=== PATIENT | female | born 1950 | race Caucasian/White ===

== ENCOUNTER 2017-05-26 08:13 | Day surgery (SDC) | payer OTHER ==
[~2017-05-26] VITALS: Ht 152.4 cm; Wt 72.2 kg
[2017-05-26] VITALS (15 sets, daily range): BP systolic 103–156; BP diastolic 50–84; PULSE 64–77; TEMP 36.3–36.8; O2SAT 91–100; Ht 152.4 cm; Wt 72.2 kg
[2017-05-26] MEDS ORDERED: LIDOCAINE HCL 2% LOCAL 50ML VIAL INFIL ONE (08:14)
[2017-05-26] MEDS ORDERED: FENTANYL CITRATE 100 MCG 2 ML CARP IV ONE (08:14)
[2017-05-26] MEDS ORDERED: LEVALBUTEROL 1.25MG/3ML NEB INH ONE (08:14)
[2017-05-26] MEDS ORDERED: MIDAZOLAM HCL 5 MG/ML 1 ML VIAL IV ONE (08:14)
[2017-05-26] MEDS ORDERED: LATA0.009 OP (08:36)
[2017-05-26] MEDS ORDERED: LISI-729 PO (08:36)
[2017-05-26] MEDS ORDERED: HMLI7525 SC (08:36)
[2017-05-26] MEDS ORDERED: LEVO150T9 PO (08:36)
[2017-05-26] MEDS ORDERED: MIRT15TA2 PO (08:36)
[2017-05-26] MEDS ORDERED: CARV12.5 PO (08:36)
[2017-05-26] MEDS ORDERED: INSDGI SC (08:36)
[2017-05-26] MEDS ORDERED: TOPI25TA99 PO (08:36)
[2017-05-26] MEDS ORDERED: ATOR10TA82 PO (08:36)
[2017-05-26] MEDS ORDERED: CLOP1TAB15 PO (08:36)
[2017-05-26] MEDS ORDERED: ASPI81TA28 PO (08:36)
--- NOTE | 2017-05-26 09:36 | Procedure Note ---
Pre-Mod Sedation Assessment General Date of Moderate Sedation: May 26, 2017. Vital Signs: Vital Signs Past 12 Hours Date Time Temp Pulse Resp B/P (MAP) Pulse Ox O2 Delivery O2 Flow Rate FiO2 05/26/17 08:38 36.5 68 18 136/63 (87) 93 Room Air Pre-Sedation Airway Assessment Oral Cavity: WNL Hx of Sleep Apnea: Yes Smoking Status: Former Smoker Mallampati Classification: Class II ASA Classification: Class II Procedure Planning Contraindications-for Mod Sed: None Yes Notes The planned sedation has been discussed with the patient and consent obtained. I have identified the patient, determined the appropriateness of sedation and have assessed the patient immediately prior to the procedure. All medicine(s) and interventions are by my order.
--- NOTE | 2017-05-26 09:36 | History & Physical Bridge Note ---
H&P Re-Evaluation Bridge Note: I have examined the patient, reviewed the History & Physical and in the interval since the performance of the History & Physical I have noted the following changes of clinical significance: No changes noted
[2017-05-26] MEDS ORDERED: NURSING VERBAL MED ORDER ONE (10:30)
[2017-05-26] MEDS ORDERED: MIDAZOLAM HCL 5 MG/ML 1 ML VIAL IV SCH (10:45)
[2017-05-26] MEDS ORDERED: LEVALBUTEROL 1.25MG/3ML NEB INH SCH (10:45)
[2017-05-26] MEDS ORDERED: FENTANYL CITRATE INJ 50 MCG/1 ML 2 ML VIAL IV SCH (10:45)
[2017-05-26] MEDS ORDERED: SODIUM CHLORIDE 0.9% 1000ML 1,000 ML IV SCH (10:45)
--- NOTE | 2017-05-26 11:23 | Discharge Instructions ---
Discharge Instructions Date of Service May 26, 2017. Admission Reason for Admission: Hemoptisis Discharge Discharge Diagnosis / Problem: Chronic Bronchitis Discharge Goals Goal(s): Diagnostic testing, Therapeutic intervention Activity Recommendations Activity Limitations: resume your previous activity Lifting Limitations: none Exercise/Sports Limitations: none May Resume Sexual Activity: when tolerated Shower/Bathe: no limitations Driving or Machine Use: no limitations None . Current Hospital Diet Patient's current hospital diet: Discharge Diet Recommended Diet: Regular Diet Fluid Restriction: None Pending Studies Studies pending at discharge: no Medical Emergencies . Who to Call and When: Medical Emergencies: If at any time you feel your situation is an emergency, please call 911 immediately. . Non-Emergent Contact Non-Emergency issues call your: Interface Engineer Call Non-Emergent contact if: temperature is above 101 ACTIVITY RECOMMENDATIONS: * Rest today, resume normal activity tomorrow. * Do not drive today. SPECIAL CARE INSTRUCTIONS: * Call your physician if you experience any chest or shoulder pain, fever, coughing, spitting up blood (more than 2 teaspoons) or excessive shortness of breath. * Remove dressing from IV site (where needle was placed into the vein) after 2 hours. Apply a warm, moist compress to site if irritation occurs. Call physician if site becomes red or painful to touch. FOLLOW UP VISIT: * Keep any scheduled doctor appointments. . . "Provider Documentation" section prepared by Rasheed Garvey. . VTE Core Measure Inpt VTE Proph given/why not?: Treatment not indicated
[2017-05-26 13:27] LABS: BASO % 0.2 %; BASO ABS # 0.02 K/uL (0-0.2); EOS % 3.3 %; HEMATOCRIT 41.9 % (37-47); IG% 0.1 %; LYMPH % 38.1 %; LYMPH ABS # 3.12 K/uL (1.2-3.4); MEAN CELL VOLUME 97.2 fL (80-100); MEAN CORPUSCULAR HEMOGLOBIN 33.2 pg (25-34); MEAN PLATELET VOLUME 10.8 fL (7.4-10.4); MONO % 7.1 %; NEUT % 51.2 %; PLATELET COUNT 138 K/uL (130-400); RED BLOOD COUNT 4.31 M/uL (4.2-5.4); WHITE BLOOD COUNT 8.19 K/uL (4.8-10.8)
[2017-05-26 13:36] LABS: PROTHROMBIN TIME (PATIENT) 10.4 SECONDS (9.0-12.0)
[2017-05-26 13:38] LABS: COMPLETE YES; MEAN CORPUSCULAR HGB CONC 34.1 g/dl (32-36)
[2017-05-26 13:56] LABS: ALB/GLOB RATIO 0.8 (0.9-2); BUN/CREATININE RATIO 20.9 (10-20); CALCIUM 8.8 mg/dl (8.5-10.1); CREATININE 1.18 mg/dl (0.60-1.20); POTASSIUM 3.9 mmol/L (3.5-5.1)
--- NOTE | 2017-05-26 16:30 | OPERATIVE REPORT ---
DATE OF OPERATION: 05/26/2017 PROCEDURE: Fiberoptic bronchoscopy with bronchoalveolar lavage. INDICATIONS: Hemoptysis. ANESTHESIA PREOPERATIVELY: None. ANESTHESIA DURING PROCEDURE: 15 mcg IV fentanyl, 4 mg IV Versed, 20 mL 2% Xylocaine spray above and below the cords, 4% viscous Xylocaine intranasally. DESCRIPTION OF PROCEDURE: The fiberoptic bronchoscope was inserted into the right naris with minimal difficulty and passed to the level of the true vocal cords. The cords appeared to approximate normally with phonation without evidence of lesions or paralysis. The area was anesthetized with 2% Xylocaine spray and the scope was then introduced in the trachea and right and left tracheobronchial tree. Immediately apparent were petechiae seen involving the mucosa of the trachea and right and left tracheobronchial tree. There was no evidence for active bleeding encountered. The serena was sharp. The right main stem bronchus was free of endobronchial lesions. A small amount of mucopurulent secretion was lavaged from all lobar segments until clear. Mucus pitting with bronchial crypts and clefts were seen throughout the right tracheobronchial tree. Right upper lobe, the apical posterior, anterior segments, bronchus intermedius, right middle lobe, medial lateral segments and all basilar segments right lower lobe were found to be free of endobronchial lesions. Once again no active bleeding was encountered. A moderate degree of global inflammatory mucosal change was seen with sporadic petechiae involving the mucosa left tracheobronchial tree was then explored and no endobronchial lesions seen. Left upper lobe, lingular subdivision and left lower lobe were free of endobronchial lesions down to subsegmental bronchi. Each lobar segment was copiously lavaged with normosol and the aspirate sent for appropriate studies. The procedure was terminated. The patient was given a nebulizer treatment with Xopenex 1.25 mg and transferred to the medical treatment unit hemodynamically stable with no signs of respiratory compromise. While being recovery, the patient demonstrated some mild petechiae involving the right forearm and wrist area. Routine labs including platelet count and coagulation profile were once again found to be within normal limits. The patient was hemodynamically stable with no signs of cardiopulmonary compromise and was just discharged to be followed up in the clinic within 1 week's time. We will await microbiological and cytologic examination of the bronchial washings. I attest to the content of the Intraoperative Record and any orders documented therein. Any exception s are noted below.
== END 2017-05-26 14:21 | disposition home or self-care (01) ==
LOC: C.ACU 08:13
PROVIDERS: ATTEND Internal Medicine Pulmonary Disease
DX: R04.2 Hemoptysis (principal); J44.9 Chronic obstructive pulmonary disease, unspecified; Z87.891 Personal history of nicotine dependence; Z79.82 Long term (current) use of aspirin; Z79.899 Other long term (current) drug therapy

== ENCOUNTER 2017-07-26 08:36 | Emergency (ER) | payer OTHER ==
[~2017-07-26] VITALS: Ht 152.4 cm; Wt 71.5 kg
[~2017-07-26 08:36] MED LIST: ASPI81TA28 PO; ATOR10TA82 PO; CARV12.5 PO; CLOP1TAB15 PO; HMLI7525 SC; INSDGI SC; LATA0.009 OPB; LEVO150T9 PO; LISI-729 PO; MIRT15TA2 PO; TOPI25TA99 PO
[2017-07-26 08:39] VITALS: TEMP 36.4; Ht 152.4 cm; Wt 71.5 kg
[2017-07-26] MEDS ORDERED: KETOROLAC TROMETHAMINE 60 MG/2 ML VIAL IM STA (08:57)
--- NOTE | 2017-07-26 09:08 | EMERGENCY ROOM VISIT NOTE ---
History First contact with patient: 08:44 Chief Complaint: COUGH Stated Complaint: COUGHING UP BLOOD BACK PAIN Nursing Triage Summary: pt reports coughing up blood for approx 1 month. more often now has pain in right side when coughs or sneezes. also reports having difficulty with blood sugar levels History of Present Illness The patient is a 66 year old female who presents to the Emergency Room with complaints of right-sided chest wall pain. The patient states she has a chronic cough, and for the past month has been coughing up blood. She does have a history of a pulmonary nodule, and is seeing Dr. Hidalgo for the hemoptysis. She did have a bronchoscopy performed and continues to follow up with him. The patient is here today for right-sided chest wall and back pain associated with her cough and sneezing. The patient states she has a constant, achy pain in the right side of her chest wall, which becomes sharp when she coughs or sneezes. The patient has taken no medication for the discomfort. She states the pain has been ongoing for the past 1 month. It was initially more intermittent, however now seems to be more constant. She does have pain with palpation. Her cough and breathing are baseline for her. The patient states she was recently ill with some nausea and vomiting. She denies any recent respiratory or upper respiratory infection symptoms. Has been no bruising or injury to the right chest wall. The patient denies any chest pressure or squeezing. She denies any paresthesias. There has been no weakness. The patient rates the pain 8/10. Review of Systems A complete 10 point review of systems was reviewed with the patient with pertinent positives and negatives as per history of present illness. All else were negative. Past Medical/Surgical History Medical Problems: (1) Chronic bronchitis (2) Diabetes (3) Heart disease (4) Hemoptysis (5) Hypothyroidism (6) Pulmonary nodule Chronic bronchitis, pulmonary nodule, diabetes mellitus, heart disease, hypothyroidism Social History Smoking Status: Never Smoker Smokeless Tobacco Use: No Alcohol Use: none Drug Use: none Housing Status: lives with family Current/Historical Medications Scheduled Atorvastatin (Lipitor), 10 MG PO DAILY Carvedilol (Coreg), 25 MG PO BID Ferrous Sulfate (Kp Ferrous Sulfate), 1 TAB PO BID Insulin Glargine (Lantus), 50 UNITS SC DAILY Insulin Lispro 75/25 (Humalog Mix 75/25), 15 UNITS SC WM Latanoprost (Xalatan 0.005% Oph Kenia), 1 DROPS OP HS Levothyroxine Sodium (Levothyroxine Sodium), 1 TAB PO DAILY Naproxen (Naprosyn), 500 MG PO BID Timolol Maleate (Timolol 0.5% Oph Soln 15 Ml), 1 DROP OPB QAM Topiramate (Topamax ), 50 MG PO HS Trazodone Hcl (Trazodone), 50 MG PO HS Allergies None Physical Exam Vital Signs Date Time Temp Pulse Resp B/P (MAP) Pulse Ox O2 Delivery O2 Flow Rate FiO2 07/26/17 09:58 67 16 144/82 98 07/26/17 08:39 36.4 73 18 152/86 96 Room Air Physical Exam VITALS: Vitals are noted on the nurse's note and reviewed by myself. Vital signs stable. GENERAL: This is a 66-year-old white female, in no acute distress, nondiaphoretic, well-developed well-nourished. SKIN: The skin was without rashes, erythema, edema, or bruising. There is no tenting of the skin. Capillary reflex less than 2 seconds. HEAD: Normocephalic atraumatic. EARS: External auditory canals clear, tympanic membranes pearly vincent without erythema or effusion bilaterally. EYES: Pupils equal round and reactive to light and accommodation. Conjunctivae without injection, sclerae without icterus. Extraocular movements intact. NOSE: Patent, turbinates without inflammation or discharge. No sinus tenderness. MOUTH: Mucous membranes moist. Tonsils are not enlarged. Pharynx without erythema or exudate. Uvula midline. Airway patent. Tongue does not deviate. NECK: Supple without nuchal rigidity. No lymphadenopathy. No thyromegaly. Cervical spine is nontender. No JVD. HEART: Regular rate and rhythm without murmurs gallops or rubs. LUNGS: Clear to auscultation bilaterally without wheezes, rales or rhonchi. No dullness to percussion. No retractions or accessory muscle use. ABDOMEN: Positive bowel sounds x 4. Normal tympanic percussion. Soft, nontender, without masses or organomegaly. Hernandez sign negative. No guarding or rebound tenderness. MUSCULOSKELETAL: There is severe tenderness on palpation of the right chest wall and back. The patient states this is where she is experiencing the discomfort when she coughs. No muscle atrophy, erythema, or edema noted. Full range of motion without joint tenderness in all extremities. No other tenderness to palpation. Normal gait. Strength 5/5 throughout. NEURO: Patient was alert and oriented to person place and time. Normal sensation to light and sharp touch. Deep tendon reflexes 2+ throughout. No focal neurological deficits. Medical Decision & Procedures ER Provider Diagnostic Interpretation: R RIBS UNILATERAL WITH PA CHEST CLINICAL HISTORY: 66 years-old Female presenting with right chest wall pain. TECHNIQUE: Frontal and oblique views of the right ribs as well as PA view of the chest were obtained. COMPARISON: None. FINDINGS: Cardiomediastinal silhouette normal. Mildly low lung volumes with hypoventilatory changes. Prominence of the bilateral viola. No focal infiltrate. No large effusion or pneumothorax. Cholecystectomy clips noted. Degenerative changes of the spine. No displaced right rib fracture. IMPRESSION: 1. No displaced right rib fracture. 2. Prominence of the bilateral viola. This could be vascular in etiology, secondary to mildly low lung volumes, or represent lymphadenopathy. Electronically signed by: Sarabjit Heck M.D. 07/26/2017 9:33 AM Dictated Date/Time: 07/26/2017 9:31 AM Medications Administered Medications (Trade) Dose Ordered Sig/Corie Route Start Time Stop Time Status Last Admin Dose Admin Ketorolac Tromethamine (Toradol Inj) 60 mg NOW STAT IM 07/26/17 08:57 07/26/17 09:00 DC 07/26/17 09:36 60 MG Medical Decision The patient presented today complaining of right-sided chest wall pain. She states she does have a history of coughing up blood, and this is being addressed. The patient denies any new chest pressure, difficulty breathing, or other associated symptoms. She was given Toradol in the emergency department and did note improvement in her symptoms. Chest x-ray with right rib detail was performed and did not show any acute rib fractures. I suspect the patient is suffering from costochondritis due to her recent increasing coughing. The patient was encouraged to take anti-inflammatory medications to help with the symptoms. I did offer her narcotics, and the patient declines. She was encouraged to follow up with her PCP. The patient was in agreement with the assessment and plan. Discharge instructions reviewed, and the patient was discharged home in good condition. Differential diagnosis includes chest wall pain, costochondritis, ACS, pneumonia , acute or chronic bronchitis, upper respiratory infection, contusion, rib fracture, malignancy, and others Medication Reconcilliation Current Medication List: was personally reviewed by me Blood Pressure Screening Patient's blood pressure: Normal blood pressure Impression Primary Impression: Costochondritis, acute Departure Information Dispostion Home / Self-Care Condition GOOD Prescriptions Naproxen (Naprosyn) 500 Mg Tab 500 MG PO BID, #60 TAB Prov: Jolene Parker PA-C 07/26/17 Referrals Rasheed Garvey M.D. (PCP) Patient Instructions ED Chest Pain Costochondritis, My [facility] Additional Instructions You were seen in the emergency department today for chest wall pain on the right side. I do feel that this is consistent with costochondritis, an inflammatory condition associated with coughing. As discussed, the treatment for this diagnosis is anti-inflammatory medications. You have been prescribed Naproxen 500mg twice daily. Take this medication consistently for the next 7-14 days to help with inflammation and pain. Discontinue this medication if you get placed on steroids by your PCP. Do not take any other NSAIDs including Advil, Motrin, ibuprofen, Aleve, naprosyn while taking Naproxen. You may use Tylenol for breakthrough pain while taking Naproxen. Acetaminophen( Tylenol) may be used pain. Use 1000mg every six hours as needed. Avoid using more than 3000mg in a 24 hour period. Continue to follow-up with Dr. Garvey regarding the coughing up blood. Follow-up with your PCP in 1 week regarding the chest wall pain, especially if you are not experiencing improvement in symptoms. Return to the ED for worsening chest pain or pressure, difficulty breathing, worsening cough or coughing up blood, or other concerning symptoms.
[2017-07-26] MEDS ORDERED: CARV25TA2 PO (09:14)
[2017-07-26] MEDS ORDERED: FERR1TAB13 PO (09:14)
[2017-07-26] MEDS ORDERED: TMPOPS15 OPB (09:14)
[2017-07-26] MEDS ORDERED: TRAZ50TA35 PO (09:14)
--- NOTE | 2017-07-26 09:34 | DIAGNOSTIC IMAGING REPORT ---
R RIBS UNILATERAL WITH PA CHEST CLINICAL HISTORY: 66 years-old Female presenting with right chest wall pain. TECHNIQUE: Frontal and oblique views of the right ribs as well as PA view of the chest were obtained. COMPARISON: None. FINDINGS: Cardiomediastinal silhouette normal. Mildly low lung volumes with hypoventilatory changes. Prominence of the bilateral viola. No focal infiltrate. No large effusion or pneumothorax. Cholecystectomy clips noted. Degenerative changes of the spine. No displaced right rib fracture. IMPRESSION: 1. No displaced right rib fracture. 2. Prominence of the bilateral viola. This could be vascular in etiology, secondary to mildly low lung volumes, or represent lymphadenopathy. Electronically signed by: Sarabjit Heck M.D. 07/26/2017 9:33 AM Dictated Date/Time: 07/26/2017 9:31 AM
[2017-07-26] MEDS ORDERED: NAPR-22 PO (09:52)
[2017-07-26 09:58] VITALS: BP 144/82; PULSE 67; O2SAT 98
[2018-02-22] MEDS ORDERED: LATA0.5S OPB (08:05)
[2018-02-22] MEDS ORDERED: PANT40TA PO (08:05)
[2018-02-22] MEDS ORDERED: FERR1TAB13 PO (08:05)
[2018-02-22] MEDS ORDERED: INSDGI SC (08:05)
[2018-02-22] MEDS ORDERED: POTA-639 PO (08:05)
[2018-02-22] MEDS ORDERED: INSU100I SC (08:05)
[2018-02-22] MEDS ORDERED: TIMO4SOL2 OPB (08:05)
[2018-03-19] MEDS ORDERED: CYCL0.052 OP (10:56)
[2018-03-19] MEDS ORDERED: NTRGSL/4 UT (10:56)
[2018-03-19] MEDS ORDERED: POLY335019 PO (10:56)
== END 2017-07-26 09:58 | disposition home or self-care (01) ==
LOC: C.EDB 08:39 → C.EDA 09:58
DX: M94.0 Chondrocostal junction syndrome [Tietze] (principal); R04.2 Hemoptysis; R91.8 Other nonspecific abnormal finding of lung field; J42 Unspecified chronic bronchitis; E11.9 Type 2 diabetes mellitus without complications; E03.9 Hypothyroidism, unspecified; Z79.4 Long term (current) use of insulin

== ENCOUNTER → 2017-08-16 | Outpatient (CLI) | payer OTHER ==
[~2017-08-16] MED LIST changes: -ASPI81TA28 PO; -CARV12.5 PO; +CARV25TA2 PO; -CLOP1TAB15 PO; +FERR1TAB13 PO; +LATA0.009 OP; -LATA0.009 OPB; -LISI-729 PO; -MIRT15TA2 PO; +NAPR-1169 PO; +TMPOPS15 OPB; +TRAZ50TA35 PO
--- NOTE | 2017-08-16 13:36 | DIAGNOSTIC IMAGING REPORT ---
PET/CT CLINICAL HISTORY: Pulmonary nodule. TECHNIQUE: A PET/CT was performed from the skull base through the upper thighs following intravenous injection of 11.70 mCi of F 18 FDG IV. The injection was performed at 10:34 AM on August 16, 2017 and imaging began at 11:40 AM on August 16, 2017. Unenhanced CT was performed for attenuation correction purposes and anatomic localization. COMPARISON STUDY: Chest radiograph and right rib series July 26, 2017. FINDINGS: Head and neck: A nonenlarged right level 6 lymph node shown on image 33 measures 7 mm in size. This has mild FDG uptake with an SUV max of 3.5. No pathologically enlarged cervical lymph nodes are noted. Chest: There are multiple mildly enlarged moderately FDG avid mediastinal and bilateral hilar lymph nodes. Several lymph nodes are partially calcified. Index right paratracheal lymph node shown on image 51 measures 1.8 x 1.1 cm and has an SUV max of 6.5. A subcarinal lymph node measures 1.5 cm in short axis diameter and has an SUV max of 4.4. The hilar nodes are difficult to measure on this unenhanced exam. SUV max for the right hilar nodes is 5.9. SUV max for the left hilar nodes is 5.8. The heart is mildly enlarged. There is a 7 mm partially calcified subpleural right middle lobe nodule shown image 77 and a 6 mm partially calcified subpleural right lower lobe nodule shown image 78. These nodules do not have significant FDG uptake but are likely below size threshold for evaluation by PET imaging. Abdomen and Pelvis: No suspicious FDG uptake is identified within the abdomen or the pelvis. There is fissural widening of the liver with enlargement of the caudate lobe and lateral segment indicative of cirrhosis. The gallbladder is surgically absent. There is no abdominal or pelvic lymphadenopathy. Musculoskeletal: No suspicious skeletal uptake is identified. IMPRESSION: 1. Multiple mildly enlarged moderately FDG avid mediastinal and bilateral hilar lymph nodes with several partially calcified thoracic lymph nodes. The imaging findings are nonspecific but favor a granulomatous process such as sarcoidosis or silicosis. The appearance is not typical for an neoplastic process. However, a follow-up chest CT in 6 months to ensure stability is recommended. 2. A few small partially calcified subpleural nodules within the right lung which are likely benign but can be assessed on follow-up chest CT. 3. Cirrhosis. 4. Nonenlarged, mildly FDG avid right level 6 cervical lymph node, a nonspecific finding. Electronically signed by: Guerrero Wise M.D. 08/16/2017 1:35 PM Dictated Date/Time: 08/16/2017 1:00 PM
== END | disposition home or self-care (01) ==
LOC: C.PET 09:24
PROVIDERS: ATTEND Internal Medicine Pulmonary Disease
DX: R91.1 Solitary pulmonary nodule (principal); K74.60 Unspecified cirrhosis of liver

== ENCOUNTER 2017-09-13 08:22 | Emergency (ER) | payer OTHER ==
[~2017-09-13] VITALS: Ht 152.4 cm; Wt 69.6 kg
[~2017-09-13 08:22] MED LIST changes: -LATA0.009 OP; +LATA0.009 OPB
[2017-09-13 08:24] VITALS: TEMP 36.8; Ht 152.4 cm; Wt 69.6 kg
[2017-09-13] MEDS ORDERED: POTASSIUM CHLORIDE 20 MEQ/15 ML UDC PO STA (08:54)
[2017-09-13] MEDS ORDERED: SODIUM CHLORIDE 0.9% 500ML 500 ML IV STA (08:54)
--- NOTE | 2017-09-13 08:57 | EMERGENCY ROOM VISIT NOTE ---
History Report prepared by Mirtha: Shaheen Teresa Under the Supervision of: Dr. Usman Gallagher M.D. First contact with patient: 08:34 Chief Complaint: CARDIAC ASSESSMENT Stated Complaint: PAIN RIGHT SIDE,NUMBNESS RIGHT ARM AND HAND, Nursing Triage Summary: Pt reports she has been coughing up blood for months, sees Dr Garvey. For weeks her right arm and hand are numb constantly. Patient states "I have a pain in the right chest. It feels like I'm having a heart attack but it's on the right side of my chest. Pain has been there a few months." Underarm lymph nodes are swollen per PET scan a month ago. "I just feel really crappy and I want to know what's going on" Took BP meds last night. History of Present Illness The patient is a 66 year old female who presents to the Emergency Room with complaints of intermittent right sided chest pain that she states has been present for the past several months. She notes that she has been having numbness radiating down her right arm into her right hand for the past several months as well. The patient did have a myocardial infarction in the past, but states that her pain during this episode was on the left. She has been told that she has enlarged Lymph Nodes on the right. The patient continued to add that she has been coughing up blood for the past several months. She has a significant family history of cancer, and is concerned that she has developed the same. 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 A total of 10 systems reviewed and were otherwise negative. Past Medical & Surgical Medical Problems: (1) Chronic bronchitis (2) Diabetes (3) Heart disease (4) Hemoptysis (5) Hypothyroidism (6) Pulmonary nodule Family History Cancer Social History Smoking Status: Former Smoker Alcohol Use: none Drug Use: none Housing Status: lives with family Current/Historical Medications Scheduled Atorvastatin (Lipitor), 10 MG PO DAILY Carvedilol (Coreg), 25 MG PO BID Ferrous Sulfate (Kp Ferrous Sulfate), 1 TAB PO BID Furosemide (Lasix), 40 MG PO DAILY Insulin Glargine (Lantus), 50 UNITS SC DAILY Insulin Lispro 75/25 (Humalog Mix 75/25), 15 UNITS SC WM Latanoprost (Xalatan 0.005% Oph Kenia), 1 DROPS OPB AMPM Levothyroxine Sodium (Levothyroxine Sodium), 1 TAB PO DAILY Topiramate (Topamax ), 50 MG PO HS Trazodone Hcl (Trazodone), 50 MG PO HS Allergies Coded Allergies: No Known Allergies (Unverified , 09/13/17) Physical Exam Vital Signs Date Time Temp Pulse Resp B/P (MAP) Pulse Ox O2 Delivery O2 Flow Rate FiO2 09/13/17 13:00 89 18 133/74 96 09/13/17 11:43 88 18 133/74 96 Room Air 09/13/17 09:13 76 09/13/17 09:10 85 18 128/71 98 Room Air 09/13/17 09:09 97 Room Air 09/13/17 08:29 95 Room Air 09/13/17 08:24 36.8 92 16 165/110 98 Room Air Physical Exam GENERAL: Patient is a healthy-appearing well-nourished female HEAD: Normocephalic atraumatic EYES: Ocular movements intact pupils equal and react to light OROPHARYNX mucous membranes are moist no exudates present no erythema or edema present NECK: Supple no nuchal rigidity CHEST: Good equal expansion LUNGS: Clear and equal to auscultation CARDIAC: Normal S1 and S2 ABDOMEN: Soft. With point tenderness to the 10th rib area on the right. no guarding BACK: No CVA tenderness EXTREMITIES: No pain upon palpation normal muscle strength in all groups no clubbing cyanosis or edema NEURO: Patient is following commands and answering questions appropriately. Alert and oriented x3 Cranial Nerves 2-12 grossly intact Medical Decision & Procedures ER Provider Diagnostic Interpretation: Radiology results as stated below per my review and radiologist interpretation: RIGHT UPPER EXTREMITY VENOUS DOPPLER HISTORY: Pt c/o Rt arm pain COMPARISON STUDY: None. FINDINGS: The right internal jugular vein is patent. There is normal flow within the right subclavian vein. There is normal flow and compressibility within the right axillary, basilic, brachial, radial, ulnar, and visualized cephalic veins. IMPRESSION: No DVT within the right upper extremity. Electronically signed by: Michael Jones M.D. 09/13/2017 11:17 AM Dictated Date/Time: 09/13/2017 11:17 AM CHEST ONE VIEW PORTABLE HISTORY: Atypical CHEST PAIN COMPARISON: Head CT 08/16/2017. FINDINGS: Mild interstitial thickening is likely chronic. No focal lung consolidations to suggest pneumonia. The heart is normal in size. No pleural effusions. No pneumothorax. Mild bilateral hilar prominence likely corresponds to the patient's lymphadenopathy. No evidence for pulmonary edema. IMPRESSION: No significant change compared to the prior study. No acute process. Electronically signed by: Michael Jones M.D. 09/13/2017 9:07 AM Dictated Date/Time: 09/13/2017 9:05 AM (CHEST FOR PE) ANGIO WITH CT DOSE: 416.72 mGy.cm HISTORY: 66 years-old Female presents with acute right-sided chest pain TECHNIQUE: Multiple CTA images of the chest were obtained after the intravenous administration of 75 ml Optiray 320. Coronal and sagittal MIPS were obtained from the axial data set and were submitted for review. A dose lowering technique was utilized adhering to the principles of ALARA. COMPARISON: Chest radiograph 09/13/2017, PET CT 08/16/2017, CT chest 05/24/2017. FINDINGS: CTA: Heart is normal in size without pericardial effusion. Bovine aortic arch is noted with mild mixed plaquing. The imaged great vessels are patent. No aortic dissection or aneurysm. The pulmonary arterial tree is opacified to level of the proximal subsegmental branches and demonstrates no focal filling defects to suggest pulmonary thromboembolic disease. CT CHEST: No dominant thyroid nodule. Pathologically enlarged mediastinal and bilateral hilar adenopathy redemonstrated. Conglomerate subcarinal adenopathy is again seen measuring up to 2.3 x 1.2 cm which appears unchanged. Right hilar lymph nodes are seen measuring up to 1.4 x 1.2 cm. Multiple mediastinal and subcarinal lymph nodes demonstrate areas of central calcification. Unchanged 7 x 5 mm right level 6 lymph node is seen on image 195 series 4. No axillary adenopathy. There is no pleural effusion or pneumothorax identified. Mild bilateral bronchial wall thickening suggests bronchitis. 5 mm solid nodule right lower lobe on image 60 series 4 is unchanged. Pleural-based 7 mm nodule of the right middle lobe on image 48 series 4 is also unchanged with minimal central calcification. No new or enlarging pulmonary nodules identified. Mild dependent subsegmental bibasilar atelectasis. Additional patchy ground glass opacities of the bilateral lungs are seen which also suggests atelectasis with areas of mild chronic subpleural reticulation suggesting areas of scarring. No lobar airspace consolidation. No acute abnormality of the imaged upper abdomen. Cirrhotic morphology of the liver redemonstrated. Bones appear intact. Multilevel endplate spurring of the spine. IMPRESSION: 1. No acute aortic pathology or evidence of pulmonary thromboembolic disease. 2. Mild bilateral bronchial wall thickening suggests bronchitis. 3. Unchanged enlarged mediastinal and bilateral hilar adenopathy with multiple lymph node calcifications again suggesting sequela of granulomatous disease. 4. Stable solid pulmonary nodules of the right lung base measuring up to 7 mm as above. The above report was generated using voice recognition software. It may contain grammatical, syntax or spelling errors. Electronically signed by: Kashmir Noel M.D. 09/13/2017 9:47 AM Dictated Date/Time: 09/13/2017 9:35 AM Laboratory Results 09/13/17 08:40 Red Blood Count 4.71, Mean Corpuscular Volume 97.2, Mean Corpuscular Hemoglobin 33.3, Mean Corpuscular Hemoglobin Concent 34.3, Mean Platelet Volume 10.7, Neutrophils (%) (Auto) 46.5, Lymphocytes (%) (Auto) 44.6, Monocytes (%) (Auto) 6.3, Eosinophils (%) (Auto) 2.0, Basophils (%) (Auto) 0.4, Neutrophils # (Auto) 5.84, Lymphocytes # (Auto) 5.60, Monocytes # (Auto) 0.79, Eosinophils # (Auto) 0.25, Basophils # (Auto) 0.05 09/13/17 08:40 Test 09/13/17 08:40 09/13/17 08:52 White Blood Count 12.56 K/uL (4.8-10.8) Red Blood Count 4.71 M/uL (4.2-5.4) Hemoglobin 15.7 g/dL (12.0-16.0) Hematocrit 45.8 % (37-47) Mean Corpuscular Volume 97.2 fL (80-100) Mean Corpuscular Hemoglobin 33.3 pg (25-34) Mean Corpuscular Hemoglobin Concent 34.3 g/dl (32-36) Platelet Count 164 K/uL (130-400) Mean Platelet Volume 10.7 fL (7.4-10.4) Neutrophils (%) (Auto) 46.5 % Lymphocytes (%) (Auto) 44.6 % Monocytes (%) (Auto) 6.3 % Eosinophils (%) (Auto) 2.0 % Basophils (%) (Auto) 0.4 % Neutrophils # (Auto) 5.84 K/uL (1.4-6.5) Lymphocytes # (Auto) 5.60 K/uL (1.2-3.4) Monocytes # (Auto) 0.79 K/uL (0.11-0.59) Eosinophils # (Auto) 0.25 K/uL (0-0.5) Basophils # (Auto) 0.05 K/uL (0-0.2) RDW Standard Deviation 43.9 fL (36.4-46.3) RDW Coefficient of Variation 12.4 % (11.5-14.5) Immature Granulocyte % (Auto) 0.2 % Immature Granulocyte # (Auto) 0.03 K/uL (0.00-0.02) Stomatocytes 1+ Est Creatinine Clear Calc Drug Dose 35.3 ml/min Estimated GFR () 45.9 Estimated GFR (Non- 39.6 BUN/Creatinine Ratio 16.2 (10-20) Calcium Level 9.4 mg/dl (8.5-10.1) Total Bilirubin 0.4 mg/dl (0.2-1) Direct Bilirubin mg/dl (0-0.2) Aspartate Amino Transf (AST/SGOT) U/L (15-37) Alanine Aminotransferase (ALT/SGPT) 43 U/L (12-78) Alkaline Phosphatase 100 U/L (45-117) Total Creatine Kinase U/L (26-192) Creatine Kinase MB 2.0 ng/ml (0.5-3.6) Creatine Kinase MB Ratio (0-3.0) Troponin I < 0.015 ng/ml (0-0.045) Total Protein 7.7 gm/dl (6.4-8.2) Albumin 3.4 gm/dl (3.4-5.0) Lipase 571 U/L (73-393) Bedside Hemoglobin 16.0 g/dl (12.0-16.0) Bedside Hematocrit 47 % (37-47) Bedside Sodium 141 mEq/L (135-144) Bedside Potassium 3.6 mEq/L (3.3-5.0) Bedside Chloride 98 mEq/L (101-112) Bedside Total CO2 32 mEq/l (24-31) Anion Gap 16.0 mmol/L (16-25) Bedside Blood Urea Nitrogen 27 mg/dl (7-18) Bedside Creatinine 1.2 mg/dl (0.6-1.3) Bedside Glucose (other) 244 mg/dl (70-99) Bedside Ionized Calcium (Mckinley) 1.10 mmol/l (1.12-1.32) Labs reviewed by ED physician. Medications Administered Medications (Trade) Dose Ordered Sig/Corie Route Start Time Stop Time Status Last Admin Dose Admin Sodium Chloride 500 ml @ 999 mls/hr Q31M STAT IV 09/13/17 08:54 09/13/17 09:24 DC 09/13/17 09:06 999 MLS/HR Potassium Chloride (Aleisha Ciel Elix) 40 meq NOW STAT PO 09/13/17 08:54 09/13/17 08:55 DC 09/13/17 09:06 40 MEQ Albuterol (Ventolin Hfa Inhaler) 2 puffs NOW STAT INH 09/13/17 12:26 09/13/17 12:27 DC 09/13/17 12:44 2 PUFFS ECG Indication: chest pain Rate (beats per minute): 78 Rhythm: normal sinus Findings: T-wave inversion (Lateral), other (no ST elevation or depression) Change: Patient's electrocardiogram per my interpretation. ED Course 0836: Past medical records reviewed. The patient was evaluated in room B8. A complete history and physical examination was performed. 0854: Ordered Potassium Chloride 40 meq PO, Sodium Chloride 500 mL @ 999 mL/hr IV. 0858: I discussed the case with Dr. Garvey - Pulmonology. He notes that he saw the patient in the clinic yesterday and is suffering for mediastinal lymphadenopathy 1226: Ordered Albuterol 2 puffs INH. 1236: Upon reexamination the patient is resting in bed. I discussed results and treatment plan with the patient. She verbalizes agreement and understanding. The patient is ready for discharge. 1244: Upon reexamination the patient is resting in bed. I discussed results and treatment plan with the patient. She verbalizes agreement and understanding. The patient is ready for discharge. Medical Decision Differential diagnosis: Etiologies such as cardiac ischemia, aortic dissection, pulmonary embolism, pneumonia, pneumothorax, musculoskeletal, infections, pericarditis, myocarditis , esophageal rupture, gastrointestinal, as well as others were entertained. This is a 66-year-old female who presents emergency department complaining of right-sided chest pain in addition to right arm numbness. Deep chest pain is reproducible on the patient appears to be tender around the right eighth rib area. In addition she has a normal EKG as well as cardiac fractions. She does have an elevation in her glucose. The patient was sent for CAT scan of the chest this revealed calcified nodes. The patient was given breathing treatments in the emergency department. She was sent for an ultrasound of the right upper extremity which did not show any acute process. I gave the patient the option of being admitted for chest pain rule out however she would like to go home and follow-up with her primary care physician. In the emergency department she was given a saline bolus. Her potassium was also repleted. Medication Reconcilliation Current Medication List: was personally reviewed by me Blood Pressure Screening Patient's blood pressure: Normal blood pressure Consults Time Called: 0850 Consulting Physician: Dr. Garvey - Pulmonology Returned Call: [phone] I discussed the case with Dr. Guru Jackman Pulmonology. He notes that he saw the patient in the clinic yesterday and is suffering for mediastinal lymphadenopathy Impression Primary Impression: Hemoptysis Scribe Attestation The scribe's documentation has been prepared under my direction and personally reviewed by me in its entirety. I confirm that the note above accurately reflects all work, treatment, procedures, and medical decision making performed by me. Departure Information Dispostion Home / Self-Care Referrals Stephanie Hess (PCP) Forms IMPORTANT VISIT INFORMATION Patient Instructions My [facility] Additional Instructions Use inhaler twice every 6 hours Follow up with Dr Dunn's office within one week No strenuous activity until follow up You have been examined and treated today on an emergency basis only. This is not a substitute for, or an effort to provide, complete comprehensive medical care. It is impossible to recognize and treat all injuries or illnesses in a single emergency department visit. It is therefore important that you follow up closely with Dr Hess. Call as soon as possible for an appointment. Thank you for your time and consideration. I look forward to speaking with you again soon. Please don't hesitate to call us if you have any questions.
[2017-09-13 09:03] LABS: HEMATOCRIT 45.8 % (37-47); HEMOGLOBIN 15.7 g/dL (12.0-16.0); MEAN CELL VOLUME 97.2 fL (80-100); MEAN CORPUSCULAR HEMOGLOBIN 33.3 pg (25-34); MEAN CORPUSCULAR HGB CONC 34.3 g/dl (32-36); MEAN PLATELET VOLUME 10.7 fL (7.4-10.4); PLATELET COUNT 164 K/uL (130-400); RED CELL DISTRIBUTION WIDTH CV 12.4 % (11.5-14.5); RED CELL DISTRIBUTION WIDTH SD 43.9 fL (36.4-46.3); WHITE BLOOD COUNT 12.56 K/uL (4.8-10.8)
[2017-09-13 09:05] LABS: ISTAT CREATININE 1.2 mg/dl (0.6-1.3); ISTAT IONIZED CALCIUM 1.1 mmol/l (1.12-1.32); ISTAT POTASSIUM 3.6 mEq/L (3.3-5.0)
[2017-09-13] MEDS ORDERED: FRS/40 PO (09:05)
--- NOTE | 2017-09-13 09:08 | DIAGNOSTIC IMAGING REPORT ---
CHEST ONE VIEW PORTABLE HISTORY: Atypical CHEST PAIN COMPARISON: Head CT 08/16/2017. FINDINGS: Mild interstitial thickening is likely chronic. No focal lung consolidations to suggest pneumonia. The heart is normal in size. No pleural effusions. No pneumothorax. Mild bilateral hilar prominence likely corresponds to the patient's lymphadenopathy. No evidence for pulmonary edema. IMPRESSION: No significant change compared to the prior study. No acute process. Electronically signed by: Michael Jones M.D. 09/13/2017 9:07 AM Dictated Date/Time: 09/13/2017 9:05 AM
[2017-09-13 09:09] VITALS: O2SAT 97
[2017-09-13 09:28] LABS: ALBUMIN 3.4 gm/dl (3.4-5.0); ALKALINE PHOSPHATASE 100 U/L (45-117); ALT/SGPT 43 U/L (12-78); BLOOD UREA NITROGEN 23 mg/dl (7-18); CALCIUM 9.4 mg/dl (8.5-10.1); CARBON DIOXIDE 29 mmol/L (21-32); GLUCOSE 233 mg/dl (70-99); LIPASE 571 U/L (73-393); SODIUM 138 mmol/L (136-145); TOTAL PROTEIN 7.7 gm/dl (6.4-8.2)
[2017-09-13] MEDS ORDERED: OPTIRAY 320 IV PRN (09:45)
--- NOTE | 2017-09-13 09:48 | DIAGNOSTIC IMAGING REPORT ---
(CHEST FOR PE) ANGIO WITH CT DOSE: 416.72 mGy.cm HISTORY: 66 years-old Female presents with acute right-sided chest pain TECHNIQUE: Multiple CTA images of the chest were obtained after the intravenous administration of 75 ml Optiray 320. Coronal and sagittal MIPS were obtained from the axial data set and were submitted for review. A dose lowering technique was utilized adhering to the principles of ALARA. COMPARISON: Chest radiograph 09/13/2017, PET CT 08/16/2017, CT chest 05/24/2017. FINDINGS: CTA: Heart is normal in size without pericardial effusion. Bovine aortic arch is noted with mild mixed plaquing. The imaged great vessels are patent. No aortic dissection or aneurysm. The pulmonary arterial tree is opacified to level of the proximal subsegmental branches and demonstrates no focal filling defects to suggest pulmonary thromboembolic disease. CT CHEST: No dominant thyroid nodule. Pathologically enlarged mediastinal and bilateral hilar adenopathy redemonstrated. Conglomerate subcarinal adenopathy is again seen measuring up to 2.3 x 1.2 cm which appears unchanged. Right hilar lymph nodes are seen measuring up to 1.4 x 1.2 cm. Multiple mediastinal and subcarinal lymph nodes demonstrate areas of central calcification. Unchanged 7 x 5 mm right level 6 lymph node is seen on image 195 series 4. No axillary adenopathy. There is no pleural effusion or pneumothorax identified. Mild bilateral bronchial wall thickening suggests bronchitis. 5 mm solid nodule right lower lobe on image 60 series 4 is unchanged. Pleural-based 7 mm nodule of the right middle lobe on image 48 series 4 is also unchanged with minimal central calcification. No new or enlarging pulmonary nodules identified. Mild dependent subsegmental bibasilar atelectasis. Additional patchy ground glass opacities of the bilateral lungs are seen which also suggests atelectasis with areas of mild chronic subpleural reticulation suggesting areas of scarring. No lobar airspace consolidation. No acute abnormality of the imaged upper abdomen. Cirrhotic morphology of the liver redemonstrated. Bones appear intact. Multilevel endplate spurring of the spine. IMPRESSION: 1. No acute aortic pathology or evidence of pulmonary thromboembolic disease. 2. Mild bilateral bronchial wall thickening suggests bronchitis. 3. Unchanged enlarged mediastinal and bilateral hilar adenopathy with multiple lymph node calcifications again suggesting sequela of granulomatous disease. 4. Stable solid pulmonary nodules of the right lung base measuring up to 7 mm as above. The above report was generated using voice recognition software. It may contain grammatical, syntax or spelling errors. Electronically signed by: Kashmir Noel M.D. 09/13/2017 9:47 AM Dictated Date/Time: 09/13/2017 9:35 AM
[2017-09-13 09:58] LABS: BASO % 0.4 %; BASO ABS # 0.05 K/uL (0-0.2); EOS ABS # 0.25 K/uL (0-0.5); IG# 0.03 K/uL (0.00-0.02); LYMPH % 44.6 %; MONO % 6.3 %; MONO ABS # 0.79 K/uL (0.11-0.59); NEUT % 46.5 %; NEUT ABS # 5.84 K/uL (1.4-6.5)
--- NOTE | 2017-09-13 11:19 | DIAGNOSTIC IMAGING REPORT ---
RIGHT UPPER EXTREMITY VENOUS DOPPLER HISTORY: Pt c/o Rt arm pain COMPARISON STUDY: None. FINDINGS: The right internal jugular vein is patent. There is normal flow within the right subclavian vein. There is normal flow and compressibility within the right axillary, basilic, brachial, radial, ulnar, and visualized cephalic veins. IMPRESSION: No DVT within the right upper extremity. Electronically signed by: Michael Jones M.D. 09/13/2017 11:17 AM Dictated Date/Time: 09/13/2017 11:17 AM
--- NOTE | 2017-09-13 11:26 | DIAGNOSTIC IMAGING REPORT ---
R ART DOP DUP UPPER EXT UNI HISTORY: 66 years-old Female Pt c/o Rt arm pain acute right arm pain COMPARISON: None available TECHNIQUE: Multiple real-time sonographic images of the right upper extremity arterial structures were obtained assessing grayscale appearance, color and spectral flow FINDINGS: Right arm blood pressure measured under 126/80. Left arm blood pressure was measured at 110/68. Biphasic and triphasic waveforms are noted about the right upper extremity arterial structures. No elevated peak systolic velocities identified to suggest high-grade stenosis. No arterial occlusion identified. IMPRESSION: Unremarkable exam without evidence of high-grade stenosis or arterial occlusion within the right upper extremity. The above report was generated using voice recognition software. It may contain grammatical, syntax or spelling errors. Electronically signed by: Kashmir Noel M.D. 09/13/2017 11:24 AM Dictated Date/Time: 09/13/2017 11:22 AM
[2017-09-13] MEDS ORDERED: ALBUTEROL HFA 8 GM INHALER INH STA (12:26)
[2017-09-13 13:00] VITALS: BP 133/74; PULSE 89; O2SAT 96
== END 2017-09-13 13:00 | disposition home or self-care (01) ==
LOC: C.EDB 08:23
DX: R04.2 Hemoptysis (principal); R59.1 Generalized enlarged lymph nodes; J42 Unspecified chronic bronchitis; E11.9 Type 2 diabetes mellitus without complications; E03.9 Hypothyroidism, unspecified; R91.1 Solitary pulmonary nodule; I25.2 Old myocardial infarction; Z79.4 Long term (current) use of insulin; Z87.891 Personal history of nicotine dependence

== ENCOUNTER 2018-02-06 06:20 | Observation (INO) | payer OTHER ==
[~2018-02-06] VITALS: Ht 152.4 cm; Wt 63.8 kg
[~2018-02-06 06:20] MED LIST changes: +FENTANYL CITRATE INJ 50 MCG/1 ML 2 ML VIAL ONE; +FRS/40 PO; -NAPR-1169 PO; -TMPOPS15 OPB
[2018-02-06] MEDS ORDERED: POTA-639 PO (06:42)
[2018-02-06] MEDS ORDERED: lantanoprost IO (06:48)
[2018-02-06] MEDS ORDERED: CYCL0.052 OP (06:49)
[2018-02-06 06:50] VITALS: BP 104/70; PULSE 84; TEMP 36.9; O2SAT 96; BMI 26.0
--- NOTE | 2018-02-06 07:09 | Pre Sedation Assessment ---
Pre Sedation Assessment General Date of Sedation: Feb 06, 2018. Vital Signs Past 12 Hours Date Time Temp Pulse Resp B/P (MAP) Pulse Ox O2 Delivery O2 Flow Rate FiO2 02/06/18 06:50 36.9 84 18 104/70 (81) 96 Room Air Pre-Sedation Airway Assessment Smoking Status: Former Smoker Hx of Sleep Apnea: Yes Short Thick Neck: No Oral Cavity: Chipped Teeth Mallampati Classification: Class II ASA Classification: Class II NPO Status Date of Last Intake of Fluids: Feb 05, 2018 Time of Last Intake of Fluids: 2099 Date of Last Intake of Solids: Feb 05, 2018 Time of Last Intake of Solids: 1999 Procedure Planning Contraindications for Sedation: None Current Medications Reviewed: Yes Notes The planned sedation has been discussed with the patient. Informed Consent was obtained. I have identified the patient, determined the appropriateness of sedation and have assessed the patient immediately prior to the procedure. All medicine(s) and interventions are by my order.
[2018-02-06 07:18] LABS: ALBUMIN 3.9 gm/dl (3.4-5.0); CALCIUM 9.5 mg/dl (8.5-10.1); CREATININE 1.44 mg/dl (0.60-1.20); POTASSIUM 3.4 mmol/L (3.5-5.1); TOTAL PROTEIN 8.6 gm/dl (6.4-8.2)
[2018-02-06] MEDS ORDERED: ACETAMINOPHEN 325 MG TAB PO PRN (08:30)
[2018-02-06] MEDS ORDERED: ONDANSETRON INJ 2 MG/ML 2 ML VIAL IV PRN (08:30)
[2018-02-06 09:13] VITALS: BP 112/66; PULSE 84; TEMP 36.9; O2SAT 93; Ht 152.4 cm; Wt 63.8 kg
[2018-02-06] MEDS ORDERED: IV FLUIDS COMPLETED PRN (09:15)
[2018-02-06] MEDS ORDERED: GLUCOSE 10 TABS/TUBE PO PRN (09:30)
[2018-02-06] MEDS ORDERED: GLUCAGON FOR INJ 1 MG VIAL IM PRN (09:30)
[2018-02-06] MEDS ORDERED: DEXTROSE 50% 50 ML SYR IV PRN (09:30)
[2018-02-06] MEDS ORDERED: GLUCOSE 40% GEL 15 GM TUBE PO PRN (09:30)
[2018-02-06] MEDS ORDERED: CARBOHYDRATES FOR HYPOGLYCEMIA PO PRN (09:30)
[2018-02-06] MEDS ORDERED: MAGNESIUM SULFATE 1GM / D5W 100 ML IV SCH (09:30)
[2018-02-06] MEDS: POTASSIUM CHLR 10 MEQ / WTR 100 ML IV SCH ×2 (09:56→11:00)
[2018-02-06] MEDS: ATORVASTATIN 10 MG TAB PO SCH (10:14)
[2018-02-06] MEDS: POTASSIUM CHLORIDE 20 MEQ TABCR PO SCH ×2 (10:15→20:45)
[2018-02-06] MEDS: LEVOTHYROXINE 150 MCG TAB PO SCH (10:15)
--- NOTE | 2018-02-06 11:10 | PULMONARY CONSULTATION ---
DATE OF CONSULTATION: 02/06/2018 REASON FOR ADMISSION: Hemoptysis/hypokalemia/leg cramps/hyperglycemia. HISTORY OF PRESENT ILLNESS: A 67-year-old white female was initially scheduled for bronchoscopic evaluation because of acute and chronic hemoptysis on 02/06/2018. I evaluated the patient in the same day surgery outpatient facility. She states she had exhibited some hemoptysis within the past 24 hours [id number] of bright red blood. She had been complaining for several days of intractable cramps involving her lower extremities that were almost continuous. This morning, her glucose level is over 500. She took a Humalog dosage to bring it down and was evaluated this morning and had a glucose in the 170 range. She will be shielding her eyes with her hands claiming photophobia and was feeling poorly lying on her right side. She had atypical chest pain and was poorly categorized. The patient quit smoking 3 years ago, having smoked since age 18 to age 64 of up to 2-1/2 packs of cigarettes a day. She has been treated for obstructive sleep apnea with CPAP and also takes 2 liters of oxygen during the day p.r.n. I saw her back in mid December when she complained of blood streaking hemoptysis with sputum admixture and increased dyspnea with exertion. CT scan of the abdomen and pelvis in 07/2017 showed no inflammatory process, but a suggestion of cirrhosis despite a negative alcohol history at that time. Upon further questioning, she stated that she did abuse alcohol in her youth. She has been hospitalized at [facility] a month prior to my visit with her in December for rectal bleeding and the workup was negative. She has lost 41 pounds this past year to poor appetite. PET/CT scan on 08/16/2017 in addition to showing cirrhosis showed multiple and mildly enlarged, moderate FDG avid mediastinal and bilateral hilar lymph nodes with several partially calcified thoracic lymph nodes. The findings were nonspecific and favored a granulomatous process, possibly sarcoidosis or even silicosis despite the absence of exposure for the latter. There was some mildly FDG avid right cervical lymph node as well and 6-month followup was recommended. She has been placed on Breo Ellipta 100/25 one inhalation daily and has a rescue inhaler in the form of ProAir. Because of persistent and worsening leg cramping, mild hypokalemia with a potassium 3.4, and significant hyperglycemia, a decision was made to cancel the bronchoscopy today and admit her onto the hospitalist service. I contacted Dr. Chung about the admission. I do believe she requires bronchoscopic evaluation as well, but only after the other matters have been addressed. PAST MEDICAL HISTORY: COPD, diabetes, hemoptysis, pulmonary nodule, mediastinal and hilar adenopathy, and a history of what appeared to be cirrhosis. FAMILY HISTORY: There is a family history of pancreatic cancer. SOCIAL HISTORY: She is a reformed smoker. CURRENT MEDICATIONS: Breo Ellipta 100-25 one inhalation daily, ProAir 2 puffs q. 4 hours p.r.n., aspirin 81 mg daily, carvedilol 12.5 mg b.i.d., vitamin B12 a 1000 mcg injection daily, ferrous gluconate 325 mg daily, furosemide 20 mg daily, Humalog (see schedule), Lantus Solostar 45 units b.i.d., latanoprost 0.005% ophthalmic solution as directed. REVIEW OF SYSTEMS: Twelve point review of systems is essentially noncontributory. PHYSICAL EXAMINATION: GENERAL: Well-developed, ill-appearing, white female, appearing stable at rest. VITAL SIGNS: Temperature 36.9, pulse 84 and regular, respiratory rate 18, blood pressure 104/70, O2 sat 96% on room air. SKIN: Without lesion. HEENT: Atraumatic, normocephalic. PERRLA. LUNGS: Distant P and A. CARDIAC: Regular rate and rhythm. I do not appreciate a gallop. ABDOMEN: Soft, protuberant. No evidence of hepatosplenomegaly. Liver is percussed and firm below the right costal margin. No masses palpable. RECTAL: Deferred. EXTREMITIES: No significant pedal edema, clubbing, or cyanosis. NEUROLOGIC: No lateralizing signs. LABORATORY DATA: Upper extremity ultrasound on 09/13/2017 show no evidence for high-grade stenosis or arterial occlusion involving the right upper extremity. CTA in 08/2017 as stated earlier no acute aortic pathology or evidence for pulmonary thromboembolic disease, mild bilateral bronchial wall thickening suggesting bronchitis, enlarged mediastinal and bilateral hilar adenopathy with calcification and stable solid pulmonary nodules at right lung base measuring 7 mm. This was in comparison to previous PET/CT scan of 08/16/[address] scan of 05/24/2017. Potassium 3.4, BUN 23, creatinine 1.4, glucose levels 120-178, total protein is elevated. OVERALL ASSESSMENT: A 67-year-old with COPD, mediastinal and hilar adenopathy, hemoptysis and diabetes insulin-dependent with poorly controlled hyperglycemia, hypokalemia, and significant leg cramping and mild orthostasis still with exhibiting hemoptysis. I think at this point in time cancelling the bronchoscopy is warranted and we will admit the patient onto the hospitalist service for workup and consider bronchoscopic evaluation once fully stabilized. The patient will require potassium supplementation as well.
[2018-02-06] MEDS: INSULIN ASPART 100 UNITS/ML 3 ML PEN SC SCH ×3 (12:18→20:50)
--- NOTE | 2018-02-06 13:51 | History and Physical ---
History & Physical Date & Time of Service: Feb 06, 2018 at 13:24 Chief Complaint: Copd,Pulmonary Nodule Primary Care Physician: Stephanie Hess History of Present Illness Source: patient, family, hospital records 67 yo female with history of COPD, lung nodule, ongoing hemoptysis presents for outpatient bronchoscopy today with Dr. Garvey. Upon arrival she complains of leg pain and severe cramping, this has been an ongoing issue. She is feeling very weak and some increased dyspnea. She was not feeling up to going through bronchoscopy. Dr. Garvey evaluated her and felt the bronchoscopy should be delayed a day. Reviewed her labs, potassium 3.4, she admits that low potassium leads to her cramps. Upon review of chart, the patient has been undergoing a work up for this hemoptysis. She has a 60 pack year history of smoking, quit [address] of the chest showed mediastinal and hilar adenopathy. PET scan showed increased FDG uptake in some nodules, the findings suggested possible granulomatous disease. The patient reports a significant, unintentional weight loss of 40 plus pounds in the past year. She and her now report that the patient had a CT of her abdomen/pelvis at [facility] and possibly has a lesion in her intestines. She was recently worked up for rectal bleeding at [facility], no findings on work up. Past Medical/Surgical History Medical Problems: (1) Chronic bronchitis (2) Costochondritis, acute (3) Diabetes (4) Heart disease (5) Hemoptysis (6) Hypokalemia (7) Hypothyroidism (8) Pulmonary nodule Family History Pancreatic cancer Lung cancer Social History Smoking Status: Former Smoker Drug Use: none Marital Status: Housing status: lives with family Allergies Coded Allergies: No Known Allergies (Unverified , 02/06/18) Home Medications Scheduled Atorvastatin (Lipitor), 10 MG PO DAILY Cyclosporine (Ophth) (Restasis), 1 DROPS OP BID Ferrous Sulfate (Kp Ferrous Sulfate), 1 TAB PO BID Furosemide (Lasix), 40 MG PO DAILY Insulin Glargine (Lantus), 50 UNITS SC DAILY Insulin Lispro 75/25 (Humalog Mix 75/25), 15 UNITS SC WM Latanoprost (Xalatan 0.005% Oph Kenia), 1 DROPS OPB AMPM Levothyroxine Sodium (Levothyroxine Sodium), 1 TAB PO DAILY Potassium Ext Rel (Klor-Con), 20 MEQ PO DAILY Topiramate (Topamax ), 50 MG PO HS Trazodone Hcl (Trazodone), 50 MG PO HS Scheduled PRN [lantanoprost], 0.005 ML IO HS PRN for daily Review of Systems Constitutional: + weight loss, + weakness, No fever, No chills, No sweats, No fatigue, No problem reported Eyes: No worsening of vision, No eye pain, No redness, No discharge, No diplopia, No problem reported ENT: No hearing loss, No unusual epistaxis, No nasal symptoms, No sore throat, No tinnitus, No dental problems, No trouble swallowing, No problem reported Respiratory: + cough, + sputum, + dyspnea on exertion, + hemoptysis, No wheezing, No shortness of breath, No dyspnea at rest Cardiovascular: No chest pain, No orthopnea, No PND, No edema, No claudication , No palpitations, No problem reported Abdomen: No pain, No nausea, No vomiting, No diarrhea, No constipation, No GI bleeding, No problem reported Musculoskeletal: + muscle pain (cramps), No joint pain, No swelling, No calf pain, No problem reported Genitourinary - Female: No dysuria, No urinary frequency, No urinary urgency, No urinary incontinence, No urinary retention, No hematuria Neurologic: + weakness, No memory loss, No paralysis, No numbness/tingling, No vertigo, No balance problems, No problem reported Psychiatric: No depression symptoms, No anhedonism, No anxiety, No insomnia, No substance abuse, No problem reported Endocrine: No fatigue, No excessive thirst, No excessive urination, No problem reported Hematologic / Lymphatic: No abnormal bleeding/bruising, No clotting problems, No swollen lymph nodes, No night sweats, No problem reported Integumentary: No rash, No itch, No new/changing skin lesions, No color change , No bleeding, No problem reported Allergic / Immunologic: No environmental allergies, No seasonal allergies, No pet sensitivities, No food allergies, No hives, No frequent infections, No poor healing, No prolonged convalescence, No problem reported Physical Exam Vital Signs Date Time Temp Pulse Resp B/P (MAP) Pulse Ox O2 Delivery O2 Flow Rate FiO2 02/06/18 09:13 36.9 84 18 112/66 93 Room Air 02/06/18 06:50 36.9 84 18 104/70 (81) 96 Room Air General Appearance: WD/WN, no apparent distress Head: normocephalic, atraumatic Eyes: normal inspection, EOMI, sclerae normal ENT: normal ENT inspection, hearing grossly normal, pharynx normal Neck: supple, no adenopathy, no JVD, trachea midline Respiratory/Chest: chest non-tender, lungs clear, normal breath sounds, no respiratory distress, no accessory muscle use Cardiovascular: regular rate, rhythm, no edema, no gallop, no JVD, no murmur, normal peripheral pulses Abdomen/GI: normal bowel sounds, non tender, soft, no organomegaly Back: normal inspection, no CVA tenderness, no muscle spasm, normal range of motion Extremities/Musculoskelatal: normal inspection, no calf tenderness, normal capillary refill, no pedal edema, normal range of motion, pelvis stable Neurologic/Psych: coal cutter II-XII nml as tested, no motor/sensory deficits, alert, normal mood/affect, normal reflexes, oriented x 3 Skin: normal color, warm/dry, no rash Diagnostics Laboratory Results Results Past 24 Hours Test 02/06/18 06:45 02/06/18 06:46 02/06/18 07:33 02/06/18 11:37 Range/Units Prothrombin Time 10.0 9.0-12.0 SECONDS Prothromb Time International Ratio 1.0 0.9-1.1 Activated Partial Thromboplast Time 24.0 21.0-31.0 SECONDS Partial Thromboplastin Ratio 0.9 Sodium Level 139 136-145 mmol/L Potassium Level 3.4 3.5-5.1 mmol/L Chloride Level 101 98-107 mmol/L Carbon Dioxide Level 30 21-32 mmol/L Anion Gap 8.0 3-11 mmol/L Blood Urea Nitrogen 23 7-18 mg/dl Creatinine 1.44 0.60-1.20 mg/dl Est Creatinine Clear Calc Drug Dose 32.1 ml/min Estimated GFR () 44.1 Estimated GFR (Non- 38.0 BUN/Creatinine Ratio 16.3 10-20 Random Glucose 155 70-99 mg/dl Calcium Level 9.5 8.5-10.1 mg/dl Total Bilirubin 0.6 0.2-1 mg/dl Aspartate Amino Transf (AST/SGOT) 23 15-37 U/L Alanine Aminotransferase (ALT/SGPT) 35 12-78 U/L Alkaline Phosphatase 141 45-117 U/L Total Protein 8.6 6.4-8.2 gm/dl Albumin 3.9 3.4-5.0 gm/dl Globulin 4.7 2.5-4.0 gm/dl Albumin/Globulin Ratio 0.8 0.9-2 Bedside Glucose 178 120 281 70-90 mg/dl Impression Assessment and Plan 67 yo female with hemoptysis, weight loss, COPD, muscle cramps - Hemoptysis with COPD, hilar and mediastinal adenopathy, weight loss post pone bronchoscopy until tomorrow - Muscle cramps, mild Hypokalemia aggressive replacement with 20mEq BID and give 20mEq IV now monitor to see if cramps resolve give Magnesium 1gm IV - KEE: can use CPAP tonight - DM, insulin dependent, reported hyperglycemia this morning no hyperglycemia here, sugar was 170 will continue on Lantus and Novolog coverage, diabetic diet DVT prophylaxis: SCD only due to hemoptysis observation, plan for bronchoscopy tomorrow, hopeful for discharge Advanced Directives Existing Living Will: No Existing Power of Hospitality Internship: No Resuscitation Status full code VTE Prophylaxis Will order VTE Prophylaxis: Yes Reason for no VTE drug order: Contraindicated Additional Copies To Stephanie Hess; Rasheed Garvey M.D.
[2018-02-06 14:32] VITALS: BP 132/85; PULSE 78; TEMP 36.8; O2SAT 96
[2018-02-06] MEDS: RESTASIS-ORDER AWAITING ACTION SCH (15:22)
[2018-02-06] MEDS ORDERED: INSULIN GLARGINE SOLOSTAR 100 UNITS/ML 3 ML PEN SC SCH (17:00)
[2018-02-06] MEDS: INSULIN GLARGINE SOLOSTAR 100 UNITS/ML 3 ML PEN SC SCH (17:28)
[2018-02-06] MEDS ORDERED: LATANOPROST 0.005% OP SOLN 2.5 ML BTL OPB SCH (21:00)
[2018-02-06] MEDS ORDERED: TRAZODONE HCL 50 MG TAB PO SCH (21:00)
[2018-02-06] MEDS ORDERED: TOPIRAMATE 25 MG TAB PO SCH (21:00)
[2018-02-06 23:30] VITALS: BP 108/66; PULSE 74; TEMP 36.5; O2SAT 95
[2018-02-07] MEDS: RESTASIS-ORDER AWAITING ACTION SCH ×3 (06:17→15:56)
[2018-02-07] MEDS: LEVOTHYROXINE 150 MCG TAB PO SCH (06:17)
[2018-02-07 06:22] LABS: HEMATOCRIT 41.4 % (37-47); HEMOGLOBIN 14.5 g/dL (12.0-16.0); MEAN CELL VOLUME 95.6 fL (80-100); MEAN CORPUSCULAR HEMOGLOBIN 33.5 pg (25-34); PLATELET COUNT 148 K/uL (130-400); RED CELL DISTRIBUTION WIDTH CV 12.9 % (11.5-14.5); RED CELL DISTRIBUTION WIDTH SD 44.6 fL (36.4-46.3); WHITE BLOOD COUNT 7.62 K/uL (4.8-10.8)
[2018-02-07 06:57] VITALS: BP 122/73; PULSE 78; TEMP 36.6; O2SAT 93
[2018-02-07 06:57] LABS: CALCIUM 8.5 mg/dl (8.5-10.1); CREATININE 1.28 mg/dl (0.60-1.20); POTASSIUM 4.1 mmol/L (3.5-5.1)
[2018-02-07] MEDS: ATORVASTATIN 10 MG TAB PO SCH (07:35)
[2018-02-07] MEDS: POTASSIUM CHLORIDE 20 MEQ TABCR PO SCH (07:35)
[2018-02-07] MEDS: INSULIN ASPART 100 UNITS/ML 3 ML PEN SC SCH ×3 (07:39→17:46)
[2018-02-07 07:41] LABS: BASO % 0.3 %; BASO ABS # 0.02 K/uL (0-0.2); EOS % 4.5 %; EOS ABS # 0.34 K/uL (0-0.5); LYMPH % 51.3 %; LYMPH ABS # 3.91 K/uL (1.2-3.4); MONO % 8.3 %; MONO ABS # 0.63 K/uL (0.11-0.59); NEUT % 35.6 %; NEUT ABS # 2.72 K/uL (1.4-6.5)
[2018-02-07] MEDS ORDERED: MCRK20 PO (09:56)
--- NOTE | 2018-02-07 09:56 | Progress Note ---
Subjective Date of Service: Feb 07, 2018. Subjective Pt evaluation today including: conversation w/ patient, physical exam, lab review, conversation w/ strategy planning consultant, review of inpatient medication list Pain: mild muscle cramps PO Intake: NPO for bronchoscopy Voiding: no voiding problems patient feeling a little better, less cramping in legs reviewed labs, K up to 4.1, Mg normal at 2.4 not sure of timing of bronchoscopy she says she thinks she will be up to leaving after bronchoscopy if it goes well Problem List Medical Problems: (1) Costochondritis, acute Status: Acute Review of Systems Constitutional: + weight loss, + weakness, + fatigue Respiratory: + cough, + dyspnea on exertion, + hemoptysis Musculoskeletal: + muscle pain (leg and feet cramps, better) All Other Systems: Reviewed and Negative Medications Current Inpatient Medications Medications (Trade) Dose Ordered Sig/Corie Route Start Time Stop Time Status Last Admin Dose Admin Acetaminophen (Tylenol Tab) 650 mg Q4H PRN PO 02/06/18 08:30 03/08/18 08:29 Ondansetron HCl (Zofran Inj) 4 mg Q6H PRN IV 02/06/18 08:30 03/08/18 08:29 Potassium Chloride (Klor-Con Tab) 20 meq BID PO 02/06/18 09:00 03/08/18 08:59 02/06/18 20:45 20 MEQ Atorvastatin Calcium (Lipitor Tab) 10 mg DAILY PO 02/06/18 09:00 03/08/18 08:59 02/06/18 10:14 10 MG Latanoprost (Xalatan Oph Soln) 1 drops HS OPB 02/06/18 21:00 03/08/18 20:59 02/06/18 21:14 1 DROPS Levothyroxine Sodium (Synthroid Tab) 150 mcg DAILYBB PO 02/06/18 10:00 03/08/18 09:59 02/06/18 10:15 150 MCG Topiramate (Topamax Tab) 50 mg HS PO 02/06/18 21:00 03/08/18 20:59 02/06/18 20:45 50 MG Trazodone HCl (Desyrel Tab) 50 mg HS PO 02/06/18 21:00 03/08/18 20:59 02/06/18 20:45 50 MG Miscellaneous Information (Order Awaiting Action) 1 ea QS N/A 02/06/18 16:00 03/08/18 15:59 Insulin Aspart (novoLOG ASPART) SLIDING SCALE G... ACHS AK 02/06/18 11:00 03/08/18 10:59 02/07/18 07:39 2 UNITS Miscellaneous (Iv Fluids Completed) 1 ea PRN PRN N/A 02/06/18 09:15 02/06/19 09:14 Glucose (Glucose 40% Gel) 15-30 GRAMS 15 GRAMS... UD PRN PO 02/06/18 09:30 03/08/18 09:29 Glucose (Glucose Chew Tab) 4-8 Tablets 4 Tabl... UD PRN PO 02/06/18 09:30 03/08/18 09:29 Dextrose (Dextrose 50% 50ML Syringe) 25-50ML 25ML FOR ... UD PRN IV 02/06/18 09:30 03/08/18 09:29 Glucagon (Glucagon Inj) 1 mg UD PRN IM 02/06/18 09:30 03/08/18 09:29 Carbohydrates (Carbohydrates For Hypoglycemia) 15-30 GRAMS 15 grams if BSG 54-69... UD PRN PO 02/06/18 09:30 03/08/18 09:29 Insulin Glargine (Lantus Solostar Pen) 30 units DAILY@1700 AK 02/06/18 17:00 03/08/18 16:59 02/06/18 17:28 30 UNITS Objective Vital Signs Date Time Temp Pulse Resp B/P (MAP) Pulse Ox O2 Delivery O2 Flow Rate FiO2 02/07/18 08:00 Room Air 02/07/18 06:57 36.6 78 16 122/73 (89) 93 Room Air 02/07/18 00:00 Room Air 02/06/18 23:30 36.5 74 20 108/66 (80) 95 Room Air 02/06/18 20:00 Room Air 02/06/18 16:00 Room Air 02/06/18 14:32 36.8 78 16 132/85 (101) 96 Physical Exam General Appearance: no apparent distress, + obese Eyes: normal inspection, EOMI, sclerae normal ENT: normal ENT inspection, hearing grossly normal, pharynx normal Neck: supple, no adenopathy, no JVD, trachea midline Respiratory/Chest: chest non-tender, lungs clear, normal breath sounds, no respiratory distress, no accessory muscle use Cardiovascular: regular rate, rhythm, no edema, no gallop, no JVD, no murmur Abdomen: normal bowel sounds, non tender, soft, no organomegaly Extremities: normal range of motion, non-tender, normal inspection, no pedal edema, no calf tenderness, pelvis stable Neurologic/Psychiatric: insurance job titles II-XII nml as tested, no motor/sensory deficits, alert, normal mood/affect, oriented x 3 Skin: normal color, warm/dry, no rash Laboratory Results Last 24 Hours Test 02/06/18 11:37 02/06/18 16:55 02/06/18 20:19 02/07/18 05:39 Bedside Glucose 281 mg/dl 286 mg/dl 231 mg/dl White Blood Count 7.62 K/uL Red Blood Count 4.33 M/uL Hemoglobin 14.5 g/dL Hematocrit 41.4 % Mean Corpuscular Volume 95.6 fL Mean Corpuscular Hemoglobin 33.5 pg Mean Corpuscular Hemoglobin Concent 35.0 g/dl Platelet Count 148 K/uL Mean Platelet Volume 11.0 fL Neutrophils (%) (Auto) 35.6 % Lymphocytes (%) (Auto) 51.3 % Monocytes (%) (Auto) 8.3 % Eosinophils (%) (Auto) 4.5 % Basophils (%) (Auto) 0.3 % Neutrophils # (Auto) 2.72 K/uL Lymphocytes # (Auto) 3.91 K/uL Monocytes # (Auto) 0.63 K/uL Eosinophils # (Auto) 0.34 K/uL Basophils # (Auto) 0.02 K/uL RDW Standard Deviation 44.6 fL RDW Coefficient of Variation 12.9 % Immature Granulocyte % (Auto) 0.0 % Immature Granulocyte # (Auto) 0.00 K/uL Sodium Level 139 mmol/L Potassium Level 4.1 mmol/L Chloride Level 105 mmol/L Carbon Dioxide Level 25 mmol/L Anion Gap 9.0 mmol/L Blood Urea Nitrogen 25 mg/dl Creatinine 1.28 mg/dl Est Creatinine Clear Calc Drug Dose 36.5 ml/min Estimated GFR () 50.8 Estimated GFR (Non- 43.8 BUN/Creatinine Ratio 19.4 Random Glucose 236 mg/dl Calcium Level 8.5 mg/dl Magnesium Level 2.4 mg/dl Test 02/07/18 07:31 Bedside Glucose 226 mg/dl Assessment and Plan 67 yo female with hemoptysis, weight loss, COPD, muscle cramps - Hemoptysis with COPD, hilar and mediastinal adenopathy, weight loss tentatively plan for bronchoscopy for today if okay with Dr. Garvey patient is NPO was going to be done as outpatient procedure, evaluate after bronch to see if she can go home - Muscle cramps, mild Hypokalemia aggressive replacement with 20mEq BID and give 20mEq IV x 1 on admission K up to 4.1 from 3.4 would recommend increasing supplement to BID on discharge Magnesium is 2.4 - KEE: can use CPAP tonight - DM, insulin dependent, sugars in the high 100's to 200's monitor for hypoglycemia, no episodes will continue on Lantus and Novolog coverage, diabetic diet DVT prophylaxis: SCD only due to hemoptysis observation, plan for bronchoscopy today, hopeful for discharge
--- NOTE | 2018-02-07 09:59 | Discharge Instructions ---
Discharge Instructions Date of Service Feb 07, 2018. Admission Reason for Admission: Copd,Pulmonary Nodule Discharge Discharge Diagnosis / Problem: COPD, pulmonary nodule, hypokalemia, muscle cramps Discharge Goals Goal(s): Decrease discomfort, Improve function, Specific goals (follow up on results of bronchoscopy) Activity Recommendations Activity Limitations: resume your previous activity . Instructions / Follow-Up Instructions / Follow-Up Medications: - POTASSIUM: increase to twice a day from once a day to keep potassium closer to 4.0, try to help prevent muscle cramps COPD, hemoptysis, weight loss, smoking history follow up results of bronchoscopy with Dr. Garvey in 1-2 weeks Muscle cramps, low potassium as stated above, increase to twice a day potassium recommend taking daily vitamin with magnesium as well follow up with primary care doctor to discuss further Current Hospital Diet Patient's current hospital diet: Diabetes Type 2 Diet, AHA Diet (Heart Healthy) Discharge Diet Recommended Diet: AHA Diet (Heart Healthy), Diabetes Type 2 Diet Procedures Procedures Performed: Bronchoscopy Pending Studies Studies pending at discharge: yes List of pending studies: culture from bronchoscopy, biopsy from bronchoscopy Medical Emergencies . Who to Call and When: Medical Emergencies: If at any time you feel your situation is an emergency, please call 911 immediately. . Non-Emergent Contact Non-Emergency issues call your: Primary Care Provider, Graduate Assistant Athletic Trainer (Dr. Garvey) Call Non-Emergent contact if: you have a fever, you have any medication questions . . "Provider Documentation" section prepared by Esteban Turner. . [place] Drug Monitoring Program Search Results: no issues identified
--- NOTE | 2018-02-07 14:32 | Pulmonary Consultation ---
History General Date of Service: Feb 07, 2018. Stated Complaint: Copd,Pulmonary Nodule HPI Dear Dr. Turner, dear Sue: Thank you for the kind referral of Mrs. Dodd to pulmonary service. This is 67- year-old female with a history of coronary artery disease, COPD, gold level 1, was active smoker with over than 60 pack year quit 3 years ago, presented to Dr. Garvey office with hemoptysis. The patient underwent a workup back in August with bronchoscopy which did not reveal a source of hemoptysis, however according to the patient, she did have a lung nodule and has been followed by Dr. Garvey periodically. The patient denies any increased shortness of breath, no cough or chest pain, she denies any weight loss, there is no weight gain, the patient did not have respiratory symptoms where she got admitted to the hospital in the past. The patient had right lower lobe pulmonary nodule measuring approximately 6 mm, she has been followed periodically with CAT scans. Most recent CAT scan done in December 2017 and the prior one was in August 2017 which showed similar findings including lymphadenopathy mainly in the 7R and 4R station. Patient does have COPD changes and she does have also bronchiectatic changes. The patient was referred to the hospital for admission due to hemoptysis which was leena blood according to her. It was not blood-tinged. Patient was planned to have a bronchoscopy. And in review of her CAT scan, with the presence of significant lymphadenopathy, it was felt that the patient would benefit from endobronchial ultrasound as well. Patient was in agreement with the procedure. Risk and benefit explained to help and she is in agreement with it. Historian: patient, other (Records) Review of Systems Constitutional: denies: no symptoms, as stated in HPI, chills, diaphoresis, fever, malaise, weakness, weight gain, weight loss, other Eyes: denies: no symptoms, as stated in HPI, eye pain, tearing, itching, redness, discharge, double vision, visual changes, blurred vision, photophobia, other ENT: denies: no symptoms, as stated in HPI, ear pain, ear discharge, loss of hearing, tinnitus, nasal pain, nasal congestion, rhinorrhea, epistaxis, sore throat, stridor, throat swelling, mouth pain, mouth swelling, dental pain, gum swelling, other Respiratory: reports: cough, hemoptysis Gastrointestinal: reports: no symptoms Genitourinary - Female: reports: no symptoms Integumentary: reports: no symptoms Neurologic: reports: no symptoms Psychiatric: reports: no symptoms Hematologic / Lymphatic: no symptoms Past Medical History Past Medical History: As above and also noted past medical history in the H&P. Family History Cancer Social History Hx Tobacco Use In Past Year?: No Smoking Status: Former Smoker Marital status: Housing status: lives with family Allergies Coded Allergies: No Known Allergies (Unverified , 02/06/18) Current Medications Reported Home Medications Medications Dose Route/Sig Max Daily Dose Days Date Category Klor-Con M20 (Potassium Chloride) 20 Meq Tabcr 20 Meq PO BID 02/07/18 Rx Restasis (Cyclosporine (Ophth)) 0.05 % Emu 1 Drops OP BID 30 02/06/18 Reported [lantanoprost] 0.005 Ml IO HS PRN 02/06/18 Reported Klor-Con (Potassium Chloride) 20 Meq Tabcr 20 Meq PO DAILY 02/06/18 Reported Lasix (Furosemide) 40 Mg Tab 40 Mg PO DAILY 09/13/17 Reported Trazodone (Trazodone HCl) 50 Mg Tab 50 Mg PO HS 07/26/17 Reported Kp Ferrous Sulfate (Ferrous Sulfate) 325 Mg Tab 1 Tab PO BID 07/26/17 Reported Xalatan 0.005% Oph Kenia (Latanoprost) 0.005 % Kenia 1 Drops OPB AMPM 05/26/17 Reported Humalog Mix 75/25 (Insulin Human Lispro) 100 Units/ Inj 15 Units SC WM 05/26/17 Reported Lantus (Insulin Glargine) 100 Unit/Ml Inj 50 Units SC DAILY 05/26/17 Reported Levothyroxine Sodium 150 Mcg Tab 1 Tab PO DAILY 05/26/17 Reported Lipitor (Atorvastatin Calcium) 10 Mg Tab 10 Mg PO DAILY 05/26/17 Reported Topamax (Topiramate) 25 Mg Tab 50 Mg PO HS 05/26/17 Reported Physical Physical Exam Vital Signs: Date Time Temp Pulse Resp B/P (MAP) Pulse Ox O2 Delivery O2 Flow Rate FiO2 02/07/18 08:00 Room Air 02/07/18 06:57 36.6 78 16 122/73 (89) 93 Room Air 02/07/18 00:00 Room Air 02/06/18 23:30 36.5 74 20 108/66 (80) 95 Room Air 02/06/18 20:00 Room Air 02/06/18 16:00 Room Air 02/06/18 14:32 36.8 78 16 132/85 (101) 96 General Appearance: WELL-APPEARING, WD/WN, NO APPARENT DISTRESS Eyes: EOMI ENT: NORMAL NASAL EXAM, NORMAL MOUTH EXAM, NORMAL THROAT EXAM Neck: NO TENDERNESS, TRACHEA MIDLINE, NO STRIDOR Respiratory: BREATH SOUNDS NORMAL Cardiovasular: REGULAR RATE/RHYTHM, NORMAL S1S2, NO M/G/R, NO MURMUR Abdomen: NO MASSES, NO GUARDING Upper Extremities: NO EDEMA Lower Extremities: NO EDEMA Neuro: ALERT, ORIENTED x 3, NORMAL MOTOR EXAM, NORMAL SENSATION Psychiatric: NORMAL AFFECT Diagnostics Labs Results Past 24 Hours Test 02/06/18 16:55 02/06/18 20:19 02/07/18 05:39 02/07/18 07:31 Range/Units Bedside Glucose 286 231 226 70-90 mg/dl White Blood Count 7.62 4.8-10.8 K/uL Red Blood Count 4.33 4.2-5.4 M/uL Hemoglobin 14.5 12.0-16.0 g/dL Hematocrit 41.4 37-47 % Mean Corpuscular Volume 95.6 80-100 fL Mean Corpuscular Hemoglobin 33.5 25-34 pg Mean Corpuscular Hemoglobin Concent 35.0 32-36 g/dl Platelet Count 148 130-400 K/uL Mean Platelet Volume 11.0 7.4-10.4 fL Neutrophils (%) (Auto) 35.6 % Lymphocytes (%) (Auto) 51.3 % Monocytes (%) (Auto) 8.3 % Eosinophils (%) (Auto) 4.5 % Basophils (%) (Auto) 0.3 % Neutrophils # (Auto) 2.72 1.4-6.5 K/uL Lymphocytes # (Auto) 3.91 1.2-3.4 K/uL Monocytes # (Auto) 0.63 0.11-0.59 K/uL Eosinophils # (Auto) 0.34 0-0.5 K/uL Basophils # (Auto) 0.02 0-0.2 K/uL RDW Standard Deviation 44.6 36.4-46.3 fL RDW Coefficient of Variation 12.9 11.5-14.5 % Immature Granulocyte % (Auto) 0.0 % Immature Granulocyte # (Auto) 0.00 0.00-0.02 K/uL Sodium Level 139 136-145 mmol/L Potassium Level 4.1 3.5-5.1 mmol/L Chloride Level 105 98-107 mmol/L Carbon Dioxide Level 25 21-32 mmol/L Anion Gap 9.0 3-11 mmol/L Blood Urea Nitrogen 25 7-18 mg/dl Creatinine 1.28 0.60-1.20 mg/dl Est Creatinine Clear Calc Drug Dose 36.5 ml/min Estimated GFR () 50.8 Estimated GFR (Non- 43.8 BUN/Creatinine Ratio 19.4 10-20 Random Glucose 236 70-99 mg/dl Calcium Level 8.5 8.5-10.1 mg/dl Magnesium Level 2.4 1.8-2.4 mg/dl Test 02/07/18 11:12 Range/Units Bedside Glucose 193 70-90 mg/dl Diagnostic Radiology CAT scan of the chest back in August and in December 2017 both reviewed, showed COPD changes, bronchiectatic changes, slightly dilated pulmonary artery, fibrotic changes mainly at the right base, extensive lymphadenopathy in the mediastinum. And right lower lobe nodule measuring approximately 6-8 mm. Her labs were reviewed which are compatible with performing surgical procedure. Impression Assessment and Plan 1. Hemoptysis, etiology unknown, likely related to bronchiectasis. 2. Mediastinal lymphadenopathy, could be related to ground omental disease, minimal calcification in some of the lymph nodes however cannot rule out the possibility of malignancy given the patient being at risk for lung primary malignancy. 3. Bronchiectasis, COPD, gold level likely #1 cannot determine that as I could not have an access to the pulmonary function test in the past. Plan: 1. Would proceed with endobronchial ultrasound. 2. Keep the patient n.p.o. 3. Appreciate anesthesia consult for providing sedation under general anesthesia. 4. We will plan for conventional bronchoscopy followed by endobronchial ultrasound. 5. Specimen will be sent for cytology, cell block, microbiology, and fungal as well as AFB. Thank you, will follow.
[2018-02-07] MEDS ORDERED: ONDANSETRON INJ 2 MG/ML 2 ML VIAL ONE (14:35)
[2018-02-07] MEDS ORDERED: SUCCINYLCHOLINE CHLORIDE 20 MG/ML 10 ML VIAL IV ONE (14:35)
[2018-02-07] MEDS ORDERED: DEXAMETHASONE SOD INJ 4 MG/ML VIAL ONE (14:35)
[2018-02-07] MEDS ORDERED: GLYCOPYRROLATE INJ 0.2 MG/ML VIAL ONE (14:35)
[2018-02-07] MEDS ORDERED: NEOSTIGMINE METHYLSULFATE 5 MG/5 ML SYR ONE (14:35)
[2018-02-07] MEDS ORDERED: PROPOFOL IV EMULSION 10 MG/ML 20 ML VIAL ONE (14:35)
[2018-02-07] MEDS ORDERED: EpHEDrine SULFATE INJ 50 MG/ML AMP ONE (14:35)
[2018-02-07] MEDS ORDERED: PHENYLEPHRINE HCL INJ 10 MG/ML VIAL ONE (14:35)
[2018-02-07] MEDS ORDERED: LIDOCAINE HCL 2% 2 ML VIAL (20MG/ML) ONE (14:35)
[2018-02-07] MEDS ORDERED: FENTANYL CITRATE INJ 50 MCG/1 ML 2 ML VIAL ONE (14:36)
[2018-02-07] MEDS ORDERED: MIDAZOLAM HCL 1 MG/ML 2ML VIAL ONE (14:36)
[2018-02-07] MEDS ORDERED: ONDANSETRON INJ 2 MG/ML 2 ML VIAL IV PRN (15:30)
[2018-02-07] MEDS ORDERED: EpHEDrine SULFATE INJ 50 MG/ML AMP IV PRN (15:30)
[2018-02-07] MEDS ORDERED: ATROPINE SULFATE 0.1 MG/ML 5ML SYR IV PRN (15:30)
--- NOTE | 2018-02-07 16:29 | Procedure Note ---
Procedure Note Procedure Date Feb 07, 2018. Procedure Description Procedure Name: Bronchoscopy with endobronchial ultrasound. Procedure time out: side/site verified, patient ID confirmed, correct procedure Consent obtained: written Performed by: attending Indications: diagnostic Contraindications: none Description: Bronchoscopy with endobronchial ultrasound. Risk and benefit explained to the patient, agreed to the procedure. Bronchoscopy done for hemoptysis and mediastinal lymphadenopathy. Preop diagnosis is hemoptysis and mediastinal lymphadenopathy. Postop diagnosis mediastinal lymphadenopathy, no evidence of hemoptysis. Timeout was performed by the nursing staff, appreciated. Assistance was performed by respiratory therapy, appreciate their assistance. General anesthesia provided by the anesthesia team, appreciate their input. The patient monitored in the OR with or style of monitoring. After the patient was sedated and underwent general anesthesia, she was intubated with #8-1/2 82 by anesthesia. Using a blue adapter, a surveillance bronchoscopy was done first with the bronchoscope passed through #8-1/2 ET tube. Endotracheal bronchial tree examined from RB 1 to RB 10 and LB 1 2 LB 10. Mild amount of secretions were noted at the level of RB 4 and 5. No endobronchial lesion, no evidence of hemoptysis. Olympus endobronchial ultrasound was used, and it was passed through the blue adapter through #8 and have 82. After passing the tip of the ET tube, the balloon was inflated until visible at the screen. A surveillance was done from station 11 R, 10 R, 4R, 7R, 10 mL, 4L. And the findings were as follows: 1. Large cluster of lymphadenopathy at the station 7R, 5 passes using Olympus 21-gauge needle was used, ALYSA was done on site and 3 of the specimens showed lymphoid tissue. The other 2 showed bloody material. 2. At station 4R, 4 passes were obtained, 3 of them showed lymphoid tissue. 3. At station 4L, 1 pass was obtained from small lymph node measuring 8 mm, lymphoid tissue was identified. 4. Each breast was performed using the Olympus endobronchial ultrasound matter where the catheter passed through the working channel of the bronchoscope, the balloon was inflated until visible, the catheter was advanced towards the bronchial surface, identification of the lymph node was noted. And using 20 mm to 25 mm distance, after removal of the stylet, the needle was checked into the lymph node, applied to suction, and then using 15 passes for each needle specimen, afterward, the needle was retracted and the distance cavanaugh was retracted, the catheter was retracted and released from the working channel and removed entirely. 5. Old specimen done in the same manner. 6. Minimal amount of bleeding was noted. Did not require any intervention. 7. The endobronchial ultrasound was removed afterward after obtaining old 10 specimens. 8. Another surveillance bronchoscopy was done and minimal amount of bleeding was noted at the 7R station. Insignificant. Approximately 2 mL of blood loss. BAL was obtained with 180 mL injected into the lateral segment of the right lower lobe and aspirated 120 mL. Was split and sent for cytology and microbiology. 9. All the specimen was sent in the proper preservatives. 10. Appreciate the assistance of the histology team. 11. The bronchoscope was retrieved, evaluation of the upper airway noted via the oral cavity that there is minimal amount of blood coming out from the left nostril posteriorly. No passage through the nostrils on either side due to congested turbinates. The source of the bleeding in this patient not related to the lung, no evidence of hemoptysis, the source is likely from upper airway. GI source also cannot be ruled out. 12. Patient was extubated, transferred to recovery, will review the chest x- ray after the procedure personally. Thank you Complications: none Patient tolerated procedure: well
[2018-02-07 16:32] VITALS: BP 120/83; PULSE 95; TEMP 36.2; O2SAT 97
[2018-02-07] MEDS: FENTANYL CITRATE INJ 50 MCG/1 ML 2 ML VIAL IV PRN ×2 (16:34→16:46)
--- NOTE | 2018-02-07 16:51 | DIAGNOSTIC IMAGING REPORT ---
CHEST ONE VIEW PORTABLE CLINICAL HISTORY: 67 years-old Female presenting with post bronch biopsy. TECHNIQUE: Portable upright AP view of the chest was obtained. COMPARISON: None. FINDINGS: Cardiomediastinal silhouette normal. Mildly prominent perihilar lung markings with possible bronchial wall thickening. No focal opacity. No large effusion or pneumothorax. Degenerative changes of the thoracic spine. Cholecystectomy clips noted. IMPRESSION: 1. Mild congestive change/volume overload may be present. 2. No pneumothorax. Electronically signed by: Sarabjit Heck M.D. 02/07/2018 4:49 PM Dictated Date/Time: 02/07/2018 4:48 PM
--- NOTE | 2018-02-07 17:12 | Anesthesiology Progress Note ---
Anesthesia Post Op Note Date & Time Feb 07, 2018 at 17:11 Vital Signs Pain Intensity: 0 Vital Signs Past 12 Hours Date Time Temp Pulse Resp B/P (MAP) Pulse Ox O2 Delivery O2 Flow Rate FiO2 02/07/18 17:00 83 16 136/81 97 Nasal Cannula 2 02/07/18 16:50 83 16 127/83 97 Nasal Cannula 2 02/07/18 16:40 83 16 142/77 97 Nasal Cannula 2 02/07/18 16:32 36.2 95 16 97 Room Air 02/07/18 16:30 87 16 137/92 95 Nasal Cannula 2 02/07/18 16:24 36.2 95 16 120/83 97 Oxymask 10 02/07/18 08:00 Room Air 02/07/18 06:57 36.6 78 16 122/73 (89) 93 Room Air Notes Mental Status: alert / awake / arousable, participated in evaluation Pt Amnestic to Procedure: Yes Nausea / Vomiting: adequately controlled Pain: adequately controlled Airway Patency, RR, SpO2: stable & adequate BP & HR: stable & adequate Hydration State: stable & adequate Anesthetic Complications: no major complications apparent
--- NOTE | 2018-02-07 17:23 | Progress Note ---
Progress Note Date of Service Feb 07, 2018. Progress Note The patient was seen after bronchoscopy and endobronchial ultrasound, she appears to be comfortable, minimal change in her voice likely due to intubation , the patient is speaking in full sentences, no shortness of breath, fully awake and answering questions, ready to go home. Tolerating oral intake. I have reviewed with her all the findings, and I have notified her that there was no evidence of hemoptysis. Showing her the picture in regard of bloody drainage was noted from the left nostril. Further evaluation with ENT and GI is recommended. Results of the transbronchial needle biopsy would be released within a week. The patient can be discharged home. Thank you for letting me participate in the care of Mrs. Dodd.
[2018-02-07 17:41] VITALS: BP 118/72; PULSE 80; TEMP 37.1; O2SAT 94
[2018-02-07] MEDS: INSULIN GLARGINE SOLOSTAR 100 UNITS/ML 3 ML PEN SC SCH (17:46)
--- NOTE | 2018-02-14 21:36 | Discharge Summary ---
Discharge Summary Date of Service Feb 14, 2018. Discharge Summary Admission Date: Feb 06, 2018 at 09:14 Discharge Date: Feb 07, 2018 Discharge Disposition: Home Principal Diagnosis: COPD, hemoptysis Problems/Secondary Diagnoses: Hypokalemia Muscle cramps DM, insulin dependent, with hyperglycemia KEE Procedures: Bronchoscopy 02/[address] Gonzales Consultations: Pulmonology Medication Reconciliation New Medications: Potassium Chloride (Klor-Con M20) 20 Meq Tabcr 20 MEQ PO BID, #60 TABS 1 Refill Continued Medications: Atorvastatin (Lipitor) 10 Mg Tab 10 MG PO DAILY, TAB Cyclosporine (Ophth) (Restasis) 0.05 % Emu 1 DROPS OP BID for 30 Days, #60 VIAL 3 Refills Ferrous Sulfate (Kp Ferrous Sulfate) 325 Mg Tab 1 TAB PO BID, TAB Furosemide (Lasix) 40 Mg Tab 40 MG PO DAILY Insulin Glargine (Lantus) 100 Unit/Ml Inj 50 UNITS SC DAILY, VIAL Insulin Lispro 75/25 (Humalog Mix 75/25) 100 Units/ Inj 15 UNITS SC WM, VIAL Latanoprost (Xalatan 0.005% Oph Kenia) 0.005 % Kenia 1 DROPS OPB AMPM Levothyroxine Sodium (Levothyroxine Sodium) 150 Mcg Tab 1 TAB PO DAILY, TAB Topiramate (Topamax ) 25 Mg Tab 50 MG PO HS, TAB Trazodone Hcl (Trazodone) 50 Mg Tab 50 MG PO HS [lantanoprost] () 0.005 ML IO HS PRN for daily Discontinued Medications: Potassium Ext Rel (Klor-Con) 20 Meq Tabcr 20 MEQ PO DAILY, TAB Discharge Exam patient feeling a little better, less cramping in legs reviewed labs, K up to 4.1, Mg normal at 2.4 tolerated bronchoscopy well, no evidence of active bleeding bronchial washings sent for culture Review of Systems: Constitutional: No fever, No chills, No sweats, No weight loss, No weakness , No fatigue, No problem reported Eyes: No worsening of vision, No eye pain, No redness, No discharge, No diplopia, No problem reported ENT: No hearing loss, No unusual epistaxis, No nasal symptoms, No sore throat, No tinnitus, No dental problems, No trouble swallowing, No problem reported Respiratory: No cough, No sputum, No wheezing, No shortness of breath, No dyspnea on exertion, No dyspnea at rest, No hemoptysis, No problem reported Cardiovascular: No chest pain, No orthopnea, No PND, No edema, No claudication, No palpitations, No problem reported Abdomen: No pain, No nausea, No vomiting, No diarrhea, No constipation, No GI bleeding, No problem reported Musculoskeletal: + muscle pain (cramps in legs), No joint pain, No swelling Genitourinary - Female: No dysuria, No urinary frequency, No urinary urgency , No urinary incontinence, No urinary retention, No hematuria Neurologic: No memory loss, No paralysis, No weakness, No numbness/tingling , No vertigo, No balance problems, No problem reported Psychiatric: No depression symptoms, No anhedonism, No anxiety, No insomnia , No substance abuse, No problem reported Endocrine: No fatigue, No excessive thirst, No excessive urination, No problem reported Hematologic / Lymphatic: No abnormal bleeding/bruising, No clotting problems , No swollen lymph nodes, No night sweats, No problem reported Integumentary: No rash, No itch, No new/changing skin lesions, No color change, No bleeding, No problem reported Physical Exam: General Appearance: WD/WN, no apparent distress Eyes: normal inspection, EOMI, sclerae normal ENT: normal ENT inspection, hearing grossly normal, pharynx normal Neck: supple, no adenopathy, no JVD, trachea midline Respiratory/Chest: chest non-tender, lungs clear, normal breath sounds, no respiratory distress, no accessory muscle use Cardiovascular: regular rate, rhythm, no edema, no gallop, no JVD, no murmur , normal peripheral pulses Abdomen / GI: normal bowel sounds, non tender, soft, no organomegaly Extremities: normal inspection, no calf tenderness, normal capillary refill , no pedal edema, normal range of motion, pelvis stable Neurologic/Psychiatric: paper slitter II-XII nml as tested, no motor/sensory deficits , alert, normal mood/affect, normal reflexes, oriented x 3 Skin: normal color, warm/dry, no rash Lymphatic: no adenopathy Hospital Course 67 yo female with hemoptysis, weight loss, COPD, muscle cramps - Hemoptysis with COPD, hilar and mediastinal adenopathy, weight loss bronchoscopy on 02/07, tolerated well no active bleeding seen, no masses cultures negative for bacterial, fungal and AFB d/c to home with pulmonology follow up - Muscle cramps, mild Hypokalemia aggressive replacement with 20mEq BID and give 20mEq IV x 1 on admission K up to 4.1 from 3.4 would recommend increasing supplement to BID on discharge Magnesium is 2.4 - KEE: can use CPAP tonight - DM, insulin dependent, sugars in the high 100's to 200's monitor for hypoglycemia, no episodes will continue on Lantus and Novolog coverage, diabetic diet DVT prophylaxis: SCD only due to hemoptysis Total Time Spent: Less than 30 minutes This includes examination of the patient, discharge planning, medication reconciliation, and communication with other providers. Discharge Instructions Please refer to the electronic Patient Visit Report (Discharge Instructions) for additional information. Follow-Up Dr. Garvey in pulmonary clinic in [place] Additional Copies To Rasheed Garvey M.D.
[2018-02-22] MEDS ORDERED: INSU100I SC (08:05)
[2018-02-22] MEDS ORDERED: LATA0.5S OPB (08:05)
[2018-02-22] MEDS ORDERED: INSDGI SC (08:05)
[2018-02-22] MEDS ORDERED: FERR1TAB13 PO (08:05)
[2018-02-22] MEDS ORDERED: TIMO4SOL2 OPB (08:05)
[2018-02-22] MEDS ORDERED: POTA-639 PO (08:05)
[2018-02-22] MEDS ORDERED: PANT40TA PO (08:05)
== END 2018-02-07 19:08 | disposition home or self-care (01) ==
LOC: C.ACU 06:20 → EDBEDREQ 08:31 → ENRESERV 08:35 → C.MS2W 09:14
PROVIDERS: ADMIT Internal Medicine Pulmonary Disease; ATTEND Internal Medicine Pulmonary Disease
DX: J44.9 Chronic obstructive pulmonary disease, unspecified (principal); R04.2 Hemoptysis; E87.6 Hypokalemia; R25.2 Cramp and spasm; E11.649 Type 2 diabetes mellitus with hypoglycemia without coma; G47.33 Obstructive sleep apnea (adult) (pediatric); R91.1 Solitary pulmonary nodule; R63.4 Abnormal weight loss; I10 Essential (primary) hypertension; Z86.73 Personal history of transient ischemic attack (TIA), and cerebral infarction without residual deficits; E03.9 Hypothyroidism, unspecified; Z87.891 Personal history of nicotine dependence; Z79.82 Long term (current) use of aspirin; Z79.4 Long term (current) use of insulin; Z79.899 Other long term (current) drug therapy; I25.10 Atherosclerotic heart disease of native coronary artery without angina pectoris

== ENCOUNTER 2018-02-23 06:54 | Observation (INO) | payer OTHER ==
[2018-02-22 08:08] VITALS: BMI 27.0
[~2018-02-23] VITALS: Ht 152.4 cm; Wt 63.2 kg
[2018-02-23] VITALS (13 sets, daily range): BP systolic 79–152; BP diastolic 47–85; PULSE 70–83; TEMP 36.3–37; O2SAT 92–98; Ht 152.4 cm; Wt 63.2 kg
[~2018-02-23 06:54] MED LIST changes: -CARV25TA2 PO; -FENTANYL CITRATE INJ 50 MCG/1 ML 2 ML VIAL ONE; -HMLI7525 SC; +INSU100I SC; +LACTATED RINGER'S 1000ML 1,000 ML IV SCH; -LATA0.009 OPB; +LATA0.5S OPB; +PANT40TA PO; +POTA-639 PO; +TIMO4SOL2 OPB
[2018-02-23] MEDS ORDERED: ULT/50 PO (08:14)
--- NOTE | 2018-02-23 08:15 | Discharge Instructions ---
Discharge Instructions Date of Service Feb 23, 2018. Visit Reason for Visit: Pulmonary Nodule, Diabetes Discharge Discharge Diagnosis / Problem: Pulmonary Nodules Discharge Goals Goal(s): Learn about illness Activity Recommendations Activity Limitations: resume your previous activity (in 24 hours) [address] if taking ultram Anesthesia . Post Anesthesia Instructions: If you have had General Anesthesia or IV Sedation: * Do not drive today. * Resume driving when surgeon permits. * Do not make important decisions or sign legal documents today. * Call surgeon for: 1. Temperature elevations greater than 101 degrees F. 2. Uncontrollable pain. 3. Excessive bleeding. 4. Persistent nausea and vomiting. 5. Medication intolerance (nausea, vomiting or rash). * For nausea and vomiting use only clear liquids such as: tea, soda, bouillon until nausea subsides, then gradually increase diet as tolerated. * If you have any concerns or questions, call your surgeon's office. If physician is unavailable and it is an emergency, call 911 or go to the nearest emergency room. . Instructions / Follow-Up Instructions / Follow-Up 1. Keep your scheduled appointment with Dr. Harris on March 05, 2018 @ 1:45 pm. Diet Recommendations Recommended Home Diet: resume previous diet Pending Studies Studies pending at discharge: no Medical Emergencies . Who to Call and When: Medical Emergencies: If at any time you feel your situation is an emergency, please call 911 immediately. . Non-Emergent Contact Non-Emergency issues call your: Surgeon Call Non-Emergent contact if: you have a fever, your pain is not controlled, wound has increased drainage . . "Provider Documentation" section prepared by Jordan Landon. .
[2018-02-23] MEDS ORDERED: ATROPINE SULFATE 0.1 MG/ML 5ML SYR IV PRN (08:30)
[2018-02-23] MEDS ORDERED: FENTANYL CITRATE INJ 50 MCG/1 ML 2 ML VIAL IV PRN (08:30)
[2018-02-23] MEDS ORDERED: EpHEDrine SULFATE INJ 50 MG/ML AMP IV PRN (08:30)
[2018-02-23] MEDS ORDERED: ONDANSETRON INJ 2 MG/ML 2 ML VIAL IV PRN ×3 (08:30→13:30)
[2018-02-23] MEDS ORDERED: SUCCINYLCHOLINE CHLORIDE 20 MG/ML 10 ML VIAL IV ONE (09:23)
[2018-02-23] MEDS ORDERED: LIDOCAINE HCL 2% 2 ML VIAL (20MG/ML) ONE (09:23)
[2018-02-23] MEDS ORDERED: LARYING-O-JET KIT (LTA) ONE (09:23)
[2018-02-23] MEDS ORDERED: PROPOFOL IV EMULSION 10 MG/ML 20 ML VIAL ONE (09:23)
[2018-02-23] MEDS ORDERED: MIDAZOLAM HCL 1 MG/ML 2ML VIAL ONE (09:23)
[2018-02-23] MEDS ORDERED: FENTANYL CITRATE INJ 50 MCG/1 ML 2 ML VIAL ONE (09:23)
[2018-02-23] MEDS ORDERED: ROCURONIUM BROMIDE 10 MG/ML 5 ML VIAL ONE (10:15)
[2018-02-23] MEDS ORDERED: GLYCOPYRROLATE INJ 0.2 MG/ML VIAL ONE (10:15)
[2018-02-23] MEDS ORDERED: NEOSTIGMINE METHYLSULFATE 5 MG/5 ML SYR ONE (10:15)
[2018-02-23] MEDS ORDERED: CEFAZOLIN SOD 1 GM VIAL ONE (10:15)
[2018-02-23] MEDS ORDERED: EpHEDrine SULFATE 50MG/5ML SYR ONE (10:33)
--- NOTE | 2018-02-23 10:49 | [facility] Post Operative Brief Note ---
Immediate Operative Summary Operative Date Feb 23, 2018. Pre-Operative Diagnosis Medistinal Adenopathy Post-Operative Diagnosis Non-necrotizing granulomas Procedure(s) Performed Videomediastinoscopy Surgeon Dr. Harris Hardware Press Operator Surgeon(s) Jenn Landon PA-C Estimated Blood Loss 5 cc's Findings Consistent with Post-Op Diagnosis Specimens Frozen Sections #1: R2 out of room at 1022
[2018-02-23] MEDS ORDERED: TRAMADOL HCL 50 MG TAB PO PRN (11:00)
[2018-02-23] MEDS ORDERED: MoRPHine SULFATE 2 MG/ML CARP IV PRN (11:00)
[2018-02-23] MEDS ORDERED: LABETALOL HCL IV 5 MG/ML 20ML ONE (11:18)
[2018-02-23] MEDS ORDERED: NURSING VERBAL MED ORDER ONE ×2 (11:30→21:30)
[2018-02-23] MEDS ORDERED: LABETALOL HCL IV 5 MG/ML 20ML IV PRN (11:30)
--- NOTE | 2018-02-23 11:43 | DIAGNOSTIC IMAGING REPORT ---
CHEST ONE VIEW PORTABLE HISTORY: mediastinoscopy COMPARISON: Chest 02/07/2018. FINDINGS: Mild diffuse interstitial thickening. The heart is borderline enlarged. Blunting of the right lateral costophrenic sulcus suggestive of a trace right pleural effusion. No pneumothorax. No definite pneumomediastinum. Cholecystectomy. IMPRESSION: 1. Mild central pulmonary vascular congestion without overt edema. 2. Trace right pleural effusion. 3. No pneumothorax. Electronically signed by: Michael Jones M.D. 02/23/2018 11:42 AM Dictated Date/Time: 02/23/2018 11:41 AM
--- NOTE | 2018-02-23 12:11 | Anesthesiology Progress Note ---
Anesthesia Post Op Note Date & Time Feb 23, 2018 at 12:11 Vital Signs Pain Intensity: 0 Vital Signs Past 12 Hours Date Time Temp Pulse Resp B/P (MAP) Pulse Ox O2 Delivery O2 Flow Rate FiO2 02/23/18 11:55 36.3 70 20 136/72 97 Room Air 02/23/18 11:48 72 20 02/23/18 11:48 72 20 93 02/23/18 11:46 36.0 93 Room Air 02/23/18 11:46 147/74 02/23/18 11:43 68 14 02/23/18 11:43 68 14 96 02/23/18 11:42 70 19 94 02/23/18 11:42 70 19 02/23/18 11:41 124/76 02/23/18 11:37 71 17 91 02/23/18 11:37 71 17 02/23/18 11:36 136/71 02/23/18 11:32 73 10 02/23/18 11:32 73 10 138/79 96 02/23/18 11:27 72 12 02/23/18 11:27 72 12 97 02/23/18 11:26 156/78 02/23/18 11:22 79 13 100 02/23/18 11:22 79 13 02/23/18 11:21 141/68 02/23/18 11:19 81 16 02/23/18 11:19 81 16 100 02/23/18 11:16 166/81 02/23/18 11:14 84 12 100 02/23/18 11:14 84 12 02/23/18 11:11 182/81 02/23/18 11:09 85 16 02/23/18 11:09 85 16 168/83 100 02/23/18 11:06 177/132 02/23/18 11:04 90 15 02/23/18 11:04 90 15 183/92 100 02/23/18 11:01 168/125 02/23/18 10:59 36.2 90 14 183/92 100 Oxymask 10 02/23/18 07:24 36.8 73 16 141/85 (103) 97 Room Air Notes Mental Status: alert / awake / arousable, participated in evaluation Pt Amnestic to Procedure: Yes Nausea / Vomiting: adequately controlled Pain: adequately controlled Airway Patency, RR, SpO2: stable & adequate BP & HR: stable & adequate Hydration State: stable & adequate Anesthetic Complications: no major complications apparent
[2018-02-23] MEDS ORDERED: METHYLPREDNISOLONE IV 80 MG in SYRINGE 0 ML IV SCH (12:40)
[2018-02-23] MEDS ORDERED: IV FLUIDS COMPLETED PRN (14:30)
[2018-02-23] MEDS ORDERED: DEXTROSE 50% 50 ML SYR IV PRN (19:15)
[2018-02-23] MEDS ORDERED: GLUCOSE 10 TABS/TUBE PO PRN (19:15)
[2018-02-23] MEDS ORDERED: GLUCAGON FOR INJ 1 MG VIAL IM PRN (19:15)
[2018-02-23] MEDS ORDERED: GLUCOSE 40% GEL 15 GM TUBE PO PRN (19:15)
[2018-02-23] MEDS ORDERED: CARBOHYDRATES FOR HYPOGLYCEMIA PO PRN (19:15)
[2018-02-23] MEDS ORDERED: TOPIRAMATE 50 MG TAB PO SCH (21:00)
[2018-02-23] MEDS ORDERED: FERROUS SULFATE 325 MG TAB PO SCH (21:00)
[2018-02-23] MEDS ORDERED: INSULIN GLARGINE SOLOSTAR 100 UNITS/ML 3 ML PEN SC SCH (21:00)
[2018-02-23] MEDS ORDERED: PANTOprazole SOD 40 MG TAB PO SCH (21:00)
[2018-02-23] MEDS ORDERED: DOCUSATE SODIUM 100 MG CAP PO SCH (21:00)
[2018-02-23] MEDS ORDERED: TRAZODONE HCL 50 MG TAB PO SCH (21:00)
[2018-02-23] MEDS ORDERED: LEVOTHYROXINE 150 MCG TAB PO SCH (21:00)
[2018-02-23] MEDS ORDERED: ATORVASTATIN 10 MG TAB PO SCH (21:00)
[2018-02-23] MEDS ORDERED: FUROSEMIDE 40 MG TAB PO SCH (21:00)
[2018-02-23] MEDS ORDERED: INSULIN ASPART 100 UNITS/ML 3 ML PEN SC SCH (21:00)
[2018-02-23] MEDS ORDERED: POTASSIUM CHLORIDE 20 MEQ TABCR PO SCH (21:00)
[2018-02-23] MEDS ORDERED: LATANOPROST 0.005% OP SOLN 2.5 ML BTL OPB SCH (21:00)
[2018-02-23] MEDS ORDERED: INSULIN ASPART 100 UNITS/ML 3 ML PEN SC STA (21:27)
[2018-02-24] VITALS: O2SAT 98
[2018-02-24 03:36] VITALS: BP 100/64; PULSE 79; TEMP 36.6; O2SAT 97
[2018-02-24 06:43] VITALS: BP 94/57; PULSE 80; TEMP 36.4; O2SAT 98
--- NOTE | 2018-02-24 07:56 | Discharge Summary ---
Discharge Summary Date of Service Feb 24, 2018. Discharge Summary Admission Date: Feb 23, 2018 at 13:27 Discharge Date: Feb 24, 2018 Principal Diagnosis: Mediastinal adenopathy Procedures: Video Mediastinoscopy [place] [facility] [place] management of DM Medication Reconciliation New Medications: Tramadol Hcl (Ultram) 50 Mg Tab 50 MG PO Q4H PRN for Pain, #15 TAB PRN PAIN Continued Medications: Atorvastatin (Lipitor) 10 Mg Tab 10 MG PO HS, TAB Ferrous Sulfate (Kp Ferrous Sulfate) 325 Mg Tab 1 TAB PO BID, TAB 3 Refills Furosemide (Lasix) 40 Mg Tab 40 MG PO HS Insulin Glargine (Lantus) 100 Unit/Ml Inj 50 UNITS SC QPM, VIAL Insulin Lispro (Human) (Humalog) 100 Unit/Ml Inj 1 DOSE SC DIRECTED PER SLIDING SCALE WITH MEALS DIRECTED Latanoprost (Xalatan 0.005% Oph Kenia) 0.005 % Kenia 1 DROPS OPB HS, ML Levothyroxine Sodium (Levothyroxine Sodium) 150 Mcg Tab 1 TAB PO HS, TAB Pantoprazole (Protonix) 40 Mg Tab 40 MG PO HS, TAB Potassium Ext Rel (Klor-Con) 20 Meq Tabcr 2 TAB PO HS, TAB Timolol Maleate (Ophth) (Timolol Maleate Ophthalmi) 0.25 % Kenia 1 DROP OPB QAM Topiramate (Topamax ) 25 Mg Tab 50 MG PO HS, TAB Trazodone Hcl (Trazodone) 50 Mg Tab 50 MG PO HS Discharge Exam Review of Systems: Constitutional: No fever, No chills Respiratory: + cough, No shortness of breath Cardiovascular: No chest pain Abdomen: No nausea, No vomiting Physical Exam: General Appearance: WD/WN, no apparent distress Respiratory/Chest: no respiratory distress, no accessory muscle use, + decreased breath sounds (at bases) Cardiovascular: regular rate, rhythm Abdomen / GI: soft Extremities: no calf tenderness Neurologic/Psychiatric: alert, oriented x 3 Hospital Course 67 year old female with mediastinal adenopathy -pt. underwent a video mediastinoscopy on 02/23/18 -preliminary path showed non-caseating granulomas: -pt. will follow-up with Dr. Garvey as outpt. -pt. kept overnight due to cough and SOB: -she was provided with solu-medrol 80 mg x 1 dose -hyperglycemia noted, likely due to surgical stress as well as steroid use -pt. maintained on her home dose of lantus 50 units at hs as well as [facility] -glucose improved to acceptable level prior to d/c -pt. notes she has a SSI at home she will continue to use along with her lantus -she will follow-up with her PCP for further mgt. of DM OTHER -pt. d/c home on 02/24/18 -she will follow-up with Dr. Harris on 03/05/18 Total Time Spent: Greater than 30 minutes This includes examination of the patient, discharge planning, medication reconciliation, and communication with other providers. Discharge Instructions Please refer to the electronic Patient Visit Report (Discharge Instructions) for additional information. Follow-Up Dr. Harris on March 05, 2018 @ 1:45 pm. Additional Copies To Rasheed Garvey M.D.
[2018-02-24 08:00] VITALS: BP 94/57; PULSE 80; TEMP 36.4; O2SAT 98
[2018-02-24] MEDS ORDERED: FERROUS SULFATE 325 MG TAB PO SCH (08:30)
[2018-02-24] MEDS ORDERED: TIMOLOL MALEATE 0.25% OP SOLN 5 ML BTL OPB SCH (09:00)
--- NOTE | 2018-03-07 09:35 | OPERATIVE REPORT ---
DATE OF OPERATION: 02/23/2018 PREOPERATIVE DIAGNOSIS: Mediastinal hilar lymphadenopathy. POSTOPERATIVE DIAGNOSIS: Non-necrotizing granulomas. SURGEON: Vignesh Harris MD MATTRESS RENOVATOR: MELANIE Quezada (MrJr Landon was present for the entire case. He was the early childhood teacher assistant and also closed the skin incision at the conclusion). ANESTHESIA: General anesthesia, endotracheal intubation. INDICATION FOR PROCEDURE AND FINDINGS: This is a very nice 67-year-old female who has lost a considerable amount of weight and has been found to have marked mediastinal and hilar adenopathy. She underwent an endobronchial ultrasound with biopsy and relieved that results were inconclusive. I was asked to see her for a mediastinoscopy. This was done on 02/23/2018 without difficulty. 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 She is hoarse. I explained that her left vocal cord is an issue with her left recurrent laryngeal nerve during mediastinoscopy; however, she is already paralyzed. At any rate, we discussed this, and she has lost weight and does not feel well, and our concern for a lymphoma is quite real. On 02/23/2018, the patient underwent an uncomplicated video mediastinoscopy. We biopsied a right level 2 node, a right level 4 node, level 7 node, left level 4 node, and a right level 10 node. These all came back with non-necrotizing granulomas. Blood loss was negligible. She tolerated it quite well. DESCRIPTION OF PROCEDURE: The patient was brought to the operating room and laid in supine position. General anesthesia induced. Endotracheal intubation performed, single lumen tube. Patient's neck was flexed. Prepped and draped in the usual sterile fashion. After appropriate antibiotics had been given and appropriate timeout had been called, an incision was made one fingerbreadth above the sternal notch. Sharp and blunt dissection used to dissect down to the trachea where we easily developed a plane bluntly. A video mediastinoscope was placed, and she was seen to have marked lymphadenopathy. I biopsied a large level 2 as well as level 4 node which was very large as well as a level 7. She had a level 10 node that was down below the azygous vein , I went ahead and biopsied this too. In pulling back, there was a node in its entirety in the left level 4, and we went ahead and removed this. We did not get any bleeding on the left, and we did not use a cautery on the left, although I did use cautery on the level 7 and right level 4 areas. Really had no bleeding. Her frozen section came back with non-necrotizing granulomas. We slowly withdrew the video mediastinoscope and saw no evidence of bleeding. 0 Vicryl was used to close the strap muscles. 4-0 Monocryl was used in running subcuticular fashion to approximate the wound edges. Antimicrobial dressings placed. She tolerated it well. I attest to the content of the Intraoperative Record and any orders documented therein. Any exceptions are noted below. FLORA
== END 2018-02-24 09:30 | disposition home or self-care (01) ==
LOC: C.ACU 06:54 → C.MSW 13:27 → ENRESERV 14:45
PROVIDERS: ADMIT Surgery; ATTEND Surgery
DX: R59.0 Localized enlarged lymph nodes (principal); J44.9 Chronic obstructive pulmonary disease, unspecified; I25.2 Old myocardial infarction; I12.9 Hypertensive chronic kidney disease with stage 1 through stage 4 chronic kidney disease, or unspecified chronic kidney disease; N18.9 Chronic kidney disease, unspecified; E11.22 Type 2 diabetes mellitus with diabetic chronic kidney disease; Z86.73 Personal history of transient ischemic attack (TIA), and cerebral infarction without residual deficits; Z79.4 Long term (current) use of insulin; Z79.899 Other long term (current) drug therapy; Z87.891 Personal history of nicotine dependence; Z79.82 Long term (current) use of aspirin; Z91.013 Allergy to seafood

== ENCOUNTER → 2018-03-13 | Outpatient (CLI) | payer OTHER ==
[~2018-03-13] MED LIST changes: +CYCL0.052 OP; -LACTATED RINGER'S 1000ML 1,000 ML IV SCH; +NTRGSL/4 UT; +OPTIRAY 320 IV PRN; +POLY335019 PO; +ULT/50 PO
--- NOTE | 2018-03-13 16:17 | DIAGNOSTIC IMAGING REPORT ---
ABDOMEN AND PELVIS CT WITH IV AND ORAL CONTRAST CT DOSE: 315.26 mGy.cm HISTORY: Left lower quadrant abdominal pain. TECHNIQUE: Multiaxial CT images of the abdomen and pelvis were performed following the use of intravenous and oral contrast. A dose lowering technique was utilized adhering to the principles of ALARA. COMPARISON STUDY: Outside hospital abdomen and pelvis CT 01/24/2018. FINDINGS: A few subcentimeter nodules within the right lung base and mildly enlarged right hilar lymph nodes. This remains unchanged and is consistent with the patient's known history of sarcoidosis. No pneumoperitoneum. No pneumatosis. No suspicious lytic or blastic osseous lesions. Cholecystectomy. Nodular contour to the liver consistent with cirrhosis. This remains unchanged. The spleen, adrenal glands, pancreas, and kidneys are unremarkable. No retroperitoneal lymphadenopathy. Calcified plaque within the normal caliber abdominal aorta. The bladder is unremarkable. Prior hysterectomy. The ovaries are symmetric in size. No bowel wall thickening or obstruction. Moderate to large amount well-formed stool within the colon. The appendix is surgically absent. IMPRESSION: 1. No bowel wall thickening or obstruction. 2. Moderate to large amount of well-formed stool seen throughout the colon. 3. Postoperative changes as described above. 4. Cirrhosis. Electronically signed by: Michael Jones M.D. 03/13/2018 4:16 PM Dictated Date/Time: 03/13/2018 4:02 PM
== END | disposition home or self-care (01) ==
LOC: C.CTS 12:44
PROVIDERS: ATTEND Internal Medicine Pulmonary Disease
DX: D86.9 Sarcoidosis, unspecified (principal); R19.7 Diarrhea, unspecified; R10.32 Left lower quadrant pain; Z98.890 Other specified postprocedural states

== ENCOUNTER 2020-12-03 19:32 | Observation (INO) ==
[2020-12-03] MEDS ORDERED: ASPIRIN CHEW 324 MG PO STA ×2 (19:44→19:53)
[2020-12-03] MEDS ORDERED: SODIUM CHLORIDE 0.9% 1000ML 1,000 ML IV ONE (19:53)
[2020-12-03] MEDS ORDERED: NITROGLYCERIN SL 0.4 MG/TAB TAB SL STA (19:53)
[2020-12-03] MEDS ORDERED: LORazepam 0.5 MG/1 ML VIAL IV STA (19:53)
--- NOTE | 2020-12-03 20:23 | Emergency Department Note ---
History of Present Illness General Chief Complaint: Chest Pain Stated Complaint: SOB, CHEST PAIN Time Seen by Provider: 12/03/20 19:44 History of Present Illness Provider Complaint: chest pain Onset (ago): hour(s) less than 1 Duration: constant Onset: during rest Pain Location: substernal Pain Radiation: none Maximum Pain Intensity: 9 Current Pain Intensity: 9 Quality: + other (Pressure) Relieved By: + nothing Exacerbated By: + nothing Context: + recent travel (Recent travel to [place]); no recent illness, no trauma/injury, no new medications and no history of DVT/PE Associated symptoms: + dyspnea; no vomiting, no diaphoresis, no syncope, no palpitations, no fever, no cough and no leg swelling Patient states her neurologist called her and told her to get to the nearest emergency department due to congestive heart failure symptoms. Patient states that she drove an hour and a half here from her home. She states on route to the emergency department she started developing chest pain that began less than 1 hour ago. She did not take any medications for this chest pain. Home Medications Medication Instructions Recorded Confirmed Type Humalog U-100 Insulin 1 sliding scale dose SUBCUT UD PRN 05/15/18 12/03/20 History Lantus Solostar U-100 Insulin 55 unit SUBCUT QAM 05/15/18 12/03/20 History Restasis 1 drp OPHTHALMIC (EYE) Q12H PRN 05/15/18 12/03/20 History aspirin [Aspir-81] 81 mg PO HS 05/15/18 12/03/20 History furosemide 40 mg PO QAM 05/15/18 12/03/20 History latanoprost (PF) 1 drp OPHTHALMIC (EYE) PM 05/15/18 12/03/20 History nitroglycerin [Nitrostat] 0.4 mg SUBLINGUAL UD PRN 05/15/18 12/03/20 History pantoprazole 40 mg PO HS 05/15/18 12/03/20 History polyethylene glycol 3350 [Miralax] 1 dose PO UD PRN 05/15/18 12/03/20 History atorvastatin 10 mg tablet 80 mg PO BID tab 10/28/20 12/03/20 History clopidogrel 75 mg tablet 75 mg PO DAILY 10/28/20 12/03/20 History hydralazine 10 mg tablet 10 mg PO BID 10/28/20 12/03/20 History levothyroxine 150 mcg capsule 175 mcg PO HS cap 10/28/20 12/03/20 History lorazepam 0.5 mg tablet 0.5 mg PO DAILY PRN 10/28/20 12/03/20 History metoprolol succinate 25 mg 25 mg PO DAILY 10/28/20 12/03/20 History tablet,extended release 24 hr sertraline 25 mg tablet 25 mg PO DAILY 10/28/20 12/03/20 History trazodone 50 mg tablet 100 mg PO HS tab 10/28/20 12/03/20 History Allergies Allergy/AdvReac Type Severity Reaction Status Date / Time shellfish derived Allergy Unknown Verified 12/03/20 21:13 Past Med/Surg History Medical History (Updated 12/03/20 @ 22:56 by Halle Jackson DO) Anemia HX Anxiety Chronic kidney disease STAGE 3-F/U [employer] TIM NAVARRO Chronic obstructive pulmonary disease Depression Diabetes mellitus, type 2 GERD (gastroesophageal reflux disease) Glaucoma Hiatal hernia Hx of deep venous thrombosis R LEG Hyperlipidemia Hypertension Hypothyroidism Migraine Myocardial Infarction HX 2012 Osteoarthritis Recent surgical procedure on lower extremity FASCIOTOMY FOR COMPARTMENT SYNDROME RLE Sleep apnea CPAP HS Transient ischemic attack (TIA) HX PAST YR-F/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 NAME?-[facility]-WEAKNESS R LEG/ARM Surgical History H/O lymph node excision NECK -BENIGN H/O neck surgery WITH BONE FUSION History of appendectomy History of cardiac cath X 2-LAST ON 02/2018 NO STENT NEEDED History of carpal tunnel release RIGHT History of section X 3 History of cholecystectomy History of herniorrhaphy R/L History of hysterectomy OVARIES Family History Brother Family history of diabetes mellitus Daughter Family history of diabetes mellitus Mother Family history of diabetes mellitus Family history of irritable bowel syndrome Father Family history of diabetes mellitus History of colon resection Grandmother History of colon resection Social History Smoking Status: Never smoker Second Hand Exposure: Yes (ON OCC-DAUGHTER SMOKES); Hx Alcohol Use: No Hx Substance Use: No Preferred Language: Chinese Communication Ability: Effective It Trainee Required: Yes and No Beliefs That Will Affect Care: None Current Living Situation: Family Feels Safe at Home: Yes Assistive Devices: CPAP and Glasses Review of Systems A total of 10 systems reviewed and were otherwise negative Physical Exam Vital Signs Vital Signs - 24 hr 12/03/20 19:33 12/03/20 20:00 12/03/20 20:22 Temperature 36.5 C Temperature Source Temporal Artery Scan Pulse Rate 81 Pulse Rate [Right Apical] 70 Pulse Rate from SpO2 Sensor Respiratory Rate 18 20 Respiratory Effort / Characteristics Non-Labored Spontaneous Respiratory Depth Normal Blood Pressure 160/84 H Blood Pressure [Right Arm] 118/77 Blood Pressure Mean 109 Blood Pressure Mean [Right Arm] 90 Blood Pressure Position [Right Arm] Lying Pulse Oximetry 99 94 96 Oxygen Delivery Method Room Air Room Air Room Air Sepsis Recent Fever Within 48 Hours No Sepsis New/Unexplained Change in Mental Status N/A Sepsis Action Taken by Nursing No Action Required 12/03/20 20:30 12/03/20 21:00 12/03/20 21:01 Temperature Temperature Source Pulse Rate 69 68 68 Pulse Rate [Right Apical] Pulse Rate from SpO2 Sensor Respiratory Rate 18 20 20 Respiratory Effort / Characteristics Respiratory Depth Blood Pressure 118/77 129/86 Blood Pressure [Right Arm] Blood Pressure Mean 90 100 Blood Pressure Mean [Right Arm] Blood Pressure Position [Right Arm] Pulse Oximetry Oxygen Delivery Method Sepsis Recent Fever Within 48 Hours Sepsis New/Unexplained Change in Mental Status Sepsis Action Taken by Nursing 12/03/20 21:30 12/03/20 22:00 12/03/20 22:01 Temperature Temperature Source Pulse Rate 69 85 64 Pulse Rate [Right Apical] Pulse Rate from SpO2 Sensor 67 64 Respiratory Rate 24 18 15 Respiratory Effort / Characteristics Respiratory Depth Blood Pressure 122/64 124/72 Blood Pressure [Right Arm] Blood Pressure Mean 83 89 Blood Pressure Mean [Right Arm] Blood Pressure Position [Right Arm] Pulse Oximetry 97 93 Oxygen Delivery Method Sepsis Recent Fever Within 48 Hours Sepsis New/Unexplained Change in Mental Status Sepsis Action Taken by Nursing 12/03/20 22:15 Temperature Temperature Source Pulse Rate 67 Pulse Rate [Right Apical] Pulse Rate from SpO2 Sensor 65 Respiratory Rate 22 Respiratory Effort / Characteristics Respiratory Depth Blood Pressure 124/72 Blood Pressure [Right Arm] Blood Pressure Mean 89 Blood Pressure Mean [Right Arm] Blood Pressure Position [Right Arm] Pulse Oximetry 91 Oxygen Delivery Method Sepsis Recent Fever Within 48 Hours Sepsis New/Unexplained Change in Mental Status Sepsis Action Taken by Nursing Physical Exam GENERAL: Patient is crying and stating that she is scared HENT: Exam performed. -Head: Normocephalic and atraumatic. -Right Ear: External ear normal. No mastoid tenderness. -Left Ear: External ear normal. No mastoid tenderness. -Mouth/Throat: The oropharynx is clear and moist. No trismus in the jaw. No dental abscesses or uvula swelling. No oropharyngeal exudate or tonsillar abscesses. EYES: Conjunctivae and EOM are normal. Pupils are equal, round, and reactive to light. Right eye exhibits no discharge. Left eye exhibits no discharge. No scleral icterus. NECK: Normal range of motion. Neck supple. No JVD present. No spinous process tenderness present. No carotid bruit present. No rigidity. No tracheal deviation and normal range of motion present. No Brudzinski's sign and no Kernig's sign noted. CV: Normal rate, regular rhythm, normal heart sounds and intact distal pulses. There is no peripheral edema. Palpable radial pulses bue. PULM/CHEST: Effort normal and breath sounds normal. No respiratory distress. No stridor. She has no wheezes. She has no rales. -Chest Wall: She exhibits no tenderness. ABD: The abdomen is soft. Bowel sounds are normal. She has no distension. No mass is present. There is no tenderness. There is no rebound, no guarding, no Hernandez's sign and no tenderness at McBurney's point. Rovsig negative MUSC/SKEL: Normal range of motion. There is no peripheral edema, tenderness or deformity. LYMPH: No cervical adenopathy. NEURO: She is alert and oriented to person, place, and time. She has normal strength. No cranial nerve deficit or sensory deficit. Coordination and gait normal. GCS eye subscore is 4. GCS verbal subscore is 5. GCS motor subscore is 6. Cerebellar tests wnl. SKIN: Skin is warm and dry. She is not diaphoretic. PSYCH: She has a normal mood and affect. Behavior is normal. Judgment and thought content normal. Course Course 1943: The patient was evaluated in room B11. A complete history and physical exam was performed Cardiac monitoring: An order was placed for continuous cardiac monitoring. The monitor shows a rate of 70 with sinus rhythm 2022: Patient states her chest pain is a 4/10 status post 0.5 Ativan 1 subling ual nitro. 2135: Vital signs stable. Labs show a creatinine of 1.83 which appears to be the patient's baseline. Troponin is within normal limits. EKG is within normal limits. D-dimer is elevated. We will not obtain CTA of the chest given the patient's elevated creatinine. proBNP is within normal limits. Chest x-ray shows some mild cardiomegaly with some mild pulmonary edema. Patient is not hypoxic or in any respiratory distress. Discussed case with [facility] hospitalist Dr. Jackson who will evaluate the patient. Administered Medications Discontinued Medications Aspirin (Aspirin Chew 324 Mg) 324 mg PO NOW STA Stop: 12/03/20 19:45 Last Admin: 12/03/20 20:05 Dose: 324 mg Documented by: [id number] Aspirin (Aspirin Chew 324 Mg) 324 mg PO NOW STA Stop: 12/03/20 19:54 Last Admin: 12/03/20 20:07 Dose: Not Given Documented by: [id number] Lorazepam (Ativan) 0.5 mg in 1 mls @ 1 mls/min IV NOW STA Stop: 12/03/20 19:54 Last Admin: 12/03/20 20:09 Dose: 1 mls/min Documented by: [id number] Sodium Chloride (Nss 1000ml) 1,000 mls @ 999 mls/hr IV .Q1H1M ONE Stop: 12/03/20 20:53 Last Infusion: 12/03/20 21:06 Dose: 0 mls/hr Documented by: [id number] Admin: 12/03/20 20:05 Dose: 999 mls/hr Documented by: [id number] Nitroglycerin (Nitroglycerin Sl 0.4 Mg/Tab Tab) 0.4 mg SL NOW STA Stop: 12/03/20 19:54 Last Admin: 12/03/20 20:09 Dose: 0.4 mg Documented by: [id number] Medical Decision Making Laboratory Data Result diagrams: 12/03/20 20:20 12/03/20 20:20 Labs: Lab Results 12/03/20 12/03/20 12/03/20 Range/Units 20:20 20:20 20:20 WBC 8.33 (4.8-10.8) K/uL RBC 3.42 L (4.2-5.4) M/uL Hgb 10.6 L (12.0-16.0) g/dL Hct 33.4 L (37-47) % MCV 97.7 (80-100) fL MCH 31.0 (25-34) pg MCHC 31.7 L (32-36) g/dL RDW Std Deviation 64.6 H (36.4-46.3) fL RDW Coeff of Nicole 18.2 H (11.5-14.5) % Plt Count 160 (130-400) K/uL MPV 10.4 (7.4-10.4) fL Immature Gran % (Auto) 0.1 % Neut % (Auto) 47.1 % Lymph % (Auto) 40.3 % [place] % (Auto) 8.2 % Eos % (Auto) 4.1 % Baso % (Auto) 0.2 % Neut # (Auto) 3.92 (1.4-6.5) K/uL Lymph # (Auto) 3.36 (1.2-3.4) K/uL [place] # (Auto) 0.68 H (0.11-0.59) K/uL Eos # (Auto) 0.34 (0-0.5) K/uL Baso # (Auto) 0.02 (0-0.2) K/uL Immature Gran # (Auto) 0.01 (0.00-0.02) K/uL PT 10.5 (9.0-12.0) Seconds INR 1.0 (0.9-1.1) APTT 22.7 (21.0-31.0) Seconds PTT Ratio 0.9 D-Dimer 1860 H* (0-500) ug/L FEU Sodium 142 (136-145) mmol/L Potassium 3.6 (3.5-5.1) mmol/L Chloride 109 H (98-107) mmol/L Carbon Dioxide 26 (21-32) mmol/L Anion Gap 7.0 (3-11) BUN 29 H (7-18) mg/dl Creatinine 1.83 H (0.6-1.2) mg/dl Est Cr Clr Drug Dosing 26.5 ml/min Est GFR ( Amer) 32.3 Est GFR (Non-Af Amer) 27.9 BUN/Creatinine Ratio 16.1 (10-20) Glucose 206 H (70-99) mg/dl Calcium 8.9 (8.5-10.1) mg/dl Troponin I < 0.015 (0-0.045) ng/ml NT-Pro-B Natriuret Pep 170 (0-900) pg/ml Lipase 223 (73-393) U/L Specimen Hemolysis COVID-19 Eval Order 12/03/20 Range/Units 21:45 WBC (4.8-10.8) K/uL RBC (4.2-5.4) M/uL Hgb (12.0-16.0) g/dL Hct (37-47) % MCV (80-100) fL MCH (25-34) pg MCHC (32-36) g/dL RDW Std Deviation (36.4-46.3) fL RDW Coeff of Nicole (11.5-14.5) % Plt Count (130-400) K/uL MPV (7.4-10.4) fL Immature Gran % (Auto) % Neut % (Auto) % Lymph % (Auto) % [place] % (Auto) % Eos % (Auto) % Baso % (Auto) % Neut # (Auto) (1.4-6.5) K/uL Lymph # (Auto) (1.2-3.4) K/uL [place] # (Auto) (0.11-0.59) K/uL Eos # (Auto) (0-0.5) K/uL Baso # (Auto) (0-0.2) K/uL Immature Gran # (Auto) (0.00-0.02) K/uL PT (9.0-12.0) Seconds INR (0.9-1.1) APTT (21.0-31.0) Seconds PTT Ratio D-Dimer (0-500) ug/L FEU Sodium (136-145) mmol/L Potassium (3.5-5.1) mmol/L Chloride (98-107) mmol/L Carbon Dioxide (21-32) mmol/L Anion Gap (3-11) BUN (7-18) mg/dl Creatinine (0.6-1.2) mg/dl Est Cr Clr Drug Dosing ml/min Est GFR ( Amer) Est GFR (Non-Af Amer) BUN/Creatinine Ratio (10-20) Glucose (70-99) mg/dl Calcium (8.5-10.1) mg/dl Troponin I (0-0.045) ng/ml NT-Pro-B Natriuret Pep (0-900) pg/ml Lipase (73-393) U/L Specimen Hemolysis COVID-19 Eval Order [facility]FluRsv at [facility] Imaging Data Chest x-ray: My impression: Mild cardiomegaly with mild cephalization. Airway clear. No free air under the diaphragm. Skeletal structures are intact. ECG Data Indication: chest pain Rate (beats per minute): 70 Rhythm: sinus with SA Findings: + 1st degree AV block; no ST depression, no ST elevation and no prolonged QT MDM Narrative 1943: The patient was evaluated in room B11. A complete history and physical exam was performed Cardiac monitoring: An order was placed for continuous cardiac monitoring. The monitor shows a rate of 70 with sinus rhythm 2021: Patient states her chest pain is a 4/10 status post 0.5 Ativan 1 sublingual nitro. 2134: Vital signs stable. Labs show a creatinine of 1.83 which appears to be the patient's baseline. Troponin is within normal limits. EKG is within normal limits. D-dimer is elevated. We will not obtain CTA of the chest given the patient's elevated creatinine. proBNP is within normal limits. Chest x-ray shows some mild cardiomegaly with some mild pulmonary edema. Patient is not hypoxic or in any respiratory distress. Discussed case with [facility] hospitalist Dr. Jackson who will evaluate the patient. Impression & Plan Chest pain Discharge Plan Visit Data Chief Complaint: Chest Pain Stated Complaint: SOB, CHEST PAIN ED Provider: Avery Membreno Discharge Problem: Chest pain Patient Disposition: Being Evaluated by Hospitalist Forms Stand Alone Forms: My [facility] Prescriptions Prescriptions: No Action clopidogrel 75 mg tablet 75 mg PO DAILY RF: 0 sertraline 25 mg tablet 25 mg PO DAILY RF: 0 metoprolol succinate 25 mg tablet extended release 24 hr 25 mg PO DAILY RF: 0 lorazepam 0.5 mg tablet 0.5 mg PO DAILY PRN (Reason: Anxiety) RF: 0 hydralazine 10 mg tablet 10 mg PO BID RF: 0 furosemide 40 mg Tablet 40 mg PO QAM RF: 0 pantoprazole 40 mg Tablet,Delayed Release (Dr/Ec) 40 mg PO HS RF: 0 Restasis 0.05 % Dropperette 1 drp OPHTHALMIC (EYE) Q12H PRN (Reason: Dry Eyes) RF: 0 latanoprost (PF) 0.005 % Drops 1 drp OPHTHALMIC (EYE) PM RF: 0 nitroglycerin [Nitrostat] 0.4 mg Tablet, Sublingual 0.4 mg Sublingual UD PRN (Reason: Pain) RF: 0 polyethylene glycol 3350 [Miralax] 17 gram/dose Powder 1 dose PO UD PRN (Reason: Constipation) RF: 0 Humalog U-100 Insulin 100 unit/mL Cartridge 1 sliding scale dose SUBCUT UD PRN (Reason: Hyperglycemia) RF: 0 Lantus Solostar U-100 Insulin 100 unit/mL (3 mL) Insulin Pen 55 unit SUBCUT QAM RF: 0 aspirin [Aspir-81] 81 mg Tablet,Delayed Release (Dr/Ec) 81 mg PO HS RF: 0 atorvastatin 10 mg tablet 80 mg PO BID RF: 0 trazodone 50 mg tablet 100 mg PO HS RF: 0 levothyroxine 150 mcg capsule 175 mcg PO HS RF: 0 Referrals Referrals: Stephanie Hess, R.N.P. [Primary Care Provider] -
[2020-12-03 20:34] LABS: Basophils # (auto) 0.02 K/uL (0-0.2); Basophils % (auto) 0.2 %; Eosinophils # (auto) 0.34 K/uL (0-0.5); Eosinophils % (auto) 4.1 %; Hematocrit (blood only) 33.4 % (37-47); Hemoglobin 10.6 g/dL (12.0-16.0); Immature Granulocytes # (auto) 0.01 K/uL (0.00-0.02); Immature Granulocytes % (auto) 0.1 %; Lymphocytes # (auto) 3.36 K/uL (1.2-3.4); Lymphocytes % (auto) 40.3 %; Mean Corpuscular Hgb Conc 31.7 g/dL (32-36); Mean Corpuscular Volume 97.7 fL (80-100); Mean Platelet Volume 10.4 fL (7.4-10.4); Monocytes # (auto) 0.68 K/uL (0.11-0.59); Monocytes % (auto) 8.2 %; Neutrophils # (auto) 3.92 K/uL (1.4-6.5); Neutrophils % (auto) 47.1 %; Platelet Count 160 K/uL (130-400); RDW Coefficient of Variation 18.2 % (11.5-14.5); RDW Standard Deviation 64.6 fL (36.4-46.3); Red Blood Count 3.42 M/uL (4.2-5.4); White Blood Count 8.33 K/uL (4.8-10.8)
[2020-12-03 20:54] LABS: Partial Thromboplastin Ratio 0.9; Partial Thromboplastin Time 22.7 Seconds (21.0-31.0); Prothrombin Time 10.5 Seconds (9.0-12.0)
[2020-12-03 21:03] LABS: BUN Creatinine Ratio 16.1 (10-20); Blood Urea Nitrogen 29 mg/dl (7-18); Calcium 8.9 mg/dl (8.5-10.1); Carbon Dioxide 26 mmol/L (21-32); Chloride 109 mmol/L (98-107); Creatinine Clr Calc Pharmacy 26.5 ml/min; Est GFR (African American) 32.3; Est GFR (Non-African American) 27.9; Glucose 206 mg/dl (70-99); Lipase 223 U/L (73-393); NT Pro B Type Natriuretic Pept 170 pg/ml (0-900); Potassium 3.6 mmol/L (3.5-5.1); Sodium 142 mmol/L (136-145); Troponin I < 0.015 ng/ml (0-0.045)
[2020-12-03 21:15] LABS: D Dimer 1860 ug/L FEU (0-500)
--- NOTE | 2020-12-03 22:45 | History & Physical Report ---
Date of Service December 03, 2020 Assessment & Plan (1) Shortness of breath: 70yo C female with multiple medical problems, interstitial lung disease, COPD, pulmonary hypertension and diastolic dysfunction, hypothyroidism and CKD presenting with single episode of chest pain as well as two weeks of rapid weight gain and worsening edema, ALEJO and SOB. Patient is HD stable, no respiratory distress or hypoxia. She reports gaining 30# over the past two weeks. Laboratory workup thus far is largely unremarkable to explain her shortness of breath. Ddx to include CHF exacerbation - patient with history of diastolic dysfunction, most likely cor pulmonale, less likely PE. -Observation to medical with telemetry monitoring -Check UA for proteinuria given facial/periorbital edema -Check TSH -Lasix 40mg IV now and daily with close monitoring of renal function -Monitor I/Os, daily standing weights -Low Na intake Present on Admission?: Yes (2) Chest pain: Patient was admitted to [facility] from 09/24/20 - 09/27/20 for hypertension and acute left precordial chest pain with diaphoresis and nausea. She had an echo at that time which showed normal LVEF of 60%, diastolic dysfunction and PH with RSVP of 28 mmHg. Apparently she had "total body swelling" at that time involving legs, face and arms as well as SOB and ALEJO. Patient had a nuclear stress echocardiogram performed at [facility] on 06/16/21 which was negative for myocardial ischemia. Patient had Holter monitor performed on 06/16/21 which included some tachycardia, otherwise no arrhythmias discovered Her episode of chest discomfort was brief. Normal troponin. EKG with no acute ischemic changes -Telemetry monitoring -Trend troponin -Continue ASA, Atorvastatin - will change to 40mg daily, Plavix, Metoprolol -Request records from [place] hospitalization Present on Admission?: Yes (3) Sleep apnea: CPAP qHS Present on Admission?: Yes (4) Non-occlusive coronary artery disease: With chest discomfort as above -Continue ASA, Plavix, Atorvastatin and Metoprolol Present on Admission?: Yes (5) Diabetes: Blood sugar elevated at 206 -Check Hgb AIC -Lantus 25u BID -ISS -Goal blood sugar 100 - 140 Present on Admission?: Yes (6) Hypothyroidism: Chronic -Check TSH -Continue Synthroid Present on Admission?: Yes (7) Chronic kidney disease: BUN and Cr seem to be near baseline. Patient denies change in urination -Check UA -Monitor renal function and electrolytes Present on Admission?: Yes (8) GERD (gastroesophageal reflux disease): Chronic. Stable -Continue Protonix 40mg po qHS Present on Admission?: Yes (9) Hyperlipidemia: Chronic -Continue Atorvastatin Present on Admission?: Yes (10) Hypertension: Blood pressure well controlled at present -Continue Metoprolol -Continue Hydralazine -Continue to monitor Present on Admission?: Yes (11) Depression: Chronic. Well controlled. -Continue Sertraline 25mg po daily -Continue Ativan 0.5mg po daily as needed for anxiety -Continue Trazodone 100mg po qHS F/E/N - Diuresis as above, monitor electroltyes and replete as needed, CC/AHA/Low Na diet as tolerated Ppx - Heparin 5000 TID Code - DNR/DNI Dispo - Observation to medical with telemetry Present on Admission?: Yes History of Present Illness Chief Complaint: SOB Primary Care Provider: Stephanie Hess Aleksandra Dodd is a 70yo female with multiple medical comorbidities. She presents today with complaint of "filling up with fluid". Patient has been in [place] renting a home with her sister. She was hospitalized there for a brief period of time for similar complaint - seemingly with negative workup although we do not have records on file. She states that she has gained 30 pounds of fluid over the last two weeks. She has worsening edema of legs as well as some swelling of her hands and face. She admits to SOB and dyspnea with minimal exertion. She had an appointment with her "Stroke doctor" today in [place] and apparently her BP was markedly elevated and her weight was noted to be high so she was instructed to come to the ER. She had one brief episode of chest discomfort immediately prior to arrival. She reports pressure and a warm sensation over her left chest and breast with radiation down her left arm. Pres sure was fairly intense, 9/10 in severity. She denies worsening SOB, nausea, dizziness or diaphoresis accompanying her chest discomfort. She was given Nitro in the ER which resolved her discomfort. Presently with no chest pain or pressure. She does state that she has some pain in her throat now. Patient reports compliance with her medications as well as adhering to a low salt diet. She states that when she left for [place] she was 129 pounds and her weight has steadily increased with rapid weight gain over the last 2 weeks - presently 162#. She believes that her "dry weight" is appx 130#. Upon review of weights in our system she was 68.5 kg on 10/28/20 and is 78 kg today (must consider room for error, i.e. different scales, standing vs laying, clothing blankets etc). Additionally patient states that while chewing her "jaw gets tired like its getting ready to quit". She has chronic headache and neck pain but reports no acute changes in these complaints. Denies visual disturbance. Patient reports being fairly active. She did exercising in the pool for one hour each day while in [place] - denies chest pain with exertion but did have to stop occasionally for SOB. ER Course: ASA, Ativan, Nitro Allergies Allergy/AdvReac Type Severity Reaction Status Date / Time shellfish derived Allergy Unknown Verified 12/03/20 21:13 Home Medications Medication Instructions Recorded Confirmed Type Humalog U-100 Insulin 1 sliding scale dose SUBCUT UD PRN 05/15/18 12/03/20 History Lantus Solostar U-100 Insulin 55 unit SUBCUT QAM 05/15/18 12/03/20 History Restasis 1 drp OPHTHALMIC (EYE) Q12H PRN 05/15/18 12/03/20 History aspirin [Aspir-81] 81 mg PO HS 05/15/18 12/03/20 History furosemide 40 mg PO QAM 05/15/18 12/03/20 History latanoprost (PF) 1 drp OPHTHALMIC (EYE) PM 05/15/18 12/03/20 History nitroglycerin [Nitrostat] 0.4 mg SUBLINGUAL UD PRN 05/15/18 12/03/20 History pantoprazole 40 mg PO HS 05/15/18 12/03/20 History polyethylene glycol 3350 [Miralax] 1 dose PO UD PRN 05/15/18 12/03/20 History atorvastatin 10 mg tablet 80 mg PO BID tab 10/28/20 12/03/20 History clopidogrel 75 mg tablet 75 mg PO DAILY 10/28/20 12/03/20 History hydralazine 10 mg tablet 10 mg PO BID 10/28/20 12/03/20 History levothyroxine 150 mcg capsule 175 mcg PO HS cap 10/28/20 12/03/20 History lorazepam 0.5 mg tablet 0.5 mg PO DAILY PRN 10/28/20 12/03/20 History metoprolol succinate 25 mg 25 mg PO DAILY 10/28/20 12/03/20 History tablet,extended release 24 hr sertraline 25 mg tablet 25 mg PO DAILY 10/28/20 12/03/20 History trazodone 50 mg tablet 100 mg PO HS tab 10/28/20 12/03/20 History Past Med/Surg History Medical History (Updated 12/03/20 @ 23:23 by Halle Jackson DO) Anemia HX Anxiety Chronic kidney disease STAGE 3-F/U PIG STICKER TIM NAVARRO Chronic obstructive pulmonary disease Depression Diabetes mellitus, type 2 GERD (gastroesophageal reflux disease) Glaucoma Hiatal hernia Hx of deep venous thrombosis R LEG Hyperlipidemia Hypertension Hypothyroidism Migraine Myocardial Infarction HX 2012 Osteoarthritis Recent surgical procedure on lower extremity FASCIOTOMY FOR COMPARTMENT SYNDROME RLE Sleep apnea CPAP HS Transient ischemic attack (TIA) HX PAST YR-F/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 NAME?-[facility]AK[facility] R LEG/ARM Surgical History H/O lymph node excision NECK -BENIGN H/O neck surgery WITH BONE FUSION History of appendectomy History of cardiac cath X 2-LAST ON 02/2018 NO STENT NEEDED History of carpal tunnel release RIGHT History of section X 3 History of cholecystectomy History of herniorrhaphy R/L History of hysterectomy OVARIES Family History Brother Family history of diabetes mellitus Daughter Family history of diabetes mellitus Mother Family history of diabetes mellitus Family history of irritable bowel syndrome Father Family history of diabetes mellitus History of colon resection Grandmother History of colon resection Social History Smoking Status: Never smoker Second Hand Exposure: Yes (ON OCC-DAUGHTER SMOKES); Hx Alcohol Use: No Hx Substance Use: No Preferred Language: Cook Islander Communication Ability: Effective Under Water Assistant Required: Yes and No Beliefs That Will Affect Care: None Current Living Situation: Family Feels Safe at Home: Yes Assistive Devices: CPAP and Glasses Review of Systems Review of Systems: All systems reviewed & are unremarkable except as noted in HPI & below Patient has not had Covid-19 vaccination Physical Exam Physical Exam: General: patient sleeping, arousable, NAD, non-toxic in appearance, AA&O x 4 Skin: warm, dry, intact, no rashes or lesions HEENT: NC/AT, PERRL, EOMI, periorbital edema and mild facial swelling, anicteric sclera, conjunctiva without injection, external ear normal to inspection and nontender, nares patent, moist mucus membranes, dentition intact, no oropharyngeal lesions, neck supple, trachea midline, no LAD, no thyromegaly, no JVD Heart: +S1/S2, regular, no m/r/g, no rash present on chest wall, no reproducible chest wall pain Lungs: equal air entry bilaterally, no rales/rhonchi/wheezes Abd: +BS, soft, NT/ND, no masses/organomegaly/ascites Ext: warm, 2+ pulses in UE/LLE, slightly diminished pulses in RLE 1+ DP/PT, no clubbing/cyanosis, trace pitting edema of RLE, tenderness with compression of right calf Neuro: nonfocal, patient AA&O x 4, speech intact, no facial droop, moving all extremities on command with equal strength 5/5 Results & Data Results & Data ([facility]) Vital Signs (Past 12 Hours) Vital Signs Temp Pulse Pulse Resp BP BP Pulse Ox 12/03/20 20:30 69 18 118/77 12/03/20 20:22 96 12/03/20 20:00 70 20 118/77 94 12/03/20 19:33 36.5 C 81 18 160/84 H 99 Laboratory Results Lab Results 12/03/20 12/03/20 12/03/20 Range/Units 20:20 20:20 20:20 WBC 8.33 (4.8-10.8) K/uL RBC 3.42 L (4.2-5.4) M/uL Hgb 10.6 L (12.0-16.0) g/dL Hct 33.4 L (37-47) % MCV 97.7 (80-100) fL MCH 31.0 (25-34) pg MCHC 31.7 L (32-36) g/dL RDW Std Deviation 64.6 H (36.4-46.3) fL RDW Coeff of Nicole 18.2 H (11.5-14.5) % Plt Count 160 (130-400) K/uL MPV 10.4 (7.4-10.4) fL Immature Gran % (Auto) 0.1 % Neut % (Auto) 47.1 % Lymph % (Auto) 40.3 % Gosper % (Auto) 8.2 % Eos % (Auto) 4.1 % Baso % (Auto) 0.2 % Neut # (Auto) 3.92 (1.4-6.5) K/uL Lymph # (Auto) 3.36 (1.2-3.4) K/uL Gosper # (Auto) 0.68 H (0.11-0.59) K/uL Eos # (Auto) 0.34 (0-0.5) K/uL Baso # (Auto) 0.02 (0-0.2) K/uL Immature Gran # (Auto) 0.01 (0.00-0.02) K/uL PT 10.5 (9.0-12.0) Seconds INR 1.0 (0.9-1.1) APTT 22.7 (21.0-31.0) Seconds PTT Ratio 0.9 D-Dimer 1860 H* (0-500) ug/L FEU Sodium 142 (136-145) mmol/L Potassium 3.6 (3.5-5.1) mmol/L Chloride 109 H (98-107) mmol/L Carbon Dioxide 26 (21-32) mmol/L Anion Gap 7.0 (3-11) BUN 29 H (7-18) mg/dl Creatinine 1.83 H (0.6-1.2) mg/dl Est Cr Clr Drug Dosing 26.5 ml/min Est GFR ( Amer) 32.3 Est GFR (Non-Af Amer) 27.9 BUN/Creatinine Ratio 16.1 (10-20) Glucose 206 H (70-99) mg/dl Calcium 8.9 (8.5-10.1) mg/dl Troponin I < 0.015 (0-0.045) ng/ml NT-Pro-B Natriuret Pep 170 (0-900) pg/ml Lipase 223 (73-393) U/L Specimen Hemolysis COVID-19 Eval Order 12/03/20 Range/Units 21:45 WBC (4.8-10.8) K/uL RBC (4.2-5.4) M/uL Hgb (12.0-16.0) g/dL Hct (37-47) % MCV (80-100) fL MCH (25-34) pg MCHC (32-36) g/dL RDW Std Deviation (36.4-46.3) fL RDW Coeff of Nicole (11.5-14.5) % Plt Count (130-400) K/uL MPV (7.4-10.4) fL Immature Gran % (Auto) % Neut % (Auto) % Lymph % (Auto) % Gosper % (Auto) % Eos % (Auto) % Baso % (Auto) % Neut # (Auto) (1.4-6.5) K/uL Lymph # (Auto) (1.2-3.4) K/uL Gosper # (Auto) (0.11-0.59) K/uL Eos # (Auto) (0-0.5) K/uL Baso # (Auto) (0-0.2) K/uL Immature Gran # (Auto) (0.00-0.02) K/uL PT (9.0-12.0) Seconds INR (0.9-1.1) APTT (21.0-31.0) Seconds PTT Ratio D-Dimer (0-500) ug/L FEU Sodium (136-145) mmol/L Potassium (3.5-5.1) mmol/L Chloride (98-107) mmol/L Carbon Dioxide (21-32) mmol/L Anion Gap (3-11) BUN (7-18) mg/dl Creatinine (0.6-1.2) mg/dl Est Cr Clr Drug Dosing ml/min Est GFR ( Amer) Est GFR (Non-Af Amer) BUN/Creatinine Ratio (10-20) Glucose (70-99) mg/dl Calcium (8.5-10.1) mg/dl Troponin I (0-0.045) ng/ml NT-Pro-B Natriuret Pep (0-900) pg/ml Lipase (73-393) U/L Specimen Hemolysis COVID-19 Eval Order CovFluRsv at [facility] Diagnostic Findings CXR - per my interpretation - appears to have slight increase of interstitial markings possibly compatible with mild pulmonary edema ECG Additional Comments: EKG SR at 70bpm, fusion complexes, TA=342, QRS=80, IJz=620, no acute ischemic changes Code Status & VTE Plan VTE Prophylaxis Plan VTE Prophylaxis will be ordered: Yes PG Care Time/CCT Total # of Minutes Spent Total Time Spent with Patient: Total time spent is greater than 50% in coordination of care (as documented) at patient's floor/unit and/or counseling patient: Coding Level of Care Code 06904 OBS Care - Level 3 Diagnoses Shortness of breath R06.02 Chest pain R07.9 Chest pain type: unspecified Sleep apnea G47.30 Sleep apnea type: unspecified type Non-occlusive coronary artery disease I25.10 Diabetes E11.9; Z79.4 Diabetes mellitus type: type 2 Diabetes mellitus buttermaker continuous churn insulin use: with fpc use Diabetes mellitus complication status: without complication Hypothyroidism E03.9 Hypothyroidism type: unspecified Chronic kidney disease N18.9 Chronic kidney disease stage: unspecified stage GERD (gastroesophageal reflux disease) K21.9 Esophagitis presence: esophagitis presence not specified Hyperlipidemia E78.5 Hyperlipidemia type: unspecified Hypertension I10 Hypertension type: essential hypertension Depression F32.9 Depression Type: major depressive disorder Major depression recurrence: unspecified whether recurrent Active/Remission status: remission status unspecified (1) Chest pain Chest pain type: unspecified Qualified Code(s): R07.9 - Chest pain, unspecified (2) Sleep apnea Sleep apnea type: unspecified type Qualified Code(s): G47.30 - Sleep apnea, unspecified (3) Diabetes Diabetes mellitus type: type 2 Diabetes mellitus buttermaker continuous churn insulin use: with buttermaker continuous churn use Diabetes mellitus complication status: without complication Qualified Code(s): E11.9 - Type 2 diabetes mellitus without complications; 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.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 (4) Hypothyroidism Hypothyroidism type: unspecified Qualified Code(s): E03.9 - Hypothyroidism, unspecified (5) Chronic kidney disease Chronic kidney disease stage: unspecified stage Qualified Code(s): N18.9 - Chronic kidney disease, unspecified (6) GERD (gastroesophageal reflux disease) Esophagitis presence: esophagitis presence not specified Qualified Code(s): K21.9 - Gastro-esophageal reflux disease without esophagitis (7) Hyperlipidemia Hyperlipidemia type: unspecified Qualified Code(s): E78.5 - Hyperlipidemia, unspecified (8) Hypertension Hypertension type: essential hypertension Qualified Code(s): I10 - Essential (primary) hypertension (9) Depression Depression Type: major depressive disorder Major depression recurrence: unspecified whether recurrent Active/Remission status: remission status unspecified Qualified Code(s): F32.9 - Major depressive disorder, single episode, unspecified
[2020-12-03] MEDS ORDERED: FUROSEMIDE 40 MG/4 ML VIAL IV STA (22:47)
[2020-12-03 23:06] LABS: Influenza A virus by PCR Negative (Neg); Influenza B virus by PCR Negative (Neg); RSV by PCR Negative (Neg); SARS CoV2 RNA(COVID-19) InHosp NEGATIVE (Negative)
[2020-12-04] MEDS ORDERED: GLUCAGON FOR INJ 1 MG VIAL SQ PRN (00:28)
[2020-12-04] MEDS ORDERED: LORazepam 0.5 MG TAB PO PRN (00:28)
[2020-12-04] MEDS ORDERED: GLUCOSE 40% GEL 15 GM TUBE PO PRN (00:28)
[2020-12-04] MEDS ORDERED: ONDANSETRON INJ 2 MG/ML 2 ML VIAL IV PRN (00:28)
[2020-12-04] MEDS ORDERED: DEXTROSE 50% 50 ML SYRINGE IV PRN (00:28)
[2020-12-04] MEDS ORDERED: POLYETHYLENE (MIRALAX) 17 GM PACK PO PRN (00:28)
[2020-12-04] MEDS ORDERED: GLUCOSE 10 TABS/TUBE PO PRN (00:28)
[2020-12-04] MEDS ORDERED: CARBOHYDRATES FOR HYPOGLYCEMIA PO PRN (00:28)
[2020-12-04] MEDS: INSULIN ASPART 100 UNITS/ML 3 ML PEN SC SCH ×5 (01:50→20:21)
[2020-12-04 01:53] LABS: Magnesium 2.3 mg/dl (1.8-2.4); Phosphorus 2.4 mg/dl (2.5-4.9)
[2020-12-04 03:39] LABS: Appearance Urine Clear (Clear); Bilirubin Urine Negative (Negative); Blood Urine Negative (Negative); Color Urine Yellow; Glucose Urine UA 2+ (Negative); Ketones Urine Negative (Negative); Leukocyte Esterase Urine Negative (Negative); Nitrite Urine Negative (Negative); Protein Urine Negative (Negative); Specific Gravity Urine 1.009 (1.000-1.030); Urobilinogen Urine Negative (Negative); pH Urine 6.5 (4.5-7.5)
[2020-12-04] MEDS: ACETAMINOPHEN 325 MG TAB PO PRN ×2 (05:59→21:27)
[2020-12-04] MEDS: HEPARIN SOD 5,000 UNIT/0.5 ML VIAL SQ SCH ×3 (06:02→21:19)
--- NOTE | 2020-12-04 06:53 | XRay Report ---
XR chest 2V PA/lateral CLINICAL HISTORY: Atypical chest pain COMPARISON STUDY: 02/23/2018 FINDINGS: The heart is mildly enlarged. There is slight interstitial prominence similar to the prior study and likely in part secondary to the patient's body habitus. There is no overt failure. There is no lobar consolidation. There are no pleural effusions.[ IMPRESSION: No active disease in the chest. ACT 112: Negative or not required by law. Electronically signed by: Mohit Son M.D. 12/04/2020 6:51 AM
--- NOTE | 2020-12-04 06:54 | Ultrasound Report ---
US venous doppler LE BI CLINICAL HISTORY: Bilateral leg pain and swelling COMPARISON STUDY: No previous studies for comparison. FINDINGS: Real-time and color flow Doppler imaging were performed. Flow was seen within the femoral, popliteal and calf veins with no intraluminal thrombus demonstrated. The saphenous vein is patent. IMPRESSION: No evidence of lower extremity DVT. ACT 112: Negative or not required by law. Electronically signed by: Mohit Son M.D. 12/04/2020 6:53 AM
[2020-12-04 07:56] LABS: Basophils # (auto) 0.02 K/uL (0-0.2); Basophils % (auto) 0.3 %; Eosinophils # (auto) 0.31 K/uL (0-0.5); Eosinophils % (auto) 4.5 %; Hematocrit (blood only) 35.7 % (37-47); Hemoglobin 11.2 g/dL (12.0-16.0); Lymphocytes # (auto) 2.31 K/uL (1.2-3.4); Lymphocytes % (auto) 33.7 %; Mean Corpuscular Hemoglobin 30.9 pg (25-34); Mean Corpuscular Hgb Conc 31.4 g/dL (32-36); Mean Corpuscular Volume 98.6 fL (80-100); Mean Platelet Volume 9.8 fL (7.4-10.4); Monocytes # (auto) 0.61 K/uL (0.11-0.59); Monocytes % (auto) 8.9 %; Neutrophils # (auto) 3.61 K/uL (1.4-6.5); Neutrophils % (auto) 52.6 %; Platelet Count 156 K/uL (130-400); RDW Coefficient of Variation 18.3 % (11.5-14.5); RDW Standard Deviation 65.8 fL (36.4-46.3); Red Blood Count 3.62 M/uL (4.2-5.4); White Blood Count 6.86 K/uL (4.8-10.8)
--- NOTE | 2020-12-04 08:13 | Hospitalist Progress Note ---
Date of Service December 04, 2020 Assessment & Plan (1) Hypothyroidism: Chronic but states she takes medications in evening with the rest of her pills -- suspect this is contributing to ineffective treatment of her hypothyroidism. TSH -- ELEVATED 194 -- Checking FT4 --LOW 0.3 Increase Synthroid to 200mcg daily and will change to AM dosing as discussed with patient and she will also need to have repeat TFT as outpatient in next 6 weeks with further titration as needed US Thyroid pending for possible nodules Continues to diuresis with 40mg IV lasix daily -- will continue through tomorrow given improvement of edema and creatinine (>1.5 in [place] and recs for Nephrolo gy follow up at discharge, was elevated 1.83 on admission) Diuresis of 900mL since admission overnight Continue to monitor (2) Shortness of breath: 70yo C female with multiple medical problems, interstitial lung disease, COPD, pulmonary hypertension and diastolic dysfunction, hypothyroidism and CKD presenting with single episode of chest pain as well as two weeks of rapid weight gain and worsening edema, ALEJO and SOB. Patient is HD stable, no respiratory distress or hypoxia. She reports gaining 30# over the past two weeks. Laboratory workup thus far is largely unremarkable to explain her shortness of breath. Ddx to include CHF exacerbation - patient with history of diastolic dysfunction, most likely cor pulmonale, less likely PE. IMPROVING Supposedly given IV lasix prior to d/c [place] and sent on PO but not on med rec (hospitalized from 09/24-09/27) -- At that time Echo showed normal LVEF at 60% with diastolic dysfunction and pulmonary hypertension with RSVP at 28 mmHg. Troponins were negative proBNP was normal dyslipidemia with a atorvastatin 80 mg daily (increased) and fenofibrate 48 mg tab daily (resumed) Lasix 40mg IV continued as above with improvement of Cr and will continue through tomorrow UA without proteinuria TSH elevated as above Ddimer elevated Dopplers negative for DVT CT Chest negative for PE but does show some worsening fibrosis --> follows with Dr. Garvey and will need f/u at discharge Will obtain limited ECHO to ensure no worsening EF/valvular dysfunction however no murmur on examination 96% on RA -- supplemental as needed AHA, Low Na diet Daily weights, I&Os Continue to monitor (3) Chest pain: Patient was admitted to [facility] from 09/24/20 - 09/27/20 for hypertension and acute left precordial chest pain with diaphoresis and nausea. She had an echo at that time which showed normal LVEF of 60%, diastolic dysfunction and PH with RSVP of 28 mmHg. Apparently she had "total body swelling" at that time involving legs, face and arms as well as SOB and ALEJO. Patient had a nuclear stress echocardiogram performed at [facility] on 06/16/21 which was negative for myocardial ischemia. Patient had Holter monitor performed on 06/16/21 which included some tachycardia, otherwise no arrhythmias discovered Her episode of chest discomfort was brief. Normal troponin. EKG with no acute ischemic changes -Telemetry monitoring -- no arrythmia Troponins have been negative -- continue to trend No further chest pain reported -Continue ASA, Atorvastatin, Plavix, Continue Metoprolol (appears she was changed to tartrate 25mg BID and we will change that while inpatient to start tomorrow as she got her dose of succinate this morning) -Request records from [place] hospitalization (4) Sleep apnea: CPAP qHS (5) Non-occlusive coronary artery disease: With chest discomfort as above -Continue ASA, Plavix, Atorvastatin and Metoprolol (6) Diabetes: Blood sugar elevated at 206 -Check Hgb AIC --10.2 (down from 10.9) -Lantus 25u BID -ISS -Goal blood sugar 100 - 140 Pharmacy consulted for glycemic control (previously on Invokanna and Januvia but had them discontinued) Continue to monitor BSGs (7) Chronic kidney disease: Newer diagnosis and recommended follow up with Nephrology after hospitalization in [place] Ct elevated to 1.8 in June and was up to 2.[address] [place] [address] Garvey's note Improved to 1.59 from 1.83 on admission with diuresis Continue diuresis as above Consider addition of INGRID/ARB given CKD with DM and prior HTN admission UA without protein as above Avoid nephrotoxic medications BMP in AM (8) GERD (gastroesophageal reflux disease): Chronic. Stable -Continue Protonix 40mg po qHS To have EGD next week [facility] but wanted to switch for [facility] providers -- re: dysphagia/hoarseness --Consulted Dr. Adame while inpatient (9) Hyperlipidemia: Chronic -Continue Atorvastatin 80mg -- consider switching to HS to decrease side effects (10) Hypertension: Blood pressure well controlled at present 118/73 -Continue Metoprolol 25mg daily -Continue Hydralazine (consider INGRID/ARB as above given CKD and DM for better BP control) -Continue to monitor (11) Depression: Chronic. Well controlled. -Continue Sertraline 25mg po daily -Continue Ativan 0.5mg po daily as needed for anxiety -Continue Trazodone 100mg po qHS Was also started on depakote for possible seizure activity in the past since November 2019 -- 500mg daily --> Took dose yesterday morning and added back to profile during admission F/E/N - Diuresis as above, monitor electrolytes and replete as needed, CC/AHA/Low Na diet as tolerated Ppx - Heparin 5000 TID Code - DNR/DNI Dispo - changed to full admit PT/OT maci pending Admission and Anticipated Discharge Date Admission Date: December 03, 2020 Subjective Patient evaluated this morning. Feeling better than admission. She states prior to admission had nausea and vomiting. Deals with chronic constipation (unsure on last BM but is passing gas -- she had been using metamucil at home without much success). Also admits to brain fog, fatigue, swelling, brittle hair. States she typically takes her synthroid in the evening with the rest of her pills --> discussed this may be contributing to ineffective treatment and should take in AM prior to other pills/food and willl need follow up labs for further titrations. She has had issues with dysphagia and hoarse voice for months and was to see [facility] on Monday for EGD but she wants to switch to [facility] and would like to see while in the hospital to establish care. Already on protonix 40mg daily. Will consult. She was started on anticonvulsant daily (took dose yesterday morning) and we resumed today. Also on atorvastatin 80mg daily which we increased. No fever, chills, chest pain, further nausea or vomiting, dysuria. Questions/concerns addressed at this time. Review of Systems Review of Systems: All systems reviewed & are unremarkable except as noted in HPI & below Physical Exam Physical Exam: General: resting in bed, alert. NAD. AOx4 Skin: warm, dry, intact, no rashes or lesions HEENT: NC/AT, PERRL, EOMI, periorbital edema and mild facial swelling, anicteric sclera, conjunctiva without injection, external ear normal to inspection and nontender, nares patent, moist mucus membranes, dentition intact, no oropharyngeal lesions, neck supple, trachea midline, no LAD, no thyromegaly or nodules appreciated but does have some lymphadenopathy, no JVD Heart: +S1/S2, regular, no m/r/g, no rash present on chest wall, no reproducible chest wall pain Lungs: equal air entry bilaterally, no rales/rhonchi/wheezes. bibasilar crackles Abd: +BS, soft, NT/ND, no masses/organomegaly/ascites Ext: warm, 2+ pulses in UE/LLE, slightly diminished pulses in RLE 1+ DP/PT, no clubbing/cyanosis, trace pitting edema Neuro: nonfocal, patient AA&O x 4, speech intact, no facial droop, moving all extremities on command with equal strength 5/5 Results & Data Results & Data ([facility]) Vital Signs (Past 12 Hours) Vital Signs Temp Pulse Pulse Pulse Resp BP BP 12/04/20 07:52 36.8 C 65 18 118/73 12/04/20 03:21 63 14 12/04/20 03:10 36.6 C 63 18 152/78 H 12/04/20 01:15 66 16 12/04/20 01:00 66 12/04/20 00:29 36.9 C 67 18 130/75 12/04/20 00:28 36.9 C 67 18 130/75 12/03/20 22:15 67 22 124/72 12/03/20 22:01 64 15 12/03/20 22:00 85 18 124/72 12/03/20 21:30 69 24 122/64 12/03/20 21:01 68 20 12/03/20 21:00 68 20 129/86 12/03/20 20:30 69 18 118/77 12/03/20 20:22 Pulse Ox 12/04/20 07:52 96 12/04/20 03:21 95 12/04/20 03:10 97 12/04/20 01:15 95 12/04/20 01:00 12/04/20 00:29 95 12/04/20 00:28 95 12/03/20 22:15 91 12/03/20 22:01 93 12/03/20 22:00 97 12/03/20 21:30 12/03/20 21:01 12/03/20 21:00 12/03/20 20:30 12/03/20 20:22 96 Laboratory Results 12/04/20 12/04/20 12/04/20 Range/Units 07:41 07:25 07:25 WBC (4.8-10.8) K/uL RBC (4.2-5.4) M/uL Hgb (12.0-16.0) g/dL Hct (37-47) % MCV (80-100) fL MCH (25-34) pg MCHC (32-36) g/dL RDW Std Deviation (36.4-46.3) fL RDW Coeff of Nicole (11.5-14.5) % Plt Count (130-400) K/uL MPV (7.4-10.4) fL Immature Gran % (Auto) % Neut % (Auto) % Lymph % (Auto) % Nash % (Auto) % Eos % (Auto) % Baso % (Auto) % Neut # (Auto) (1.4-6.5) K/uL Lymph # (Auto) (1.2-3.4) K/uL Nash # (Auto) (0.11-0.59) K/uL Eos # (Auto) (0-0.5) K/uL Baso # (Auto) (0-0.2) K/uL Immature Gran # (Auto) (0.00-0.02) K/uL ESR PT (9.0-12.0) Seconds INR (0.9-1.1) APTT (21.0-31.0) Seconds PTT Ratio D-Dimer (0-500) ug/L FEU Sodium Pending (136-145) mmol/L Potassium Pending (3.5-5.1) mmol/L Chloride Pending (98-107) mmol/L Carbon Dioxide Pending (21-32) mmol/L Anion Gap Pending (3-11) BUN Pending (7-18) mg/dl Creatinine Pending (0.6-1.2) mg/dl Est Cr Clr Drug Dosing Pending ml/min Est GFR ( Amer) Pending Est GFR (Non-Af Amer) Pending BUN/Creatinine Ratio Pending (10-20) Glucose Pending (70-99) mg/dl POC Glucose 97 (70-99) mg/dl Estimat Average Glucose Pending Hemoglobin A1c Pending Calcium Pending (8.5-10.1) mg/dl Phosphorus (2.5-4.9) mg/dl Magnesium (1.8-2.4) mg/dl Troponin I Pending (0-0.045) ng/ml NT-Pro-B Natriuret Pep (0-900) pg/ml Lipase (73-393) U/L TSH (0.300-4.500) uIu/ml Specimen Hemolysis Urine Color Urine Appearance (Clear) Urine pH (4.5-7.5) Ur Specific [place] (1.000-1.030) Urine Protein (Negative) Urine Glucose (UA) (Negative) Urine Ketones (Negative) Urine Blood (Negative) Urine Nitrite (Negative) Urine Bilirubin (Negative) Urine Urobilinogen (Negative) Ur Leukocyte Esterase (Negative) COVID-19 Eval Order SARS-CoV-2 (PCR) (Negative) Influenza Type A (PCR) (Neg) Influenza Type B (PCR) (Neg) RSV (RT-PCR) (Neg) 12/04/20 12/04/20 12/04/20 Range/Units 07:25 07:25 03:15 WBC 6.86 (4.8-10.8) K/uL RBC 3.62 L (4.2-5.4) M/uL Hgb 11.2 L (12.0-16.0) g/dL Hct 35.7 L (37-47) % MCV 98.6 (80-100) fL MCH 30.9 (25-34) pg MCHC 31.4 L (32-36) g/dL RDW Std Deviation 65.8 H (36.4-46.3) fL RDW Coeff of Nicole 18.3 H (11.5-14.5) % Plt Count 156 (130-400) K/uL MPV 9.8 (7.4-10.4) fL Immature Gran % (Auto) 0.0 % Neut % (Auto) 52.6 % Lymph % (Auto) 33.7 % Nash % (Auto) 8.9 % Eos % (Auto) 4.5 % Baso % (Auto) 0.3 % Neut # (Auto) 3.61 (1.4-6.5) K/uL Lymph # (Auto) 2.31 (1.2-3.4) K/uL Nash # (Auto) 0.61 H (0.11-0.59) K/uL Eos # (Auto) 0.31 (0-0.5) K/uL Baso # (Auto) 0.02 (0-0.2) K/uL Immature Gran # (Auto) 0.00 (0.00-0.02) K/uL ESR Pending PT (9.0-12.0) Seconds INR (0.9-1.1) APTT (21.0-31.0) Seconds PTT Ratio D-Dimer (0-500) ug/L FEU Sodium (136-145) mmol/L Potassium (3.5-5.1) mmol/L Chloride (98-107) mmol/L Carbon Dioxide (21-32) mmol/L Anion Gap (3-11) BUN (7-18) mg/dl Creatinine (0.6-1.2) mg/dl Est Cr Clr Drug Dosing ml/min Est GFR ( Amer) Est GFR (Non-Af Amer) BUN/Creatinine Ratio (10-20) Glucose (70-99) mg/dl POC Glucose (70-99) mg/dl Estimat Average Glucose Hemoglobin A1c Calcium (8.5-10.1) mg/dl Phosphorus (2.5-4.9) mg/dl Magnesium (1.8-2.4) mg/dl Troponin I (0-0.045) ng/ml NT-Pro-B Natriuret Pep (0-900) pg/ml Lipase (73-393) U/L TSH (0.300-4.500) uIu/ml Specimen Hemolysis Urine Color Yellow Urine Appearance Clear (Clear) Urine pH 6.5 (4.5-7.5) Ur Specific [place] 1.009 (1.000-1.030) Urine Protein Negative (Negative) Urine Glucose (UA) 2+ H (Negative) Urine Ketones Negative (Negative) Urine Blood Negative (Negative) Urine Nitrite Negative (Negative) Urine Bilirubin Negative (Negative) Urine Urobilinogen Negative (Negative) Ur Leukocyte Esterase Negative (Negative) COVID-19 Eval Order SARS-CoV-2 (PCR) (Negative) Influenza Type A (PCR) (Neg) Influenza Type B (PCR) (Neg) RSV (RT-PCR) (Neg) 12/04/20 12/03/20 12/03/20 Range/Units 01:48 21:45 21:45 WBC (4.8-10.8) K/uL RBC (4.2-5.4) M/uL Hgb (12.0-16.0) g/dL Hct (37-47) % MCV (80-100) fL MCH (25-34) pg MCHC (32-36) g/dL RDW Std Deviation (36.4-46.3) fL RDW Coeff of Nicole (11.5-14.5) % Plt Count (130-400) K/uL MPV (7.4-10.4) fL Immature Gran % (Auto) % Neut % (Auto) % Lymph % (Auto) % Nash % (Auto) % Eos % (Auto) % Baso % (Auto) % Neut # (Auto) (1.4-6.5) K/uL Lymph # (Auto) (1.2-3.4) K/uL Nash # (Auto) (0.11-0.59) K/uL Eos # (Auto) (0-0.5) K/uL Baso # (Auto) (0-0.2) K/uL Immature Gran # (Auto) (0.00-0.02) K/uL ESR PT (9.0-12.0) Seconds INR (0.9-1.1) APTT (21.0-31.0) Seconds PTT Ratio D-Dimer (0-500) ug/L FEU Sodium (136-145) mmol/L Potassium (3.5-5.1) mmol/L Chloride (98-107) mmol/L Carbon Dioxide (21-32) mmol/L Anion Gap (3-11) BUN (7-18) mg/dl Creatinine (0.6-1.2) mg/dl Est Cr Clr Drug Dosing ml/min Est GFR ( Amer) Est GFR (Non-Af Amer) BUN/Creatinine Ratio (10-20) Glucose (70-99) mg/dl POC Glucose 125 H (70-99) mg/dl Estimat Average Glucose Hemoglobin A1c Calcium (8.5-10.1) mg/dl Phosphorus (2.5-4.9) mg/dl Magnesium (1.8-2.4) mg/dl Troponin I (0-0.045) ng/ml NT-Pro-B Natriuret Pep (0-900) pg/ml Lipase (73-393) U/L TSH (0.300-4.500) uIu/ml Specimen Hemolysis Urine Color Urine Appearance (Clear) Urine pH (4.5-7.5) Ur Specific [place] (1.000-1.030) Urine Protein (Negative) Urine Glucose (UA) (Negative) Urine Ketones (Negative) Urine Blood (Negative) Urine Nitrite (Negative) Urine Bilirubin (Negative) Urine Urobilinogen (Negative) Ur Leukocyte Esterase (Negative) COVID-19 Eval Order CovFluRsv at [facility] SARS-CoV-2 (PCR) NEGATIVE (Negative) Influenza Type A (PCR) Negative (Neg) Influenza Type B (PCR) Negative (Neg) RSV (RT-PCR) Negative (Neg) 12/03/20 12/03/20 12/03/20 Range/Units 20:20 20:20 20:20 WBC 8.33 (4.8-10.8) K/uL RBC 3.42 L (4.2-5.4) M/uL Hgb 10.6 L (12.0-16.0) g/dL Hct 33.4 L (37-47) % MCV 97.7 (80-100) fL MCH 31.0 (25-34) pg MCHC 31.7 L (32-36) g/dL RDW Std Deviation 64.6 H (36.4-46.3) fL RDW Coeff of Nicole 18.2 H (11.5-14.5) % Plt Count 160 (130-400) K/uL MPV 10.4 (7.4-10.4) fL Immature Gran % (Auto) 0.1 % Neut % (Auto) 47.1 % Lymph % (Auto) 40.3 % Nash % (Auto) 8.2 % Eos % (Auto) 4.1 % Baso % (Auto) 0.2 % Neut # (Auto) 3.92 (1.4-6.5) K/uL Lymph # (Auto) 3.36 (1.2-3.4) K/uL Nash # (Auto) 0.68 H (0.11-0.59) K/uL Eos # (Auto) 0.34 (0-0.5) K/uL Baso # (Auto) 0.02 (0-0.2) K/uL Immature Gran # (Auto) 0.01 (0.00-0.02) K/uL ESR PT 10.5 (9.0-12.0) Seconds INR 1.0 (0.9-1.1) APTT 22.7 (21.0-31.0) Seconds PTT Ratio 0.9 D-Dimer 1860 H* (0-500) ug/L FEU Sodium 142 (136-145) mmol/L Potassium 3.6 (3.5-5.1) mmol/L Chloride 109 H (98-107) mmol/L Carbon Dioxide 26 (21-32) mmol/L Anion Gap 7.0 (3-11) BUN 29 H (7-18) mg/dl Creatinine 1.83 H (0.6-1.2) mg/dl Est Cr Clr Drug Dosing 26.5 ml/min Est GFR ( Amer) 32.3 Est GFR (Non-Af Amer) 27.9 BUN/Creatinine Ratio 16.1 (10-20) Glucose 206 H (70-99) mg/dl POC Glucose (70-99) mg/dl Estimat Average Glucose Hemoglobin A1c Calcium 8.9 (8.5-10.1) mg/dl Phosphorus 2.4 L (2.5-4.9) mg/dl Magnesium 2.3 (1.8-2.4) mg/dl Troponin I < 0.015 (0-0.045) ng/ml NT-Pro-B Natriuret Pep 170 (0-900) pg/ml Lipase 223 (73-393) U/L TSH 194.000 H (0.300-4.500) uIu/ml Specimen Hemolysis Urine Color Urine Appearance (Clear) Urine pH (4.5-7.5) Ur Specific [place] (1.000-1.030) Urine Protein (Negative) Urine Glucose (UA) (Negative) Urine Ketones (Negative) Urine Blood (Negative) Urine Nitrite (Negative) Urine Bilirubin (Negative) Urine Urobilinogen (Negative) Ur Leukocyte Esterase (Negative) COVID-19 Eval Order SARS-CoV-2 (PCR) (Negative) Influenza Type A (PCR) (Neg) Influenza Type B (PCR) (Neg) RSV (RT-PCR) (Neg) Diagnostic Findings Chest X-Ray 12/03/20 19:44 XR chest 2V PA/lateral CLINICAL HISTORY: Atypical chest pain COMPARISON STUDY: 02/23/2018 FINDINGS: The heart is mildly enlarged. There is slight interstitial prominence similar to the prior study and likely in part secondary to the patient's body habitus. There is no overt failure. There is no lobar consolidation. There are no pleural effusions.[ IMPRESSION: No active disease in the chest. ACT 112: Negative or not required by law. Electronically signed by: Mohit Son M.D. 12/04/2020 6:51 AM Venous Doppler Study 12/03/20 22:09 US venous doppler LE BI CLINICAL HISTORY: Bilateral leg pain and swelling COMPARISON STUDY: No previous studies for comparison. FINDINGS: Real-time and color flow Doppler imaging were performed. Flow was seen within the femoral, popliteal and calf veins with no intraluminal thrombus demonstrated. The saphenous vein is patent. IMPRESSION: No evidence of lower extremity DVT. ACT 112: Negative or not required by law. Electronically signed by: Mohit Son M.D. 12/04/2020 6:53 AM Chest CTA 12/04/20 08:18 CT angio chest PE protocol CT DOSE: 388.20 mGy.cm HISTORY: 70 years-old Female with PE - elevated ddimer, shortness of breath. Acute shortness of breath with elevated d-dimer TECHNIQUE: Multiple CTA images of the chest were obtained after the intravenous administration of 115 ml Optiray. Coronal and sagittal MIPS were obtained from the axial data set and were submitted for review. All measurements were obtained according to NASCET criteria. A dose lowering technique was utilized adhering to the principles of ALARA. COMPARISON: Chest radiograph 12/03/2020, CTA chest 09/13/2017, chest CT 05/24/2017. FINDINGS: CTA: Heart is upper limits of normal in size. There is no pericardial effusion. No thoracic aortic aneurysm or dissection. Mild coronary artery calcifications. Patency of the imaged great vessels. The pulmonary artery is opacified to the level of the subsegmental branches and demonstrates no filling defects to suggest thromboembolic disease. CT CHEST: No thyroid nodule. Calcified spinal and hilar lymph nodes redemonstrated. No pneumothorax or pleural effusion. Multilobar subpleural reticular opacities have progressed from comparison. Mild subpleural cystic changes of the right lung base have also slightly progressed. 7 mm centrally calcified granuloma of the ri ght middle lobe, image 82. Unchanged 5 mm solid nodule the basal right lower lobe on image 70 series 4 demonstrating greater than two-year stability suggestive of benign etiology. Mild bronchial wall thickening. No bronchiectasis. No airspace consolidation typical for pneumonia. The central airways are patent. No pneumoperitoneum. Mild nonspecific distal esophageal wall thickening. Cholecystectomy. Marginal nodularity of the liver compatible with cirrhosis. Unremarkable soft tissues. No acute fracture. IMPRESSION: 1. No pulmonary emboli. 2. Mild subpleural bilateral reticular opacities with subpleural cystic changes of the right lung base have progressively worsened from comparison suggestive of fibrosis. 3. Prior granulomatous disease. 4. Cirrhosis. ACT 112: Negative or not required by law. The above report was generated using voice recognition software. It may contain grammatical, syntax or spelling errors. Electronically signed by: Cedric Noel M.D. 12/04/2020 10:24 AM PG Care Time/CCT Total # of Minutes Spent Total Time Spent with Patient: Total time spent is greater than 50% in coordination of care (as documented) at patient's floor/unit and/or counseling patient: Coding Level of Care Code 14812 Subseq Hosp Care Lvl 3 Diagnoses Hypothyroidism E03.9 Hypothyroidism type: unspecified Shortness of breath R06.02 Chest pain R07.9 Chest pain type: unspecified Sleep apnea G47.30 Sleep apnea type: unspecified type Non-occlusive coronary artery disease I25.10 Diabetes E11.9; Z79.4 Diabetes mellitus complication status: without complication Diabetes mellitus assisted insulin use: with assisted use Diabetes mellitus type: type 2 Chronic kidney disease N18.9 Chronic kidney disease stage: unspecified stage GERD (gastroesophageal reflux disease) K21.9 Esophagitis presence: esophagitis presence not specified Hyperlipidemia E78.5 Hyperlipidemia type: unspecified Hypertension I10 Hypertension type: essential hypertension Depression F32.9 Active/Remission status: remission status unspecified Depression Type: major depressive disorder Major depression recurrence: unspecified whether recurrent (1) Sleep apnea Sleep apnea type: unspecified type Qualified Code(s): G47.30 - Sleep apnea, unspecified (2) Diabetes Diabetes mellitus complication status: without complication Diabetes mellitus assisted insulin use: with assisted use Diabetes mellitus type: type 2 Qualified Code(s): E11.9 - Type 2 diabetes mellitus without complications; Z79.4 - intermediate (current) use of insulin (3) Depression Active/Remission status: remission status unspecified Depression Type: major depressive disorder Major depression recurrence: unspecified whether recurrent Qualified Code(s): F32.9 - Major depressive disorder, single episode, unspecified (4) Hyperlipidemia Hyperlipidemia type: unspecified Qualified Code(s): E78.5 - Hyperlipidemia, unspecified (5) Hypothyroidism Hypothyroidism type: unspecified Qualified Code(s): E03.9 - Hypothyroidism, unspecified (6) Chronic kidney disease Chronic kidney disease stage: unspecified stage Qualified Code(s): N18.9 - Chronic kidney disease, unspecified (7) GERD (gastroesophageal reflux disease) Esophagitis presence: esophagitis presence not specified Qualified Code(s): K21.9 - Gastro-esophageal reflux disease without esophagitis (8) Chest pain Chest pain type: unspecified Qualified Code(s): R07.9 - Chest pain, unspecified (9) Hypertension Hypertension type: essential hypertension Qualified Code(s): I10 - Essential (primary) hypertension
[2020-12-04] MEDS: SERTRALINE HCL 50 MG TABLET PO SCH (08:15)
[2020-12-04] MEDS: CLOPIDOGREL BISULFATE 75 MG TAB PO SCH (08:15)
[2020-12-04] MEDS: hydrALAZINE 10 MG TAB PO SCH ×2 (08:15→20:20)
[2020-12-04] MEDS: FUROSEMIDE 40 MG in SYRINGE 0 ML IV SCH (08:15)
[2020-12-04 08:28] LABS: BUN Creatinine Ratio 15.8 (10-20); Blood Urea Nitrogen 25 mg/dl (7-18); Calcium 8.8 mg/dl (8.5-10.1); Carbon Dioxide 30 mmol/L (21-32); Chloride 105 mmol/L (98-107); Creatinine Clr Calc Pharmacy 29.1 ml/min; Est GFR (African American) 38.3; Glucose 85 mg/dl (70-99); Potassium 3.5 mmol/L (3.5-5.1); Sodium 142 mmol/L (136-145)
[2020-12-04 08:33] LABS: Troponin I < 0.015 ng/ml (0-0.045)
[2020-12-04 08:41] LABS: Estimated Average Glucose 246 mg/dl; Hemoglobin A1C 10.2 % (4.5-5.6)
[2020-12-04] MEDS ORDERED: ATORVASTATIN 40 MG TAB PO SCH (09:00)
[2020-12-04] MEDS ORDERED: INSULIN GLARGINE SOLOSTAR 100 UNITS/ML 3 ML PEN SC SCH ×2 (09:00→21:00)
[2020-12-04] MEDS ORDERED: METOPROLOL SUCC 25MG EXT REL TAB PO SCH (09:00)
[2020-12-04] MEDS ORDERED: OPTIRAY 350 500ml IV ONE (09:30)
--- NOTE | 2020-12-04 10:06 | Electrocardiogram Report ---
Test Reason : Blood Pressure : / mmHG Vent. Rate : 070 BPM Atrial Rate : 070 BPM P-R Int : 208 ms QRS Dur : 080 ms QT Int : 388 ms P-R-T Axes : 051 -33 087 degrees QTc Int : 419 ms Sinus rhythm Left axis deviation Cannot rule out Old Anterior infarct Abnormal ECG When compared with ECG of 13-SEP-2017 08:34, No significant change Confirmed by Luis Moon ([id number]) on 12/04/2020 10:05:50 AM Referred By: REFERRED SELF Confirmed By:Luis Moon
--- NOTE | 2020-12-04 10:25 | CT Scan Report ---
CT angio chest PE protocol CT DOSE: 388.20 mGy.cm HISTORY: 70 years-old Female with PE - elevated ddimer, shortness of breath. Acute shortness of checo ath with elevated d-dimer TECHNIQUE: Multiple CTA images of the chest were obtained after the intravenous administration of 115 ml Optiray. Coronal and sagittal MIPS were obtained from the axial data set and were submitted for review. All measurements were obtained according to NASCET criteria. A dose lowering technique was u tilized adhering to the principles of ALARA. COMPARISON: Chest radiograph 12/03/2020, CTA chest 09/13/2017, chest CT 05/24/2017. FINDINGS: CTA: Heart is upper limits of normal in size. There is no pericardial effusion. No thoracic aortic aneurys m or dissection. Mild coronary artery calcifications. Patency of the imaged great vessels. The pulmon nidhi artery is opacified to the level of the subsegmental branches and demonstrates no filling defects to suggest thromboembolic disease. CT CHEST: No thyroid nodule. Calcified spinal and hilar lymph nodes redemonstrated. No pneumothorax or pleural effusion. Multilobar subpleural reticular opacities have progressed from comparison. Mild subpleural cystic changes of the right lung base have also slightly progressed. 7 mm centrally calcified granulo ma of the right middle lobe, image 82. Unchanged 5 mm solid nodule the basal right lower lobe on imag e 70 series 4 demonstrating greater than two-year stability suggestive of benign etiology. Mild bronc hial wall thickening. No bronchiectasis. No airspace consolidation typical for pneumonia. The central airways are patent. No pneumoperitoneum. Mild nonspecific distal esophageal wall thickening. Cholecystectomy. Marginal no dularity of the liver compatible with cirrhosis. Unremarkable soft tissues. No acute fracture. IMPRESSION: 1. No pulmonary emboli. 2. Mild subpleural bilateral reticular opacities with subpleural cystic changes of the right lung bas e have progressively worsened from comparison suggestive of fibrosis. 3. Prior granulomatous disease. 4. Cirrhosis. ACT 112: Negative or not required by law. The above report was generated using voice recognition software. It may contain grammatical, syntax o r spelling errors. Electronically signed by: Cedric Noel M.D. 12/04/2020 10:24 AM
[2020-12-04] MEDS ORDERED: DIVALPROEX DELAY RELEASE 500 MG TAB PO ONE (11:01)
[2020-12-04] MEDS: POLYETHYLENE (MIRALAX) 17 GM PACK PO SCH (11:45)
[2020-12-04] MEDS: DOCUSATE SODIUM 100 MG CAP PO SCH ×2 (11:45→20:18)
[2020-12-04] MEDS ORDERED: PHARMACY GLYCEMIC MGMT CONSULT PRN (12:30)
[2020-12-04 13:30] LABS: Creatine Kinase 604 U/L (26-192); Troponin I < 0.015 ng/ml (0-0.045)
--- NOTE | 2020-12-04 14:05 | XCELERA ---
[id number] \\[id number]
--- NOTE | 2020-12-04 14:27 | Pharmacy Report ---
Pharmacy Glycemic Short Note 2 - Date of Service December 04, 2020 - Glycemic Short BSG Results (Last 24 hours): 12/03/20 12/04/20 12/04/20 20:20 01:48 07:25 Glucose 206 H 85 POC Glucose 125 H 12/04/20 12/04/20 07:41 11:44 Glucose POC Glucose 97 90 OUTPATIENT ANTIDIABETIC REGIMEN: * Lantus 55 units SQ daily * Humalog SSI (uses only when hyperglycemic) * HbA1c: 10.2% (12/04/20) ASSESSMENT: * Ms Dodd is a 70yo diabetic, admitted with chest pain/SOB. * BSGs have been below goal range thus far. * CDE met with patient today, and she reports having episodes of hypoglycemia at home, while taking 55 units of basal insulin per day. * Lantus dose reduced beginning this evening, and Novolog parameters have been loosened. PLAN FOR INPATIENT GLYCEMIC CONTROL: * Basal insulin * Lantus 18 units SQ BID * Bolus insulin * NovoLog per scale ACHS or Q6hrs while NPO * Goal Range: Low 100 mg/dL - High 140 mg/dL * Correction Factor: 25 mg/dL/unit * Nutritional / Prandial insulin per carb ratio of 1 unit per 9 grams CHO consumed PLAN FOR DISCHARGE: * A1c: 10.2% * This indicates sub-optimal glycemic control. Target A1c for this patient would be <7%. * Patient reports having episodes of AM hypoglycemia on current regimen, but also clearly has some uncontrolled hyperglycemia (as indicated by A1c). * Consider reducing Lantus dose and/or shifting administration time to AM. * To better control BSGs throughout the day, consider adding meal-time Humalog. * Recommend prompt f/u with outpt provider to work toward optimizing A1c.
--- NOTE | 2020-12-04 15:50 | Ultrasound Report ---
ULTRASOUND OF THE THYROID GLAND CLINICAL HISTORY: Hypothyroidism. COMPARISON STUDY: No priors. TECHNIQUE: Real-time, grayscale, and color flow sonography of the thyroid gland is performed utilizin g a high-frequency linear transducer. Images are reviewed in the transverse and longitudinal planes. FINDINGS: Right lobe: The right lobe of the thyroid gland is atrophic and heterogeneous, measuring 2.0 x 0.7 x 1.0 cm. Left lobe: The left lobe of the thyroid gland is atrophic and heterogeneous, measuring 1.4 x 0.6 x 0. 9 cm. Isthmus: The thyroid isthmus is atrophic, measuring 0.2 cm in AP diameter. IMPRESSION: Atrophic and heterogeneous thyroid gland with no discrete thyroid lesion identified. ACT 112: Negative or not required by law. Electronically signed by: Yung Uriostegui M.D. 12/04/2020 3:49 PM
[2020-12-04] MEDS: ASPIRIN 81 MG ECTAB PO SCH (20:18)
[2020-12-04] MEDS: traZODone HCL 100 MG TAB PO SCH (20:20)
[2020-12-04] MEDS: PANTOprazole 40 MG TAB PO SCH (20:20)
[2020-12-04] MEDS: LATANOPROST 0.005% OP SOLN 2.5 ML BTL OP SCH (20:25)
[2020-12-04] MEDS ORDERED: LEVOTHYROXINE SODIUM 175 MCG TABLET PO SCH (21:00)
[2020-12-04] MEDS ORDERED: LEVOTHYROXINE SODIUM 200 MCG TABLET PO SCH (21:00)
[2020-12-05] MEDS ORDERED: LEVOTHYROXINE SODIUM IV ONE (00:15)
[2020-12-05] MEDS: HEPARIN SOD 5,000 UNIT/0.5 ML VIAL SQ SCH ×3 (06:11→21:40)
[2020-12-05] MEDS: LEVOTHYROXINE SODIUM 200 MCG TABLET PO SCH (06:11)
[2020-12-05 06:24] LABS: Hematocrit (blood only) 35.1 % (37-47); Hemoglobin 10.9 g/dL (12.0-16.0); Mean Corpuscular Hemoglobin 31.3 pg (25-34); Mean Corpuscular Hgb Conc 31.1 g/dL (32-36); Mean Corpuscular Volume 100.9 fL (80-100); Mean Platelet Volume 10.3 fL (7.4-10.4); Platelet Count 174 K/uL (130-400); RDW Coefficient of Variation 18.5 % (11.5-14.5); RDW Standard Deviation 68.6 fL (36.4-46.3); Red Blood Count 3.48 M/uL (4.2-5.4); White Blood Count 7.74 K/uL (4.8-10.8)
[2020-12-05 07:01] LABS: BUN Creatinine Ratio 17.3 (10-20); Calcium 8.4 mg/dl (8.5-10.1); Creatinine Clr Calc Pharmacy 21.4 ml/min; Est GFR (African American) 26.6; Est GFR (Non-African American) 22.9; Potassium 3.5 mmol/L (3.5-5.1)
[2020-12-05] MEDS: CLOPIDOGREL BISULFATE 75 MG TAB PO SCH (07:35)
[2020-12-05] MEDS: FUROSEMIDE 40 MG in SYRINGE 0 ML IV SCH (07:35)
[2020-12-05] MEDS: POLYETHYLENE (MIRALAX) 17 GM PACK PO SCH (07:35)
[2020-12-05] MEDS: DOCUSATE SODIUM 100 MG CAP PO SCH ×2 (07:35→20:07)
[2020-12-05] MEDS: hydrALAZINE 10 MG TAB PO SCH ×2 (07:35→20:07)
[2020-12-05] MEDS: SERTRALINE HCL 50 MG TABLET PO SCH (07:35)
[2020-12-05] MEDS: DIVALPROEX DELAY RELEASE 500 MG TAB PO SCH (07:35)
[2020-12-05] MEDS: INSULIN ASPART 100 UNITS/ML 3 ML PEN SC SCH ×4 (08:07→20:08)
--- NOTE | 2020-12-05 08:35 | Hospitalist Progress Note ---
Date of Service December 05, 2020 Assessment & Plan (1) Hypothyroidism: Chronic but states she takes medications in evening with the rest of her pills -- suspect this is contributing to ineffective treatment of her hypothyroidism. TSH -- SIGNIFICANTLY ELEVATED AT 194 -- Checking FT4 --LOW 0.3 No sx myxedema coma presently however is slightly hypotensive (checking random cortisol this AM) this morning and last evening and was given dose of 300mg IV Synthroid Increased Synthroid to 200mcg daily and to be continued at discharge Will need close f/u and titrations now that she will be taking this medication properly US without nodule-- just atrophic Could be explanation for elevated triglycerides/cholesterol during prior admission [place] requiring increased dose of statin and start of zetia and should improve with correction of above IV lasix stopped (CK elevated 628, likely from hypothyroidism, also holding statin/zetia) Giving D5LR@80cc/hr x 1 liter for some dehydration/ELMER with Cr bumped 2.15 (possible some end organ damage/ischemia from hypotension and hypothyroid state as was >1.5. in [place] and she is to f/u nephrology at d/c) Supportive care Labs in AM (2) Shortness of breath: 70yo C female with multiple medical problems, interstitial lung disease, COPD, pulmonary hypertension and diastolic dysfunction, hypothyroidism and CKD presenting with single episode of chest pain as well as two weeks of rapid weight gain and worsening edema, ALEJO and SOB. Patient is HD stable, no respiratory distress or hypoxia. She reports gaining 30# over the past two weeks. Laboratory workup thus far is largely unremarkable to explain her shortness of breath. Ddx to include CHF exacerbation - patient with history of diastolic dysfunction, most likely cor pulmonale, less likely PE. IMPROVING Supposedly given IV lasix prior to d/c [place] and sent on PO but not on med rec (hospitalized from 09/24-09/27) -- At that time Echo showed normal LVEF at 60% with diastolic dysfunction and pulmonary hypertension with RSVP at 28 mmHg. Troponins were negative proBNP was normal dyslipidemia with a atorvastatin 80 mg daily (increased) and fenofibrate 48 mg tab daily (resumed) Lasix 40mg IV continued as above with improvement of Cr and will continue through tomorrow UA without proteinuria TSH elevated as above -- TREATMENT ABOVE Ddimer elevated Dopplers negative for DVT CT Chest negative for PE but does show some worsening fibrosis --> follows with Dr. Garvey and will need f/u at discharge Will obtain limited ECHO to ensure no worsening EF/valvular dysfunction however no murmur on examination -- NO SIGNIFICANT CHANGE 96% on RA -- supplemental as needed AHA, Low Na diet Daily weights, I&Os Continue to monitor (3) Chest pain: Patient was admitted to [facility] from 09/24/20 - 09/27/20 for hypertension and acute left precordial chest pain with diaphoresis and nausea. She had an echo at that time which showed normal LVEF of 60%, diastolic dysfunction and PH with RSVP of 28 mmHg. Apparently she had "total body swelling" at that time involving legs, face and arms as well as SOB and ALEJO. Patient had a nuclear stress echocardiogram performed at [facility] on 06/16/21 which was negative for myocardial ischemia. Patient had Holter monitor performed on 06/16/21 which included some tachycardia, otherwise no arrhythmias discovered Her episode of chest discomfort was brief. Normal troponin. EKG with no acute ischemic changes -Telemetry monitoring -- no arrythmia Troponins have been negative No further chest pain reported Continue ASA, Atorvastatin, Plavix, Continue Metoprolol (appears she was changed to tartrate 25mg BID and we will change that while inpatient to start tomorrow as she got her dose of succinate this morning) --> Will change back to once daily dosing given hypotension and likely no need for 25mg BID dosing -Request records from [place] hospitalization (4) Sleep apnea: CPAP qHS (5) Non-occlusive coronary artery disease: With chest discomfort as above -Continue ASA, Plavix, Atorvastatin and Metoprolol (6) Diabetes: Blood sugar elevated at 206 -Check Hgb AIC --10.2 (down from 10.9) -Lantus 25u BID -ISS -Goal blood sugar 100 - 140 Pharmacy consulted for glycemic control (previously on Invokanna and Januvia but had them discontinued) Continue to monitor BSGs may benefit from reduced dosing at d/c for evening given morning hypoglycemia as above (7) Chronic kidney disease: Newer diagnosis and recommended follow up with Nephrology after hospitalization in [place] Ct elevated to 1.8 in June and was up to 2.[address] [place] [address] Garvey's note Improved to 1.59 from 1.83 on admission with diuresis Continue diuresis as above Consider addition of INGRID/ARB given CKD with DM and prior HTN admission UA without protein as above Avoid nephrotoxic medications BMP in AM (8) GERD (gastroesophageal reflux disease): Chronic. Stable -Continue Protonix 40mg po qHS To have EGD next week [facility] but wanted to switch for [facility] providers -- re: dysphagia/hoarseness --Consulted Dr. Adame while inpatient (9) Hyperlipidemia: Chronic -Continue Atorvastatin 80mg -- consider switching to HS to decrease side effects (10) Hypertension: Blood pressure well controlled at present 118/73 -Continue Metoprolol 25mg daily -Continue Hydralazine (consider INGRID/ARB as above given CKD and DM for better BP control) -Continue to monitor (11) Depression: Chronic. Well controlled. 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 Feeling better. Some cramping in her UE but no numbness/tingling or loss of sensation. Discussed significance of hypothyroidism and her extreme elevations and likely cause of most if not all symptoms: fatigue, brain fog (prior confusion even), constipation, weight gain, edema, shortness of breath, swelling, hoarseness, cold intolerance. She states all providers have asked about what medications she takes and when and is surprised no one said anything about how to take her Synthroid before. Discussed importance of taking in AM on empty stomach moving forward. Did have +BM this morning, no blood or abn noted. Possible d/c tomorrow vs monday. Questions/concerns addressed. Review of Systems Review of Systems: All systems reviewed & are unremarkable except as noted in HPI & below Physical Exam Physical Exam: General: up in chair, alert. NAD. AOx4 Skin: warm, dry, intact, no rashes or lesions HEENT: NC/AT, PERRL, EOMI, periorbital edema and mild facial swelling (IMPROVED), anicteric sclera, conjunctiva without injection, external ear normal to inspection and nontender, nares patent, moist mucus membranes, dentition intact, no oropharyngeal lesions, neck supple, trachea midline, no LAD, no thyromegaly or nodules appreciated , no JVD Heart: +S1/S2, regular, no m/r/g, no rash present on chest wall, no reproducible chest wall pain Lungs: equal air entry bilaterally, no rales/rhonchi/wheezes. bibasilar crackles improved Abd: +BS, soft, NT/ND, no masses/organomegaly/ascites Ext: warm, 2+ pulses in UE/LLE, slightly diminished pulses in RLE 1+ DP/PT, no clubbing/cyanosis, trace pitting edema Neuro: nonfocal, patient AA&O x 4, speech intact, no facial droop, moving all extremities on command with equal strength 5/5 Results & Data Results & Data ([facility]) Vital Signs (Past 12 Hours) Vital Signs Temp Pulse Pulse Pulse Resp BP BP 12/05/20 07:29 36.5 C 63 16 95/62 L 12/05/20 03:08 36.3 C L 66 16 99/68 L 12/05/20 02:33 57 L 18 12/04/20 23:20 93/58 L 12/04/20 23:17 36.4 C L 61 18 77/52 L 12/04/20 22:31 63 12/04/20 22:08 68 16 Pulse Ox 12/05/20 07:29 96 12/05/20 03:08 93 12/05/20 02:33 97 12/04/20 23:20 12/04/20 23:17 93 12/04/20 22:31 12/04/20 22:08 92 Laboratory Results 12/05/20 12/05/20 12/05/20 Range/Units 07:45 05: 05:21 WBC 7.74 (4.8-10.8) K/uL RBC 3.48 L (4.2-5.4) M/uL Hgb 10.9 L (12.0-16.0) g/dL Hct 35.1 L (37-47) % MCV 100.9 H (80-100) fL MCH 31.3 (25-34) pg MCHC 31.1 L (32-36) g/dL RDW Std Deviation 68.6 H (36.4-46.3) fL RDW Coeff of Nicole 18.5 H (11.5-14.5) % Plt Count 174 (130-400) K/uL MPV 10.3 (7.4-10.4) fL Sodium 140 (136-145) mmol/L Potassium 3.5 (3.5-5.1) mmol/L Chloride 103 (98-107) mmol/L Carbon Dioxide 33 H (21-32) mmol/L Anion Gap 4.0 (3-11) BUN 37 H (7-18) mg/dl Creatinine 2.15 H D (0.6-1.2) mg/dl Est Cr Clr Drug Dosing 21.4 ml/min Est GFR ( Amer) 26.6 Est GFR (Non-Af Amer) 22.9 BUN/Creatinine Ratio 17.3 (10-20) Glucose 57 L (70-99) mg/dl POC Glucose 78 (70-99) mg/dl Estimat Average Glucose mg/dl Hemoglobin A1c (4.5-5.6) % Calcium 8.4 L (8.5-10.1) mg/dl Total Creatine Kinase 628 H (26-192) U/L Troponin I (0-0.045) ng/ml Free T3 (2.3-4.2) pg/ml 12/04/20 12/04/20 12/04/20 Range/Units 20:05 16:19 12:33 WBC (4.8-10.8) K/uL RBC (4.2-5.4) M/uL Hgb (12.0-16.0) g/dL Hct (37-47) % MCV (80-100) fL MCH (25-34) pg MCHC (32-36) g/dL RDW Std Deviation (36.4-46.3) fL RDW Coeff of Nicole (11.5-14.5) % Plt Count (130-400) K/uL MPV (7.4-10.4) fL Sodium (136-145) mmol/L Potassium (3.5-5.1) mmol/L Chloride (98-107) mmol/L Carbon Dioxide (21-32) mmol/L Anion Gap (3-11) BUN (7-18) mg/dl Creatinine (0.6-1.2) mg/dl Est Cr Clr Drug Dosing ml/min Est GFR ( Amer) Est GFR (Non-Af Amer) BUN/Creatinine Ratio (10-20) Glucose (70-99) mg/dl POC Glucose 87 106 H (70-99) mg/dl Estimat Average Glucose mg/dl Hemoglobin A1c (4.5-5.6) % Calcium (8.5-10.1) mg/dl Total Creatine Kinase (26-192) U/L Troponin I (0-0.045) ng/ml Free T3 1.65 L (2.3-4.2) pg/ml 12/04/20 12/04/20 12/04/20 Range/Units 12:33 11:44 07:25 WBC (4.8-10.8) K/uL RBC (4.2-5.4) M/uL Hgb (12.0-16.0) g/dL Hct (37-47) % MCV (80-100) fL MCH (25-34) pg MCHC (32-36) g/dL RDW Std Deviation (36.4-46.3) fL RDW Coeff of Nicole (11.5-14.5) % Plt Count (130-400) K/uL MPV (7.4-10.4) fL Sodium (136-145) mmol/L Potassium (3.5-5.1) mmol/L Chloride (98-107) mmol/L Carbon Dioxide (21-32) mmol/L Anion Gap (3-11) BUN (7-18) mg/dl Creatinine (0.6-1.2) mg/dl Est Cr Clr Drug Dosing ml/min Est GFR ( Amer) Est GFR (Non-Af Amer) BUN/Creatinine Ratio (10-20) Glucose (70-99) mg/dl POC Glucose 90 (70-99) mg/dl Estimat Average Glucose 246 mg/dl Hemoglobin A1c 10.2 H (4.5-5.6) % Calcium (8.5-10.1) mg/dl Total Creatine Kinase 604 H (26-192) U/L Troponin I < 0.015 (0-0.045) ng/ml Free T3 (2.3-4.2) pg/ml PG Care Time/CCT Total # of Minutes Spent Total Time Spent with Patient: Total time spent is greater than 50% in coordination of care (as documented) at patient's floor/unit and/or counseling patient: Coding Level of Care Code 67503 Subseq Hosp Care Lvl 3 Diagnoses Hypothyroidism E03.9 Hypothyroidism type: unspecified Shortness of breath R06.02 Chest pain R07.9 Chest pain type: unspecified Sleep apnea G47.30 Sleep apnea type: unspecified type Non-occlusive coronary artery disease I25.10 Diabetes E11.9; Z79.4 Diabetes mellitus type: type 2 Diabetes mellitus manager intermediate insulin use: with fpc use Diabetes mellitus complication status: without complication Chronic kidney disease N18.9 Chronic kidney disease stage: unspecified stage GERD (gastroesophageal reflux disease) K21.9 Esophagitis presence: esophagitis presence not specified Hyperlipidemia E78.5 Hyperlipidemia type: unspecified Hypertension I10 Hypertension type: essential hypertension Depression F32.9 Depression Type: major depressive disorder Major depression recurrence: unspecified whether recurrent Active/Remission status: remission status unspecified (1) Hypothyroidism Hypothyroidism type: unspecified Qualified Code(s): E03.9 - Hypothyroidism, unspecified (2) Chest pain Chest pain type: unspecified Qualified Code(s): R07.9 - Chest pain, unspecified (3) Sleep apnea Sleep apnea type: unspecified type Qualified Code(s): G47.30 - Sleep apnea, unspecified (4) Diabetes Diabetes mellitus type: type 2 Diabetes mellitus manager intermediate insulin use: with fpc use Diabetes mellitus complication status: without complication Qualified Code(s): E11.9 - Type 2 diabetes mellitus without complications; Z79.4 - bed bug exterminator (current) use of insulin (5) Chronic kidney disease Chronic kidney disease stage: unspecified stage Qualified Code(s): N18.9 - Chronic kidney disease, unspecified (6) GERD (gastroesophageal reflux disease) Esophagitis presence: esophagitis presence not specified Qualified Code(s): K21.9 - Gastro-esophageal reflux disease without esophagitis (7) Hyperlipidemia Hyperlipidemia type: unspecified Qualified Code(s): E78.5 - Hyperlipidemia, unspecified (8) Hypertension Hypertension type: essential hypertension Qualified Code(s): I10 - Essential (primary) hypertension (9) Depression Depression Type: major depressive disorder Major depression recurrence: unspecified whether recurrent Active/Remission status: remission status un specified Qualified Code(s): F32.9 - Major depressive disorder, single episode, unspecified
[2020-12-05] MEDS ORDERED: D5W AND LACTATED RINGERS 1,000 ML IV SCH (08:45)
[2020-12-05] MEDS ORDERED: ATORVASTATIN 40 MG TAB PO SCH (09:00)
[2020-12-05] MEDS ORDERED: INSULIN GLARGINE SOLOSTAR 100 UNITS/ML 3 ML PEN SC SCH ×2 (09:00)
[2020-12-05] MEDS ORDERED: METOPROLOL TARTRATE 25 MG TAB PO SCH (09:00)
[2020-12-05] MEDS ORDERED: FENOFIBRATE NANOCRYSTALLIZED 48 MG TABLET PO SCH (09:00)
--- NOTE | 2020-12-05 11:06 | Pharmacy Report ---
Pharmacy Glycemic Short Note 2 - Date of Service December 05, 2020 - Glycemic Short BSG Results (Last 24 hours): 12/04/20 12/04/20 12/04/20 11:44 16:19 20:05 Glucose POC Glucose 90 106 H 87 12/05/20 12/05/20 05:21 07:45 Glucose 57 L POC Glucose 78 OUTPATIENT ANTIDIABETIC REGIMEN: * Lantus 55 units SQ daily * Humalog SSI (uses only when hyperglycemic) * HbA1c = 10.2% (12/04/20) ASSESSMENT: 12/05: * Patient received a total of 53 units of insulin yesterday * 43 units basal + 10 units bolus * BSGs were: 41-13-087-87 mg/dL (well controlled) * Fasting BSG was 78 mg/dL this AM (below goal) * Reduced Lantus further this AM; however, patient was started on D5W + LR at 80 mL/hr this morning for ELMER. Likely will need to increase Lantus this evening if these fluids are to continue overnight * Loosened Novolog as patient was too tightly controlled yesterday. * Again, will tighten this with lunch today since patient was started on fluids with D5W 12/04: * Ms Dodd is a 70yo diabetic, admitted with chest pain/SOB. * BSGs have been below goal range thus far. * CDE met with patient today, and she reports having episodes of hypoglycemia at home, while taking 55 units of basal insulin per day. * Lantus dose reduced beginning this evening, and Novolog parameters have been loosened. PLAN FOR INPATIENT GLYCEMIC CONTROL: * Basal insulin - decreased * Lantus 12 units SQ AM x 1 * Lantus 18 units SC BID * Bolus insulin * NovoLog per scale ACHS or Q6hrs while NPO * Goal Range: Low 110 mg/dL - High 140 mg/dL * Correction Factor: 25 mg/dL/unit * Nutritional / Prandial insulin per carb ratio of 1 unit per 8 grams CHO consumed PLAN FOR DISCHARGE: * A1c: 10.2% * This indicates sub-optimal glycemic control. Target A1c for this patient would be <7%. * Patient reports having episodes of AM hypoglycemia on current regimen, but also clearly has some uncontrolled hyperglycemia (as indicated by A1c). * Consider reducing Lantus dose and/or shifting administration time to AM. * To better control BSGs throughout the day, consider adding meal-time Humalog. * Recommend prompt f/u with outpt provider to work toward optimizing A1c.
[2020-12-05] MEDS: ACETAMINOPHEN 325 MG TAB PO PRN (13:28)
[2020-12-05] MEDS ORDERED: LIOTHYRONINE SODIUM 25 MCG TAB PO ONE (16:30)
[2020-12-05] MEDS: HYDROCORTISONE SOD 100 MG in SYRINGE 0 ML IV SCH (17:32)
[2020-12-05 18:50] LABS: BUN Creatinine Ratio 15.8 (10-20); Calcium 8.8 mg/dl (8.5-10.1); Creatinine Clr Calc Pharmacy 20.6 ml/min; Est GFR (African American) 25.3; Est GFR (Non-African American) 21.8; Potassium 3.7 mmol/L (3.5-5.1)
[2020-12-05] MEDS: PANTOprazole 40 MG TAB PO SCH (20:08)
[2020-12-05] MEDS: LATANOPROST 0.005% OP SOLN 2.5 ML BTL OP SCH (20:08)
[2020-12-05] MEDS: traZODone HCL 100 MG TAB PO SCH (20:09)
[2020-12-05] MEDS: INSULIN GLARGINE SOLOSTAR 100 UNITS/ML 3 ML PEN SC SCH (20:10)
[2020-12-05] MEDS: ASPIRIN 81 MG ECTAB PO SCH (20:17)
[2020-12-06] MEDS: HYDROCORTISONE SOD 100 MG in SYRINGE 0 ML IV SCH ×2 (00:56→07:28)
[2020-12-06] MEDS: HEPARIN SOD 5,000 UNIT/0.5 ML VIAL SQ SCH ×3 (05:49→21:31)
[2020-12-06] MEDS: LEVOTHYROXINE SODIUM 200 MCG TABLET PO SCH (05:49)
[2020-12-06 06:20] LABS: Hematocrit (blood only) 34.6 % (37-47); Hemoglobin 10.6 g/dL (12.0-16.0); Mean Corpuscular Hemoglobin 30.9 pg (25-34); Mean Corpuscular Hgb Conc 30.6 g/dL (32-36); Mean Corpuscular Volume 100.9 fL (80-100); Mean Platelet Volume 10.4 fL (7.4-10.4); Platelet Count 178 K/uL (130-400); RDW Coefficient of Variation 18.3 % (11.5-14.5); RDW Standard Deviation 67.9 fL (36.4-46.3); Red Blood Count 3.43 M/uL (4.2-5.4); White Blood Count 8.53 K/uL (4.8-10.8)
[2020-12-06 06:50] LABS: BUN Creatinine Ratio 19.3 (10-20); Calcium 9.3 mg/dl (8.5-10.1); Creatinine Clr Calc Pharmacy 23.6 ml/min; Est GFR (African American) 29.7; Est GFR (Non-African American) 25.6; Potassium 3.9 mmol/L (3.5-5.1)
[2020-12-06 07:07] LABS: Folate (Folic Acid) 18.9 ng/ml (>5.38)
[2020-12-06] MEDS: POLYETHYLENE (MIRALAX) 17 GM PACK PO SCH ×2 (07:27→20:15)
[2020-12-06] MEDS: SERTRALINE HCL 50 MG TABLET PO SCH (07:27)
[2020-12-06] MEDS: hydrALAZINE 10 MG TAB PO SCH ×2 (07:28→20:14)
[2020-12-06] MEDS: CLOPIDOGREL BISULFATE 75 MG TAB PO SCH (07:28)
[2020-12-06] MEDS: METOPROLOL SUCC 25MG EXT REL TAB PO SCH (07:28)
[2020-12-06] MEDS: DOCUSATE SODIUM 100 MG CAP PO SCH ×2 (07:28→20:14)
[2020-12-06] MEDS: DIVALPROEX DELAY RELEASE 500 MG TAB PO SCH (07:29)
[2020-12-06] MEDS ORDERED: CYANOCOBALAMIN 30 MCG in SYRINGE 0.97 ML IM ONE (07:43)
--- NOTE | 2020-12-06 07:54 | Hospitalist Progress Note ---
Date of Service December 06, 2020 Assessment & Plan (1) Hypothyroidism: 70yo C female with multiple medical problems, interstitial lung disease, COPD, pulmonary hypertension and diastolic dysfunction, hypothyroidism and CKD presenting with single episode of chest pain as well as two weeks of rapid weight gain and worsening edema, ALEJO and SOB. Patient is HD stable, no respiratory distress or hypoxia. She reports gaining 30# over the past two weeks. Laboratory workup thus far is largely unremarkable to explain her shortness of breath. Ddx to include CHF exacerbation - patient with history of diastolic dysfunction, most likely cor pulmonale, less likely PE --> significant hypothyroidism Chronic but stated she takes medications in evening with the rest of her pills -- suspect this is contributing to ineffective treatment of her hypothyroidism. Weight 79.2kg on admission from typical 62-68kg range. * TSH -- SIGNIFICANTLY ELEVATED AT 194 * FT4 --LOW 0.3 * T3 low 1.65 -- given PO replacement * No sx myxedema coma presently however was slightly hypotensive (checking random cortisol , pending) evening 12/04 with BP dropping to 77/52 and was given dose of 300mg IV Synthroid * Increased usual Synthroid to 200mcg daily and to be continued at discharge --will need close f/u and titrations now that she will be taking this medication properly -- could be explanation for elevated triglycerides/cholesterol during prior admission [place] requiring increased dose of statin and start of zetia and should improve with correction of above * US without nodule-- just atrophic * IV lasix stopped 12/05 but did get AM dose as Cr bumped to 2.14 and repeat in evening 2.24 * Given D5LR@80cc/hr x 1 liter for some dehydration/ELMER * Cr improved to 1.96 on AM labs. * Will continue on NS@80cc/hr for muscle aches/CK 680. Continue to hold statin/zetia * Added hydrocortisone evening 12/05 100mg Q8H -- decrease to 50mg Q8H and continue to wean tomorrow. BPs improved, currently 128/75. Cortisol pending from 12/05 * Wt currently 71.3kg -- may need further diuresis when metabolic derangements are fixed, but stable on RA currently MCV >100 * Folate wnl. * B12 LOW at 105 -- could explain some of the "paresthesias" to hands as well as from rhabdo as above w elevated Ck * -- replacement with IM today and started 1000mcg daily - continue at d/c Supportive care Labs in AM (2) Shortness of breath: * IMPROVING --NONE REPORTED 12/06 * Supposedly given IV lasix prior to d/c [place] and sent on PO but not on med rec (hospitalized from 09/24-09/27) * -- At that time Echo showed normal LVEF at 60% with diastolic dysfunction and pulmonary hypertension with RSVP at 28 mmHg. Troponins were negative proBNP was normal dyslipidemia with a atorvastatin 80 mg daily (increased) and fenofibrate 48 mg tab daily (resumed) * ECHO obtained to ensure no worsening EF/valvular dysfunction however no murmur on examination -- NO SIGNIFICANT CHANGE * No further IV diuretics at this time. Weight stable but unchanged mostly. * IVF for dehydrations/ELMER -- currently 1L NS @80cc/hr and encouraged to increase PO intake * UA without proteinuria * TSH elevated as above -- TREATMENT ABOVE * Ddimer elevated * Dopplers negative for DVT * CT Chest negative for PE but does show some worsening fibrosis * --> follows with Dr. Garvey and will need f/u at discharge (appointment this upcoming Monday) * 96% on RA -- supplemental as needed (3) Chest pain: Patient was admitted to [facility] from 09/24/20 - 09/27/20 for hypertension and acute left precordial chest pain with diaphoresis and nausea. She had an echo at that time which showed normal LVEF of 60%, diastolic dysfunction and PH with RSVP of 28 mmHg. Apparently she had "total body swelling" at that time involving legs, face and arms as well as SOB and ALEJO. * Patient had a nuclear stress echocardiogram performed at [facility] on 06/16/21 which was negative for myocardial ischemia. * Patient had Holter monitor performed on 06/16/21 which included some tachycardia, otherwise no arrhythmias discovered * Her episode of chest discomfort was brief. Normal troponin. EKG with no acute ischemic changes * Telemetry monitoring -- no arrhythmia * Troponins have been negative * No further chest pain reported * Continue ASA, Atorvastatin, Plavix, * Continue Metoprolol (appears she was changed to tartrate 25mg BID and we will change that while inpatient to start tomorrow as she got her dose of succinate this morning) * --> Will change back to once daily dosing given hypotension and likely no need for 25mg BID dosing (4) Sleep apnea: * CPAP qHS (5) Non-occlusive coronary artery disease: * With chest discomfort as above * -Continue ASA, Plavix, Atorvastatin and Metoprolol as above (6) Diabetes: * HbA1c from this admission was 10.2% which is uncontrolled (from prior 10.9). (previously on Invokanna and Januvia but had them discontinued) * Target HbA1c for this patient would be < 7-7.5%. * Patient reports having episodes of AM hypoglycemia on current regimen, but also clearly has some uncontrolled hyperglycemia (as indicated by HbA1c). * Pharmacy on consult given elevated A1c and on IV steroids (also got 1L D5NS on 12/05) * Upon discharge, would recommend: * Decreasing Lantus to 40 units SC AM (25% decrease to prevent fasting hypoglycemia) * Initiating Humalog 5 units SC ACHS + Sliding Scale as follows: BSG < 200 = 0 units; BSG 200-250 = 2 units; BSG 251-300 = 4 units; BSG 301-350 = 6 units; BSG > 350 = 8 units and Call MD. * Recommend prompt follow up with outpatient provider and/or referral to local director plans --> discussed she should ideally follow with Dr. Grove or similar and can be arranged at d/c * Postprandial hyperglycemia at lunch, and CF tightened from 20 to 7 * Continue to monitor as hydrocortisone decreased today as above (7) Chronic kidney disease: * Newer diagnosis and recommended follow up with Nephrology after hospitalization in [place] * Ct elevated to 1.8 in June and was up to 2.[address] [place] [address] Garvey's note * Elevated to >2 on 12/05 and lasix was stopped (she did get AM dose however) * IVF as above * Cr improving, currently 1.96 * Consider addition of INGRID/ARB given CKD with DM and prior HTN admission if needed for renal protection but would hold off just yet in pt with CKD IV * UA without protein as above * Avoid nephrotoxic medications * BMP in AM (8) GERD (gastroesophageal reflux disease): * Chronic. Stable * -Continue Protonix 40mg po qHS * To have EGD next week [facility] but wanted to switch for [facility] providers -- re: dysphagia/hoarseness --> Dr Case stopped by to introduce and will have office call with appointment. * Hoarseness likely from undertreated hypothyroidism as above, already improving (9) Hyperlipidemia: * Chronic * holding Atorvastatin 80mg for elevated CK as above -- consider switching to HS to decrease side effects (10) Hypertension: * Blood pressure well controlled at present 118/73 * Continue Metoprolol 25mg daily * Continue Hydralazine (consider INGRID/ARB as above given CKD and DM for better BP control--> also consider d/c?) * Continue to monitor (11) Depression: * Chronic. Well controlled. * -Continue Sertraline 25mg po daily * -Continue Ativan 0.5mg po daily as needed for anxiety * -Continue Trazodone 100mg po qHS Was also started on Depakote for possible seizure activity in the past since November 2019 -- 500mg daily --> Took dose MARINE FITTER and added back to profile during admission --> Could be possible some confusion/thoughts of TIA/mini-strokes actually related to above but will continue current dose and have her f/u Neurology at discharge Ppx - Heparin 5000 TID Code - DNR/DNI Dispo - continued inpatient stay possible d/c Monday -- patient is hopeful for d/c tomorrow Admission and Anticipated Discharge Date Admission Date: December 04, 2020 Subjective Patient evaluated early this afternoon. Feeling the best she has in months but not quite at baseline. Hoarseness of voice improving. Hopeful for d/c in next day. Discussed decreasing steroids and adjustments to diabetic regimen prior to d/c. Also with low B12 and needing replacement. Decreased edema, swelling, no shortness of breath reported. Ambulating to bathroom without difficulty and did have BM this morning. No fever, chills, chest pain, shortness of breath, abdominal pain, nausea or vomiting at this time. Urinating without difficulty and normal amounts per patient report as no output recorded. Review of Systems Review of Systems: All systems reviewed & are unremarkable except as noted in HPI & below Physical Exam Physical Exam: General: up in chair, alert. NAD. AOx4 Skin: warm, dry, intact, no rashes or lesions. bronze appearance HEENT: NC/AT, PERRL, EOMI, periorbital edema and mild facial swelling almost resolved. anicteric sclera, conjunctiva without injection, external ear normal to inspection and nontender, nares patent, moist mucus membranes, dentition intact, no oropharyngeal lesions, neck supple, trachea midline, no LAD, no thyromegaly or nodules appreciated , no JVD Heart: +S1/S2, regular, systolic ejection murmur RUSB, no rubs/gallops. trace edema b/l LE Lungs: equal air entry bilaterally, no rales/rhonchi/wheezes. bibasilar crackles improved Abd: +BS, soft, NT/ND, no masses/organomegaly/ascites Ext: warm, 2+ pulses in UE/LLE, slightly diminished pulses in RLE 1+ DP/PT, no clubbing/cyanosis, trace pitting edema Neuro: nonfocal, patient AA&O x 4, speech intact, no facial droop, moving all extremities on command with equal strength 5/5 Results & Data Results & Data ([facility]) Vital Signs (Past 12 Hours) Vital Signs Temp Pulse Pulse Resp BP Pulse Ox 12/06/20 04:04 35.9 C L 69 16 129/73 95 12/06/20 03:23 68 14 92 12/05/20 23:09 35.9 C L 70 16 120/74 96 12/05/20 22:49 72 16 95 12/05/20 22:26 76 Laboratory Results 12/06/20 12/06/20 12/06/20 Range/Units 05:41 05:41 05:41 WBC 8.53 (4.8-10.8) K/uL RBC 3.43 L (4.2-5.4) M/uL Hgb 10.6 L (12.0-16.0) g/dL Hct 34.6 L (37-47) % MCV 100.9 H (80-100) fL MCH 30.9 (25-34) pg MCHC 30.6 L (32-36) g/dL RDW Std Deviation 67.9 H (36.4-46.3) fL RDW Coeff of Nicole 18.3 H (11.5-14.5) % Plt Count 178 (130-400) K/uL MPV 10.4 (7.4-10.4) fL Sodium 139 (136-145) mmol/L Potassium 3.9 (3.5-5.1) mmol/L Chloride 102 (98-107) mmol/L Carbon Dioxide 29 (21-32) mmol/L Anion Gap 9.0 (3-11) BUN 38 H (7-18) mg/dl Creatinine 1.96 H (0.6-1.2) mg/dl Est Cr Clr Drug Dosing 23.6 ml/min Est GFR ( Amer) 29.7 Est GFR (Non-Af Amer) 25.6 BUN/Creatinine Ratio 19.3 (10-20) Glucose 174 H (70-99) mg/dl POC Glucose (70-99) mg/dl Calcium 9.3 (8.5-10.1) mg/dl Total Creatine Kinase 680 H (26-192) U/L Vitamin B12 105 L (193-986) pg/ml Folate 18.90 (>5.38) ng/ml Random Cortisol 12/05/20 12/05/20 12/05/20 Range/Units 20:01 17:54 16:23 WBC (4.8-10.8) K/uL RBC (4.2-5.4) M/uL Hgb (12.0-16.0) g/dL Hct (37-47) % MCV (80-100) fL MCH (25-34) pg MCHC (32-36) g/dL RDW Std Deviation (36.4-46.3) fL RDW Coeff of Nicole (11.5-14.5) % Plt Count (130-400) K/uL MPV (7.4-10.4) fL Sodium 139 (136-145) mmol/L Potassium 3.7 (3.5-5.1) mmol/L Chloride 102 (98-107) mmol/L Carbon Dioxide 31 (21-32) mmol/L Anion Gap 6.0 (3-11) BUN 35 H (7-18) mg/dl Creatinine 2.24 H (0.6-1.2) mg/dl Est Cr Clr Drug Dosing 20.6 ml/min Est GFR ( Amer) 25.3 Est GFR (Non-Af Amer) 21.8 BUN/Creatinine Ratio 15.8 (10-20) Glucose 97 (70-99) mg/dl POC Glucose 90 102 H (70-99) mg/dl Calcium 8.8 (8.5-10.1) mg/dl Total Creatine Kinase (26-192) U/L Vitamin B12 (193-986) pg/ml Folate (>5.38) ng/ml Random Cortisol 12/05/20 12/05/20 12/05/20 Range/Units 11:48 08:35 07:45 WBC (4.8-10.8) K/uL RBC (4.2-5.4) M/uL Hgb (12.0-16.0) g/dL Hct (37-47) % MCV (80-100) fL MCH (25-34) pg MCHC (32-36) g/dL RDW Std Deviation (36.4-46.3) fL RDW Coeff of Nicole (11.5-14.5) % Plt Count (130-400) K/uL MPV (7.4-10.4) fL Sodium (136-145) mmol/L Potassium (3.5-5.1) mmol/L Chloride (98-107) mmol/L Carbon Dioxide (21-32) mmol/L Anion Gap (3-11) BUN (7-18) mg/dl Creatinine (0.6-1.2) mg/dl Est Cr Clr Drug Dosing ml/min Est GFR ( Amer) Est GFR (Non-Af Amer) BUN/Creatinine Ratio (10-20) Glucose (70-99) mg/dl POC Glucose 208 H 78 (70-99) mg/dl Calcium (8.5-10.1) mg/dl Total Creatine Kinase (26-192) U/L Vitamin B12 (193-986) pg/ml Folate (>5.38) ng/ml Random Cortisol Pending PG Care Time/CCT Total # of Minutes Spent Total Time Spent with Patient: Total time spent is greater than 50% in coordination of care (as documented) at patient's floor/unit and/or counseling patient: Coding Level of Care Code 12218 Subseq Hosp Care Lvl 3 Diagnoses Hypothyroidism E03.9 Hypothyroidism type: unspecified Shortness of breath R06.02 Chest pain R07.9 Chest pain type: unspecified Sleep apnea G47.30 Sleep apnea type: unspecified type Non-occlusive coronary artery disease I25.10 Diabetes E11.9; Z79.4 Diabetes mellitus complication status: without complication Diabetes mellitus oil heaterman insulin use: with jail use Diabetes mellitus type: type 2 Chronic kidney disease N18.9 Chronic kidney disease stage: unspecified stage GERD (gastroesophageal reflux disease) K21.9 Esophagitis presence: esophagitis presence not specified Hyperlipidemia E78.5 Hyperlipidemia type: unspecified Hypertension I10 Hypertension type: essential hypertension Depression F32.9 Active/Remission status: remission status unspecified Depression Type: major depressive disorder Major depression recurrence: unspecified whether recurrent (1) Sleep apnea Sleep apnea type: unspecified type Qualified Code(s): G47.30 - Sleep apnea, unspecified (2) Diabetes Diabetes mellitus complication status: without complication Diabetes mellitus jail insulin use: with oil heaterman use Diabetes mellitus type: type 2 Qualified Code(s): E11.9 - Type 2 diabetes mellitus without complications; Z79.4 - long term care phlebotomist (current) use of insulin (3) Depression Active/Remission status: remission status unspecified Depression Type: major depressive disorder Major depression recurrence: unspecified whether recurrent Qualified Code(s): F32.9 - Major depressive disorder, single episode, unspecified (4) Hyperlipidemia Hyperlipidemia type: unspecified Qualified Code(s): E78.5 - Hyperlipidemia, unspecified (5) Hypothyroidism Hypothyroidism type: unspecified Qualified Code(s): E03.9 - Hypothyroidism, unspecified (6) Chronic kidney disease Chronic kidney disease stage: unspecified stage Qualified Code(s): N18.9 - Chronic kidney disease, unspecified (7) GERD (gastroesophageal reflux disease) Esophagitis presence: esophagitis presence not specified Qualified Code(s): K21.9 - Gastro-esophageal reflux disease without esophagitis (8) Chest pain Chest pain type: unspecified Qualified Code(s): R07.9 - Chest pain, unspecified (9) Hypertension Hypertension type: essential hypertension Qualified Code(s): I10 - Essential (primary) hypertension
[2020-12-06] MEDS: INSULIN ASPART 100 UNITS/ML 3 ML PEN SC SCH ×4 (07:57→20:24)
[2020-12-06] MEDS: INSULIN GLARGINE SOLOSTAR 100 UNITS/ML 3 ML PEN SC SCH ×3 (07:58→20:26)
[2020-12-06] MEDS ORDERED: SODIUM CHLORIDE 0.9% 1000ML 1,000 ML IV SCH (08:00)
[2020-12-06] MEDS: CYANOCOBALAMIN 500 MCG TABLET (VITAMIN B-12) PO SCH ×2 (08:16→08:21)
--- NOTE | 2020-12-06 10:00 | Pharmacy Report ---
Pharmacy Glycemic Short Note 2 - Date of Service December 06, 2020 - Glycemic Short BSG Results (Last 24 hours): 12/05/20 12/05/20 12/05/20 11:48 16:23 17:54 Glucose 97 POC Glucose 208 H 102 H 12/05/20 12/06/20 12/06/20 20:01 05:41 07:46 Glucose 174 H POC Glucose 90 196 H OUTPATIENT ANTIDIABETIC REGIMEN: * Lantus 55 units SQ daily * Humalog SSI (uses only when hyperglycemic) * HbA1c = 10.2% (12/04/20) ASSESSMENT: 12/06: * Aleksandra received a total of 48 units of insulin yesterday * 30 units basal + 18 units bolus * BSGs were: 24-094-057-90 mg/dL, acceptable * IV fluids containing D5W were discontinued around 2100 last evening * Fasting worsened to 196 mg/dL this AM * Patient was started on Hydrocortisone 100 mg IV every 8 hours last evening which could explain uncontrolled fasting BSG * Will increase basal by ~40% today * No change to Novolog at this time. May need tightened if postprandial BSGs continue to increase throughout today. 12/05: * Patient received a total of 53 units of insulin yesterday * 43 units basal + 10 units bolus * BSGs were: 22-13-360-87 mg/dL (well controlled) * Fasting BSG was 78 mg/dL this AM (below goal) * Reduced Lantus further this AM; however, patient was started on D5W + LR at 80 mL/hr this morning for ELMER. Likely will need to increase Lantus this evening if these fluids are to continue overnight * Loosened Novolog as patient was too tightly controlled yesterday. * Again, will tighten this with lunch today since patient was started on fluids with D5W PLAN FOR INPATIENT GLYCEMIC CONTROL: * Basal insulin - increased 40% * Lantus 22 units SC BID * Bolus insulin * NovoLog per scale ACHS or Q6hrs while NPO * Goal Range: Low 110 mg/dL - High 140 mg/dL * Correction Factor: 25 mg/dL/unit * Nutritional / Prandial insulin per carb ratio of 1 unit per 8 grams CHO consumed PLAN FOR DISCHARGE: * HbA1c from this admission was 10.2% which is uncontrolled. Target HbA1c for this patient would be < 7-7.5%. * Patient reports having episodes of AM hypoglycemia on current regimen, but also clearly has some uncontrolled hyperglycemia (as indicated by HbA1c). * Upon discharge, would recommend: * Decreasing Lantus to 40 units SC AM (25% decrease to prevent fasting hypoglycemia) * Initiating Humalog 5 units SC ACHS + Sliding Scale as follows: BSG < 200 = 0 units; BSG 200-250 = 2 units; BSG 251-300 = 4 units; BSG 301-350 = 6 units; BSG > 350 = 8 units and Call MD. * Recommend prompt follow up with outpatient provider and/or referral to local ballroom dancer.
[2020-12-06] MEDS: HYDROCORTISONE SOD 50 MG in SYRINGE 0 ML IV SCH ×2 (16:45→23:17)
[2020-12-06] MEDS: PANTOprazole 40 MG TAB PO SCH (20:13)
[2020-12-06] MEDS: traZODone HCL 100 MG TAB PO SCH (20:13)
[2020-12-06] MEDS: ACETAMINOPHEN 325 MG TAB PO PRN (20:14)
[2020-12-06] MEDS: LATANOPROST 0.005% OP SOLN 2.5 ML BTL OP SCH (20:15)
[2020-12-06] MEDS: ASPIRIN 81 MG ECTAB PO SCH (20:16)
[2020-12-07] MEDS: LEVOTHYROXINE SODIUM 200 MCG TABLET PO SCH (06:05)
[2020-12-07] MEDS: HEPARIN SOD 5,000 UNIT/0.5 ML VIAL SQ SCH (06:06)
[2020-12-07 07:11] LABS: Hematocrit (blood only) 31.7 % (37-47); Mean Corpuscular Hemoglobin 31.2 pg (25-34); Mean Corpuscular Hgb Conc 31.5 g/dL (32-36); Mean Corpuscular Volume 98.8 fL (80-100); Mean Platelet Volume 10.5 fL (7.4-10.4); Platelet Count 158 K/uL (130-400); RDW Coefficient of Variation 18.5 % (11.5-14.5); RDW Standard Deviation 67.5 fL (36.4-46.3); Red Blood Count 3.21 M/uL (4.2-5.4); White Blood Count 13.78 K/uL (4.8-10.8)
[2020-12-07 07:43] LABS: BUN Creatinine Ratio 22.5 (10-20); Calcium 8.7 mg/dl (8.5-10.1); Creatinine Clr Calc Pharmacy 25.7 ml/min; Est GFR (African American) 32.9; Est GFR (Non-African American) 28.4; Potassium 4.3 mmol/L (3.5-5.1)
[2020-12-07] MEDS: METOPROLOL SUCC 25MG EXT REL TAB PO SCH (08:35)
[2020-12-07] MEDS: DIVALPROEX DELAY RELEASE 500 MG TAB PO SCH (08:35)
[2020-12-07] MEDS: HYDROCORTISONE SOD 50 MG in SYRINGE 0 ML IV SCH (08:35)
[2020-12-07] MEDS: POLYETHYLENE (MIRALAX) 17 GM PACK PO SCH (08:35)
[2020-12-07] MEDS: CLOPIDOGREL BISULFATE 75 MG TAB PO SCH (08:36)
[2020-12-07] MEDS: hydrALAZINE 10 MG TAB PO SCH (08:36)
[2020-12-07] MEDS: CYANOCOBALAMIN 500 MCG TABLET (VITAMIN B-12) PO SCH (08:36)
[2020-12-07] MEDS: SERTRALINE HCL 50 MG TABLET PO SCH (08:36)
[2020-12-07] MEDS: DOCUSATE SODIUM 100 MG CAP PO SCH (08:36)
[2020-12-07] MEDS: INSULIN ASPART 100 UNITS/ML 3 ML PEN SC SCH ×2 (08:38→12:04)
[2020-12-07] MEDS ORDERED: INSULIN GLARGINE SOLOSTAR 100 UNITS/ML 3 ML PEN SC SCH ×2 (09:00→21:00)
--- NOTE | 2020-12-07 15:09 | Discharge Summary ---
Date of Service December 07, 2020 Admission HPI Per Admitting Provider Aleksandra Dodd is a 70yo female with multiple medical comorbidities. She presents today with complaint of "filling up with fluid". Patient has been in [place] renting a home with her sister. She was hospitalized there for a brief period of time for similar complaint - seemingly with negative workup although we do not have records on file. She states that she has gained 30 pounds of fluid over the last two weeks. She has worsening edema of legs as well as some swelling of her hands and face. She admits to SOB and dyspnea with minimal exertion. She had an appointment with her "Stroke doctor" today in [place] and apparently her BP was markedly elevated and her weight was noted to be high so she was instructed to come to the ER. She had one brief episode of chest discomfort immediately prior to arrival. She reports pressure and a warm sensation over her left chest and breast with radiation down her left arm. Pressure was fairly intense, 9/10 in severity. She denies worsening SOB, nausea, dizziness or diaphoresis accompanying her chest discomfort. She was given Nitro in the ER which resolved her discomfort. Presently with no chest pain or pressure. She does state that she has some pain in her throat now. Patient reports compliance with her medications as well as adhering to a low salt diet. She states that when she left for [place] she was 129 pounds and her weight has steadily increased with rapid weight gain over the last 2 weeks - presently 162#. She believes that her "dry weight" is appx 130#. Upon review of weights in our system she was 68.5 kg on 10/28/20 and is 78 kg today (must consider room for error, i.e. different scales, standing vs laying, clothing blankets etc). Additionally patient states that while chewing her "jaw gets tired like its getting ready to quit". She has chronic headache and neck pain but reports no acute changes in these complaints. Denies visual disturbance. Patient reports being fairly active. She did exercising in the pool for one hour each day while in [place] - denies chest pain with exertion but did have to stop occasionally for SOB. ER Course: ASA, Ativan, Nitro Principal Diagnosis Hypothyroidism Discharge Exam Constitutional well developed and + obese; no acute distress Neck trachea midline, no thyromegaly Respiratory normal respiratory effort, lungs clear to auscultation Cardiovascular RRR, no murmur, no edema Gastrointestinal (Abdomen) normal bowel sounds, soft, nontender, no hepatosplenomegaly Musculoskeletal no cyanosis or clubbing, extremities motor strength 5/5 Skin no rashes, warm and dry Neurologic patellar DTR's 2+ bilat, sensation intact and PERRL, EOMI, accommodation nl, no face palsy, no dysarthria Psychiatric A+Ox3, euthymic affect Lymphatic no cervical or axillary lymphadenopathy Discharge Data Allergies Allergy/AdvReac Type Severity Reaction Status Date / Time shellfish derived Allergy Unknown Verified 12/03/20 21:13 Consultations 12/03/20 21:37 ED Decision to Admit Stat Ordered Studies 12/03/20 22:09 US venous doppler LE BI Urgent 12/04/20 08:18 CT angio chest PE protocol Routine 12/04/20 11:15 US thyroid Routine Diabetes Follow up Diabetes Follow-up Needed for HgbA1c >9% Hospital Course (1) Hypothyroidism: 70yo C female with multiple medical problems, interstitial lung disease, COPD, pulmonary hypertension and diastolic dysfunction, hypothyroidism and CKD presenting with single episode of chest pain as well as two weeks of rapid weight gain and worsening edema, ALEJO and SOB. Patient is HD stable, no respiratory distress or hypoxia. She reports gaining 30# over the past two weeks. Laboratory workup thus far is largely unremarkable to explain her shortness of breath. Ddx to include CHF exacerbation - patient with history of diastolic dysfunction, most likely cor pulmonale, less likely PE --> significant hypothyroidism Chronic but stated she takes Synthroid in evening with the rest of her pills -- suspect this is contributing to ineffective treatment of her hypothyroidism. Weight 79.2kg on admission from typical 62-68kg range. * TSH -- SIGNIFICANTLY ELEVATED AT 194 * FT4 --LOW 0.3 * T3 low 1.65 -- given PO replacement * No sx myxedema coma presently however was slightly hypotensive (checking random cortisol , pending) evening 12/04 with BP dropping to 77/52 and was given dose of 300mg IV Synthroid * Increased usual Synthroid to 200mcg daily and to be continued at discharge --will need close f/u and titrations now that she will be taking this medication properly -- could be explanation for elevated triglycerides/cholesterol during prior admission [place] requiring increased dose of statin and start of zetia and should improve with correction of above * US without nodule-- just atrophic * will discharge on Synthroid 200mcg daily, she now knows to take early in the morning at least an hour prior to eating, taking other medications * follow up with PCP and referral to endocrinology * would need a repeat TSH in 4-6 weeks (2) Shortness of breath: * IMPROVING --NONE REPORTED on the day of discharge * [place]: Echo showed normal LVEF at 60% with diastolic dysfunction and pulmonary hypertension with RSVP at 28 mmHg. Troponins were negative proBNP was normal dyslipidemia with a atorvastatin 80 mg daily (increased) and fenofibrate 48 mg tab daily (resumed) * ECHO obtained to ensure no worsening EF/valvular dysfunction however no murmur on examination -- NO SIGNIFICANT CHANGE * No further IV diuretics needed, edema felt to be due to hypothyroidism * UA without proteinuria * Dopplers negative for DVT * CT Chest negative for PE but does show some worsening fibrosis * --> follows with Dr. Garvey and will need f/u at discharge (appointment this upcoming Monday) * 96% on RA -- supplemental as needed (3) Chest pain: Patient was admitted to [facility] [place] [facility] from 09/24/20 - 09/27/20 for hypertension and acute left precordial chest pain with diaphoresis and nausea. She had an echo at that time which showed normal LVEF of 60%, diastolic dysfunction and PH with RSVP of 28 mmHg. Apparently she had "total body swelling" at that time involving legs, face and arms as well as SOB and ALEJO. * Patient had a nuclear stress echocardiogram performed at [facility] on 06/16/21 which was negative for myocardial ischemia. * Patient had Holter monitor performed on 06/16/21 which included some tachycardia, otherwise no arrhythmias discovered * Her episode of chest discomfort was brief. Normal troponin. EKG with no acute ischemic changes * Telemetry monitoring -- no arrhythmia * Troponins have been negative * No further chest pain reported * Continue ASA, Atorvastatin, Plavix, * Continue Metoprolol succinate 25mg daily (4) Sleep apnea: * CPAP qHS (5) Non-occlusive coronary artery disease: * With chest discomfort as above * -Continue ASA, Plavix, Atorvastatin and Metoprolol as above (6) Diabetes: * HbA1c from this admission was 10.2% which is uncontrolled (from prior 10.9). (previously on Invokanna and Januvia but had them discontinued) * Target HbA1c for this patient would be < 7-7.5%. * Patient reports having episodes of AM hypoglycemia on current regimen, but also clearly has some uncontrolled hyperglycemia (as indicated by HbA1c). * Pharmacy on consult given elevated A1c and on IV steroids (also got 1L D5NS on 12/05) * Upon discharge, would recommend: * Decreasing Lantus to 30 units SC AM (25% decrease to prevent fasting hypoglycemia) * Initiating Humalog 5 units SC ACHS + Sliding Scale as follows: BSG < 200 = 0 units; BSG 200-250 = 2 units; BSG 251-300 = 4 units; BSG 301-350 = 6 units; BSG > 350 = 8 units and Call MD. * Recommend prompt follow up with outpatient provider and/or referral to local beverage inspection machine tender --> discussed she should ideally follow with Dr. Grove or similar and can be arranged at d/c (7) Chronic kidney disease: * Newer diagnosis and recommended follow up with Nephrology after hospitalization in [place] * Ct elevated to 1.8 in June and was up to 2.[address] [place] [address] Garvey's note * Elevated to >2 on 12/05 and lasix was stopped (she did get AM dose however) * IVF as above * Cr is stable/baseline (8) GERD (gastroesophageal reflux disease): * Chronic. Stable * -Continue Protonix 40mg po qHS * To have EGD next week [facility] but wanted to switch for [facility] providers -- re: dysphagia/hoarseness --> Dr Case stopped by to introduce and will have office call with appointment. * Hoarseness likely from undertreated hypothyroidism as above, already improving (9) Hyperlipidemia: * Chronic * holding Atorvastatin 80mg for elevated CK as above -- consider switching to HS to decrease side effects (10) Hypertension: * Blood pressure well controlled at present 118/73 * Continue Metoprolol 25mg daily (11) Depression: * Chronic. Well controlled. * -Continue Sertraline 25mg po daily * -Continue Ativan 0.5mg po daily as needed for anxiety * -Continue Trazodone 100mg po qHS Was also started on Depakote for possible seizure activity in the past since November 2019 -- 500mg daily --> Took dose SOX ANALYST and added back to profile during admission --> Could be possible some confusion/thoughts of TIA/mini-strokes actually related to above but will continue current dose and have her f/u Neurology at discharge Ppx - Heparin 5000 TID Code - DNR/DNI Dispo - discharge to home Total Time Total Time Spent Total Time Spent (In Minutes): 35 Total Time Includes: Examination of the Patient, Discharge Planning and Medication Reconciliation Discharge Plan Discharge Items Patient Disposition: Home - Self-Care Reason For Visit: CHEST PAIN,SOB Discharge Diagnosis: Hypothyroidism Chronic kidney disease Condition on Discharge: Good Goals: follow up with Dr. Garvey referral for new PCP, flight surveyor, beverage inspection machine tender Activity: Resume your previous activity Non-emergency contact: Primary Care Provider Call non-emergency contact if: you have any medication questions and your symptoms worsen Follow-up/Referrals: Mandeep Grove MD [Physician] - 02/23/21 2:30 pm (first available, can be with another provider in group for hypothyroidism. Your appointment is with the physicain environmental assistant, Jacinto Azevedo. If you have any questions or need to change this appointment, please call [phone].) Vu De Paz III, CRNP [Nurse Practitioner] - 12/14/20 3:45 pm (Your new primary care appointment is with the physician environmental assistant, Vu De Paz at [address] [place] [address]. If you have any questions or need to change this appointment, please call [phone].) Usman Sinclair DO [Physician] - 01/06/21 11:20 am (4-6 weeks, new patient for chronic kidney disease. If you have any questions or need to change this appointment, please call [phone]. ) Stephanie Hess, R.N.P. [Primary Care Provider] - Jesus Everett PA-C [Physician Oyster Preparer] - 12/21/20 12:30 pm (Your appointment for diabetes is with the physicain environmental assistant. If you have any questions or need to change this appointment, please call [phone].) Diet: Carb Consistent or DM2 and Heart Healthy Addtl Attending Provider Instructions: Medications: please note several medications have been stopped or new doses prescribed - LANTUS: please reduce to 30 units in the morning - HUMALOG: please take 5 units with meals to cover carbohydrates that you will eat in addition, use the following sliding scale to give yourself additional insulin (on top of the 5 units you take for the meal) BSG < 200 = 0 units BSG 200-250 = 2 units; BSG 251-300 = 4 units; BSG 301-350 = 6 units; BSG > 350 = 8 units for example, you sit down to eat a meal and you would check your sugar before you eat, and your sugar is 220, you would give yourself 5 units + 2 units according to the scale for 7 units - SYNTHROID: dose increased to 200mcg every morning, as you now know, it is important to take early in the morning, 1 hour prior to eating and other medications - LIPITOR: reduce this to 80mg daily - VITAMIN B12: take 1000mcg daily STOP the Lasix and Hydralazine It is very important for you to follow up with your primary care doctor, we will work on arranging a new physician in our system also, we will refer you to endocrinology and nephrology Pending Studies at Discharge: No Stand-Alone Forms: My [facility], Smoking Cessation Medications and DC Order Prescriptions: New atorvastatin 40 mg Tablet 80 mg PO DAILY 30 Days Qty: 60 RF: 3 divalproex 500 mg Tablet,Delayed Release (Dr/Ec) 500 mg PO QAM 30 Days Qty: 30 RF: 3 cyanocobalamin (vitamin B-12) 500 mcg Tablet 1,000 mcg PO QAM 30 Days Qty: 60 RF: 3 levothyroxine [Synthroid] 200 mcg Tablet 200 mcg PO DAILYBB 30 Days Qty: 30 RF: 3 Continued clopidogrel 75 mg tablet 75 mg PO DAILY RF: 0 sertraline 25 mg tablet 25 mg PO DAILY RF: 0 metoprolol succinate 25 mg tablet extended release 24 hr 25 mg PO DAILY RF: 0 lorazepam 0.5 mg tablet 0.5 mg PO DAILY PRN (Reason: Anxiety) RF: 0 pantoprazole 40 mg Tablet,Delayed Release (Dr/Ec) 40 mg PO HS RF: 0 Restasis 0.05 % Dropperette 1 drp OPHTHALMIC (EYE) Q12H PRN (Reason: Dry Eyes) RF: 0 latanoprost (PF) 0.005 % Drops 1 drp OPHTHALMIC (EYE) PM RF: 0 nitroglycerin [Nitrostat] 0.4 mg Tablet, Sublingual 0.4 mg Sublingual UD PRN (Reason: Pain) RF: 0 polyethylene glycol 3350 [Miralax] 17 gram/dose Powder 1 dose PO UD PRN (Reason: Constipation) RF: 0 aspirin [Aspir-81] 81 mg Tablet,Delayed Release (Dr/Ec) 81 mg PO HS RF: 0 trazodone 50 mg tablet 100 mg PO HS RF: 0 Humalog U-100 Insulin 100 unit/mL Cartridge 1 sliding scale dose SUBCUT UD PRN (Reason: Hyperglycemia) Qty: 15 RF: 0 Changed Lantus Solostar U-100 Insulin 100 unit/mL (3 mL) Insulin Pen 30 unit SUBCUT QPM Qty: 0 RF: 0 Discontinued hydralazine 10 mg tablet 10 mg PO BID RF: 0 furosemide 40 mg Tablet 40 mg PO QAM RF: 0 atorvastatin 10 mg tablet 80 mg PO BID RF: 0 levothyroxine 150 mcg capsule 175 mcg PO HS RF: 0 metoprolol tartrate 25 mg tablet RF: 0 Discharge Orders: Discharge Order (Routine); Ordered 12/07/20 Ordered By: Esteban Turner Admission Data Admit Date/Time: 12/04/20 11:39 Attending Provider: Esteban Turner Admit Provider: Halle Jackson Primary Care Provider: Stephanie Hess Other Providers: Halle Jackson Other Interventions: Discharge Summary Assessment (RN) Last Done: 12/07/20 14:34 Coding Level of Care Code D/C Day Management >30 mins Diagnoses Hypothyroidism E03.9 Hypothyroidism type: unspecified Shortness of breath R06.02 Chest pain R07.9 Chest pain type: unspecified Sleep apnea G47.30 Sleep apnea type: unspecified type Non-occlusive coronary artery disease I25.10 Diabetes E11.9; Z79.4 Diabetes mellitus complication status: without complication Diabetes mellitus director long term care insulin use: with long-term use Diabetes mellitus type: type 2 Chronic kidney disease N18.9 Chronic kidney disease stage: unspecified stage GERD (gastroesophageal reflux disease) K21.9 Esophagitis presence: esophagitis presence not specified Hyperlipidemia E78.5 Hyperlipidemia type: unspecified Hypertension I10 Hypertension type: essential hypertension Depression F32.9 Active/Remission status: remission status unspecified Depression Type: major depressive disorder Major depression recurrence: unspecified whether recurrent
== END 2020-12-07 15:45 | disposition home or self-care (01) ==
LOC: 2W 19:32 → ED 19:32 → SUATTDRO 22:22 → 2W 12-04 00:13 → SUATTDRO 12-04 11:39

== ENCOUNTER 2021-03-23 11:38 | Observation (INO) ==
--- NOTE | 2021-03-23 12:43 | Emergency Department Note ---
History of Present Illness General Chief complaint: Chest Pain Stated complaint: ABDOMINAL AND CHEST PAIN Time Seen by Provider: 03/23/21 12:26 Source: patient History of Present Illness Provider complaint: Chest pain Onset (ago): day(s) 4 Location: chest and left Radiation: extremity (Left arm) Pain Consistency: + intermittent Maximum Pain Intensity: 7 Quality: + other (squeezing) Relieved By: + rest Exacerbated By: + other (Exertion) Associated symptoms: + cough, + fever/chills, + malaise, + nausea/vomiting and + shortness of breath; no headaches This is a 70-year-old female who presents with chest pain for the past 4 days. The pain is intermittent. She describes it as a squeezing sensation in the left side of her chest with radiation to her left arm. It is associated with nausea and shortness of breath. The patient states that it gets worse with exertion such as walking to the bathroom and better with rest. She does have a history of a heart attack. She takes an aspirin daily. She states that she has had a low-grade temperature up to 99.8. She has had a cough for years but over the past several days it is more hacking and she has been coughing up some phlegm. She denies any loss of taste or smell. She has been fully vaccinated for COVID- 19. Her second shot was about a month ago. She does complain of abdominal pain but states that she has had it for about a month. It has been in her left lower quadrant. She has it every day. She also describes diarrhea and vomiting over the past several days. Her diarrhea is watery and loose without blood. She denies any problems urinating. She has had no leg pain. She states she has chronic swelling of her legs which is unchanged. Home Medications Medication Instructions Recorded Confirmed Type latanoprost (PF) 0.005 % eye drops 1 drp OPHTHALMIC (EYE) PM 05/15/18 03/10/21 History nitroglycerin 0.4 mg sublingual 0.4 mg SUBLINGUAL UD PRN 05/15/18 03/10/21 History tablet (Nitrostat) polyethylene glycol 3350 17 1 dose PO UD PRN 05/15/18 03/10/21 History gram/dose oral powder (Miralax) trazodone 50 mg tablet 100 mg PO HS tab 10/28/20 03/10/21 History atorvastatin 40 mg tablet 80 mg PO HS 12/15/20 03/23/21 History cyanocobalamin (vitamin B-12) 500 1,000 mcg PO QAM 12/15/20 03/23/21 History mcg tablet erenumab-aooe 70 mg/mL 70 mg SUBCUT MONTHLY 12/15/20 03/23/21 History subcutaneous auto-injector insulin lispro 100 unit/mL 1 sliding scale dose SUBCUT UD 12/15/20 03/23/21 History subcutaneous cartridge (Humalog U-100 Insulin) pantoprazole 40 mg tablet,delayed 40 mg PO BID #60 tab 12/21/20 03/10/21 Rx release sertraline 25 mg tablet 25 mg PO PM #90 tab 01/27/21 03/10/21 Rx aspirin 325 mg tablet (Diamante 325 mg PO HS 02/08/21 03/10/21 History Aspirin) furosemide 20 mg tablet 20 mg PO QAM 02/08/21 03/23/21 History insulin glargine 100 unit/mL (3 50 unit SUBCUT QPM 03/04/21 03/23/21 History mL) subcutaneous pen (Lantus Solostar U-100 Insulin) levothyroxine 100 mcg capsule 100 mcg PO QAM 03/04/21 03/10/21 History metoprolol succinate 25 mg 25 mg PO HS 03/23/21 03/23/21 History tablet,extended release 24 hr Allergies Allergy/AdvReac Type Severity Reaction Status Date / Time No Known Allergies Allergy Verified 03/23/21 15:16 Past Med/Surg History Medical History Anemia HX Anxiety Chronic kidney disease STAGE 3-F/U [employer]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 TIM NAVARRO Chronic obstructive pulmonary disease well controlled per pt> no inhalers Cirrhosis, non-alcoholic Compartment syndrome of lower extremity, traumatic resolved Depression Diabetes mellitus, type 2 IDDM 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 Edema all over per pt > related to thyroid problems per pt GERD (gastroesophageal reflux disease) Glaucoma Hiatal hernia Hx of deep venous thrombosis R LEG following cath in 2018 Hyperlipidemia Hypertension Hypothyroidism Migraine Myocardial Infarction HX 2011 Osteoarthritis Sleep apnea CPAP HS Transient ischemic attack (TIA) last one 2018> has had several per pt HX PAST YR-F/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 N JENNIFER?-[facility]-WEAKNESS R LEG/ARM Surgical History H/O lymph node excision NECK -BENIGN H/O neck surgery WITH BONE FUSION> ROM WNL History of appendectomy History of cardiac cath X 3-LAST ON 02/2020 1 stent placed History of carpal tunnel release RIGHT History of section X 3 History of cholecystectomy History of colonoscopy History of esophagogastroduodenoscopy (EGD) History of fasciotomy FASCIOTOMY FOR COMPARTMENT SYNDROME RLE History of herniorrhaphy R/L History of hysterectomy OVARIES History of surgery Right femoral artery thrombectomy with patch angioplasty-February 2018 Stented coronary artery Feb 2020 > [facility] > follows with Dr. De Leon Family History Brother Family history of diabetes mellitus Daughter Family history of diabetes mellitus Mother Family history of diabetes mellitus Myocardial infarction Family history of irritable bowel syndrome Father History of colon resection Prostate cancer Family history of diabetes mellitus Myocardial infarction Colorectal cancer Grandmother History of colon resection Other No family history of adverse response to anesthesia Denies family history of Ovarian cancer Breast cancer Social History Smoking Status: Former smoker Tobacco Type: Cigarettes Age Started Using Tobacco: 18; Age Quit Using Tobacco: 62; packs per day: 2; Years Smoked: 44; Cigarettes Per Day: 40; Number of Years Since Quit: 13; Second Hand Exposure: No; Do You Dip or Chew Tobacco: No; Hx Alcohol Use: No Hx Substance Use: No Preferred Language: Frisian Communication Ability: Effective Visual Impairment: Diminished Hearing Ability: Hard of Hearing Animal Rides Manager Required: No Beliefs That Will Affect Care: None marital status: Current Living Situation: Family Current Living Situation Comment: Lives with daughter current occupational status: employed current occupation: [employer] How many Children do You have: 3 Other Information That Helps Us Care for You: No Feels Safe at Home: Yes Safety Concerns: Feels Safe At This Time Childhood Exposure to Second-Hand Smoke: Yes caffeine: Yes during the past year weight has: increased > 10 lbs Dental Care, Regularly: Yes Physical Activity Frequency: Daily Seatbelt Use: never Sunscreen Use: Yes Assistive Devices: CPAP Review of Systems See HPI for pertinent positives & negatives. and A total of 10 systems reviewed and were otherwise negative Physical Exam Vital Signs Vital Signs - 24 hr 03/23/21 11:40 03/23/21 12:30 03/23/21 13:30 Temperature 36.5 C Temperature Source Temporal Artery Scan Pulse Rate 86 77 71 Pulse Rate from SpO2 Sensor 77 Respiratory Rate 20 21 17 Respiratory Effort / Characteristics Non-Labored Spontaneous Respiratory Depth Normal Respiratory Pattern Regular Blood Pressure 172/73 H 167/92 H Blood Pressure Mean 106 117 Blood Pressure Position Sitting Pulse Oximetry 95 98 Oxygen Delivery Method Room Air Room Air Sepsis Recent Fever Within 48 Hours Yes Sepsis New/Unexplained Change in Mental Status No Sepsis Action Taken by Nursing No Action Required 03/23/21 14:00 03/23/21 14:30 03/23/21 15:01 Temperature Temperature Source Pulse Rate 77 72 77 Pulse Rate from SpO2 Sensor 77 72 77 Respiratory Rate 14 12 19 Respiratory Effort / Characteristics Respiratory Depth Respiratory Pattern Blood Pressure 176/92 H 167/104 H 196/144 H Blood Pressure Mean 120 125 161 Blood Pressure Position Pulse Oximetry 96 95 99 Oxygen Delivery Method Room Air Sepsis Recent Fever Within 48 Hours Sepsis New/Unexplained Change in Mental Status Sepsis Action Taken by Nursing 03/23/21 15:32 03/23/21 16:00 Temperature Temperature Source Pulse Rate 72 72 Pulse Rate from SpO2 Sensor 73 72 Respiratory Rate 14 12 Respiratory Effort / Characteristics Respiratory Depth Respiratory Pattern Blood Pressure 142/74 H Blood Pressure Mean 96 Blood Pressure Position Pulse Oximetry 96 93 Oxygen Delivery Method Sepsis Recent Fever Within 48 Hours Sepsis New/Unexplained Change in Mental Status Sepsis Action Taken by Nursing Constitutional: Vital signs reviewed. Eyes: Pupils are equal round reactive to light. Conjunctiva are noninjected. ENT: Pharynx is clear without erythema or exudate. Mucous membranes are slightly dry. Neck supple without meningeal signs. Respiratory: Clear to auscultation bilaterally. Breath sounds are equal bilaterally. Cardiovascular: Regular rate and rhythm. No rubs or gallops. GI: Soft, nondistended with left lower quadrant tenderness. No guarding. Bowel sounds are present. Musculoskeletal: No peripheral edema. No lower extremity tenderness. Integumentary: No cyanosis. or jaundice. Neurological: The patient is awake and alert. No focal deficits. Psychiatric: Normal affect. Not anxious appearing. Course Administered Medications Heparin Sodium/Dextrose (Heparin Sodium/Dextrose) 25,000 units in 500 mls @ 13 mls/hr IV .Q24H [facility]; Protocol Stop: 04/22/21 15:44 Last Admin: 03/23/21 16:06 Dose: 650 units/hr, 13 mls/hr Documented by: [id number] Cosigned by: [id number] Insulin Aspart (Insulin Aspart 100 Units/Ml 3 Ml Pen) 0 units SC ACHS IRINA Stop: 04/22/21 17:26 Last Admin: 03/23/21 17:36 Dose: Not Given Documented by: [id number] Discontinued Medications Heparin Sodium (Porcine) (Heparin Sod (Porcine) 1000 Unit/Ml) 3,000 units IV NOW ONE Stop: 03/23/21 15:32 Last Admin: 03/23/21 16:06 Dose: Not Given Documented by: [id number] Heparin Sodium (Porcine) (Heparin Sod (Porcine) 1000 Unit/Ml) Confirm Administered Dose 1,000 units .ROUTE .STK-MED ONE Stop: 03/23/21 15:58 Last Admin: 03/23/21 16:04 Dose: 3,000 units Documented by: [id number] Cosigned by: [id number] Heparin Sodium/Dextrose (Heparin 93242 Unit/500 Ml D5w) Confirm Administered Dose 25,000 units IV .STK-MED ONE Stop: 03/23/21 15:58 Last Admin: 03/23/21 16:04 Dose: 650 units Documented by: [id number] Cosigned by: [id number] Insulin Glargine (Lantus Per Unit Charge) 10 units SQ 1745 ONE Stop: 03/23/21 17:46 Last Admin: 03/23/21 18:13 Dose: Not Given Documented by: [id number] Nitroglycerin (Nitroglycerin 2% Ointment 30gm Tube) Confirm Administered Dose 18 inch .ROUTE .STK-MED ONE Stop: 03/23/21 15:57 Last Admin: 03/23/21 16:01 Dose: 1 inch Documented by: [id number] Ondansetron HCl (Ondansetron Inj 2 Mg/Ml 2 Ml Vial) 4 mg IV NOW STA Stop: 03/23/21 15:03 Last Admin: 03/23/21 15:17 Dose: 4 mg Documented by: [id number] Medical Decision Making Differential Diagnosis Unstable angina, ID, pneumonia, COVID-19, diverticulitis, kidney stone, gastroenteritis, colitis Medical Records Attestation: I reviewed the patient's medical records. I did perform a limited focused review of portions of the patient's old chart on the electronic medical record. The patient had an upper endoscopy on March 10 which showed a normal esophagus. The stomach was not well-visualized secondary to food debris. Home Medications Current Medication List: was personally reviewed by me Laboratory Data Attestation: I reviewed the patient's lab results. Result diagrams: 03/23/21 13:00 03/23/21 13:00 Lab Results 03/23/21 03/23/21 03/23/21 Range/Units 13:00 13:00 13:00 WBC 7.85 (4.8-10.8) K/uL RBC 4.10 L (4.2-5.4) M/uL Hgb 10.1 L (12.0-16.0) g/dL Hct 34.3 L (37-47) % MCV 83.7 (80-100) fL MCH 24.6 L (25-34) pg MCHC 29.4 L (32-36) g/dL RDW Std Deviation 48.5 H (36.4-46.3) fL RDW Coeff of [place] 16.0 H (11.5-14.5) % Plt Count 191 (130-400) K/uL MPV 10.1 (7.4-10.4) fL Immature Gran % (Auto) 0.1 % Neut % (Auto) 52.2 % Lymph % (Auto) 33.6 % Henry % (Auto) 9.2 % Eos % (Auto) 4.6 % Baso % (Auto) 0.3 % Neut # (Auto) 4.10 (1.4-6.5) K/uL Lymph # (Auto) 2.64 (1.2-3.4) K/uL Henry # (Auto) 0.72 H (0.11-0.59) K/uL Eos # (Auto) 0.36 (0-0.5) K/uL Baso # (Auto) 0.02 (0-0.2) K/uL Immature Gran # (Auto) 0.01 (0.00-0.02) K/uL APTT 23.7 (21.0-31.0) Seconds PTT Ratio 0.9 Sodium 142 (136-145) mmol/L Potassium 4.3 (3.5-5.1) mmol/L Chloride 105 (98-107) mmol/L Carbon Dioxide 30 (21-32) mmol/L Anion Gap 7.0 (3-11) BUN 17 (7-18) mg/dl Creatinine 1.23 H (0.6-1.2) mg/dl Est Cr Clr Drug Dosing 38.1 ml/min Est GFR ( Amer) 52.2 ml/min Est GFR (Non-Af Amer) 45.0 ml/min BUN/Creatinine Ratio 13.5 (10-20) Glucose 203 H (70-99) mg/dl Calcium 8.8 (8.5-10.1) mg/dl Total Bilirubin 0.2 (0.2-1) mg/dl AST 28 (15-37) U/L ALT 26 (12-78) U/L Alkaline Phosphatase 71 (45-117) U/L Troponin I < 0.015 (0-0.045) ng/ml Total Protein 6.8 (6.4-8.2) gm/dl Albumin 3.0 L (3.4-5.0) gm/dl Globulin 3.8 (2.5-4.0) gm/dl Albumin/Globulin Ratio 0.8 L (0.9-2) Lipase 144 (73-393) U/L COVID-19 Eval Order SARS-CoV-2 (PCR) (Negative) 03/23/21 03/23/21 Range/Units 13:00 13:00 WBC (4.8-10.8) K/uL RBC (4.2-5.4) M/uL Hgb (12.0-16.0) g/dL Hct (37-47) % MCV (80-100) fL MCH (25-34) pg MCHC (32-36) g/dL RDW Std Deviation (36.4-46.3) fL RDW Coeff of Nicole (11.5-14.5) % Plt Count (130-400) K/uL MPV (7.4-10.4) fL Immature Gran % (Auto) % Neut % (Auto) % Lymph % (Auto) % Henry % (Auto) % Eos % (Auto) % Baso % (Auto) % Neut # (Auto) (1.4-6.5) K/uL Lymph # (Auto) (1.2-3.4) K/uL Henry # (Auto) (0.11-0.59) K/uL Eos # (Auto) (0-0.5) K/uL Baso # (Auto) (0-0.2) K/uL Immature Gran # (Auto) (0.00-0.02) K/uL APTT (21.0-31.0) Seconds PTT Ratio Sodium (136-145) mmol/L Potassium (3.5-5.1) mmol/L Chloride (98-107) mmol/L Carbon Dioxide (21-32) mmol/L Anion Gap (3-11) BUN (7-18) mg/dl Creatinine (0.6-1.2) mg/dl Est Cr Clr Drug Dosing ml/min Est GFR ( Amer) ml/min Est GFR (Non-Af Amer) ml/min BUN/Creatinine Ratio (10-20) Glucose (70-99) mg/dl Calcium (8.5-10.1) mg/dl Total Bilirubin (0.2-1) mg/dl AST (15-37) U/L ALT (12-78) U/L Alkaline Phosphatase (45-117) U/L Troponin I (0-0.045) ng/ml Total Protein (6.4-8.2) gm/dl Albumin (3.4-5.0) gm/dl Globulin (2.5-4.0) gm/dl Albumin/Globulin Ratio (0.9-2) Lipase (73-393) U/L COVID-19 Eval Order Covid19 at [facility] SARS-CoV-2 (PCR) NEGATIVE (Negative) Imaging Data Radiologist's Impression: Abdomen/Pelvis CT 03/23/21 12:39 CT OF THE ABDOMEN AND PELVIS WITHOUT CONTRAST CLINICAL HISTORY: Left lower quadrant pain. Evaluate for acute diverticulitis. COMPARISON STUDY: CT of the abdomen and pelvis March 13, 2018. TECHNIQUE: Axial images of the abdomen and pelvis were obtained without IV contrast. Images were reviewed in the axial, sagittal, and coronal planes. Automated exposure control was utilized for the study. A dose lowering technique was utilized adhering to the principles of ALARA. FINDINGS: Subpleural reticulation within the lower lungs is noted. This favors interstitial lung disease. No renal, ureteral or bladder calculi are present. There is no hydronephrosis or hydroureter. Evaluation of the remainder of the abdomen and pelvis is suboptimal on this unenhanced examination. The liver is cirrhotic. Sensitivity for detection of hepatic lesions is diminished on this unenhanced exam but none are identified. There is no biliary ductal dilatation status post cholecystectomy. The spleen, adrenal glands and pancreas are unremarkable. There is no evidence for a bowel obstruction. No bowel wall thickening is identified. The appendix is not visualized. There is no ascites or lymphadenopathy. No acute fracture or suspicious lesion is identified within visualized skeletal structures. IMPRESSION: 1. No acute process within the abdomen or pelvis on unenhanced exam. No bowel obstruction. No evidence for acute diverticulitis. 2. Cirrhosis. ACT 112: Negative or not required by law. Electronically signed by: Guerrero Wise M.D. 03/23/2021 2:27 PM Chest X-Ray 03/23/21 12:39 XR chest 1V portable CLINICAL HISTORY: Chest Pain COMPARISON STUDY: Chest radiograph December 03, 2020. Chest CT December 04, 2020. FINDINGS: There is no pneumothorax or pleural effusion. Lung volumes are mildly diminished. This is unchanged. Cardiomegaly is unchanged. There is no pneumothorax or pleural effusion. There is subtle interstitial thickening. IMPRESSION: Subtle interstitial thickening. This favors interstitial lung disease. Pulmonary vascular congestion could appear similar. ACT 112: Negative or not required by law. Electronically signed by: Guerrero Wise M.D. 03/23/2021 2:12 PM ECG Data Attestation: I personally reviewed and interpreted this ECG as follows: Indication: + chest pain Rate (beats per minute): 78 Rhythm: + normal sinus ECG ST segments: + T-wave inversions; no ST elevation ECG Findings: + Q waves (Septal); no PVCs Comparison ECG Date: from (December 03, 2020) Change: no significant change MDM Narrative I did evaluate the patient as noted above. The patient is presenting with exertional chest pain for the past 4 days. She also has been ill with increased cough and shortness of breath. She also complains of left lower abdominal pain for the past 2 weeks. She was placed in respiratory isolation. Covid testing was obtained and was negative. IV access was established. I did place an order for continuous cardiac monitoring. The monitor showed normal sinus rhythm at a rate of 77 bpm. I did order and personally review the patient's 12-lead EKG as described above. She has no acute ischemic changes. I did order and personally reviewed the images of the patient's chest x-ray as described above. She has sinister social lung disease. I did order and review the patient's blood work as noted in the electronic medical record. CBC demonstrates an anemia with a hemoglobin of 10. WBC count is not elevated. Platelet count is within normal limits. Electrolytes are unremarkable. Creatinine is 1.23. Troponin is negative. LFTs and lipase are unremarkable. I did order a CT of the abdomen and pelvis. I did review the images myself as well as the radiology report as described above. She has no acute intra-abdominal process. I did discuss the test results with the patient. She will be hospitalized for further care and evaluation. I did discuss the case with the hospitalist and major case detective. Impression & Plan Chest pain, exertional, Abdominal pain, acute, left lower quadrant, Anemia, Flu-like symptoms Discharge Plan Visit Data Chief Complaint: Chest Pain Stated Complaint: ABDOMINAL AND CHEST PAIN ED Provider: Johnny Bryant Discharge Problem: Chest pain, exertional, Abdominal pain, acute, left lower quadrant, Anemia, Flu-like symptoms Patient Disposition: Admitted As Inpatient Discharge Instructions Interventions: ED Discharge Assessment Last Done: 03/23/21 16:57
[2021-03-23 13:25] LABS: Basophils # (auto) 0.02 K/uL (0-0.2); Basophils % (auto) 0.3 %; Eosinophils # (auto) 0.36 K/uL (0-0.5); Eosinophils % (auto) 4.6 %; Hematocrit (blood only) 34.3 % (37-47); Hemoglobin 10.1 g/dL (12.0-16.0); Immature Granulocytes # (auto) 0.01 K/uL (0.00-0.02); Immature Granulocytes % (auto) 0.1 %; Lymphocytes # (auto) 2.64 K/uL (1.2-3.4); Lymphocytes % (auto) 33.6 %; Mean Corpuscular Hemoglobin 24.6 pg (25-34); Mean Corpuscular Hgb Conc 29.4 g/dL (32-36); Mean Corpuscular Volume 83.7 fL (80-100); Mean Platelet Volume 10.1 fL (7.4-10.4); Monocytes # (auto) 0.72 K/uL (0.11-0.59); Monocytes % (auto) 9.2 %; Neutrophils % (auto) 52.2 %; Platelet Count 191 K/uL (130-400); RDW Standard Deviation 48.5 fL (36.4-46.3); White Blood Count 7.85 K/uL (4.8-10.8)
[2021-03-23 13:44] LABS: Alanine Aminotransferase 26 U/L (12-78); Aspartate Aminotransferase 28 U/L (15-37); BUN Creatinine Ratio 13.5 (10-20); Blood Urea Nitrogen 17 mg/dl (7-18); Calcium 8.8 mg/dl (8.5-10.1); Carbon Dioxide 30 mmol/L (21-32); Chloride 105 mmol/L (98-107); Creatinine Clr Calc Pharmacy 38.1 ml/min; Est GFR (African American) 52.2 ml/min; Glucose 203 mg/dl (70-99); Lipase 144 U/L (73-393); Potassium 4.3 mmol/L (3.5-5.1); Sodium 142 mmol/L (136-145)
[2021-03-23 13:50] LABS: Partial Thromboplastin Ratio 0.9; Partial Thromboplastin Time 23.7 Seconds (21.0-31.0)
[2021-03-23 13:51] LABS: Albumin Globulin Ratio 0.8 (0.9-2); Alkaline Phosphatase 71 U/L (45-117); Bilirubin,Total 0.2 mg/dl (0.2-1); Globulin 3.8 gm/dl (2.5-4.0); Total Protein 6.8 gm/dl (6.4-8.2); Troponin I < 0.015 ng/ml (0-0.045)
--- NOTE | 2021-03-23 14:13 | XRay Report ---
XR chest 1V portable CLINICAL HISTORY: Chest Pain COMPARISON STUDY: Chest radiograph December 03, 2020. Chest CT December 04, 2020. FINDINGS: There is no pneumothorax or pleural effusion. Lung volumes are mildly diminished. This is u nchanged. Cardiomegaly is unchanged. There is no pneumothorax or pleural effusion. There is subtle in terstitial thickening. IMPRESSION: Subtle interstitial thickening. This favors interstitial lung disease. Pulmonary vascula r congestion could appear similar. ACT 112: Negative or not required by law. Electronically signed by: Guerrero Wise M.D. 03/23/2021 2:12 PM
--- NOTE | 2021-03-23 14:28 | CT Scan Report ---
CT OF THE ABDOMEN AND PELVIS WITHOUT CONTRAST CLINICAL HISTORY: Left lower quadrant pain. Evaluate for acute diverticulitis. COMPARISON STUDY: CT of the abdomen and pelvis March 13, 2018. TECHNIQUE: Axial images of the abdomen and pelvis were obtained without IV contrast. Images were revi ewed in the axial, sagittal, and coronal planes. Automated exposure control was utilized for the fatou dy. A dose lowering technique was utilized adhering to the principles of ALARA. FINDINGS: Subpleural reticulation within the lower lungs is noted. This favors interstitial lung dise ase. No renal, ureteral or bladder calculi are present. There is no hydronephrosis or hydroureter. Ev aluation of the remainder of the abdomen and pelvis is suboptimal on this unenhanced examination. The liver is cirrhotic. Sensitivity for detection of hepatic lesions is diminished on this unenhanced ex am but none are identified. There is no biliary ductal dilatation status post cholecystectomy. The sp kar, adrenal glands and pancreas are unremarkable. There is no evidence for a bowel obstruction. No bowel wall thickening is identified. The appendix is not visualized. There is no ascites or lymphaden opathy. No acute fracture or suspicious lesion is identified within visualized skeletal structures. IMPRESSION: 1. No acute process within the abdomen or pelvis on unenhanced exam. No bowel obstruction. No evidenc e for acute diverticulitis. 2. Cirrhosis. ACT 112: Negative or not required by law. Electronically signed by: Guerrero Wise M.D. 03/23/2021 2:27 PM
[2021-03-23] MEDS ORDERED: ONDANSETRON INJ 2 MG/ML 2 ML VIAL IV STA (15:02)
[2021-03-23] MEDS ORDERED: Heparin IV Adult Wt-Based Low-Dose WITH Bolus Protocol IV SCH (15:30)
[2021-03-23] MEDS ORDERED: HEPARIN SOD (PORCINE) 1000 UNIT/ML IV ONE (15:31)
--- NOTE | 2021-03-23 15:32 | History & Physical Report ---
Date of Service March 23, 2021 Assessment & Plan (1) Chest pain: Plan: Patient with chest pain and dysnpea on exertion - known CAD with stent - Heparin drip for now low dose with bolus - continue asa 81 mg daily - Continue statin - Continue Metoprolol Succinate 25 mg PO qpm - Continue to trend Troponin and ECG - Cardiology consulted for risk stratification evaluation (2) Carotid artery stenosis: Plan: LEFT CEA - patient is enrolled in CVA study where she gets routine carotid dopplers - recently done last month per patient, unsure of results - continue asa - continue statin (3) CAD (coronary artery disease): (4) Transient ischemic attack (TIA): Plan: As per HPI- symptomatology yesterday; now resolved. - consider MRI following acute CP workup completed - medically optimized at this time - no residual effects (5) Sleep apnea: Plan: KEE with ILD - Continue CPAP at night, patient is unsure of her setting but thinks it is 10CM H20 (6) Hypertension: Plan: Continue with Lasix 20 mg daily (7) Hyperlipidemia: Plan: Continue atorvastatin 80 mg daily- verified from most recent PCP visit (8) COPD (chronic obstructive pulmonary disease): Plan: Normal PFTs as outpatient with some scarring of her CT scan - Pulmonary ddx of UIP/IPF - no utility in bronchodilator therapy and is not on any medicaitons as outpatient. - continue supportive care and pulmonary toileting (9) Hypothyroidism: Plan: History of myxedema earlier in the spring. TSH went from 194 to 0.023 in 01/2021. Per notes, she had been taking her Synthroid with her evening meds. - continue Synthroid 100 mcg - Repeat TSH (10) Diabetes: Plan: Continue Glargine 30 qPM and 10mg Qam - sliding scale with aspart ; CF 20 and ratio 1:15 (11) Gastritis: Plan: Gastritis noted on EGD in 11/2020. Repeat EGD in 02/2021 had poor prep, so unclear whether this had healed. - Continue PPI PO BID History of Present Illness Primary Care Provider: Vu De Paz, III, POTATO PICKER 70 YOF with past medical history of: HTN, HLD, CAD, CKD, III, DM, Hypothyroidism, TIA, KEE, VTE, sarcoidosis, COPD, femoral artery angioplasty, Left CEA. Patient comes to the emergency room today for complaints of chest pain and dyspnea; as well as left lower quadrant abdominal pain. The patient's chest pain has been occurring on and off for the past 4 days. The pain is located in the left center of her chest and radiates under her left breast with 2 episodes of it radiating to her left arm and one episode of radiation to left arm up left neck. The episodes are always associated with dyspnea and occ asional nausea. The pain has occurred daily with her getting up and when she starts moving around doing things. It also occurs throughout the day when she is walking around the house. The episodes are relieved with rest. She has not taken any of her NTG sl at home. Her symptoms are concerning as they occur with activity, will start patient on a heparin drip and continue to evaluate her ECG and Troponin I. On admission her ECG has no dynamic changes and her Troponin I is negative. Will consult cardiology for further assessment of her symptomatology for consideration of cath based evaluation. Patient also endorses left lower quadrant pain that comes and goes, she is unable to tell if this changes with food or not. The pain is sharp and stabbing in nature that lasts several minutes and occurs just about everyday. She had a CT scan done in the EMD that revealed no acute intraabdominal process, she does not have an elevated WBC. She does take Miralax but only every other day and is also unsure if this helps. Will change to daily and follow clinically. Patient also endorses that she had difficulty with her speech yesterday, that it was slurred and difficulty with word finding and some right arm weakness. She thinks this lasted around 20-30 minutes and self resolved. She does not have any focal deficits on this exam and is medically optimized to include ASA daily and statin. Would like to get an MRI following her cardiac workup, sooner if symptoms return. The patient's cardiac history is notable for TX in 2003, with no intervention reported, but did have a coronary stent in 2018 but unknown to what vessel. 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 Whitehead in [place] to Dr. De Leon in December. Her cardiac catheterization was complicated at that time with a femoral thrombotic occlusion leading to embolectomy and patch angioplasty. Recent ECHO in November reveals EF 60-65% with normal wall motion, moderate AV sclerosis with mild aortic regurgitation and mild mitral regurgitation and normal stress echo in May 2020. The patient also is noted for left stenting of her CEA. Patient has had her COVID vaccine and her COVID test is NEGATIVE on admission. Allergies Allergy/AdvReac Type Severity Reaction Status Date / Time No Known Allergies Allergy Verified 03/23/21 15:16 Home Medications Medication Instructions Recorded Confirmed Type latanoprost (PF) 0.005 % eye drops 1 drp OPHTHALMIC (EYE) PM 05/15/18 03/10/21 History nitroglycerin 0.4 mg sublingual 0.4 mg SUBLINGUAL UD PRN 05/15/18 03/10/21 History tablet (Nitrostat) polyethylene glycol 3350 17 1 dose PO UD PRN 05/15/18 03/10/21 History gram/dose oral powder (Miralax) trazodone 50 mg tablet 100 mg PO HS tab 10/28/20 03/10/21 History atorvastatin 40 mg tablet 80 mg PO HS 12/15/20 03/23/21 History cyanocobalamin (vitamin B-12) 500 1,000 mcg PO QAM 12/15/20 03/23/21 History mcg tablet erenumab-aooe 70 mg/mL 70 mg SUBCUT MONTHLY 12/15/20 03/23/21 History subcutaneous auto-injector insulin lispro 100 unit/mL 1 sliding scale dose SUBCUT UD 12/15/20 03/23/21 History subcutaneous cartridge (Humalog U-100 Insulin) pantoprazole 40 mg tablet,delayed 40 mg PO BID #60 tab 12/21/20 03/10/21 Rx release sertraline 25 mg tablet 25 mg PO PM #90 tab 01/27/21 03/10/21 Rx aspirin 325 mg tablet (Diamante 325 mg PO HS 02/08/21 03/10/21 History Aspirin) furosemide 20 mg tablet 20 mg PO QAM 02/08/21 03/23/21 History insulin glargine 100 unit/mL (3 50 unit SUBCUT QPM 03/04/21 03/23/21 History mL) subcutaneous pen (Lantus Solostar U-100 Insulin) levothyroxine 100 mcg capsule 100 mcg PO QAM 03/04/21 03/10/21 History metoprolol succinate 25 mg 25 mg PO HS 03/23/21 03/23/21 History tablet,extended release 24 hr Past Med/Surg History Medical History Anemia HX Anxiety Chronic kidney disease STAGE 3-F/U [employer] NAV[employer]O Chronic obstructive pulmonary disease well controlled per pt> no inhalers Cirrhosis, non-alcoholic Compartment syndrome of lower extremity, traumatic resolved Depression Diabetes mellitus, type 2 IDDM 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 Edema all over per pt > related to thyroid problems per pt GERD (gastroesophageal reflux disease) Glaucoma Hiatal hernia Hx of deep venous thrombosis R LEG following cath in 2018 Hyperlipidemia Hypertension Hypothyroidism Migraine Myocardial Infarction HX 2011 Osteoarthritis Sleep apnea CPAP HS Transient ischemic attack (TIA) last one 2018> has had several per pt HX PAST YR-F/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 NAME?-[facility] R LEG/ARM Surgical History H/O lymph node excision NECK -BENIGN H/O neck surgery WITH BONE FUSION> ROM WNL History of appendectomy History of cardiac cath X 3-LAST ON 02/2020 1 stent placed History of carpal tunnel release RIGHT History of section X 3 History of cholecystectomy History of colonoscopy History of esophagogastroduodenoscopy (EGD) History of fasciotomy FASCIOTOMY FOR COMPARTMENT SYNDROME RLE History of herniorrhaphy R/L History of hysterectomy OVARIES History of surgery Right femoral artery thrombectomy with patch angioplasty-February 2018 Stented coronary artery Feb 2020 > [facility] > follows with Dr. De Leon Family History Brother Family history of diabetes mellitus Daughter Family history of diabetes mellitus Mother Family history of diabetes mellitus Myocardial infarction Family history of irritable bowel syndrome Father History of colon resection Prostate cancer Family history of diabetes mellitus Myocardial infarction Colorectal cancer Grandmother History of colon resection Other No family history of adverse response to anesthesia Denies family history of Ovarian cancer Breast cancer Social History Smoking Status: Former smoker Tobacco Type: Cigarettes Age Started Using Tobacco: 18; Age Quit Using Tobacco: 62; packs per day: 2; Years Smoked: 44; Cigarettes Per Day: 40; Number of Years Since Quit: 13; Second Hand Exposure: No; Do You Dip or Chew Tobacco: No; Hx Alcohol Use: No Hx Substance Use: No Preferred Language: Bulgarian Communication Ability: Effective Visual Impairment: Diminished Hearing Ability: Hard of Hearing Ginner Helper Required: No Beliefs That Will Affect Care: None marital status: Current Living Situation: Family Current Living Situation Comment: Lives with daughter current occupational status: employed current occupation: [employer] How many Children do You have: 3 Other Information That Helps Us Care for You: No Feels Safe at Home: Yes Safety Concerns: Feels Safe At This Time Childhood Exposure to Second-Hand Smoke: Yes caffeine: Yes during the past year weight has: increased > 10 lbs Dental Care, Regularly: Yes Physical Activity Frequency: Daily Seatbelt Use: never Sunscreen Use: Yes Assistive Devices: CPAP Review of Systems Review of Systems: REVIEW OF SYSTEMS: Constitutional: No fever, sweats or chills Eyes: No diplopia, no worsening or blurred vision ENT: normal hearing, no trouble swallowing Respiratory: (+) dyspnea on exertion with chronic cough, sputum, NO dyspnea at rest Cardiovascular: (+) chest pain, tightness, NO palpitations Abdomen: (+) pain, NO nausea, vomiting, diarrhea or constipation Musculoskeletal: No joint pain, calf pain, swelling Neurologic: No weakness, numbness/tingling, or balance problems Psychiatric: No anxiety or depression Skin: No rash or itch Physical Exam Physical Exam: PHYSICAL EXAM: General: awake, alert, no apparent distress Head: Normocephalic, atraumatic ENT: PERRL, EOMI, no pharyngeal exudate, mucous membranes moist Neuro: AAO x 3, speech clear and appropriate, strength intact bilaterally 5/5, sensation intact and equal all extremities and dermatomes, no pronator drift Chest: equal rise and fall of the chest, no accessory muscle use, no heaves or thrills, Clear to auscultation, on room air, Cardiac: Regular rate and rhythm, telemetry reviewed, skin warm dry, cap refill <3 seconds, peripheral pulses +2 no JVD, Grade II systolic murmur, left carotid bruit, no edema GI: NABS x 4 quadrants, soft, nontender to palpation, no rebound, guarding or tenderness : Spontaneously voiding, no pain, no CVA tenderness, Extremities: Normal inspection, no peripheral edema or erythema, calfs nontender to palpation Psych: Normal mood and affect Skin: no rash or erythema Results & Data Results & Data ([facility]) Vital Signs (Past 12 Hours) Vital Signs Temp Pulse Resp BP Pulse Ox 03/23/21 14:00 77 14 176/92 H 96 03/23/21 13:30 71 17 167/92 H 03/23/21 12:30 77 21 98 03/23/21 11:40 36.5 C 86 20 172/73 H 95 Laboratory Results Abnormal Labs 03/23/21 03/23/21 13:00 13:00 RBC 4.10 L Hgb 10.1 L Hct 34.3 L MCH 24.6 L MCHC 29.4 L RDW Std Deviation 48.5 H RDW Coeff of Nicole 16.0 H [place] # (Auto) 0.72 H Creatinine 1.23 H Glucose 203 H Albumin 3.0 L Albumin/Globulin Ratio 0.8 L Diagnostic Findings Abdomen/Pelvis CT 03/23/21 12:39 CT OF THE ABDOMEN AND PELVIS WITHOUT CONTRAST CLINICAL HISTORY: Left lower quadrant pain. Evaluate for acute diverticulitis. COMPARISON STUDY: CT of the abdomen and pelvis March 13, 2018. TECHNIQUE: Axial images of the abdomen and pelvis were obtained without IV contrast. Images were reviewed in the axial, sagittal, and coronal planes. Automated exposure control was utilized for the study. A dose lowering technique was utilized adhering to the principles of ALARA. FINDINGS: Subpleural reticulation within the lower lungs is noted. This favors interstitial lung disease. No renal, ureteral or bladder calculi are present. There is no hydronephrosis or hydroureter. Evaluation of the remainder of the abdomen and pelvis is suboptimal on this unenhanced examination. The liver is cirrhotic. Sensitivity for detection of hepatic lesions is diminished on this unenhanced exam but none are identified. There is no biliary ductal dilatation status post cholecystectomy. The spleen, adrenal glands and pancreas are unremarkable. There is no evidence for a bowel obstruction. No bowel wall thickening is identified. The appendix is not visualized. There is no ascites or lymphadenopathy. No acute fracture or suspicious lesion is identified within visualized skeletal structures. IMPRESSION: 1. No acute process within the abdomen or pelvis on unenhanced exam. No bowel obstruction. No evidence for acute diverticulitis. 2. Cirrhosis. ACT 112: Negative or not required by law. Electronically signed by: Guerrero Wise M.D. 03/23/2021 2:27 PM Chest X-Ray 03/23/21 12:39 XR chest 1V portable CLINICAL HISTORY: Chest Pain COMPARISON STUDY: Chest radiograph December 03, 2020. Chest CT December 04, 2020. FINDINGS: There is no pneumothorax or pleural effusion. Lung volumes are mildly diminished. This is unchanged. Cardiomegaly is unchanged. There is no pneumothorax or pleural effusion. There is subtle interstitial thickening. IMPRESSION: Subtle interstitial thickening. This favors interstitial lung disease. Pulmonary vascular congestion could appear similar. ACT 112: Negative or not required by law. Electronically signed by: Guerrero Wise M.D. 03/23/2021 2:12 PM Medications Administered Heparin Sodium/Dextrose (Heparin Sodium/Dextrose) 25,000 units in 500 mls @ 13 mls/hr IV .Q24H [facility]; Protocol Stop: 04/22/21 15:44 Last Admin: 03/23/21 16:06 Dose: 650 units/hr, 13 mls/hr Documented by: [id number] Cosigned by: [id number] Discontinued Medications Heparin Sodium (Porcine) (Heparin Sod (Porcine) 1000 Unit/Ml) 3,000 units IV NOW ONE Stop: 03/23/21 15:32 Last Admin: 03/23/21 16:06 Dose: Not Given Documented by: [id number] Heparin Sodium (Porcine) (Heparin Sod (Porcine) 1000 Unit/Ml) Confirm Administered Dose 1,000 units .ROUTE .STK-MED ONE Stop: 03/23/21 15:58 Last Admin: 03/23/21 16:04 Dose: 3,000 units Documented by: [id number] Cosigned by: [id number] Heparin Sodium/Dextrose (Heparin 56279 Unit/500 Ml D5w) Confirm Administered Dose 25,000 units IV .STK-MED ONE Stop: 03/23/21 15:58 Last Admin: 03/23/21 16:04 Dose: 650 units Documented by: [id number] Cosigned by: [id number] Nitroglycerin (Nitroglycerin 2% Ointment 30gm Tube) Confirm Administered Dose 18 inch .ROUTE .STK-MED ONE Stop: 03/23/21 15:57 Last Admin: 03/23/21 16:01 Dose: 1 inch Documented by: [id number] Ondansetron HCl (Ondansetron Inj 2 Mg/Ml 2 Ml Vial) 4 mg IV NOW STA Stop: 03/23/21 15:03 Last Admin: 03/23/21 15:17 Dose: 4 mg Documented by: [id number] ECG Additional Comments: 23-MAR-2021 12:49:16 [facility]-EDSTAT ROUTINE RETRIEVAL Normal sinus rhythm Anterior infarct (cited on or before 03-DEC-2020) Abnormal ECG When compared with ECG of 23-MAR-2021 11:52, (unconfirmed) Questionable change in initial forces of Septal leads Code Status & VTE Plan Code Status CODE: DNR VTE: SCD's, Heparin drip, ambulation Supervising Physician Co-Signing Physician Notes I supervised VIPUL Quintanilla on this admission. I interviewed and examined the patient independently of him. The plan is as written in his note except for any following changes/exceptions: None 70yo F w/ hx of CAD who presents with convincing chest pain story. Will trend troponins and given prior need for stent, will get cardiology to weigh in. Given concern for unstable angina, will start heparin gtt until seen by cardiology. PG Care Time/CCT Total # of Minutes Spent Total Time Spent with Patient: Total time spent is greater than 50% in coordination of care (as documented) at patient's floor/unit and/or counseling patient: Coding Level of Care Code 57558 Initial Inpt Care Lvl 3 Diagnoses Chest pain R07.9 Carotid artery stenosis I65.29 Transient ischemic attack (TIA) G45.9 Sleep apnea G47.30 Sleep apnea type: unspecified type Hypertension I10 Hypertension type: essential hypertension Hyperlipidemia E78.5 Hyperlipidemia type: unspecified COPD (chronic obstructive pulmonary disease) J44.9 CAD (coronary artery disease) I25.10 Hypothyroidism E03.9 Hypothyroidism type: unspecified Diabetes E11.9; Z79.4 Diabetes mellitus complication status: without complication Diabetes mellitus mcc insulin use: with oil heaterman use Diabetes mellitus type: type 2 Gastritis K29.70 (1) Sleep apnea Sleep apnea type: unspecified type Qualified Code(s): G47.30 - Sleep apnea, unspecified (2) Diabetes Diabetes mellitus complication status: without complication Diabetes mellitus mcc insulin use: with oil heaterman use Diabetes mellitus type: type 2 Qualified Code(s): E11.9 - Type 2 diabetes mellitus without complications; Z79.4 - terminologist (current) use of insulin (3) Hyperlipidemia Hyperlipidemia type: unspecified Qualified Code(s): E78.5 - Hyperlipidemia, unspecified (4) Hypothyroidism Hypothyroidism type: unspecified Qualified Code(s): E03.9 - Hypothyroidism, unspecified (5) Hypertension Hypertension type: essential hypertension Qualified Code(s): I10 - Essential (primary) hypertension
[2021-03-23] MEDS ORDERED: HEPARIN SODIUM/DEXTROSE 25,000 UNITS/500 ML BAG IV SCH (15:45)
[2021-03-23] MEDS ORDERED: NITROGLYCERIN 2% OINTMENT 30GM TUBE ONE (15:56)
[2021-03-23] MEDS ORDERED: HEPARIN 25000 UNIT/500 ML D5W IV ONE (15:57)
[2021-03-23] MEDS ORDERED: HEPARIN SOD (PORCINE) 1000 UNIT/ML ONE (15:57)
[2021-03-23] MEDS ORDERED: ONDANSETRON INJ 2 MG/ML 2 ML VIAL IV PRN (17:27)
[2021-03-23] MEDS ORDERED: NITROGLYCERIN SL 0.4 MG/TAB TAB SL PRN (17:27)
[2021-03-23] MEDS ORDERED: GLUCOSE 10 TABS/TUBE PO PRN (17:27)
[2021-03-23] MEDS ORDERED: GLUCAGON FOR INJ 1 MG VIAL SQ PRN (17:27)
[2021-03-23] MEDS ORDERED: GLUCOSE 40% GEL 15 GM TUBE PO PRN (17:27)
[2021-03-23] MEDS ORDERED: CARBOHYDRATES FOR HYPOGLYCEMIA PO PRN (17:27)
[2021-03-23] MEDS ORDERED: DEXTROSE 50% 50 ML SYRINGE IV PRN (17:27)
[2021-03-23] MEDS: INSULIN ASPART 100 UNITS/ML 3 ML PEN SC SCH ×2 (17:36→22:09)
[2021-03-23] MEDS ORDERED: LANTUS PER UNIT CHARGE SQ ONE (17:45)
[2021-03-23] MEDS: PANTOprazole 40 MG TAB PO SCH (21:48)
[2021-03-23] MEDS: ATORVASTATIN 40 MG TAB PO SCH (21:48)
[2021-03-23] MEDS: SERTRALINE HCL 50 MG TABLET PO SCH (21:48)
[2021-03-23] MEDS: INSULIN GLARGINE SOLOSTAR 100 UNITS/ML 3 ML PEN SQ SCH (21:51)
[2021-03-23] MEDS: NITROGLYCERIN 2% OINTMENT 30GM TUBE EXT SCH (22:02)
[2021-03-23] MEDS: ACETAMINOPHEN 325 MG TAB PO PRN (22:12)
[2021-03-23 23:03] LABS: Partial Thromboplastin Ratio 1.6; Partial Thromboplastin Time 41.8 Seconds (21.0-31.0)
[2021-03-24] MEDS: NITROGLYCERIN 2% OINTMENT 30GM TUBE EXT SCH ×4 (03:19→20:59)
[2021-03-24] MEDS: LEVOTHYROXINE SODIUM 100 MCG TABLET PO SCH (05:14)
[2021-03-24 06:19] LABS: Basophils # (auto) 0.02 K/uL (0-0.2); Basophils % (auto) 0.3 %; Eosinophils # (auto) 0.38 K/uL (0-0.5); Eosinophils % (auto) 5.2 %; Hematocrit (blood only) 31.6 % (37-47); Hemoglobin 9.3 g/dL (12.0-16.0); Lymphocytes # (auto) 3.16 K/uL (1.2-3.4); Lymphocytes % (auto) 43.1 %; Mean Corpuscular Hgb Conc 29.4 g/dL (32-36); Mean Corpuscular Volume 84.9 fL (80-100); Mean Platelet Volume 10.4 fL (7.4-10.4); Monocytes # (auto) 0.71 K/uL (0.11-0.59); Monocytes % (auto) 9.7 %; Neutrophils # (auto) 3.07 K/uL (1.4-6.5); Neutrophils % (auto) 41.7 %; Platelet Count 180 K/uL (130-400); RDW Coefficient of Variation 16.1 % (11.5-14.5); RDW Standard Deviation 49.9 fL (36.4-46.3); Red Blood Count 3.72 M/uL (4.2-5.4); White Blood Count 7.34 K/uL (4.8-10.8)
[2021-03-24 06:29] LABS: Partial Thromboplastin Ratio 1.6
[2021-03-24 06:57] LABS: BUN Creatinine Ratio 12.7 (10-20); Calcium 8.5 mg/dl (8.5-10.1); Creatinine Clr Calc Pharmacy 35.5 ml/min; Est GFR (African American) 47.9 ml/min; Est GFR (Non-African American) 41.3 ml/min; Magnesium 2.2 mg/dl (1.8-2.4); Potassium 3.9 mmol/L (3.5-5.1)
[2021-03-24] MEDS: ASPIRIN 81 MG ECTAB PO SCH (07:57)
[2021-03-24] MEDS: ATORVASTATIN 40 MG TAB PO SCH ×2 (07:58→20:33)
[2021-03-24] MEDS: FUROSEMIDE 20 MG TAB PO SCH (07:58)
[2021-03-24] MEDS: POLYETHYLENE (MIRALAX) 17 GM PACK PO SCH (07:59)
[2021-03-24] MEDS: PANTOprazole 40 MG TAB PO SCH ×2 (07:59→20:34)
[2021-03-24] MEDS: INSULIN ASPART 100 UNITS/ML 3 ML PEN SC SCH ×4 (08:05→20:36)
--- NOTE | 2021-03-24 09:04 | Electrocardiogram Report ---
Test Reason : Blood Pressure : / mmHG Vent. Rate : 071 BPM Atrial Rate : 071 BPM P-R Int : 188 ms QRS Dur : 076 ms QT Int : 430 ms P-R-T Axes : 045 -12 094 degrees QTc Int : 467 ms Normal sinus rhythm Low voltage QRS Abnormal QRS-T angle, consider primary T wave abnormality Abnormal ECG When compared with ECG of 23-MAR-2021 12:49, (unconfirmed) No significant change was found Confirmed by Remi Dunn ([id number]) on 03/24/2021 9:04:26 AM Referred By: REFERRED SELF Confirmed By:Remi Dunn
--- NOTE | 2021-03-24 11:12 | Cardiology Consultation ---
Date of Consultation March 24, 2021 Assessment & Plan (1) Angina pectoris, crescendo: -history is concerning for exertional angina pectoris. -agree with intravenous heparin. -cardiac catheterization later today. (2) CAD (coronary artery disease): -history of an OR back in 2002, medical management. -intracoronary stent in February 2018, details unknown. -cardiac catheterization complicated by a right common femoral artery thrombotic occlusion. (3) Hypertension: -adequate control on current regimen. (4) Hyperlipidemia: -continue atorvastatin. History of Present Illness Attending Physician: Blair Santos History of Present Illness Mrs. Dodd is a 70-year-old female admitted yesterday with a chest pain syndrome. This consultation was ordered to assist in her cardiac management. Of note, the patient is well known to me from the outpatient setting. The patient was in her usual state of health until approximately 4 days prior to presentation. She began to note chest discomfort with associated shortness of breath and nausea with any vigorous physical activity. She described the chest discomfort as a squeezing sensation in the substernal region. Her discomfort would resolve with rest. This was a very predictable symptoms. She has not experienced any discomfort at rest. She presented to the emergency room for further evaluation. Fortunately, her initial troponin I levels undetectable and her EKG showed no acute changes. The patient's cardiac history began back in 2002 when she suffered a myocardial infarction. According to her report, she did have a cardiac catheterization, ho wever, no intervention was necessary. She did have a stent placed within a coronary artery in February 2018, however, details are unknown. It was a complicated procedure as she had a thrombotic occlusion of the right common femoral artery requiring a right femoral embolectomy with patch angioplasty. She also required a right popliteal embolectomy. She had a concurrent right lower extremity DVT and a compartment syndrome requiring surgical decompression. The patient had a stent placed within the left internal carotid artery on March 23, 2020. She is currently enrolled in a research study and gets routine carotid ultrasounds. Currently, patient is resting comfortably in bed without complaints. Past medical and surgical history 1. Coronary artery disease 2. Intracoronary stent-February 2018 3. Hypertension 4. Hypercholesterolemia 5. Vasovagal syncope 6. COPD 7. Diabetes mellitus 8. Chronic renal failure 9. GERD 10. Hiatal hernia 11. Hypothyroidism 12. Migraine headaches 13. Obstructive sleep apnea 14. Non alcoholic cirrhosis 15. Right femoral artery thrombectomy with patch angioplasty-February 2018 16. Right lower extremity DVT-February 2018 17. Compartment syndrome-February 2018 18. Glaucoma 19. Depression 20. DJD 21. Appendectomy 22. Cholecystectomy 23. Cervical spine fusion 24. x3 25. Hysterectomy 26. Carpal tunnel release 27. Right popliteal embolectomy-February 2018 Social history , lives with her daughter Works at [employer] Quit tobacco at age 62, 88 pack year history No alcohol Family history Mother at 66 from pancreatic carcinoma Father in his 80s from bladder carcinoma A brother at 65 from colon carcinoma Another brother at 65 from Agent [place] exposure Review of systems A 10 point review systems was negative except for that described above. Allergies Allergy/AdvReac Type Severity Reaction Status Date / Time No Known Allergies Allergy Verified 03/23/21 15:16 Home Medications Medication Instructions Recorded Confirmed Type latanoprost (PF) 0.005 % eye drops 1 drp OPHTHALMIC (EYE) PM 05/15/18 03/10/21 History nitroglycerin 0.4 mg sublingual 0.4 mg SUBLINGUAL UD PRN 05/15/18 03/10/21 History tablet (Nitrostat) polyethylene glycol 3350 17 1 dose PO UD PRN 05/15/18 03/10/21 History gram/dose oral powder (Miralax) trazodone 50 mg tablet 100 mg PO HS tab 10/28/20 03/10/21 History atorvastatin 40 mg tablet 80 mg PO HS 12/15/20 03/23/21 History cyanocobalamin (vitamin B-12) 500 1,000 mcg PO QAM 12/15/20 03/23/21 History mcg tablet erenumab-aooe 70 mg/mL 70 mg SUBCUT MONTHLY 12/15/20 03/23/21 History subcutaneous auto-injector insulin lispro 100 unit/mL 1 sliding scale dose SUBCUT UD 12/15/20 03/23/21 History subcutaneous cartridge (Humalog U-100 Insulin) pantoprazole 40 mg tablet,delayed 40 mg PO BID #60 tab 12/21/20 03/10/21 Rx release sertraline 25 mg tablet 25 mg PO PM #90 tab 01/27/21 03/10/21 Rx aspirin 325 mg tablet (Diamante 325 mg PO HS 02/08/21 03/10/21 History Aspirin) furosemide 20 mg tablet 20 mg PO QAM 02/08/21 03/23/21 History insulin glargine 100 unit/mL (3 50 unit SUBCUT QPM 03/04/21 03/23/21 History mL) subcutaneous pen (Lantus Solostar U-100 Insulin) levothyroxine 100 mcg capsule 100 mcg PO QAM 03/04/21 03/10/21 History metoprolol succinate 25 mg 25 mg PO HS 03/23/21 03/23/21 History tablet,extended release 24 hr Patient History Medical History Anemia HX Anxiety Chronic kidney disease STAGE 3-F/U [employer] TIM NAVARRO Chronic obstructive pulmonary disease well controlled per pt> no inhalers Cirrhosis, non-alcoholic Compartment syndrome of lower extremity, traumatic resolved Depression Diabetes mellitus, type 2 IDDM 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 Edema all over per pt > related to thyroid problems per pt GERD (gastroesophageal reflux disease) Glaucoma Hiatal hernia Hx of deep venous thrombosis R LEG following cath in 2017 Hyperlipidemia Hypertension Hypothyroidism Migraine Myocardial Infarction HX 2011 Osteoarthritis Sleep apnea CPAP HS Transient ischemic attack (TIA) last one 2018> has had several per pt HX 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/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 NAME?-[facility] R LEG/ARM Surgical History H/O lymph node excision NECK -BENIGN H/O neck surgery WITH BONE FUSION> ROM WNL History of appendectomy History of cardiac cath X 3-LAST ON 02/2020 1 stent placed History of carpal tunnel release RIGHT History of section X 3 History of cholecystectomy History of colonoscopy History of esophagogastroduodenoscopy (EGD) History of fasciotomy FASCIOTOMY FOR COMPARTMENT SYNDROME RLE History of herniorrhaphy R/L History of hysterectomy OVARIES History of surgery Right femoral artery thrombectomy with patch angioplasty-February 2018 Stented coronary artery Feb 2020 > [facility] > follows with Dr. De Leon Family History Brother Family history of diabetes mellitus Daughter Family history of diabetes mellitus Mother Family history of diabetes mellitus Myocardial infarction Family history of irritable bowel syndrome Father History of colon resection Prostate cancer Family history of diabetes mellitus Myocardial infarction Colorectal cancer Grandmother History of colon resection Other No family history of adverse response to anesthesia Denies family history of Ovarian cancer Breast cancer Social History Smoking Status: Former smoker Tobacco Type: Cigarettes Age Started Using Tobacco: 18; Age Quit Using Tobacco: 62; packs per day: 2; Years Smoked: 44; Cigarettes Per Day: 40; Number of Years Since Quit: 13; Second Hand Exposure: No; Do You Dip or Chew Tobacco: No; Hx Alcohol Use: No Hx Substance Use: No Preferred Language: Indonesian Communication Ability: Effective Visual Impairment: Diminished Hearing Ability: Hard of Hearing Fitness Coordinator Required: No Beliefs That Will Affect Care: None marital status: Current Living Situation: Family Current Living Situation Comment: Lives with daughter current occupational status: employed current occupation: [employer] How many Children do You have: 3 Other Information That Helps Us Care for You: No Feels Safe at Home: Yes Safety Concerns: Feels Safe At This Time Childhood Exposure to Second-Hand Smoke: Yes caffeine: Yes during the past year weight has: increased > 10 lbs Dental Care, Regularly: Yes Physical Activity Frequency: Daily Seatbelt Use: never Sunscreen Use: Yes Assistive Devices: None Physical Exam Physical Exam: In general this is an obese white female no acute distress. HEENT exam is negative. Neck is supple with full carotid upstrokes. A quiet left-sided bruits noted. No jugular veinous distention. Cardiovascular exam reveals a regular rhythm with a normal S1 and S2. Heart sounds are distant. No obvious murmurs. No S3 or S4. Lungs are clear without rales, rhonchi or wheezes. Abdomen is obese without bruits. Extremities reveal intact radial artery pulses bilaterally. There is trace pedal and pretibial edema. Results & Data ([facility]) Vital Signs (Past 12 Hours) Vital Signs Temp Pulse Pulse Pulse Resp BP BP 03/24/21 08:00 71 03/24/21 07:23 36.3 C L 73 18 156/79 H 03/24/21 03:00 37.0 C 76 19 131/85 03/23/21 23:43 76 Pulse Ox 03/24/21 08:00 03/24/21 07:23 93 03/24/21 03:00 100 03/23/21 23:43 Laboratory Results CBC notes hemoglobin 9.3, hematocrit 31.6, white count 7.34, and platelet count [id number]. Electrolytes note a sodium of 142, potassium 3.9, chloride 105, bicarb 33, BUN 17, creatinine 1.32, and a glucose of 103. Troponin I levels undetectable at less than 0.015 on 4 separate studies. LDL cholesterol is 23 with an HDL of 68. Diagnostic Findings EKG notes normal sinus rhythm with a left axis deviation and old anteroseptal myocardial infarction pattern. Echocardiogram performed on December 24, 2020 noted normal ventricular systolic function with ejection fraction of 60-69%. There was mild mitral regurgitation. conveyor monitor is benign. PG Care Time/CCT Total # of Minutes Spent Total Time Spent with Patient: Total time spent is greater than 50% in coordination of care (as documented) at patient's floor/unit and/or counseling patient: Coding Level of Care Code 97039 Inpt Consult Level 5 Diagnoses Angina pectoris, crescendo I20.0 CAD (coronary artery disease) I25.10 Hypertension I10 Hypertension type: essential hypertension Hyperlipidemia E78.5 Hyperlipidemia type: unspecified (1) Hypertension Hypertension type: essential hypertension Qualified Code(s): I10 - Essential (primary) hypertension (2) Hyperlipidemia Hyperlipidemia type: unspecified Qualified Code(s): E78.5 - Hyperlipidemia, unspecified
--- NOTE | 2021-03-24 12:13 | XCELERA ---
[id number]
[2021-03-24] MEDS ORDERED: niCARdipine HCL INJ 2.5 MG/ML 10 ML AMP ONE (12:58)
[2021-03-24] MEDS ORDERED: HEPARIN (PORCINE) 1000 UNIT/ML 10 ML (CATH LAB USE ONLY) ONE (12:58)
[2021-03-24] MEDS ORDERED: MIDAZOLAM HCL 1 MG/ML 2ML VIAL ONE (12:59)
[2021-03-24] MEDS ORDERED: fentaNYL citrate 100 MCG/2 ML VIAL ONE (12:59)
[2021-03-24] MEDS ORDERED: NITROGLYCERIN/D5W 100MCG/ML 20ML SYR ONE (13:00)
--- NOTE | 2021-03-24 13:38 | Pre Anesthesia Assessment ---
Date of Service March 24, 2021 Pre Sedation Assessment Vital Signs Temp Pulse Pulse Pulse Resp BP BP 03/24/21 12:00 80 18 03/24/21 08:00 71 03/24/21 07:23 97.3 F L 73 18 03/24/21 03:00 98.6 F 76 19 131/85 03/23/21 23:43 76 03/23/21 23:00 98.1 F 78 20 101/61 03/23/21 22:27 72 16 03/23/21 22:01 120/72 03/23/21 19:00 97.7 F 71 18 95/58 L 03/23/21 17:36 98.4 F 77 16 96/56 L 03/23/21 16:30 71 12 108/59 L 03/23/21 16:00 72 12 142/74 H 03/23/21 15:32 72 14 03/23/21 15:01 77 19 196/144 H 03/23/21 14:30 72 12 167/104 H 03/23/21 14:00 77 14 176/92 H BP Pulse Ox 03/24/21 12:00 191/77 H 97 03/24/21 08:00 03/24/21 07:23 156/79 H 93 03/24/21 03:00 100 03/23/21 23:43 03/23/21 23:00 97 03/23/21 22:27 93 03/23/21 22:01 03/23/21 19:00 94 03/23/21 17:36 95 03/23/21 16:30 99 03/23/21 16:00 93 03/23/21 15:32 96 03/23/21 15:01 99 03/23/21 14:30 95 03/23/21 14:00 96 Cardiovascular RRR, no murmur, no edema Respiratory normal respiratory effort, lungs clear to auscultation Pre-Sedation Airway Assessment Smoking Status: Former smoker Hx Sleep Apnea: Yes Hx Difficult Intubation: No Short, Thick Neck: Yes Thyromental Distance: > or= 3.5 Finger Breadths Oral Cavity: + Dental Abnormalities Mallampati Class: III ASA: ASA3 NPO Status Date of Last Intake of Fluids: 03/24/21 Time of Last Intake of Fluids: 08:00 Date of Last Intake of Solid Food: 03/24/21 Time of Last Intake of Solid Foods: 08:00 Procedure Planning Contraindications for Sedation: none Current Medications Reviewed: Yes Notes The planned sedation has been discussed with the patient. Informed Consent was obtained. I have identified the patient, determined the appropriateness of sedation and have assessed the patient immediately prior to the procedure. All medicine(s) and interventions are by my order.
--- NOTE | 2021-03-24 13:39 | Post Anesthesia Assessment ---
Date of Service March 24, 2021 Post Sedation Assessment Vital Signs Temp Pulse Pulse Pulse Resp BP BP 03/24/21 12:00 80 18 03/24/21 08:00 71 03/24/21 07:23 97.3 F L 73 18 03/24/21 03:00 98.6 F 76 19 131/85 03/23/21 23:43 76 03/23/21 23:00 98.1 F 78 20 101/61 03/23/21 22:27 72 16 03/23/21 22:01 120/72 03/23/21 19:00 97.7 F 71 18 95/58 L 03/23/21 17:36 98.4 F 77 16 96/56 L 03/23/21 16:30 71 12 108/59 L 03/23/21 16:00 72 12 142/74 H 03/23/21 15:32 72 14 03/23/21 15:01 77 19 196/144 H 03/23/21 14:30 72 12 167/104 H 03/23/21 14:00 77 14 176/92 H BP Pulse Ox 03/24/21 12:00 191/77 H 97 03/24/21 08:00 03/24/21 07:23 156/79 H 93 03/24/21 03:00 100 03/23/21 23:43 03/23/21 23:00 97 03/23/21 22:27 93 03/23/21 22:01 03/23/21 19:00 94 03/23/21 17:36 95 03/23/21 16:30 99 03/23/21 16:00 93 03/23/21 15:32 96 03/23/21 15:01 99 03/23/21 14:30 95 03/23/21 14:00 96 Recovery Score Activity: Moves 4 extremities Respiration: Deep Breath/Cough Circulation: +/-20% PreAnes Value Consciousness: Fully Awake Oxygen Saturation: O2 needed for >90% Discharge Sedation Level of Care: Fast Track Phase II Post Sedation Plan On clinical assessment, the patient appears to have tolerated the sedation without complications. Patient is recovering as anticipated. Patient will continue to be monitored by nursing and may be discharged when sedation discharge criteria are met per below protocol. Upon Completions of procedure up to 15 minutes continue every 5 minute vital signs and the P.A.R. score; then discharge to a Phase I or Fast Track to Phase II per the following guidelines: * Discharge Patient to appropriate Phase II area if PAR is 8 or greater or return to pre- procedure baseline. The post - procedure orders will be as directed. * If PAR score is less than 8 or not return to pre-procedure baseline then patient will follow Phase I monitoring till PAR is reached for Phase II. The Phase I may be done in procedure room or may call to secure a Phase I area. * If naloxone or flumazenil are used for reversal, hold in Phase I for continued monitoring from when last reversal dose was given for a minimum of 60 minutes or longer pending the nurse and/or physician discretion of patient condition before discharge to Phase II. Please call the Sedation Physician to re-evaluate and complete post-note for discharge to Phase II area. Do NOT discharge from procedure sedation or Phase 1 until post- sedation evaluation note is complete by procedure /sedation MD Sedation Discharge Instructions to be given to the patient at discharge to home.
[2021-03-24] MEDS ORDERED: SODIUM CHLORIDE 0.9% 1000ML 1,000 ML IV SCH (13:45)
--- NOTE | 2021-03-24 13:54 | Cardiac Catheterization ---
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 Clinical evaluation leading to the procedure CAD Presenation: Unstable angina Anginal Classification: CCS IV Heart Failure: No Cardiogenic Shock within 24 Hours: No Cardiac Arrest within 24 Hours: No Imaging Studies Past 6 Months: Yes Stress Studies Past 6 Months: No Diagnostic Physicians Name: Marshall Garza MD Status: Elective Closure Device Percutaneous Entry Location: ulnar Closure Device: Radial Band Recommendations: Medical Therapy and/or Counseling Intraprocedure Events Significant Disection: No Perforation: No Cardiac Cath Procedure Full Procedure Date March 24, 2021 Pre-Procedure Diagnosis Pre-Procedure Diagnosis: Angina AUC Score AUC Score: 7 Post-Procedure Diagnosis Post-Procedure Diagnosis: Mild CAD and Normal Intracardiac Pressures Procedure(s) Performed Procedure(s) Performed: Coronary Angiography, Left Heart Cath and Ultrasound Guided Vascular Access Letter Carrier Marshall Garza MD Revival Clerk(s) Williams Estimated Blood Loss Estimated Blood Loss: 5 Medication(s) Medication(s): Fentanyl, Lidocaine 1%, Nicardipine, Nitroglycerin and Versed Summary of Findings Indication: Suspected unstable angina Access: 6 Fr slender right ulnar artery under ultrasound guidance Catheters: Clements Findings: LM -normal caliber, no significant disease LAD -medium caliber, proximal luminal irregularities. LAD small after takeoff of second diagonal with 50% mid segment stenosis just after takeoff of D2. Distal LAD tapers off before apex. Small D1 with 70% ostial stenosis. Medium D2 without disease. Circumflex -medium caliber, 40 to 50% mid segment disease. Large OM 2 without disease. RCA -dominant, medium caliber, mid segment luminal irregularities, remainder of vessel without significant disease. LVEDP -8 Arterial Closure: TR band Summary: 1. Moderate multivessel coronary artery disease -Small mid LAD 50% Mid circumflex 40 to 50%. Very small D1 70% ostial 2. Normal intracardiac filling pressure Recommendations: No high risk disease identified. No significant CAD to account for recent rest pain. Recommend medical management of moderate CAD/branch vessel disease Continued ASCVD risk factor modification. Consider additional anti-anginal therapy for exertional symptoms. Can discontinue heparin infusion. Hemodynamics Rest Ao:: 101/54/71 Final Ao: 126/58/86 LV: 125/8 Recommendations Recommendations: Medical Therapy and/or Counseling Specimens Specimens: None Radiation Exposure (mGy) 625 Contrast (mls) 50 Fluids (cc crystalloids) Fluids (cc crystalloids): 60 Anesthesia Moderate 0069-5309 Procedural Complication(s) None Disposition PCU I attest to the content of the Intraoperative Record and any orders documented therein. Any exceptions are noted below. [facility] Card Cath Procedure Codes Cardiac Catheterization Procedure 1: Cardiovascular Cath Procedures: 38268 Coronaries and LHC (+/-LV) Therapeutic Services & Ancillary Proc Procedure 2: Cardiovascular Tx and Anc Procedures: 08108 Ultrasonic Guidance Vascular Access Moderate Sedation Procedure 1: Sedation/Anesthesia: 32688 Mod Sedation by the same physician;Init15 Min Child Age 5 & Up PG Care Time/CCT Total # of Minutes Spent Total Time Spent with Patient: Total time spent is greater than 50% in coordination of care (as documented) at patient's floor/unit and/or counseling patient:
[2021-03-24] MEDS: INSULIN GLARGINE SOLOSTAR 100 UNITS/ML 3 ML PEN SQ SCH (20:34)
[2021-03-24] MEDS: SERTRALINE HCL 50 MG TABLET PO SCH (20:34)
--- NOTE | 2021-03-24 20:41 | Hospitalist Progress Note ---
Date of Service March 24, 2021 Assessment & Plan (1) Chest pain: Plan: Patient with chest pain and dysnpea on exertion - known CAD with stent - Heparin drip for now low dose with bolus - continue asa 81 mg daily - Continue statin - Continue Metoprolol Succinate 25 mg PO qpm - Continue to trend Troponin and ECG - Cardiology consulted for risk stratification evaluation -Patient will likely get cardiac cath today. Patient had breakfast this morning which may delay procedure. (2) Carotid artery stenosis: Plan: LEFT CEA - patient is enrolled in CVA study where she gets routine carotid dopplers - recently done last month per patient, unsure of results - continue asa - continue statin (3) CAD (coronary artery disease): (4) Transient ischemic attack (TIA): Plan: As per HPI- symptomatology yesterday; now resolved. - consider MRI following acute CP workup completed - medically optimized at this time - no residual effects (5) Sleep apnea: Plan: KEE with ILD - Continue CPAP at night, patient is unsure of her setting but thinks it is 10CM H20 (6) Hypertension: Plan: Continue with Lasix 20 mg daily (7) Hyperlipidemia: Plan: Continue atorvastatin 80 mg daily- verified from most recent PCP visit (8) COPD (chronic obstructive pulmonary disease): Plan: Normal PFTs as outpatient with some scarring of her CT scan - Pulmonary ddx of UIP/IPF - no utility in bronchodilator therapy and is not on any medicaitons as outpatient. - continue supportive care and pulmonary toileting (9) Hypothyroidism: Plan: History of myxedema earlier in the spring. TSH went from 194 to 0.023 in 01/2021. Per notes, she had been taking her Synthroid with her evening meds. - continue Synthroid 100 mcg - Repeat TSH (10) Diabetes: Plan: Continue Glargine 30 qPM and 10mg Qam - sliding scale with aspart ; CF 20 and ratio 1:15 (11) Gastritis: Plan: Gastritis noted on EGD in 11/2020. Repeat EGD in 02/2021 had poor prep, so unclear whether this had healed. - Continue PPI PO BID Admission and Anticipated Discharge Date Admission Date: March 23, 2021 Subjective Patient reports no new symptoms today. She is awaiting cardiac cath today. Review of Systems Review of Systems: All systems reviewed & are unremarkable except as noted in HPI & below Physical Exam Physical Exam: General: awake, alert, no apparent distress Head: Normocephalic, atraumatic ENT: PERRL, EOMI, no pharyngeal exudate, mucous membranes moist Neuro: AAO x 3, speech clear and appropriate, strength intact bilaterally 5/5, sensation intact and equal all extremities and dermatomes, no pronator drift Chest: equal rise and fall of the chest, no accessory muscle use, no heaves or thrills, Clear to auscultation, on room air, Cardiac: Regular rate and rhythm, telemetry reviewed, skin warm dry, cap refill <3 seconds, peripheral pulses +2 no JVD, Grade II systolic murmur, left carotid bruit, no edema GI: NABS x 4 quadrants, soft, nontender to palpation, no rebound, guarding or tenderness : Spontaneously voiding, no pain, no CVA tenderness, Extremities: Normal inspection, no peripheral edema or erythema, calfs nontender to palpation Psych: Normal mood and affect Skin: no rash or erythema Results & Data Results & Data ([facility]) Vital Signs (Past 12 Hours) Vital Signs Temp Pulse Pulse Resp BP Pulse Ox 03/24/21 19:25 36.9 C 73 16 153/80 H 94 03/24/21 18:25 77 18 126/82 94 03/24/21 17:25 75 18 140/65 94 03/24/21 16:25 36.8 C 70 18 128/78 95 03/24/21 16:00 67 03/24/21 15:25 64 18 106/61 96 03/24/21 15:17 36.7 C 70 18 156/70 H 98 03/24/21 14:55 72 18 147/77 H 97 03/24/21 14:25 83 18 134/56 L 97 03/24/21 14:10 66 18 155/85 H 98 03/24/21 14:00 72 18 121/66 96 03/24/21 13:55 67 20 150/83 H 98 03/24/21 13:43 71 18 136/72 96 03/24/21 13:40 36.8 C 77 20 172/115 H 97 03/24/21 12:00 80 18 191/77 H 97 PG Care Time/CCT Total # of Minutes Spent Total Time Spent with Patient: Total time spent is greater than 50% in coordination of care (as documented) at patient's floor/unit and/or counseling patient: Coding Level of Care Code 48978 Subseq Hosp Care Lvl 2 Diagnoses Chest pain R07.9 Carotid artery stenosis I65.29 CAD (coronary artery disease) I25.10 Transient ischemic attack (TIA) G45.9 Sleep apnea G47.30 Sleep apnea type: unspecified type Hypertension I10 Hypertension type: essential hypertension Hyperlipidemia E78.5 Hyperlipidemia type: unspecified COPD (chronic obstructive pulmonary disease) J44.9 Hypothyroidism E03.9 Hypothyroidism type: unspecified Diabetes E11.9; Z79.4 Diabetes mellitus complication status: without complication Diabetes mellitus retirement insulin use: with terminal gauger use Diabetes mellitus type: type 2 Gastritis K29.70 (1) Sleep apnea Sleep apnea type: unspecified type Qualified Code(s): G47.30 - Sleep apnea, unspecified (2) Diabetes Diabetes mellitus complication status: without complication Diabetes mellitus retirement insulin use: with retirement use Diabetes mellitus type: type 2 Qualified Code(s): E11.9 - Type 2 diabetes mellitus without complications; 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
[2021-03-25] MEDS: NITROGLYCERIN 2% OINTMENT 30GM TUBE EXT SCH ×2 (03:10→09:07)
[2021-03-25] MEDS: ACETAMINOPHEN 325 MG TAB PO PRN (03:21)
[2021-03-25] MEDS: LEVOTHYROXINE SODIUM 100 MCG TABLET PO SCH (05:58)
[2021-03-25 06:20] LABS: Hematocrit (blood only) 34.4 % (37-47); Hemoglobin 9.8 g/dL (12.0-16.0); Mean Corpuscular Hemoglobin 24.1 pg (25-34); Mean Corpuscular Hgb Conc 28.5 g/dL (32-36); Mean Corpuscular Volume 84.5 fL (80-100); Mean Platelet Volume 10.3 fL (7.4-10.4); Platelet Count 148 K/uL (130-400); RDW Coefficient of Variation 15.9 % (11.5-14.5); RDW Standard Deviation 48.9 fL (36.4-46.3); Red Blood Count 4.07 M/uL (4.2-5.4); White Blood Count 7.01 K/uL (4.8-10.8)
[2021-03-25 06:35] LABS: BUN Creatinine Ratio 14.9 (10-20); Calcium 8.7 mg/dl (8.5-10.1); Creatinine Clr Calc Pharmacy 34.4 ml/min; Est GFR (African American) 46.6 ml/min; Est GFR (Non-African American) 40.2 ml/min; Magnesium 2.1 mg/dl (1.8-2.4)
[2021-03-25 06:36] LABS: Potassium 4.7 mmol/L (3.5-5.1)
[2021-03-25 06:40] LABS: Basophils # (auto) 0.02 K/uL (0-0.2); Basophils % (auto) 0.3 %; Eosinophils # (auto) 0.46 K/uL (0-0.5); Eosinophils % (auto) 6.6 %; Immature Granulocytes # (auto) 0.02 K/uL (0.00-0.02); Immature Granulocytes % (auto) 0.3 %; Lymphocytes # (auto) 2.61 K/uL (1.2-3.4); Lymphocytes % (auto) 37.2 %; Monocytes # (auto) 0.77 K/uL (0.11-0.59); Neutrophils # (auto) 3.13 K/uL (1.4-6.5); Neutrophils % (auto) 44.6 %
[2021-03-25] MEDS: ATORVASTATIN 40 MG TAB PO SCH (08:39)
[2021-03-25] MEDS: PANTOprazole 40 MG TAB PO SCH (08:40)
[2021-03-25] MEDS: FUROSEMIDE 20 MG TAB PO SCH (08:40)
[2021-03-25] MEDS: ASPIRIN 81 MG ECTAB PO SCH (08:40)
[2021-03-25] MEDS: POLYETHYLENE (MIRALAX) 17 GM PACK PO SCH (08:41)
[2021-03-25] MEDS: INSULIN ASPART 100 UNITS/ML 3 ML PEN SC SCH ×2 (09:06→12:26)
--- NOTE | 2021-03-25 09:20 | Gastrointestinal Consultation ---
Date of Consultation March 25, 2021 Assessment & Plan (1) GERD (gastroesophageal reflux disease): -Protonix 40 mg BID -Pepcid 20 mg BID -Carafate 1 gm four times daily before meals and bedtime -Gastroparesis diet with small, frequent meals 4-6 times daily with low fat & low fiber content -Obtain gastric emptying study prior to proceeding with her upcoming outpatient EGD. These are only performed on Wednesdays and are non-emergent so this can be done as an outpatient. (2) LLQ abdominal pain: CT on 03/23/21 negative for diverticulitis. Likely related to incomplete evacuation of bowels which would make sense with suspected gastroparesis. -Increase Miralax to 17 gm BID -Encourage sufficient hydration -Treat for possible gastroparesis as outlined above -Further outpatient follow-up Supervising Physician Co-Signing Physician Notes Agree with REJI Sanches as above Abd: Soft, NT, ND, +BS Continue current therapy and supportive care Followup in our office as scheduled History of Present Illness Reason for Consultation: "Complaints of severe acid reflux" Attending Physician: Blair Santos History of Present Illness Patient is a 70 yo female hospitalized with chest/epigastric pain. Patient underwent a cardiac work-up including a catheterization which was unremarkable. She notes intermittent reflux & epigastric pain. She recently underwent an EGD on 03/10/21 that indicated retained food in the stomach. She has an upcoming repeat EGD in several weeks. She denies melena or hematemesis. She does take Pantoprazole 40 mg BID at home. She takes Miralax once daily, but notes persi stent LLQ pain and incomplete evacuation of stool. A CT scan on 03/23/21 was unremarkable for diverticulitis or acute GI issues. Patient is in no apparent distress and is resting comfortably in bed at the time of my visit. Allergies Allergy/AdvReac Type Severity Reaction Status Date / Time No Known Allergies Allergy Verified 03/23/21 15:16 Home Medications Medication Instructions Recorded Confirmed Type latanoprost (PF) 0.005 % eye drops 1 drp OPHTHALMIC (EYE) PM 05/15/18 03/10/21 History nitroglycerin 0.4 mg sublingual 0.4 mg SUBLINGUAL UD PRN 05/15/18 03/10/21 History tablet (Nitrostat) polyethylene glycol 3350 17 1 dose PO UD PRN 05/15/18 03/10/21 History gram/dose oral powder (Miralax) trazodone 50 mg tablet 100 mg PO HS tab 10/28/20 03/10/21 History atorvastatin 40 mg tablet 80 mg PO HS 12/15/20 03/23/21 History cyanocobalamin (vitamin B-12) 500 1,000 mcg PO QAM 12/15/20 03/23/21 History mcg tablet erenumab-aooe 70 mg/mL 70 mg SUBCUT MONTHLY 12/15/20 03/23/21 History subcutaneous auto-injector insulin lispro 100 unit/mL 1 sliding scale dose SUBCUT UD 12/15/20 03/23/21 History subcutaneous cartridge (Humalog U-100 Insulin) pantoprazole 40 mg tablet,delayed 40 mg PO BID #60 tab 12/21/20 03/10/21 Rx release sertraline 25 mg tablet 25 mg PO PM #90 tab 01/27/21 03/10/21 Rx furosemide 20 mg tablet 20 mg PO QAM 02/08/21 03/23/21 History insulin glargine 100 unit/mL (3 50 unit SUBCUT QPM 03/04/21 03/23/21 History mL) subcutaneous pen (Lantus Solostar U-100 Insulin) levothyroxine 100 mcg capsule 100 mcg PO QAM 03/04/21 03/10/21 History metoprolol succinate 25 mg 25 mg PO HS 03/23/21 03/23/21 History tablet,extended release 24 hr aspirin 81 mg tablet,delayed 81 mg PO QAM #30 tab 03/25/21 Rx release famotidine 20 mg tablet 20 mg PO BID #60 tab 03/25/21 Rx sucralfate 100 mg/mL oral 1 g PO QID #1000 ml 03/25/21 Rx suspension Patient History Medical History Anemia HX Anxiety Chronic kidney disease STAGE 3-F/U [employer] TIM NAVARRO Chronic obstructive pulmonary disease well controlled per pt> no inhalers Cirrhosis, non-alcoholic Compartment syndrome of lower extremity, traumatic resolved Depression Diabetes mellitus, type 2 IDDM 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 Edema all over per pt > related to thyroid problems per pt GERD (gastroesophageal reflux disease) Glaucoma Hiatal hernia Hx of deep venous thrombosis R LEG following cath in 2018 Hyperlipidemia Hypertension Hypothyroidism Migraine Myocardial Infarction HX 2012 Osteoarthritis Sleep apnea CPAP HS Transient ischemic attack (TIA) last one 2018> has had several per pt HX PAST YR-F/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 NAME?-[facility] R LEG/ARM Surgical History H/O lymph node excision NECK -BENIGN H/O neck surgery WITH BONE FUSION> ROM WNL History of appendectomy History of cardiac cath X 3-LAST ON 02/2020 1 stent placed History of carpal tunnel release RIGHT History of section X 3 History of cholecystectomy History of colonoscopy History of esophagogastroduodenoscopy (EGD) History of fasciotomy FASCIOTOMY FOR COMPARTMENT SYNDROME RLE History of herniorrhaphy R/L History of hysterectomy OVARIES History of surgery Right femoral artery thrombectomy with patch angioplasty-February 2018 Stented coronary artery Feb 2020 > [facility] > follows with Dr. De Leon Family History Brother Family history of diabetes mellitus Daughter Family history of diabetes mellitus Mother Family history of diabetes mellitus Myocardial infarction Family history of irritable bowel syndrome Father History of colon resection Prostate cancer Family history of diabetes mellitus Myocardial infarction Colorectal cancer Grandmother History of colon resection Other No family history of adverse response to anesthesia Denies family history of Ovarian cancer Breast cancer Social History Smoking Status: Former smoker Tobacco Type: Cigarettes Age Started Using Tobacco: 18; Age Quit Using Tobacco: 62; packs per day: 2; Years Smoked: 44; Cigarettes Per Day: 40; Number of Years Since Quit: 13; Second Hand Exposure: No; Hx Alcohol Use: No Hx Substance Use: No Preferred Language: Indonesian Communication Ability: Effective Visual Impairment: Diminished Hearing Ability: Hard of Hearing Family Dentist Required: No Beliefs That Will Affect Care: None marital status: Current Living Situation: Family Current Living Situation Comment: Lives with daughter current occupational status: employed current occupation: [employer] How many Children do You have: 3 Feels Safe at Home: Yes Childhood Exposure to Second-Hand Smoke: Yes caffeine: Yes during the past year weight has: increased > 10 lbs Dental Care, Regularly: Yes Physical Activity Frequency: Daily Seatbelt Use: never Sunscreen Use: Yes Assistive Devices: Oxygen - Continuous Review of Systems Constitutional: no fever and no chills Respiratory: no cough and no dyspnea Cardiovascular: + chest pain (improved) Gastrointestinal: + abdominal pain (LLQ) and + heartburn; no belching, no coffee ground emesis and no melena Psychiatric: no problem reported Hematologic / Lymphatic: no unexplained weight loss Physical Exam Constitutional: WD/WN, vitals as above Neck: normal visual inspection Respiratory: normal respiratory effort, lungs clear to auscultation Cardiovascular: RRR, no murmur, no edema Gastrointestinal (Abdomen): normal bowel sounds, soft, nontender, no hepatosplenomegaly Musculoskeletal: no cyanosis or clubbing, extremities motor strength 5/5 Psychiatric: Orientation: alert and oriented x 3 Results & Data ([facility]) Vital Signs (Past 12 Hours) Vital Signs Temp Pulse Pulse Resp BP BP Pulse Ox 03/25/21 08:31 95 03/25/21 08:30 100/63 83 L 03/25/21 07:51 36.7 C 82 20 149/79 H 90 03/25/21 04:37 36.4 C L 69 18 112/59 L 90 03/25/21 03:08 36.8 C 73 16 97/62 L 93 03/25/21 00:21 75 03/24/21 23:17 36.4 C L 75 16 122/69 94 PG Care Time/CCT Total # of Minutes Spent Total Time Spent with Patient: Total time spent is greater than 50% in coordination of care (as documented) at patient's floor/unit and/or counseling patient: Coding Level of Care Code 17100 Initial Inpt Care Lvl 3 Diagnoses GERD (gastroesophageal reflux disease) K21.9 LLQ abdominal pain R10.32
[2021-03-25] MEDS ORDERED: FAMOTIDINE 20 MG TAB PO SCH (09:30)
[2021-03-25] MEDS: SUCRALFATE 1 GM/10 ML UDC PO SCH ×2 (12:28→17:55)
[2021-03-25] MEDS ORDERED: OPTIRAY 320 100ml IV ONE (17:12)
--- NOTE | 2021-03-25 17:31 | CT Scan Report ---
CT SCAN OF THE ABDOMEN AND PELVIS WITH IV CONTRAST CLINICAL HISTORY: Left lower quadrant abdominal pain. COMPARISON STUDY: Abdominal CT dated 03/23/2021. TECHNIQUE: Following the IV administration of 94 cc of Optiray 320, CT scan of the abdomen and pelvi s is performed from the lung bases to the proximal femora. Images are reviewed in the axial, sagittal , and coronal planes. IV contrast was administered without complication. Oral contrast was utilized. A dose lowering technique was utilized adhering to the principles of ALARA. CT DOSE: 816.89 mGycm FINDINGS: Lung bases: The heart is normal in size and without pericardial effusion. Subpleural reticulation is noted at both lung bases with bibasilar scarring/atelectasis. This favors interstitial lung disease. No airspace consolidation typical for pneumonia or pleural effusion is identified. There is a small h iatal hernia. Liver: The contrast-enhanced liver is cirrhotic in morphology and heterogeneous in attenuation. There is nodularity of the hepatic surface contour and hypertrophy of the left lobe and caudate. There is no intrahepatic biliary ductal dilatation. The hepatic veins and portal veins are patent. Gallbladder: Surgically absent noting clips in the gallbladder fossa. Spleen: Normal in size and attenuation. Pancreas: Moderately atrophic and grossly unremarkable. Adrenal glands: Unremarkable. Kidneys: The contrast enhanced kidneys are atrophic and without hydronephrosis. The kidneys enhance s ymmetrically. A circumaortic left renal vein is incidentally noted. Abdominal vasculature: The abdominal aorta is normal in course and caliber noting advanced atheroscle rotic calcification. Bowel: There is no bowel obstruction. Enteric contrast reaches the right colon. The appendix is not identified and reported surgically absent. Peritoneum: There is no intraperitoneal free air or abdominal ascites. Lymphadenopathy: None. Pelvic viscera: The bladder is normal as visualized. The uterus is surgically absent. No adnexal lesi on is seen. Skeletal structures: The skeletal structures are osteopenic. There is moderate lumbosacral spondylosi s. Large posterior disc osteophyte complexes are seen throughout the lumbar spine. No lytic or blasti c lesions are seen. IMPRESSION: 1. There are no acute infectious or inflammatory findings in the abdomen or pelvis. 2. Cirrhotic liver morphology. 3. Additional findings as above. ACT 112: Negative or not required by law. Electronically signed by: Yung Uriostegui M.D. 03/25/2021 5:29 PM
--- NOTE | 2021-03-25 17:40 | Ultrasound Report ---
DOPPLER ULTRASOUND OF THE MESENTERIC VASCULATURE CLINICAL HISTORY: Left lower quadrant abdominal pain. COMPARISON STUDY: Abdominal CT performed the same day 03/25/2021. FINDINGS: Real-time grayscale and color Doppler sonography of the mesenteric vasculature is performed . Atherosclerotic plaque and irregularity is seen throughout the abdominal aorta which is widely rodriguez nt. Velocities in the abdominal aorta measure up to 90 cm/s. The celiac artery is widely patent with velocities measuring up to 106 cm/s. The superior mesenteric artery is widely patent with velocities measuring up to 183 cm/s. These vessels were also shown to be widely patent on today's abdominal CT s can. The inferior mesenteric artery was not visualized. IMPRESSION: Normal Doppler assessment of the mesenteric vasculature. Electronically signed by: Yung Uriostegui M.D. 03/25/2021 5:38 PM
[2021-03-25] MEDS ORDERED: POLYETHYLENE (MIRALAX) 17 GM PACK PO SCH (21:00)
--- NOTE | 2021-03-26 07:34 | Discharge Summary ---
Date of Service March 25, 2021 Admission HPI Per Admitting Provider 70 YOF with past medical history of: HTN, HLD, CAD, CKD, III, DM, Hypothyroidism, TIA, KEE, VTE, sarcoidosis, COPD, femoral artery angioplasty, Left CEA. Patient comes to the emergency room today for complaints of chest pain and dyspnea; as well as left lower quadrant abdominal pain. The patient's chest pain has been occurring on and off for the past 4 days. The pain is located in the left center of her chest and radiates under her left breast with 2 episodes of it radiating to her left arm and one episode of radiation to left arm up left neck. The episodes are always associated with dyspnea and occasional nausea. The pain has occurred daily with her getting up and when she starts moving around doing things. It also occurs throughout the day when she is walking around the house. The episodes are relieved with rest. She has not taken any of her NTG sl at home. Her symptoms are concerning as they occur with activity, will start patient on a heparin drip and continue to evaluate her ECG and Troponin I. On admission her ECG has no dynamic changes and her Troponin I is negative. Will consult cardiology for further assessment of her symptomatology for consideration of cath based evaluation. Patient also endorses left lower quadrant pain that comes and goes, she is unable to tell if this changes with food or not. The pain is sharp and stabbing in nature that lasts several minutes and occurs just about everyday. She had a CT scan done in the EMD that revealed no acute intraabdominal process, she does not have an elevated WBC. She does take Miralax but only every other day and is also unsure if this helps. Will change to daily and follow clinically. Patient also endorses that she had difficulty with her speech yesterday, that it was slurred and difficulty with word finding and some right arm weakness. She thinks this lasted around 20-30 minutes and self resolved. She does not have any focal deficits on this exam and is medically optimized to include ASA daily and statin. Would like to get an MRI following her cardiac workup, sooner if symptoms return. The patient's cardiac history is notable for MD in 2003, with no intervention reported, but did have a coronary stent in 2018 but unknown to what vessel. 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 De Leon in December. Her cardiac catheterization was complicated at that time with a femoral thrombotic occlusion leading to embolectomy and patch angioplasty. Recent ECHO in November reveals EF 60-65% with normal wall motion, moderate AV sclerosis with mild aortic regurgitation and mild mitral regurgitation and normal stress echo in May 2020. The patient also is noted for left stenting of her CEA. Patient has had her COVID vaccine and her COVID test is NEGATIVE on admission. Principal Diagnosis chest pain Discharge Exam General: awake, alert, no apparent distress Head: Normocephalic, atraumatic ENT: PERRL, EOMI, no pharyngeal exudate, mucous membranes moist Neuro: AAO x 3, speech clear and appropriate, strength intact bilaterally 5/5, sensation intact and equal all extremities and dermatomes, no pronator drift Chest: equal rise and fall of the chest, no accessory muscle use, no heaves or thrills, Clear to auscultation, on room air, Cardiac: Regular rate and rhythm, telemetry reviewed, skin warm dry, cap refill <3 seconds, peripheral pulses +2 no JVD, Grade II systolic murmur, left carotid bruit, no edema GI: NABS x 4 quadrants, soft, nontender to palpation, no rebound, guarding or tenderness : Spontaneously voiding, no pain, no CVA tenderness, Extremities: Normal inspection, no peripheral edema or erythema, calfs nontender to palpation Psych: Normal mood and affect Skin: no rash or erythema Discharge Data Allergies Allergy/AdvReac Type Severity Reaction Status Date / Time No Known Allergies Allergy Verified 03/23/21 15:16 Consultations 03/23/21 15:02 ED Decision to Admit Stat 03/24/21 08:23 Consult Cardiology Routine 03/25/21 09:09 Consult Gastroenterology Routine Procedures Performed Operation Date: 03/24/21 12:00 Actual Procedures p Cath, Left with Cors and Vent - Wil Garza MD Ordered Studies 03/23/21 12:39 CT abd pelvis wo con Stat 03/24/21 13:09 CL Cath Imgs for PACS use only Routine 03/25/21 14:03 US duplex mesenteric Urgent 03/25/21 14:12 CT abd pelvis oral and IV con Urgent Hospital Course (1) Chest pain: Patient with chest pain and dysnpea on exertion - known CAD with stent - Heparin drip for now low dose with bolus - continue asa 81 mg daily - Continue statin - Continue Metoprolol Succinate 25 mg PO qpm - Continue to trend Troponin and ECG Cardiac cath is negative. - Summary: 1. Moderate multivessel coronary artery disease -Small mid LAD 50% Mid circumflex 40 to 50%. Very small D1 70% ostial 2. Normal intracardiac filling pressure Recommendations: No high risk disease identified. No significant CAD to account for recent rest pain. Recommend medical management of moderate CAD/branch vessel disease Continued ASCVD risk factor modification. Consider additional anti-anginal therapy for exertional symptoms. Can discontinue heparin infusion. Hemodynamics Rest Ao:: 101/54/71 Final Ao: 126/58/86 LV: 125/8 Recommendations Recommendations: Medical Therapy and/or Counseling (2) Carotid artery stenosis: LEFT CEA - patient is enrolled in CVA study where she gets routine carotid dopplers - recently done last month per patient, unsure of results - continue asa - continue statin (3) CAD (coronary artery disease): (4) Transient ischemic attack (TIA): As per HPI- symptomatology yesterday; now resolved. - consider MRI following acute CP workup completed - medically optimized at this time - no residual effects (5) Sleep apnea: KEE with ILD - Continue CPAP at night, patient is unsure of her setting but thinks it is 10CM H20 (6) Hypertension: Continue with Lasix 20 mg daily (7) Hyperlipidemia: Continue atorvastatin 80 mg daily- verified from most recent PCP visit (8) COPD (chronic obstructive pulmonary disease): Normal PFTs as outpatient with some scarring of her CT scan - Pulmonary ddx of UIP/IPF - no utility in bronchodilator therapy and is not on any medicaitons as outpatient. - continue supportive care and pulmonary toileting (9) Hypothyroidism: History of myxedema earlier in the spring. TSH went from 194 to 0.023 in 01/2021. Per notes, she had been taking her Synthroid with her evening meds. - continue Synthroid 100 mcg - Repeat TSH (10) Diabetes: Continue Glargine 30 qPM and 10mg Qam - sliding scale with aspart ; CF 20 and ratio 1:15 (11) Gastritis: Gastritis noted on EGD in 11/2020. Repeat EGD in 02/2021 had poor prep, so unclear whether this had healed. Gastro recommended the following: - -Protonix 40 mg BID -Pepcid 20 mg BID -Carafate 1 gm four times daily before meals and bedtime -Gastroparesis diet with small, frequent meals 4-6 times daily with low fat & low fiber content -Obtain gastric emptying study prior to proceeding with her upcoming outpatient EGD. These are only performed on Wednesdays and are non-emergent so this can be done as an outpatient. Total Time Total Time Spent Total Time Spent (In Minutes): 32 Discharge Plan Discharge Items Patient Disposition: Home - Self-Care Reason For Visit: CHEST PAIN Discharge Diagnosis: chest pain Activity: Resume your previous activity Non-emergency contact: Primary Care Provider Call non-emergency contact if: you have any medication questions Follow-up/Referrals: Vu De Paz III, CRNP [Primary Care Provider] - (VIPUL Ontiveros is unavailable.) Ari Dunham PA-C [Physician Night Guard] - 04/01/21 11:15 am (VIPUL Ontiveros is unavailable. Please follow up with Ari Dunham PA-C on 04/01/21 at 11:15 am. Please arrive to the office at 11:00 am for your appointment. If you are unable to keep this appointment, please call the office to reschedule at [phone].) Diet: Carb Consistent or DM2 Addtl Attending Provider Instructions: You have been hospitalized for an acute medical problem. During your stay at [facility], we have made an effort to correct the problem that brought you to the hospital while keeping you as comfortable as possible. Medications were used to bring your condition under control and your discharge instructions will include directions for any medications you should take after leaving the hospital. Please make sure you see your Primary Care Provider as part of your follow up plan. Pending Studies at Discharge: No Stand-Alone Forms: My [facility] [address] [facility], Work/School Release, Smoking Cessation Medications and DC Order Prescriptions: New sucralfate 100 mg/mL Suspension 1 g PO QID Qty: 1000 RF: 0 aspirin 81 mg Tablet,Delayed Release (Dr/Ec) 81 mg PO QAM Qty: 30 RF: 0 famotidine 20 mg Tablet 20 mg PO BID Qty: 60 RF: 0 Continued sertraline 25 mg tablet 25 mg PO PM Qty: 90 RF: 0 furosemide 20 mg tablet 20 mg PO QAM RF: 0 latanoprost (PF) 0.005 % Drops 1 drp OPHTHALMIC (EYE) PM RF: 0 nitroglycerin [Nitrostat] 0.4 mg Tablet, Sublingual 0.4 mg Sublingual UD PRN (Reason: Pain) RF: 0 polyethylene glycol 3350 [Miralax] 17 gram/dose Powder 1 dose PO UD PRN (Reason: Constipation) RF: 0 trazodone 50 mg tablet 100 mg PO HS RF: 0 atorvastatin 40 mg tablet 80 mg PO HS RF: 0 cyanocobalamin (vitamin B-12) 500 mcg tablet 1,000 mcg PO QAM RF: 0 Humalog U-100 Insulin 100 unit/mL cartridge 1 sliding scale dose SUBCUT UD RF: 0 erenumab-aooe 70 mg/mL auto-injector 70 mg subcut MONTHLY RF: 0 pantoprazole 40 mg tablet,delayed release (DR/EC) 40 mg PO BID Qty: 60 RF: 5 levothyroxine 100 mcg Capsule 100 mcg PO QAM RF: 0 Lantus Solostar U-100 Insulin 100 unit/mL (3 mL) insulin pen 50 unit SUBCUT QPM RF: 0 metoprolol succinate 25 mg Tablet Extended Release 24 Hr 25 mg PO HS RF: 0 Discontinued aspirin [Diamante Aspirin] 325 mg tablet 325 mg PO HS RF: 0 Discharge Orders: Discharge Order (Routine); Ordered 03/25/21 Ordered By: Blair Santos Admission Data Admit Date/Time: 03/23/21 16:04 Attending Provider: Blair Santos Admit Provider: Gopi José Primary Care Provider: Vu De Paz III Other Providers: Gopi José ; Remi Dunn ; Jass Adame Other Interventions: Discharge Summary Assessment (RN) Last Done: 03/25/21 15:28 Coding Level of Care Code D/C DAY MANAGEMENT >30 MINS Diagnoses Chest pain R07.9 Carotid artery stenosis I65.29 CAD (coronary artery disease) I25.10 Transient ischemic attack (TIA) G45.9 Sleep apnea G47.30 Sleep apnea type: unspecified type Hypertension I10 Hypertension type: essential hypertension Hyperlipidemia E78.5 Hyperlipidemia type: unspecified COPD (chronic obstructive pulmonary disease) J44.9 Hypothyroidism E03.9 Hypothyroidism type: unspecified Diabetes E11.9; Z79.4 Diabetes mellitus complication status: without complication Diabetes mellitus usp insulin use: with usp use Diabetes mellitus type: type 2 Gastritis K29.70
--- NOTE | 2021-03-26 15:27 | Electrocardiogram Report ---
Test Reason : Blood Pressure : / mmHG Vent. Rate : 078 BPM Atrial Rate : 078 BPM P-R Int : 172 ms QRS Dur : 078 ms QT Int : 388 ms P-R-T Axes : 045 -24 088 degrees QTc Int : 442 ms Normal sinus rhythm Septal infarct (cited on or before 03-DEC-2020) Abnormal ECG When compared with ECG of 03-DEC-2020 19:54, No significant change was found Confirmed by Remi Dunn ([id number]) on 03/26/2021 3:27:10 PM Referred By: REFERRED SELF Confirmed By:Remi Dunn
--- NOTE | 2021-03-26 15:29 | Electrocardiogram Report ---
Test Reason : Blood Pressure : / mmHG Vent. Rate : 075 BPM Atrial Rate : 075 BPM P-R Int : 178 ms QRS Dur : 076 ms QT Int : 400 ms P-R-T Axes : 055 -20 081 degrees QTc Int : 446 ms Normal sinus rhythm Anterior infarct (cited on or before 03-DEC-2020) Abnormal ECG When compared with ECG of 23-MAR-2021 11:52, (unconfirmed) No significant change Confirmed by Remi Dunn ([id number]) on 03/26/2021 3:29:35 PM Referred By: REFERRED SELF Confirmed By:Remi Dunn
== END 2021-03-25 18:19 | disposition home or self-care (01) ==
LOC: ED 11:38 → INTOOBSV 16:04 → 2S 16:04 → SUATTDRO 16:04 → 2S 16:57

== ENCOUNTER 2022-02-07 13:57 | Observation (INO) ==
[2022-02-07] MEDS ORDERED: ALBUT/IPRATROP 3MG/0.5MG NEB 3 ML VIAL NEB STA (14:27)
--- NOTE | 2022-02-07 14:35 | Emergency Department Note ---
Impression & Plan Weakness, Anemia, Hypotension, Hypoxia, Precordial chest pain ED Provider Note NAME: MARYA MORENO AGE: 71 SEX: F : 1950 ARRIVES VIA: Walk-In INFORMANT: [Patient] ED PROVIDER(S): [Yung Herman MD] CHIEF COMPLAINT: Weak, low blood pressure HISTORY OF PRESENT ILLNESS: The patient is a 71-year-old female who presents to the ER with ongoing weakness and low blood pressure. She has felt this way for months. They have taken her off of BP meds and her pressure is still low. The patient states that today, she felt like she was going to pass out. She was weak, she was dizzy, she was short of breath. She went to her doctor's office and her blood pressure was l ow. She was sent for evaluation. While waiting in triage here in our ED, she had a few minutes of moderate discomfort in her chest that she describes as indigestion. It is now gone. She has a history of coronary disease. There has been no fever, no vomiting, no diarrhea, no urinary complaints. As per nursing staff, the patient's O2 saturation was 87% on room air when she arrived, she was placed on 2 L of oxygen. She does not typically wear oxygen at home. Orthostatic vital signs were done by our nursing staff. The blood pressure decreased slightly and the heart rate increased slightly with standing but the values did not differ enough to diagnose orthostasis. REVIEW OF SYSTEMS: See HPI for pertinent positives and negatives. A total of ten systems were reviewed and were otherwise negative. PMHx/PSHx: See Below SOCIAL HISTORY: See Below. PHYSICAL EXAM: GENERAL: Patient is in no acute distress. HEENT: No acute trauma, normocephalic atraumatic, mucous membranes dry, no nasal congestion, no scleral icterus. NECK: No stridor, no adenopathy, no meningismus, trachea is midline. LUNGS: Dry cough noted, wheezing bilaterally, no respiratory distress. Breath sounds equal. HEART: Subtle systolic murmur, regular rate and rhythm. ABDOMEN: Soft, nontender, bowel sounds positive, no peritonitis. EXTREMITIES: No cyanosis or edema, full range of motion of all the joints without pain or difficulty, no signs for acute trauma. NEUROLOGIC: Oriented x 3, no acute motor or sensory deficits, no focal weakness. SKIN: No rash, no jaundice, no diaphoresis. Somewhat pale. Rectal: Brown stool, heme-negative. DIFFERENTIAL DIAGNOSIS: Infection, dehydration, UTI, COVID-19, influenza, medication reaction, metabolic abnormality, hypo/hyperglycemia, electrolyte disturbance, anemia, hypoxia, cardiac sources, intracerebral event, toxicologic issues, stroke, TIA, as well as other pathologies. EMERGENCY DEPARTMENT COURSE/PROCEDURES: ECG: Indication was weakness and shortness of breath. The ECG shows a normal sinus rhythm with a rate of 82. There is evidence for a lateral infarct. There are T wave inversions laterally. There is no ST elevation, no PVCs. The QTc is 434. Compared to an ECG from 24 March 2021, I see no significant change. Continuous Cardiac Monitoring: An order was placed for continuous cardiac monitoring. The monitor shows a rate of 91 with normal sinus rhythm. MEDICAL DECISION MAKING: There is no leukocytosis. The patient is anemic with a hemoglobin of 9.6. I did perform a rectal exam, stool was brown and heme-negative. Platelet count was normal. Renal panel testing shows some subtle acute kidney injury with a creatinine of 1.89. No electrolyte abnormality in need of emergent correction. No concerning liver enzyme elevation. Thyroid testing suggests some subtle hyperthyroidism. The patient does take thyroid medication and may be slightly overmedicated. There is no evidence for acute ischemia by ECG. Cardiac enzyme testing x1 is not consistent with acute cardiac injury. COVID, influenza and RSV test were negative. Chest film does not show obvious pneumonia, I see no concerning CHF. The patient presents with some reported low blood pressure in the outpatient office. She has been weak and has felt near syncopal. She presented to our ED and was found to be hypoxic with anemia and some acute kidney injury. The patient received IV saline, 500 cc. Because she was coughing and wheezing, she was given a DuoNeb. Given the findings, given her presentation and complaints, I do think a hospital stay is warranted. Further care, further work-up is needed. I spoke with the patient and case manager specialist. The on-call hospitalist was consulted. 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 Dyspnea on exertion Edema all over per pt > related to thyroid problems per pt GERD (gastroesophageal reflux disease) Glaucoma Hiatal hernia Hx of deep venous thrombosis R LEG following cath in 2018 Hyperlipidemia Hypertension Hypothyroidism Migraine Myocardial Infarction HX 2012 Osteoarthritis Sarcoidosis Sleep apnea CPAP HS Transient ischemic attack (TIA) last one 2018> has had several per pt HX PAST YR-F/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 NAME?-[facility]AK[facility] R LEG/ARM Surgical History H/O lymph node excision H/O neck surgery History of appendectomy History of cardiac cath History of carpal tunnel release History of section History of cholecystectomy History of colonoscopy History of esophagogastroduodenoscopy (EGD) History of fasciotomy History of herniorrhaphy History of hysterectomy History of surgery Stented coronary artery Family History Brother Family history of diabetes mellitus Daughter Family history of diabetes mellitus Mother Family history of diabetes mellitus Myocardial infarction Family history of irritable bowel syndrome Father History of colon resection Prostate cancer Family history of diabetes mellitus Myocardial infarction Colorectal cancer Grandmother History of colon resection Other No family history of adverse response to anesthesia Denies family history of Ovarian cancer Breast cancer Social History Smoking Status: Never smoker Tobacco Type: Cigarettes Age Started Using Tobacco: 18; Age Quit Using Tobacco: 62; packs per day: 2; Years Smoked: 44; Cigarettes Per Day: 40; Number of Years Since Quit: 13; Second Hand Exposure: No; Hx Alcohol Use: No Hx Substance Use: No Preferred Language: Maldivian Communication Ability: Effective Visual Impairment: Diminished Hearing Ability: Hard of Hearing Hydrogeologist Required: No Beliefs That Will Affect Care: None marital status: Current Living Situation: Family Current Living Situation Comment: Lives with daughter current occupational status: employed current occupation: [employer] How many Children do You have: 3 Feels Safe at Home: Yes Childhood Exposure to Second-Hand Smoke: Yes caffeine: Yes during the past year weight has: increased > 10 lbs Dental Care, Regularly: Yes Physical Activity Frequency: Daily Seatbelt Use: never Sunscreen Use: Yes Assistive Devices: Oxygen - Continuous Allergies Allergies Allergy/AdvReac Type Severity Reaction Status Date / Time No Known Allergies Allergy Verified 02/07/22 17:31 Home Meds Home Medications Medication Instructions Recorded Confirmed latanoprost (PF) 0.005 % eye drops 1 drp OPHTHALMIC (EYE) PM 05/15/18 02/07/22 nitroglycerin 0.4 mg sublingual 0.4 mg SUBLINGUAL UD PRN 05/15/18 02/07/22 tablet (Nitrostat) polyethylene glycol 3350 17 1 dose PO UD PRN 05/15/18 02/07/22 gram/dose oral powder (Miralax) pantoprazole 40 mg tablet,delayed 40 mg PO TID tab 12/14/21 02/07/22 release Previous Rx's Medication Instructions Recorded sucralfate 100 mg/mL oral 1 g PO QID #1000 ml 03/25/21 suspension cholecalciferol (vitamin D3) 50 50 mcg PO DAILY #90 cap 05/11/21 mcg (2,000 unit) capsule ranolazine 500 mg tablet,extended 500 mg PO BID #60 tab 05/17/21 release,12 hr fluticasone furoate 100 1 inh INHALATION DAILY #60 ea 05/19/21 mcg-vilanterol 25 mcg/dose inhalation powder (Breo Ellipta) diazepam 5 mg tablet 5 mg PO ONCE PRN #1 tab 05/25/21 blood sugar diagnostic (Accu-Chek #100 ea 06/04/21 Torie Plus test strp) blood-glucose meter (Accu-Chek #1 ea 06/04/21 Torie Plus Meter) insulin lispro 100 unit/mL 1 sliding scale dose SUBCUT UD #15 07/05/21 subcutaneous cartridge (Humalog ml U-100 Insulin) sertraline 25 mg tablet 25 mg PO PM #90 tab 07/05/21 aspirin 81 mg tablet,delayed 81 mg PO QAM #90 tab 10/29/21 release metoprolol succinate 25 mg 25 mg PO HS #90 tab 10/29/21 tablet,extended release 24 hr blood sugar diagnostic (True #100 ea 11/16/21 Metrix Glucose Test Strip) losartan 25 mg tablet 25 mg PO DAILY #90 tab 11/16/21 pen needle, diabetic 29 gauge x #100 ea 11/16/21 1/2" (BD Ultra-Fine Original Pen Needle) trazodone 50 mg tablet 100 mg PO HS #90 tab 11/16/21 bumetanide 1 mg tablet See Rx Instructions .ROUTE 12/14/21 .COMPLEX #120 tab cyanocobalamin (vitamin B-12) 500 1,000 mcg PO QAM #180 tab 12/14/21 mcg tablet erenumab-aooe 70 mg/mL 70 mg SUBCUT MONTHLY #1 ml 12/17/21 subcutaneous auto-injector levothyroxine 150 mcg tablet 150 mcg PO .COMPLEX #90 tab 12/21/21 levothyroxine 175 mcg tablet 175 mcg PO .COMPLEX #90 tab 12/21/21 atorvastatin 80 mg tablet 80 mg PO DAILY #90 tab 01/27/22 insulin aspart U-100 100 unit/mL 5 unit SUBCUT TID #30 ml 01/27/22 subcutaneous solution (Novolog U-100 Insulin aspart) insulin glargine 100 unit/mL (3 25 unit SUBCUT BID 90 Days #45 ml 01/27/22 mL) subcutaneous pen (Basaglar KwikPen U-100 Insulin) Results & Data (ED) Vital Signs Vital Signs - 24 hr 02/07/22 14:01 02/07/22 14:28 02/07/22 16:00 Temperature 36.5 C Temperature Source Oral Pulse Rate - Lying 85 Pulse Rate - Sitting 88 Pulse Rate - Standing 98 H Pulse Rate 91 H Pulse Rate [Right Finger] 86 Pulse Rhythm [Right Finger] Regular Pulse Strength [Right Finger] Normal Respiratory Rate 18 18 Respiratory Effort / Characteristics Non-Labored Spontaneous Non-Labored Respiratory Depth Normal Normal Respiratory Pattern Regular Regular Blood Pressure - Lying 127/85 Blood Pressure - Sitting 110/85 Blood Pressure- Standing 108/64 Blood Pressure 101/55 L Blood Pressure [Right Arm] 111/54 L Blood Pressure Mean 70 Blood Pressure Mean [Right Arm] 73 Blood Pressure Position Sitting Blood Pressure Position [Right Arm] Lying Pulse Oximetry 94 88 L 96 Oxygen Delivery Method Room Air Room Air Room Air Oxygen Flow Rate 0 Sepsis Recent Fever Within 48 Hours No Sepsis New/Unexplained Change in Mental Status No Sepsis Action Taken by Nursing No Action Required Oxygen Flow Rate - Titration 2 Pulse Oximetry Post Tiitration 96 Home Medications Current Medication List: was personally reviewed by me Laboratory Data Attestation: I reviewed the patient's lab results. Result diagrams: 02/07/22 15:09 02/07/22 15:09 Lab Results 02/07/22 02/07/22 02/07/22 Range/Units 15:09 15:09 15:09 WBC 8.18 (4.8-10.8) K/ul RBC 4.16 (3.93-5.22) M/uL Hgb 9.6 L (12.0-16.0) g/dl Hct 32.4 L (34.1-44.9) % MCV 77.9 L (80.0-100.0) fL MCH 23.1 L (25.0-34.0) pg MCHC 29.6 L (32.0-36.0) g/dL RDW Std Deviation 47.1 H (36.4-46.3) fL RDW Coeff of Nicole 16.6 H (11.5-14.5) % Plt Count 201 (130-400) K/uL MPV 10.5 (9.4-12.3) fL Immature Gran % (Auto) 0.2 % Neut % (Auto) 52.8 % Lymph % (Auto) 30.7 % Hardeman % (Auto) 10.9 % Eos % (Auto) 4.9 % Baso % (Auto) 0.5 % Neut # (Auto) 4.32 (1.4-6.5) K/uL Lymph # (Auto) 2.51 (1.2-3.4) K/uL Hardeman # (Auto) 0.89 H (0.24-0.82) K/uL Eos # (Auto) 0.40 (0-0.50) K/uL Baso # (Auto) 0.04 (0-0.2) K/uL Immature Gran # (Auto) 0.02 (0.00-0.02) K/uL Sodium 135 L (136-145) mmol/L Potassium 4.6 (3.5-5.1) mmol/L Chloride 97 L (98-107) mmol/L Carbon Dioxide 30 (21-32) mmol/L Anion Gap 8 (3-11) BUN 48 H (6-23) mg/dl Creatinine 1.89 H (0.6-1.2) mg/dl Est Cr Clr Drug Dosing 24.2 ml/min Est GFR ( Amer) 30.8 ml/min Est GFR (Non-Af Amer) 26.6 ml/min BUN/Creatinine Ratio 25.4 H (10-20) Glucose 297 H (70-99(Fasting)) mg/dl Calcium 9.0 (8.5-10.1) mg/dl Magnesium 2.1 (1.7-2.4) mg/dl Total Bilirubin 0.3 (0.2-1.0) mg/dl AST 22 (13-39) U/L ALT 19 (7-52) U/L Alkaline Phosphatase 77 (34-104) U/L Troponin I High Sens 5.5 (0-14) pg/ml Total Protein 6.9 (6.0-8.3) gm/dl Albumin 3.6 (3.4-5.0) gm/dl Globulin 3.3 (2.5-4.0) gm/dl Albumin/Globulin Ratio 1.1 (0.9-2) TSH 0.031 L (0.300-4.500) uIu/ml Free T4 1.84 H (0.61-1.60) ng/dl SARS-CoV-2 (PCR) (Negative) Influenza Type A (PCR) (Neg) Influenza Type B (PCR) (Neg) RSV (RT-PCR) (Neg) 02/07/22 Range/Units 15:32 WBC (4.8-10.8) K/ul RBC (3.93-5.22) M/uL Hgb (12.0-16.0) g/dl Hct (34.1-44.9) % MCV (80.0-100.0) fL MCH (25.0-34.0) pg MCHC (32.0-36.0) g/dL RDW Std Deviation (36.4-46.3) fL RDW Coeff of Nicole (11.5-14.5) % Plt Count (130-400) K/uL MPV (9.4-12.3) fL Immature Gran % (Auto) % Neut % (Auto) % Lymph % (Auto) % Hardeman % (Auto) % Eos % (Auto) % Baso % (Auto) % Neut # (Auto) (1.4-6.5) K/uL Lymph # (Auto) (1.2-3.4) K/uL Hardeman # (Auto) (0.24-0.82) K/uL Eos # (Auto) (0-0.50) K/uL Baso # (Auto) (0-0.2) K/uL Immature Gran # (Auto) (0.00-0.02) K/uL Sodium (136-145) mmol/L Potassium (3.5-5.1) mmol/L Chloride (98-107) mmol/L Carbon Dioxide (21-32) mmol/L Anion Gap (3-11) BUN (6-23) mg/dl Creatinine (0.6-1.2) mg/dl Est Cr Clr Drug Dosing ml/min Est GFR ( Amer) ml/min Est GFR (Non-Af Amer) ml/min BUN/Creatinine Ratio (10-20) Glucose (70-99(Fasting)) mg/dl Calcium (8.5-10.1) mg/dl Magnesium (1.7-2.4) mg/dl Total Bilirubin (0.2-1.0) mg/dl AST (13-39) U/L ALT (7-52) U/L Alkaline Phosphatase (34-104) U/L Troponin I High Sens (0-14) pg/ml Total Protein (6.0-8.3) gm/dl Albumin (3.4-5.0) gm/dl Globulin (2.5-4.0) gm/dl Albumin/Globulin Ratio (0.9-2) TSH (0.300-4.500) uIu/ml Free T4 (0.61-1.60) ng/dl SARS-CoV-2 (PCR) NEGATIVE (Negative) Influenza Type A (PCR) Negative (Neg) Influenza Type B (PCR) Negative (Neg) RSV (RT-PCR) Negative (Neg) Administered Medications Discontinued Medications Albuterol (Albut/Ipratrop 3mg/0.5mg Neb 3 Ml Vial) 3 ml NEB NOW STA; Protocol Stop: 02/07/22 14:28 Last Admin: 02/07/22 15:19 Dose: 3 ml Documented by: [id number] Sodium Chloride (Nss 1000ml) 500 mls @ 999 mls/hr IV .Q31M ONE Stop: 02/07/22 17:08 Last Infusion: 02/07/22 17:17 Dose: 0 mls/hr Documented by: [id number] Admin: 02/07/22 16:43 Dose: 999 mls/hr Documented by: [id number] Imaging Data Radiologist's Impression: Chest X-Ray 02/07/22 14:28 XR chest 1V portable CLINICAL HISTORY: weakness TECHNIQUE: Single frontal radiograph of the chest was obtained. Comparison: Comparison is made to chest radiograph 03/03/2021 FINDINGS: No lines and tubes are seen. The cardiomediastinal silhouette is normal. The lungs are clear. No evidence of pleural effusion or pneumothorax. IMPRESSION: No acute chest disease. ACT 112: Negative or not required by law. Electronically signed by: Esteban Gonzalez M.D. 02/07/2022 3:20 PM Discharge Plan Visit Data Chief Complaint: Hypotension Stated Complaint: HYPOTENSION ED Provider: Yung Herman Discharge Problem: Weakness, Anemia, Hypotension, Hypoxia, Precordial chest pain Patient Disposition: Admitted As Inpatient Condition: Fair Forms Stand Alone Forms: [facility] [place] [employer] Prescriptions Prescriptions: No Action diazepam 5 mg tablet 5 mg PO ONCE PRN (Reason: anxiety) Qty: 1 RF: 0 (DME) Accu-Chek Torie Plus test strp Strip See Rx Instructions .Route Qty: 100 RF: 1 (DME) blood-glucose meter [Accu-Chek Torie Plus Meter] [facility] See Rx Instructions .Route Qty: 1 RF: 0 aspirin 81 mg tablet,delayed release (DR/EC) 81 mg PO QAM Qty: 90 RF: 1 metoprolol succinate 25 mg tablet extended release 24 hr 25 mg PO HS Qty: 90 RF: 3 (DME) True Metrix Glucose Test Strip Strip See Rx Instructions .Route Qty: 100 RF: 1 losartan 25 mg tablet 25 mg PO DAILY Qty: 90 RF: 3 (DME) pen needle, diabetic [BD Ultra-Fine Orig Pen Needle] 29 gauge x 1/2" needle See Rx Instructions .Route Qty: 100 RF: 1 trazodone 50 mg tablet 100 mg PO HS Qty: 90 RF: 3 cyanocobalamin (vitamin B-12) 500 mcg tablet 1,000 mcg PO QAM Qty: 180 RF: 1 erenumab-aooe 70 mg/mL auto-injector 70 mg subcut MONTHLY Qty: 1 RF: 1 levothyroxine 150 mcg tablet 150 mcg PO .COMPLEX Qty: 90 RF: 3 levothyroxine 175 mcg tablet 175 mcg PO .COMPLEX Qty: 90 RF: 0 atorvastatin 80 mg tablet 80 mg PO DAILY Qty: 90 RF: 1 insulin glargine [Basaglar KwikPen U-100 Insulin] 100 unit/mL (3 mL) insulin pen 25 unit subcut BID 90 Days Qty: 45 RF: 2 insulin aspart U-100 [Novolog U-100 Insulin aspart] 100 unit/mL solution 5 unit subcut TID Qty: 30 RF: 5 Humalog U-100 Insulin 100 unit/mL cartridge 1 sliding scale dose SUBCUT UD Qty: 15 RF: 5 sertraline 25 mg tablet 25 mg PO PM Qty: 90 RF: 3 pantoprazole 40 mg tablet,delayed release (DR/EC) 40 mg PO TID RF: 0 bumetanide 1 mg tablet See Rx Instructions .ROUTE .COMPLEX Qty: 120 RF: 3 Breo Ellipta 100-25 mcg/dose blister with device 1 inh inhalation DAILY Qty: 60 RF: 2 cholecalciferol (vitamin D3) 50 mcg (2,000 unit) capsule 50 mcg PO DAILY Qty: 90 RF: 3 ranolazine 500 mg tablet extended release 12 hr 500 mg PO BID Qty: 60 RF: 6 Hold Instructions: patient not taking this since d/c latanoprost (PF) 0.005 % Drops 1 drp OPHTHALMIC (EYE) PM RF: 0 nitroglycerin [Nitrostat] 0.4 mg Tablet, Sublingual 0.4 mg Sublingual UD PRN (Reason: Pain) RF: 0 polyethylene glycol 3350 [Miralax] 17 gram/dose Powder 1 dose PO UD PRN (Reason: Constipation) RF: 0 sucralfate 100 mg/mL Suspension 1 g PO QID Qty: 1000 RF: 0 Referrals Referrals: Vu De Paz III, CRNP [Primary Care Provider] -
--- NOTE | 2022-02-07 15:21 | XRay Report ---
XR chest 1V portable CLINICAL HISTORY: weakness TECHNIQUE: Single frontal radiograph of the chest was obtained. Comparison: Comparison is made to chest radiograph 03/03/2021 FINDINGS: No lines and tubes are seen. The cardiomediastinal silhouette is normal. The lungs are clear. No evid ence of pleural effusion or pneumothorax. IMPRESSION: No acute chest disease. ACT 112: Negative or not required by law. Electronically signed by: Esteban Gonzalez M.D. 02/07/2022 3:20 PM
[2022-02-07 15:28] LABS: Basophils # (auto) 0.04 K/uL (0-0.2); Basophils % (auto) 0.5 %; Eosinophils % (auto) 4.9 %; Hematocrit (blood only) 32.4 % (34.1-44.9); Hemoglobin 9.6 g/dl (12.0-16.0); Immature Granulocytes # (auto) 0.02 K/uL (0.00-0.02); Immature Granulocytes % (auto) 0.2 %; Lymphocytes # (auto) 2.51 K/uL (1.2-3.4); Lymphocytes % (auto) 30.7 %; Mean Corpuscular Hemoglobin 23.1 pg (25.0-34.0); Mean Corpuscular Hgb Conc 29.6 g/dL (32.0-36.0); Mean Corpuscular Volume 77.9 fL (80.0-100.0); Mean Platelet Volume 10.5 fL (9.4-12.3); Monocytes # (auto) 0.89 K/uL (0.24-0.82); Monocytes % (auto) 10.9 %; Neutrophils # (auto) 4.32 K/uL (1.4-6.5); Neutrophils % (auto) 52.8 %; Platelet Count 201 K/uL (130-400); RDW Coefficient of Variation 16.6 % (11.5-14.5); RDW Standard Deviation 47.1 fL (36.4-46.3); Red Blood Count 4.16 M/uL (3.93-5.22); White Blood Count 8.18 K/ul (4.8-10.8)
[2022-02-07 15:50] LABS: Troponin I High Sensitivity 5.5 pg/ml (0-14)
[2022-02-07 15:56] LABS: Albumin Globulin Ratio 1.1 (0.9-2); Albumin Level 3.6 gm/dl (3.4-5.0); BUN Creatinine Ratio 25.4 (10-20); Bilirubin,Total 0.3 mg/dl (0.2-1.0); Creatinine Clr Calc Pharmacy 24.2 ml/min; Est GFR (African American) 30.8 ml/min; Est GFR (Non-African American) 26.6 ml/min; Globulin 3.3 gm/dl (2.5-4.0); Magnesium 2.1 mg/dl (1.7-2.4); Potassium 4.6 mmol/L (3.5-5.1); Total Protein 6.9 gm/dl (6.0-8.3)
[2022-02-07 15:58] LABS: Thyroid Stimulating Hormone 0.031 uIu/ml (0.300-4.500)
[2022-02-07] MEDS ORDERED: SODIUM CHLORIDE 0.9% 1000ML 500 ML IV ONE (16:38)
[2022-02-07 16:47] LABS: Influenza A virus by PCR Negative (Neg); Influenza B virus by PCR Negative (Neg); RSV by PCR Negative (Neg); SARS CoV2 RNA(COVID-19) InHosp NEGATIVE (Negative)
[2022-02-07 16:57] LABS: T4 Free Thyroxine 1.84 ng/dl (0.61-1.60)
--- NOTE | 2022-02-07 17:36 | History & Physical Report ---
Date of Service February 07, 2022 Assessment & Plan (1) Hypotension: Plan: Suspect iatrogenic in setting of probable chronic GI bleed although FOB negative. She has been significantly orthostatic for some time and likely does not need losartan chronically and she appears clinically dry with her current dose of Bumex. Random cortisol level normal Orthostatics q shift Stop losartan, reduce Bumex 0.5mg PO daily TTE in November showed no significant valvular disease and normal EF. No need to repeat this. (2) Microcytic anemia: Plan: Recent history of needing blood transfusions in September/October in [place] Will get B12, folate, iron studies, retic count with AM labs, Other cell lines appear normal. Likely would benefit from IV iron if low. FOB negative (3) Hypothyroidism: Plan: TSH has been very variable over since November 2020 from 0.023 to 194. This is concerning for medication non-compliance although the patient reports taking her medications regularlyl without missing doses and they are organized by her daughter. Current TSH downtrending with dosing 175/150 on alternating days. Will switch to 150 mcg PO daily. Recommend repeat TSH every 4 weeks and possibly endocrinology referral to understand why it has been so variable. (4) Diabetes: Plan: T2DM with HbA1C 11.4 in June 2021, will repeat with AM labs Continue her usual Lantus 25 units BID Novolog: --Goal BSG Range: Low 110 mg/dL, High 140 mg/dL --Correction Factor: 15 mg/dL/unit --Carbohydrate ratio = 5 g/unit --BSGs ACHS if eating, q6h if npo (5) Sleep apnea: Plan: CPAP HS (6) Hyperlipidemia: Plan: Continue atorvastatin 80mg PO daily (7) Migraine: Plan: No current migraines. On erenumab as outpatient. (8) Depression: Plan: Continue sertraline and trazodone (9) GERD (gastroesophageal reflux disease): Plan: Continue pantoprazole 40mg PO BID (10) Chronic kidney disease: Plan: Cr 1.89 stable from 1.77. Although significantly increased fro last year. (11) Cirrhosis: Plan: History of ALICEA although unclear Follow up with gastroenterology as outpatient (12) COPD (chronic obstructive pulmonary disease): Plan: Continue Breo Ellipta or hospital formulary equivalent (13) Chronic congestive heart failure: Plan: Appears mildly hypovolemic currently. Reduce Bumex to 0.5mg PO daily Plan: VTE Prophylaxis - low risk Diet - Low Na, T2DM Disposition - admit to med/tele Admission and Anticipated Discharge Date Admission Date: February 07, 2022 History of Present Illness Chief Complaint: Hypotension Primary Care Provider: Vu De Paz, MOE, VIPUL Aleksandra Dodd is a 71 year old female who presents to the ER on advice of her primary care provider who she saw earlier today due to hypotension. She reports longstanding orthostasis for months with no acute change however on seeing her PCP today her blood pressure was 82/42 therefore she was sent to the ER for further workup. She does not know her medications but these were confirmed on discussion with her daughter over the phone who organizes her medications. She has had recent hospitalizations in [place] in September/October for the same diagnosis and reportedly required blood transfusions with a normal colonoscopy and EGD per patient although the discharge summary is not available for this visit. She reports gaining a lot of fluid weight that admission and was hospitalized in [place] in November with acute CHF exacerbation. She reports her weight is currently significantly decreased with current dosing of Bumex and actually feels her mouth is dry. In the ER she was given 500ml NSS bolus with improved blood pressure to 101/55. She reports no dizziness at rest but on standing she is still significant dizzy therefore she was referred to medicine for admission and ongoing management of hypotension. Allergies Allergy/AdvReac Type Severity Reaction Status Date / Time No Known Allergies Allergy Verified 02/07/22 17:31 Home Medications Medication Instructions Recorded Confirmed Type latanoprost (PF) 0.005 % eye drops 1 drp OPHTHALMIC (EYE) PM 05/15/18 02/07/22 History nitroglycerin 0.4 mg sublingual 0.4 mg SUBLINGUAL UD PRN 05/15/18 02/07/22 History tablet (Nitrostat) polyethylene glycol 3350 17 1 dose PO UD PRN 05/15/18 02/07/22 History gram/dose oral powder (Miralax) sucralfate 100 mg/mL oral 1 g PO QID #1000 ml 03/25/21 02/07/22 Rx suspension cholecalciferol (vitamin D3) 50 50 mcg PO DAILY #90 cap 05/11/21 02/07/22 Rx mcg (2,000 unit) capsule ranolazine 500 mg tablet,extended 500 mg PO BID #60 tab 05/17/21 02/07/22 Rx release,12 hr fluticasone furoate 100 1 inh INHALATION DAILY #60 ea 05/19/21 02/07/22 Rx mcg-vilanterol 25 mcg/dose inhalation powder (Breo Ellipta) diazepam 5 mg tablet 5 mg PO ONCE PRN #1 tab 05/25/21 02/07/22 Rx blood sugar diagnostic (Accu-Chek #100 ea 06/04/21 02/07/22 Rx Torie Plus test strp) blood-glucose meter (Accu-Chek #1 ea 06/04/21 02/07/22 Rx Torie Plus Meter) insulin lispro 100 unit/mL 1 sliding scale dose SUBCUT UD #15 07/05/21 02/07/22 Rx subcutaneous cartridge (Humalog ml U-100 Insulin) sertraline 25 mg tablet 25 mg PO PM #90 tab 07/05/21 02/07/22 Rx aspirin 81 mg tablet,delayed 81 mg PO QAM #90 tab 10/29/21 02/07/22 Rx release metoprolol succinate 25 mg 25 mg PO HS #90 tab 10/29/21 02/07/22 Rx tablet,extended release 24 hr blood sugar diagnostic (True #100 ea 11/16/21 02/07/22 Rx Metrix Glucose Test Strip) losartan 25 mg tablet 25 mg PO DAILY #90 tab 11/16/21 02/07/22 Rx pen needle, diabetic 29 gauge x #100 ea 11/16/21 02/07/22 Rx 1/2" (BD Ultra-Fine Original Pen Needle) trazodone 50 mg tablet 100 mg PO HS #90 tab 11/16/21 02/07/22 Rx bumetanide 1 mg tablet See Rx Instructions .ROUTE 12/14/21 02/07/22 Rx .COMPLEX #120 tab cyanocobalamin (vitamin B-12) 500 1,000 mcg PO QAM #180 tab 12/14/21 02/07/22 Rx mcg tablet pantoprazole 40 mg tablet,delayed 40 mg PO BID tab 12/14/21 02/07/22 History release erenumab-aooe 70 mg/mL 70 mg SUBCUT MONTHLY #1 ml 12/17/21 02/07/22 Rx subcutaneous auto-injector levothyroxine 150 mcg tablet 150 mcg PO .COMPLEX #90 tab 12/21/21 02/07/22 Rx levothyroxine 175 mcg tablet 175 mcg PO .COMPLEX #90 tab 12/21/21 02/07/22 Rx atorvastatin 80 mg tablet 80 mg PO DAILY #90 tab 01/27/22 02/07/22 Rx insulin aspart U-100 100 unit/mL 5 unit SUBCUT TID #30 ml 01/27/22 02/07/22 Rx subcutaneous solution (Novolog U-100 Insulin aspart) insulin glargine 100 unit/mL (3 25 unit SUBCUT BID 90 Days #45 ml 01/27/22 02/07/22 Rx mL) subcutaneous pen (Basaglar KwikPen U-100 Insulin) 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 Dyspnea on exertion Edema all over per pt > related to thyroid problems per pt GERD (gastroesophageal reflux disease) Glaucoma Hiatal hernia Hx of deep venous thrombosis R LEG following cath in 2018 Hyperlipidemia Hypertension Hypothyroidism Migraine Myocardial Infarction HX 2011 Osteoarthritis Sarcoidosis Sleep apnea CPAP HS Transient ischemic attack (TIA) last one 2018> has had several per pt HX PAST YR-F/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 NAME?-[facility]-WEAKNESS R LEG/ARM Surgical History H/O lymph node excision H/O neck surgery History of appendectomy History of cardiac cath History of carpal tunnel release History of section History of cholecystectomy History of colonoscopy History of esophagogastroduodenoscopy (EGD) History of fasciotomy History of herniorrhaphy History of hysterectomy History of surgery Stented coronary artery Family History Brother Family history of diabetes mellitus Daughter Family history of diabetes mellitus Mother Family history of diabetes mellitus Myocardial infarction Family history of irritable bowel syndrome Father History of colon resection Prostate cancer Family history of diabetes mellitus Myocardial infarction Colorectal cancer Grandmother History of colon resection Other No family history of adverse response to anesthesia Denies family history of Ovarian cancer Breast cancer Social History Smoking Status: Former smoker Tobacco Type: Cigarettes Age Started Using Tobacco: 18; Age Quit Using Tobacco: 62; packs per day: 2; Years Smoked: 44; Cigarettes Per Day: 40; Number of Years Since Quit: 13; Second Hand Exposure: No; Hx Alcohol Use: No Hx Substance Use: No Preferred Language: Kyrgyz Communication Ability: Effective Visual Impairment: Diminished Hearing Ability: Hard of Hearing Corporate Treasury Analyst Required: No Beliefs That Will Affect Care: None marital status: Current Living Situation: Family Current Living Situation Comment: Lives with daughter current occupational status: employed current occupation: [employer] How many Children do You have: 3 Other Information That Helps Us Care for You: No Feels Safe at Home: Yes Safety Concerns: Feels Safe At This Time Childhood Exposure to Second-Hand Smoke: Yes caffeine: Yes during the past year weight has: increased > 10 lbs Dental Care, Regularly: Yes Physical Activity Frequency: Daily Seatbelt Use: never Sunscreen Use: Yes Assistive Devices: CPAP and Glasses Review of Systems Review of Systems: All systems reviewed & are unremarkable except as noted in HPI & below Physical Exam Constitutional: WD/WN, vitals as above Eyes: PERRL, conjunctivae normal, anicteric sclerae ENMT: Mouth: + dry oral mucous membranes Neck: trachea midline, no thyromegaly Respiratory: normal respiratory effort, lungs clear to auscultation Cardiovascular: Rate/Rhythm: regular rate and regular rhythm Heart Sounds: no murmur Extremities: normal capillary refill and + pedal edema (1+ pretibial b/l equal); no calf tenderness Gastrointestinal (Abdomen): normal bowel sounds, soft, nontender, no hepatosplenomegaly Musculoskeletal: no cyanosis or clubbing, extremities motor strength 5/5 Skin: no rashes, warm and dry Neurologic: moves all extremities and awake; not confused Psychiatric: A+Ox3, euthymic affect Results & Data Results & Data ([facility]) Vital Signs (Past 12 Hours) Vital Signs Temp Pulse Pulse Resp BP BP Pulse Ox 02/07/22 16:00 86 18 111/54 L 96 02/07/22 14:28 88 L 02/07/22 14:01 36.5 C 91 H 18 101/55 L 94 Laboratory Results Abnormal lab results 02/07/22 02/07/22 02/07/22 Range/Units 15:09 15:09 15:09 Hgb 9.6 L (12.0-16.0) g/dl Hct 32.4 L (34.1-44.9) % MCV 77.9 L (80.0-100.0) fL MCH 23.1 L (25.0-34.0) pg MCHC 29.6 L (32.0-36.0) g/dL RDW Std Deviation 47.1 H (36.4-46.3) fL RDW Coeff of Nicole 16.6 H (11.5-14.5) % [place] # (Auto) 0.89 H (0.24-0.82) K/uL Sodium 135 L (136-145) mmol/L Chloride 97 L (98-107) mmol/L BUN 48 H (6-23) mg/dl Creatinine 1.89 H (0.6-1.2) mg/dl BUN/Creatinine Ratio 25.4 H (10-20) Glucose 297 H (70-99(Fasting)) mg/dl POC Glucose (70-99) mg/dl TSH 0.031 L (0.300-4.500) uIu/ml Free T4 1.84 H (0.61-1.60) ng/dl 02/07/22 Range/Units 20:35 Hgb (12.0-16.0) g/dl Hct (34.1-44.9) % MCV (80.0-100.0) fL MCH (25.0-34.0) pg MCHC (32.0-36.0) g/dL RDW Std Deviation (36.4-46.3) fL RDW Coeff of Nicole (11.5-14.5) % [place] # (Auto) (0.24-0.82) K/uL Sodium (136-145) mmol/L Chloride (98-107) mmol/L BUN (6-23) mg/dl Creatinine (0.6-1.2) mg/dl BUN/Creatinine Ratio (10-20) Glucose (70-99(Fasting)) mg/dl POC Glucose 203 H (70-99) mg/dl TSH (0.300-4.500) uIu/ml Free T4 (0.61-1.60) ng/dl Diagnostic Findings XR chest 1V portable CLINICAL HISTORY: weakness TECHNIQUE: Single frontal radiograph of the chest was obtained. Comparison: Comparison is made to chest radiograph 03/03/2021 FINDINGS: No lines and tubes are seen. The cardiomediastinal silhouette is normal. The lungs are clear. No evidence of pleural effusion or pneumothorax. IMPRESSION: No acute chest disease. ULTRASOUND OF THE PELVIS CLINICAL HISTORY: Chronic left pelvic pain. COMPARISON STUDY: Pelvic CT dated 03/25/2021. TECHNIQUE: Real-time, grayscale, and color flow sonography of the pelvis is performed both transabdominally and endovaginally. Images are reviewed in the transverse and longitudinal planes. The endovaginal examination was performed for better assessment of the adnexa. FINDINGS: Uterus: The uterus is surgically absent Ovaries: The right ovary was not visualized due to intervening bowel gas. The left ovary is normal as imaged, measuring 2.6 x 1.2 x 2.1 cm. Normal Doppler waveforms are shown within the left ovary. Pelvis: There is no free fluid in the cul-de-sac. No concerning adnexal lesion is seen. IMPRESSION: 1. No acute sonographic abnormality is seen in the pelvis. 2. Status post hysterectomy. 3. Nonvisualization of the right ovary. Medications Administered ER Medications Given: Duoneb 3ml NEB NSS 500ml bolus ECG Indication: chest pain Rate (beats per minute): 82 Rhythm: normal sinus Findings: + left axis deviation Comparison ECG Date: from (Mar 24, 2021) Change: the following changes noted (Anterolateral infarct is now Present) Code Status & VTE Plan Code Status DNR/DNI VTE Prophylaxis Plan VTE Prophylaxis will be ordered: No Reason for no VTE drug order: Treatment not indicated Reason for no VTE mechanical prophylaxis: Treatment not indicated PG Care Time/CCT Total # of Minutes Spent Total Time Spent with Patient: Total time spent is greater than 50% in coordination of care (as documented) at patient's floor/unit and/or counseling patient: Coding Level of Care Code 99260 Initial Inpt Care Lvl 3 Diagnoses Hypothyroidism E03.9 Hypothyroidism type: unspecified Diabetes E11.9; Z79.4 Diabetes mellitus complication status: without complication Diabetes mellitus terminal worker insulin use: with terminal worker use Diabetes mellitus type: type 2 Sleep apnea G47.30 Sleep apnea type: unspecified type Hyperlipidemia E78.5 Hyperlipidemia type: unspecified Migraine G43.909 Depression F32.9 Active/Remission status: remission status unspecified Depression Type: major depressive disorder Major depression recurrence: unspecified whether recurrent GERD (gastroesophageal reflux disease) K21.9 Esophagitis presence: esophagitis presence not specified Chronic kidney disease N18.9 Chronic kidney disease stage: unspecified stage Cirrhosis K74.60 COPD (chronic obstructive pulmonary disease) J44.9 Hypotension I95.9 Chronic congestive heart failure I50.9 Microcytic anemia D50.9 (1) Sleep apnea Sleep apnea type: unspecified type Qualified Code(s): G47.30 - Sleep apnea, unspecified (2) Diabetes Diabetes mellitus complication status: without complication Diabetes mellitus longterm insulin use: with longterm use Diabetes mellitus type: type 2 Qualified Code(s): E11.9 - Type 2 diabetes mellitus without complications; Z79.4 - alf (current) use of insulin (3) Depression Active/Remission status: remission status unspecified Depression Type: major depressive disorder Major depression recurrence: unspecified whether recurrent Qualified Code(s): F32.9 - Major depressive disorder, single episode, unspecified (4) Hyperlipidemia Hyperlipidemia type: unspecified Qualified Code(s): E78.5 - Hyperlipidemia, unspecified (5) Hypothyroidism Hypothyroidism type: unspecified Qualified Code(s): E03.9 - Hypothyroidism, unspecified (6) Chronic kidney disease Chronic kidney disease stage: unspecified stage Qualified Code(s): N18.9 - Chronic kidney disease, unspecified (7) GERD (gastroesophageal reflux disease) Esophagitis presence: esophagitis presence not specified Qualified Code(s): K21.9 - Gastro-esophageal reflux disease without esophagitis
--- NOTE | 2022-02-07 19:57 | Ultrasound Report ---
ULTRASOUND OF THE PELVIS CLINICAL HISTORY: Chronic left pelvic pain. COMPARISON STUDY: Pelvic CT dated 03/25/2021. TECHNIQUE: Real-time, grayscale, and color flow sonography of the pelvis is performed both transabdom inally and endovaginally. Images are reviewed in the transverse and longitudinal planes. The endovagi nal examination was performed for better assessment of the adnexa. FINDINGS: Uterus: The uterus is surgically absent Ovaries: The right ovary was not visualized due to intervening bowel gas. The left ovary is normal as imaged, measuring 2.6 x 1.2 x 2.1 cm. Normal Doppler waveforms are shown within the left ovary. Pelvis: There is no free fluid in the cul-de-sac. No concerning adnexal lesion is seen. IMPRESSION: 1. No acute sonographic abnormality is seen in the pelvis. 2. Status post hysterectomy. 3. Nonvisualization of the right ovary. ACT 112: Negative or not required by law. Electronically signed by: Yung Uriostegui M.D. 02/07/2022 7:56 PM
[2022-02-07] MEDS ORDERED: ACETAMINOPHEN 325 MG TAB PO PRN (20:00)
[2022-02-07] MEDS ORDERED: GLUCOSE 40% GEL 15 GM TUBE PO PRN (21:17)
[2022-02-07] MEDS ORDERED: DEXTROSE 50% 50 ML SYRINGE IV PRN (21:17)
[2022-02-07] MEDS ORDERED: GLUCAGON FOR INJ 1 MG VIAL SQ PRN (21:17)
[2022-02-07] MEDS ORDERED: GLUCOSE 10 TAB/TUBE PO PRN (21:17)
[2022-02-07] MEDS ORDERED: CARBOHYDRATES FOR HYPOGLYCEMIA PO PRN (21:17)
[2022-02-07] MEDS: LANTUS PER UNIT CHARGE SQ SCH (22:06)
[2022-02-07] MEDS: INSULIN ASPART PER UNIT SC SCH (22:07)
[2022-02-07] MEDS: LATANOPROST 0.005% OP SOLN 2.5 ML BTL OP SCH (22:32)
[2022-02-07] MEDS: SUCRALFATE 1 GM/10 ML UDC PO SCH (22:33)
[2022-02-07] MEDS: SERTRALINE HCL 50 MG TABLET PO SCH (22:33)
[2022-02-07] MEDS: traZODone HCL 100 MG TAB PO SCH (22:34)
[2022-02-07] MEDS: METOPROLOL SUCC 25MG EXT REL TAB PO SCH (22:34)
[2022-02-07] MEDS: PANTOprazole 40 MG TAB PO SCH (22:35)
[2022-02-07 22:55] LABS: Appearance Urine Clear (Clear); Bacteria Urine Automated Negative (Negative); Bilirubin Urine Negative (Negative); Blood Urine Negative (Negative); Color Urine Yellow; Epithelial Cell Urine Auto >30 /lpf (0-5); Glucose Urine UA Trace (Negative); Ketones Urine Negative (Negative); Leukocyte Esterase Urine Trace (Negative); Nitrite Urine Negative (Negative); Protein Urine Negative (Negative); RBC Urine Automated 0-4 /hpf (0-4); Specific Gravity Urine 1.013 (1.000-1.030); Urobilinogen Urine Negative (Negative)
[2022-02-08] MEDS ORDERED: LEVOTHYROXINE SODIUM 150 MCG TABLET PO SCH (06:30)
[2022-02-08] MEDS: SUCRALFATE 1 GM/10 ML UDC PO SCH ×4 (07:48→20:15)
[2022-02-08 07:56] LABS: Basophils # (auto) 0.03 K/uL (0-0.2); Basophils % (auto) 0.5 %; Eosinophils # (auto) 0.45 K/uL (0-0.50); Eosinophils % (auto) 7.1 %; Hematocrit (blood only) 31.2 % (34.1-44.9); Hemoglobin 9.1 g/dl (12.0-16.0); Immature Granulocytes # (auto) 0.02 K/uL (0.00-0.02); Immature Granulocytes % (auto) 0.3 %; Lymphocytes % (auto) 36.2 %; Mean Corpuscular Hemoglobin 23.6 pg (25.0-34.0); Mean Corpuscular Hgb Conc 29.2 g/dL (32.0-36.0); Mean Corpuscular Volume 80.8 fL (80.0-100.0); Monocytes # (auto) 0.88 K/uL (0.24-0.82); Monocytes % (auto) 13.8 %; Neutrophils # (auto) 2.68 K/uL (1.4-6.5); Neutrophils % (auto) 42.1 %; Platelet Count 168 K/uL (130-400); RDW Coefficient of Variation 16.6 % (11.5-14.5); RDW Standard Deviation 48.3 fL (36.4-46.3); Red Blood Count 3.86 M/uL (3.93-5.22); Reticulocyte % 1.1 % (0.5-2.0); Reticulocytes # 0.04 10^6/uL (0.02-0.10); White Blood Count 6.36 K/ul (4.8-10.8)
[2022-02-08] MEDS: FLUTICASONE/VILANTEROL 100/25MCG 14 PUFFS/INHALER INH SCH (08:20)
[2022-02-08] MEDS: CYANOCOBALAMIN (B-12) 500 MCG TABLET PO SCH (08:20)
[2022-02-08] MEDS: CHOLECALCIFEROL 1,000 UNITS 25 MCG TAB PO SCH (08:20)
[2022-02-08] MEDS: ATORVASTATIN 40 MG TAB PO SCH (08:20)
[2022-02-08] MEDS: BUMETANIDE 1 MG TAB PO SCH (08:20)
[2022-02-08] MEDS: ASPIRIN 81 MG ECTAB PO SCH (08:20)
[2022-02-08] MEDS: LANTUS PER UNIT CHARGE SQ SCH ×2 (08:28→20:22)
[2022-02-08] MEDS: INSULIN ASPART PER UNIT SC SCH ×4 (08:28→20:22)
[2022-02-08 08:54] LABS: Ferritin 5.8 ng/ml (8-388)
[2022-02-08 08:58] LABS: Estimated Average Glucose 229 mg/dl; Hemoglobin A1C 9.6 % (4.5-5.6)
[2022-02-08 09:05] LABS: Cortisol AM 12.86 mcg/dl (6.2-22.6)
[2022-02-08] MEDS: PANTOprazole 40 MG TAB PO SCH ×2 (09:12→20:15)
[2022-02-08 09:18] LABS: Folate (Folic Acid) 13.16 ng/ml (>5.38)
[2022-02-08 09:19] LABS: Vitamin B12 > 1500 pg/ml (180-914)
[2022-02-08] MEDS ORDERED: IRON DEXTRAN COMPLEX 100 MG in SYRINGE 0 ML IV ONE (09:30)
--- NOTE | 2022-02-08 12:00 | Electrocardiogram Report ---
Test Reason : Blood Pressure : / mmHG Vent. Rate : 082 BPM Atrial Rate : 082 BPM P-R Int : 176 ms QRS Dur : 080 ms QT Int : 372 ms P-R-T Axes : 039 -33 088 degrees QTc Int : 434 ms Normal sinus rhythm Left axis deviation Anterolateral infarct , age undetermined Abnormal ECG When compared with ECG of 24-MAR-2021 05:12, Anterolateral infarct is now Present Confirmed by Marshall Henderson ([id number]) on 02/08/2022 12:00:09 PM Referred By: REFERRED SELF Confirmed By:Jerome Henderson
--- NOTE | 2022-02-08 12:59 | Hospitalist Progress Note ---
Date of Service February 08, 2022 Assessment & Plan (1) Hypotension: Plan: Etiology is uncertain, could be exacerbated by use of diuretics, patient on Bumex at home. Still with positive orthostatic blood pressure changes, sitting up lying down. Last 2D echo in November did not show any structural heart abnormalities. Cortisol level is within normal limits. Will continue to hold losartan, reduce Bumex to 0.5 mg daily (2) Microcytic anemia: Plan: Recent history of needing blood transfusions in September/October in [place] Blood work shows significant iron deficiency. Will infuse iron dextran (3) Hypothyroidism: Plan: TSH has been very variable over since November 2020 from 0.023 to 194. This is concerning for medication non-compliance although the patient reports taking her medications regularlyl without missing doses and they are organized by her daughter. Current TSH downtrending with dosing 175/150 on alternating days. Will switch to 150 mcg PO daily. Recommend repeat TSH every 4 weeks and possibly endocrinology referral to understand why it has been so variable. (4) Diabetes: Plan: T2DM with HbA1C 11.4 in June 2021, will repeat with AM labs Continue her usual Lantus 25 units BID Novolog: --Goal BSG Range: Low 110 mg/dL, High 140 mg/dL --Correction Factor: 15 mg/dL/unit --Carbohydrate ratio = 5 g/unit --BSGs ACHS if eating, q6h if npo (5) Sleep apnea: Plan: CPAP HS (6) Hyperlipidemia: Plan: Continue atorvastatin 80mg PO daily (7) Migraine: Plan: No current migraines. On erenumab as outpatient. (8) Depression: Plan: Continue sertraline and trazodone (9) GERD (gastroesophageal reflux disease): Plan: Continue pantoprazole 40mg PO BID (10) Chronic kidney disease: Plan: Cr 1.89 stable from 1.77. Although significantly increased fro last year. (11) Cirrhosis: Plan: History of ALICEA although unclear Follow up with gastroenterology as outpatient (12) COPD (chronic obstructive pulmonary disease): Plan: Continue Breo Ellipta or hospital formulary equivalent (13) Chronic congestive heart failure: Plan: Appears mildly hypovolemic currently. Reduce Bumex to 0.5mg PO daily Plan: VTE Prophylaxis - low risk Diet - Low Na, T2DM Disposition - admit to med/tele Admission and Anticipated Discharge Date Admission Date: February 07, 2022 Subjective patient seen and examined, lying quietly in bed, complains of headache Review of Systems Review of Systems: All systems reviewed are negative, apart from the ones contained in the history. Physical Exam Physical Exam: The patient is awake, alert and oriented 3, well developed and well nourished, normocephalic and atraumatic, lying in bed and in no acute distress. HEENT--PERRL, EOMI, mucous membranes and oropharynx mildly dry Neck--supple. No JVD. No bruits. Thyroid normal, trachea midline, no adenopathy. Heart--normal S1 and S2. No murmurs, rubs or gallops. Lungs--clear bilaterally, no respiratory distress, no accessory muscle use. Abdomen--normal bowel sounds and soft. Mild epigastric and left sided abdominal pain Extremities--no cyanosis or clubbing. No edema. Dermatologic--normal skin turgor, normal color, no abnormal lymph nodes, no rash. Neurologic--cranial nerves II through XII grossly intact. Rheumatologic--normal range of motion. Psychiatric--normal affect. Results & Data Results & Data ([facility]) Vital Signs (Past 12 Hours) Vital Signs Temp Pulse Pulse Pulse Resp BP Pulse Ox 02/08/22 11:31 98.7 F 85 16 94/56 L 93 02/08/22 07:40 98.2 F 66 16 133/74 96 02/08/22 07:20 75 02/08/22 03:26 98.4 F 79 18 121/79 92 02/08/22 02:45 73 12 94 PG Care Time/CCT Total # of Minutes Spent Total Time Spent with Patient: Total time spent is greater than 50% in coordination of care (as documented) at patient's floor/unit and/or counseling patient: Coding Level of Care Code 57777 Subseq Hosp Care Lvl 2 Diagnoses Hypotension I95.9 Microcytic anemia D50.9 Hypothyroidism E03.9 Hypothyroidism type: unspecified Diabetes E11.9; Z79.4 Diabetes mellitus type: type 2 Diabetes mellitus fci insulin use: with fci use Diabetes mellitus complication status: without complication Sleep apnea G47.30 Sleep apnea type: unspecified type Hyperlipidemia E78.5 Hyperlipidemia type: unspecified Migraine G43.909 Depression F32.9 Depression Type: major depressive disorder Major depression recurrence: unspecified whether recurrent Active/Remission status: remission status unspecified GERD (gastroesophageal reflux disease) K21.9 Esophagitis presence: esophagitis presence not specified Chronic kidney disease N18.9 Chronic kidney disease stage: unspecified stage Cirrhosis K74.60 COPD (chronic obstructive pulmonary disease) J44.9 Chronic congestive heart failure I50.9 Time Spent (min) 35 (1) Hypothyroidism Hypothyroidism type: unspecified Qualified Code(s): E03.9 - Hypothyroidism, unspecified (2) Diabetes Diabetes mellitus type: type 2 Diabetes mellitus vermin exterminator insulin use: with vermin exterminator use Diabetes mellitus complication status: without complication Qualified Code(s): E11.9 - Type 2 diabetes mellitus without complications; Z79.4 - retirement (current) use of insulin (3) Sleep apnea Sleep apnea type: unspecified type Qualified Code(s): G47.30 - Sleep apnea, unspecified (4) Hyperlipidemia Hyperlipidemia type: unspecified Qualified Code(s): E78.5 - Hyperlipidemia, unspecified (5) Depression Depression Type: major depressive disorder Major depression recurrence: unspecified whether recurrent Active/Remission status: remission status unspecified Qualified Code(s): F32.9 - Major depressive disorder, single episode, unspecified (6) GERD (gastroesophageal reflux disease) Esophagitis presence: esophagitis presence not specified Qualified Code(s): K21.9 - Gastro-esophageal reflux disease without esophagitis (7) Chronic kidney disease Chronic kidney disease stage: unspecified stage Qualified Code(s): N18.9 - Chronic kidney disease, unspecified
[2022-02-08] MEDS: traZODone HCL 100 MG TAB PO SCH (20:15)
[2022-02-08] MEDS: LATANOPROST 0.005% OP SOLN 2.5 ML BTL OP SCH (20:15)
[2022-02-08] MEDS: SERTRALINE HCL 50 MG TABLET PO SCH (20:15)
[2022-02-08] MEDS: METOPROLOL SUCC 25MG EXT REL TAB PO SCH (20:22)
[2022-02-09] MEDS ORDERED: LEVOTHYROXINE SODIUM 175 MCG TABLET PO SCH (06:30)
[2022-02-09] MEDS ORDERED: LEVOTHYROXINE SODIUM 150 MCG TABLET PO SCH (06:30)
[2022-02-09] MEDS: SUCRALFATE 1 GM/10 ML UDC PO SCH ×2 (07:54→12:23)
[2022-02-09] MEDS: CHOLECALCIFEROL 1,000 UNITS 25 MCG TAB PO SCH (08:19)
[2022-02-09] MEDS: BUMETANIDE 1 MG TAB PO SCH (08:19)
[2022-02-09] MEDS: FLUTICASONE/VILANTEROL 100/25MCG 14 PUFFS/INHALER INH SCH (08:19)
[2022-02-09] MEDS: ATORVASTATIN 40 MG TAB PO SCH (08:20)
[2022-02-09] MEDS: CYANOCOBALAMIN (B-12) 500 MCG TABLET PO SCH (08:20)
[2022-02-09] MEDS: PANTOprazole 40 MG TAB PO SCH (08:20)
[2022-02-09] MEDS: ASPIRIN 81 MG ECTAB PO SCH (08:20)
[2022-02-09 08:27] LABS: Basophils # (auto) 0.04 K/uL (0-0.2); Basophils % (auto) 0.5 %; Eosinophils # (auto) 0.39 K/uL (0-0.50); Eosinophils % (auto) 5.1 %; Hematocrit (blood only) 35.4 % (34.1-44.9); Hemoglobin 10.3 g/dl (12.0-16.0); Immature Granulocytes # (auto) 0.02 K/uL (0.00-0.02); Immature Granulocytes % (auto) 0.3 %; Lymphocytes # (auto) 3.37 K/uL (1.2-3.4); Lymphocytes % (auto) 43.8 %; Mean Corpuscular Hemoglobin 23.7 pg (25.0-34.0); Mean Corpuscular Hgb Conc 29.1 g/dL (32.0-36.0); Mean Corpuscular Volume 81.4 fL (80.0-100.0); Monocytes # (auto) 0.82 K/uL (0.24-0.82); Monocytes % (auto) 10.7 %; Neutrophils # (auto) 3.05 K/uL (1.4-6.5); Neutrophils % (auto) 39.6 %; Platelet Count 184 K/uL (130-400); RDW Coefficient of Variation 16.5 % (11.5-14.5); RDW Standard Deviation 49.1 fL (36.4-46.3); Red Blood Count 4.35 M/uL (3.93-5.22); White Blood Count 7.69 K/ul (4.8-10.8)
[2022-02-09] MEDS: INSULIN ASPART PER UNIT SC SCH ×2 (08:27→12:27)
[2022-02-09] MEDS: LANTUS PER UNIT CHARGE SQ SCH (08:28)
[2022-02-09] MEDS ORDERED: POLYETHYLENE (MIRALAX) 17 GM PACK PO PRN (10:11)
[2022-02-09] MEDS ORDERED: bisacodyL 10 MG SUPP PR STA (10:11)
--- NOTE | 2022-02-09 14:41 | Discharge Summary ---
Date of Service February 09, 2022 Admission HPI Per Admitting Provider Aleksandra Dodd is a 71 year old female who presents to the ER on advice of her primary care provider who she saw earlier today due to hypotension. She reports longstanding orthostasis for months with no acute change however on seeing her PCP today her blood pressure was 82/42 therefore she was sent to the ER for further workup. She does not know her medications but these were confirmed on discussion with her daughter over the phone who organizes her medications. She has had recent hospitalizations in [place] in for the same diagnosis and reportedly required blood transfusions with a normal colonoscopy and EGD per patient although the discharge summary is not available for this visit. She reports gaining a lot of fluid weight that admission and was hospitalized in [place] in November with acute CHF exacerbation. She reports her weight is currently significantly decreased with current dosing of Bumex and actually feels her mouth is dry. In the ER she was given 500ml NSS bolus with improved blood pressure to 101/55. She reports no dizziness at rest but on standing she is still significant dizzy therefore she was referred to medicine for admission and ongoing management of hypotension. Principal Diagnosis iron def anemia, presyncope Discharge Exam The patient is awake, alert and oriented 3, well developed and well nourished, normocephalic and atraumatic, lying in bed and in no acute distress. HEENT--PERRL, EOMI, mucous membranes and oropharynx mildly dry Neck--supple. No JVD. No bruits. Thyroid normal, trachea midline, no adenopathy. Heart--normal S1 and S2. No murmurs, rubs or gallops. Lungs--clear bilaterally, no respiratory distress, no accessory muscle use. Abdomen--normal bowel sounds and soft. Mild epigastric and left sided abdominal pain Extremities--no cyanosis or clubbing. No edema. Dermatologic--normal skin turgor, normal color, no abnormal lymph nodes, no rash. Neurologic--cranial nerves II through XII grossly intact. Rheumatologic--normal range of motion. Psychiatric--normal affect. Discharge Data Allergies Allergy/AdvReac Type Severity Reaction Status Date / Time No Known Allergies Allergy Verified 02/07/22 17:31 Consultations 02/07/22 17:14 ED Decision to Admit Stat 02/07/22 17:27 ED Decision to Admit Stat 02/09/22 11:30 Consult Cardiology Routine Ordered Studies 02/07/22 18:06 US pelvic complete Stat US transvaginal Stat Diabetes Follow up Diabetes Follow-up Needed for HgbA1c >9% Hospital Course (1) Hypotension: Etiology is uncertain, could be exacerbated by use of diuretics, patient on Bumex at home. Still with positive orthostatic blood pressure changes, sitting up lying down. Last 2D echo in November did not show any structural heart abnormalities. Cortisol level is within normal limits. Will continue to hold losartan, reduce Bumex to 0.5 mg daily BP has improved (2) Microcytic anemia: Recent history of needing blood transfusions in September/October in [place] Blood work shows significant iron deficiency. Will infuse iron dextran (3) Hypothyroidism: TSH has been very variable over since November 2020 from 0.023 to 194. This is concerning for medication non-compliance although the patient reports taking her medications regularlyl without missing doses and they are organized by her daughter. Current TSH downtrending with dosing 175/150 on alternating days. Will switch to 150 mcg PO daily. Recommend repeat TSH every 4 weeks and possibly endocrinology referral to understand why it has been so variable. (4) Diabetes: T2DM with HbA1C 11.4 in June 2021, will repeat with AM labs Continue her usual Lantus 25 units BID Novolog: --Goal BSG Range: Low 110 mg/dL, High 140 mg/dL --Correction Factor: 15 mg/dL/unit --Carbohydrate ratio = 5 g/unit --BSGs ACHS if eating, q6h if npo (5) Sleep apnea: CPAP HS (6) Hyperlipidemia: Continue atorvastatin 80mg PO daily (7) Migraine: No current migraines. On erenumab as outpatient. (8) Depression: Continue sertraline and trazodone (9) GERD (gastroesophageal reflux disease): Continue pantoprazole 40mg PO BID (10) Chronic kidney disease: Cr 1.89 stable from 1.77. Although significantly increased fro last year. (11) Cirrhosis: History of ALICEA although unclear Follow up with gastroenterology as outpatient (12) COPD (chronic obstructive pulmonary disease): Continue Breo Ellipta or hospital formulary equivalent (13) Chronic congestive heart failure: Appears mildly hypovolemic currently. Reduce Bumex to 0.5mg PO daily Plan VTE Prophylaxis - low risk Diet - Low Na, T2DM Disposition - admit to med/tele Total Time Total Time Spent Total Time Spent (In Minutes): 35 Discharge Plan Discharge Items Patient Disposition: Home - Self-Care Reason For Visit: HYPOTENSION Discharge Diagnosis: Iron def Anemia, presyncope Condition on Discharge: Fair Activity: Resume your previous activity Non-emergency contact: Primary Care Provider Call non-emergency contact if: you have any medication questions Follow-up/Referrals: Vu De Paz III, CRNP [Primary Care Provider] - 02/14/22 4:00 pm Diet: Regular Addtl Attending Provider Instructions: please make appointment to follow up with your regular doctors As we discussed earlier, please make sure you get up from a lying position in stages. First, sit up for a few seconds and then stand, before walking. Please see your PCP to adjust your dose of Bumex Pending Studies at Discharge: No Stand-Alone Forms: My [employer], Work/School Release, Smoking Cessation Medications and DC Order Prescriptions: New bumetanide 1 mg Tablet 0.5 mg PO QAM 30 Days Qty: 15 0RF Continued diazepam 5 mg tablet 5 mg PO ONCE PRN (Reason: anxiety) Qty: 1 0RF Rx Instructions: Take 30 minute prior to procedure. (DME) Accu-Chek Torie Plus test strp Strip See Rx Instructions .Route Qty: 100 1RF Rx Instructions: pt tests 3 times a day (DME) blood-glucose meter [Accu-Chek Torie Plus Meter] [facility] See Rx Instructions .Route Qty: 1 0RF Rx Instructions: As directed aspirin 81 mg tablet,delayed release (DR/EC) 81 mg PO QAM Qty: 90 1RF metoprolol succinate 25 mg tablet extended release 24 hr 25 mg PO HS Qty: 90 3RF (DME) True Metrix Glucose Test Strip Strip See Rx Instructions .Route Qty: 100 1RF Rx Instructions: As directed- test 3 times a day losartan 25 mg tablet 25 mg PO DAILY Qty: 90 3RF (DME) pen needle, diabetic [BD Ultra-Fine Orig Pen Needle] 29 gauge x 1/2" needle See Rx Instructions .Route Qty: 100 1RF Rx Instructions: Twice a day trazodone 50 mg tablet 100 mg PO HS Qty: 90 3RF cyanocobalamin (vitamin B-12) 500 mcg tablet 1,000 mcg PO QAM Qty: 180 1RF erenumab-aooe 70 mg/mL auto-injector 70 mg subcut MONTHLY Qty: 1 1RF levothyroxine 150 mcg tablet 150 mcg PO .COMPLEX Qty: 90 3RF Rx Instructions: 150 mcg PO Alternate with levothyroxine 175 mcg every other day; levothyroxine 175 mcg tablet 175 mcg PO .COMPLEX Qty: 90 0RF Rx Instructions: 175 mcg PO; alternate with levothyroxine 150 mcg every other day. atorvastatin 80 mg tablet 80 mg PO DAILY Qty: 90 1RF insulin glargine [Basaglar KwikPen U-100 Insulin] 100 unit/mL (3 mL) insulin pen 25 unit subcut BID 90 Days Qty: 45 2RF insulin aspart U-100 [Novolog U-100 Insulin aspart] 100 unit/mL solution 5 unit subcut TID Qty: 30 5RF Rx Instructions: take 5 units with meals and then follow sliding scale. using 50 units daily Humalog U-100 Insulin 100 unit/mL cartridge 1 sliding scale dose SUBCUT UD Qty: 15 5RF Rx Instructions: take 5 units with meals and then follow sliding scale. using 50 units daily sertraline 25 mg tablet 25 mg PO PM Qty: 90 3RF pantoprazole 40 mg tablet,delayed release (DR/EC) 40 mg PO BID Breo Ellipta 100-25 mcg/dose blister with device 1 inh inhalation DAILY Qty: 60 2RF cholecalciferol (vitamin D3) 50 mcg (2,000 unit) capsule 50 mcg PO DAILY Qty: 90 3RF ranolazine 500 mg tablet extended release 12 hr 500 mg PO BID Qty: 60 6RF Hold Instructions: patient not taking this since d/c latanoprost (PF) 0.005 % Drops 1 drp OPHTHALMIC (EYE) PM nitroglycerin [Nitrostat] 0.4 mg Tablet, Sublingual 0.4 mg Sublingual UD PRN (Reason: Pain) polyethylene glycol 3350 [Miralax] 17 gram/dose Powder 1 dose PO UD PRN (Reason: Constipation) sucralfate 100 mg/mL Suspension 1 g PO QID Qty: 1000 0RF Discontinued bumetanide 1 mg tablet See Rx Instructions .ROUTE .COMPLEX Qty: 120 3RF Rx Instructions: Take 2 tablets by mouth every day until body weight reaches 153 pounds, then reduce to 1 tablet daily. Thereafter if body weight increases by 3 pounds in a 24 hour period - resume 2 tablets until dry weight achieved Discharge Orders: Discharge Order (Routine); Ordered 02/09/22 Ordered By: Gagan Romero Admission Data Admit Date/Time: 02/07/22 18:18 Attending Provider: Gagan Romero Admit Provider: Julio Rogers Primary Care Provider: Vu De Paz III Other Providers: Julio Rogers ; Marshall Henderson Other Interventions: Discharge Summary Assessment (RN) Last Done: 02/09/22 10:59 Coding Level of Care Code D/C DAY MANAGEMENT >30 MINS Diagnoses Hypotension I95.9 Microcytic anemia D50.9 Hypothyroidism E03.9 Hypothyroidism type: unspecified Diabetes E11.9; Z79.4 Diabetes mellitus type: type 2 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: with chcf use Diabetes mellitus complication status: without complication Sleep apnea G47.30 Sleep apnea type: unspecified type Hyperlipidemia E78.5 Hyperlipidemia type: unspecified Migraine G43.909 Depression F32.9 Depression Type: major depressive disorder Major depression recurrence: unspecified whether recurrent Active/Remission status: remission status unspecified GERD (gastroesophageal reflux disease) K21.9 Esophagitis presence: esophagitis presence not specified Chronic kidney disease N18.9 Chronic kidney disease stage: unspecified stage Cirrhosis K74.60 COPD (chronic obstructive pulmonary disease) J44.9 Chronic congestive heart failure I50.9 Time Spent (min) 35
--- NOTE | 2022-02-09 15:15 | Cardiology Consultation ---
Date of Consultation February 09, 2022 Assessment & Plan (1) (HFpEF) heart failure with preserved ejection fraction: (2) Hypotension: (3) Non-occlusive coronary artery disease: (4) Chest pain syndrome: Plan 1. Dizziness: She has a long history of intermittent dizziness. Generally sp eaking this is associated with activity. Her dizziness was likely exacerbated by orthostatic hypotension and anemia. Some orthostatic symptoms appear to have improved. Last evaluation for orthostatic hypotension was normal. This is likely due to elimination of her losartan in reduction in her diuretic dose. No arrhythmias identified on telemetry in the setting of the symptoms. 2. Hypertension: As noted above, improved with discontinuation of losartan reduction in her diuretic dose. 3. Heart failure with preserved ejection fraction: She has an element of dyspnea at most times. However, clinically hypovolemic. She does try to monitor her weight at home. I think she can be discharged on her reduced dose of bumetanide. For an increase in weight she can double the dose or contact our clinic for recommendations. 4. Chest pain syndrome: Longstanding in nature. Attempts have more intensive antianginal therapy have not met with any improvement in symptoms. Ranexa was tried but discontinued. Do not think she would be a good candidate for oral nitrates given her symptoms of dizziness and documented hypotension. No high- risk disease noted on catheterization. 5. Coronary disease: Nonobstructive disease. She will continue aggressive secondary prevention with high-dose atorvastatin and a daily aspirin History of Present Illness Reason for Consultation: Dizziness Requesting Physician: Heather Attending Physician: Gagan Romero MD History of Present Illness The patient is a 71-year-old woman with an extensive cardiac history to include chest pain syndrome, nonobstructive coronary disease and heart failure with preserved ejection fraction. She was admitted to the hospital for symptoms of dizziness and fatigue in the setting of significant hypotension. The patient had been recently hospitalized with an element of decompensated heart failure. She gained a significant amount of weight and had been placed on an aggressive regimen of diuretics. He is diuretics have been gradually reduced test her weight has improved. She has a longstanding history of exertional symptoms such as dizziness, fatigue and chest pain. For some time he activity such as taking a shower have been very difficult for her. At the time of her admission she was noted to have a low blood pressure and evidence of orthostatic hypotension. She is felt to be hypovolemic. She had recently been started on losartan for her kidney disease. This was discontinued. Diuretic dose was also reduced. Today when walking back from the bathroom she felt somewhat dizzy and lightheaded. However, earlier she had had orthostatic blood pressure readings that were normal. She does report feeling improved versus yesterday. Allergies Allergy/AdvReac Type Severity Reaction Status Date / Time No Known Allergies Allergy Verified 02/07/22 17:31 Home Medications Medication Instructions Recorded Confirmed Type latanoprost (PF) 0.005 % eye drops 1 drp ophthalmic (eye) PM 05/15/18 02/07/22 History nitroglycerin 0.4 mg sublingual 0.4 mg sublingual UD PRN Pain 05/15/18 02/07/22 History tablet (Nitrostat) polyethylene glycol 3350 17 1 dose PO UD PRN Constipation 05/15/18 02/07/22 History gram/dose oral powder (Miralax) sucralfate 100 mg/mL oral 1 g (10 mL) PO QID #1,000 mL 03/25/21 02/07/22 Rx suspension cholecalciferol (vitamin D3) 50 50 mcg PO DAILY #90 caps 05/11/21 02/07/22 Rx mcg (2,000 unit) capsule ranolazine 500 mg tablet,extended 500 mg PO BID #60 tabs 05/17/21 02/07/22 Rx release,12 hr fluticasone furoate 100 1 inh inhalation DAILY #60 ea 05/19/21 02/07/22 Rx mcg-vilanterol 25 mcg/dose inhalation powder (Breo Ellipta) diazepam 5 mg tablet 5 mg PO ONCE PRN anxiety #1 tab 05/25/21 02/07/22 Rx blood sugar diagnostic (Accu-Chek #100 ea 06/04/21 02/07/22 Rx Torie Plus test strp) blood-glucose meter (Accu-Chek #1 ea 06/04/21 02/07/22 Rx Torie Plus Meter) insulin lispro 100 unit/mL 1 sliding scale dose subcut UD #15 07/05/21 02/07/22 Rx subcutaneous cartridge (Humalog mL U-100 Insulin) sertraline 25 mg tablet 25 mg PO PM #90 tabs 07/05/21 02/07/22 Rx aspirin 81 mg tablet,delayed 81 mg PO QAM #90 tabs 10/29/21 02/07/22 Rx release metoprolol succinate 25 mg 25 mg PO HS #90 tabs 10/29/21 02/07/22 Rx tablet,extended release 24 hr blood sugar diagnostic (True #100 ea 11/16/21 02/07/22 Rx Metrix Glucose Test Strip) losartan 25 mg tablet 25 mg PO DAILY #90 tabs 11/16/21 02/07/22 Rx pen needle, diabetic 29 gauge x #100 ea 11/16/21 02/07/22 Rx 1/2" (BD Ultra-Fine Original Pen Needle) trazodone 50 mg tablet 100 mg PO HS #90 tabs 11/16/21 02/07/22 Rx cyanocobalamin (vitamin B-12) 500 1,000 mcg PO QAM #180 tabs 12/14/21 02/07/22 Rx mcg tablet pantoprazole 40 mg tablet,delayed 40 mg PO BID 12/14/21 02/07/22 History release erenumab-aooe 70 mg/mL 70 mg subcut MONTHLY #1 mL 12/17/21 02/07/22 Rx subcutaneous auto-injector levothyroxine 150 mcg tablet 150 mcg PO .COMPLEX #90 tabs 12/21/21 02/07/22 Rx levothyroxine 175 mcg tablet 175 mcg PO .COMPLEX #90 tabs 12/21/21 02/07/22 Rx atorvastatin 80 mg tablet 80 mg PO DAILY #90 tabs 01/27/22 02/07/22 Rx insulin aspart U-100 100 unit/mL 5 unit (0.05 mL) subcut TID #30 mL 01/27/22 02/07/22 Rx subcutaneous solution (Novolog U-100 Insulin aspart) insulin glargine 100 unit/mL (3 25 unit (0.25 mL) subcut BID 90 01/27/22 02/07/22 Rx mL) subcutaneous pen (Basaglar days #45 mL KwikPen U-100 Insulin) bumetanide 1 mg tablet 0.5 mg PO QAM 30 days #15 tabs 02/09/22 Rx Patient History Medical History Anemia Anxiety Chronic kidney disease Chronic obstructive pulmonary disease Cirrhosis, non-alcoholic Compartment syndrome of lower extremity, traumatic Depression Diabetes mellitus, type 2 Dissection of right femoral artery Dyspnea on exertion Edema GERD (gastroesophageal reflux disease) Glaucoma Hiatal hernia Hx of deep venous thrombosis Hyperlipidemia Hypertension Hypothyroidism Migraine Myocardial Infarction Osteoarthritis Sarcoidosis Sleep apnea Transient ischemic attack (TIA) Surgical History H/O lymph node excision H/O neck surgery History of appendectomy History of cardiac cath History of carpal tunnel release History of section History of cholecystectomy History of colonoscopy History of esophagogastroduodenoscopy (EGD) History of fasciotomy History of herniorrhaphy History of hysterectomy History of surgery Stented coronary artery Family History Brother Family history of diabetes mellitus Daughter Family history of diabetes mellitus Mother Family history of diabetes mellitus Myocardial infarction Family history of irritable bowel syndrome Father History of colon resection Prostate cancer Family history of diabetes mellitus Myocardial infarction Colorectal cancer Grandmother History of colon resection Other No family history of adverse response to anesthesia Denies family history of Ovarian cancer Breast cancer Social History Smoking Status: Former smoker Tobacco Type: Cigarettes Age Started Using Tobacco: 18; Age Quit Using Tobacco: 62; packs per day: 2; Years Smoked: 44; Cigarettes Per Day: 40; Number of Years Since Quit: 13; Second Hand Exposure: No; Hx Alcohol Use: No Hx Substance Use: No Preferred Language: Greenlandic Communication Ability: Effective Visual Impairment: Diminished Hearing Ability: Hard of Hearing 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 Eating and drinking normally. No significant change in her diet recently. She cooks for herself and loves salt Chronic left lower quadrant abdominal discomfort Physical Exam Physical Exam: She is alert and oriented x3. Mood affect appear normal. She answered all questions appropriately. HEENT: Sclerae are anicteric. Pupils are equal and reactive to light and accommodation. Extraocular movements were intact. Neuro: Cranial nerves intact Lungs: Lungs are clear to auscultation bilaterally. There are no rales wheezes or rhonchi. She has normal respiratory effort without use of accessory muscles. There is normal pulmonary excursion. Cardiac: The rhythm was regular. S1 and S2 were normal. There are no murmurs on examination. The PMI was not markedly displaced on palpation. Extremities: Patient has bilateral radial pulses that are equal in intensity. There is no evidence cyanosis or clubbing. There was no evidence of significant peripheral edema bilaterally. Skin: There are no rashes noted on examination today. Results & Data ([facility]) Vital Signs (Past 12 Hours) Vital Signs Temp Pulse Pulse Pulse Resp BP BP 02/09/22 11:23 36.6 C 77 18 156/79 H 138/77 02/09/22 11:13 37.0 C 82 16 113/70 02/09/22 10:59 36.9 C 67 68 14 90/60 L 113/53 L 02/09/22 08:00 02/09/22 08:00 36.9 C 67 14 90/60 L 02/09/22 06:55 61 02/09/22 04:10 74 13 Pulse Ox O2 Del Method 02/09/22 11:23 93 Room Air 02/09/22 11:13 96 Room Air 02/09/22 10:59 93 02/09/22 08:00 Room Air 02/09/22 08:00 93 Room Air 02/09/22 06:55 02/09/22 04:10 97 Laboratory Results Abnormal Lab Results 02/08/22 02/08/22 02/08/22 07:03 16:40 20:11 WBC RBC Hgb Hct MCV MCH MCHC RDW Std Deviation RDW Coeff of Nicole Plt Count MPV Immature Gran % (Auto) Neut % (Auto) Lymph % (Auto) [place] % (Auto) Eos % (Auto) Baso % (Auto) Neut # (Auto) Lymph # (Auto) [place] # (Auto) Eos # (Auto) Baso # (Auto) Immature Gran # (Auto) POC Glucose 93 111 H Hepatitis C Ab (EIA) NON-REACTIVE Hep C Ab Signal/Cutoff 0.07 02/09/22 02/09/22 02/09/22 07:42 08:15 11:35 WBC 7.69 RBC 4.35 Hgb 10.3 L Hct 35.4 MCV 81.4 MCH 23.7 L MCHC 29.1 L RDW Std Deviation 49.1 H RDW Coeff of Nicole 16.5 H Plt Count 184 MPV 10.0 Immature Gran % (Auto) 0.3 Neut % (Auto) 39.6 Lymph % (Auto) 43.8 [place] % (Auto) 10.7 Eos % (Auto) 5.1 Baso % (Auto) 0.5 Neut # (Auto) 3.05 Lymph # (Auto) 3.37 [place] # (Auto) 0.82 Eos # (Auto) 0.39 Baso # (Auto) 0.04 Immature Gran # (Auto) 0.02 POC Glucose 149 H 260 H Hepatitis C Ab (EIA) Hep C Ab Signal/Cutoff Diagnostic Findings Chest x-ray obtained the time admission did not reveal any acute cardiopulmonary disease. Pulmonary function test performed 12/20/2021: Normal Echocardiogram performed 12/03/2019 to revealed preserved LV systolic function, mild LVH, stage I diastolic dysfunction, mild mitral regurgitation Cardiac catheterization performed 02/2021: 50% mid LAD, 70% ostial D1, 50% mid circumflex ECG Additional Comments: Time admission revealed normal sinus rhythm with poor R-wave progression in the precordial leads. Unchanged from prior PG Care Time/CCT Total # of Minutes Spent Total Time Spent with Patient: Total time spent is greater than 50% in coordination of care (as documented) at patient's floor/unit and/or counseling patient: Coding Level of Care Code 00549 Initial Inpt Care Lvl 3 Diagnoses (HFpEF) heart failure with preserved ejection fraction I50.30 Hypotension I95.9 Non-occlusive coronary artery disease I25.10 Chest pain syndrome R07.9
== END 2022-02-09 15:34 | disposition home or self-care (01) | DRG 312 ==
LOC: ED 13:57 → 2N 18:18 → INTOOBSV 18:18 → SUATTDRO 18:18 → 2N 19:34
DX: Z95.5 Presence of coronary angioplasty implant and graft; D50.9 Iron deficiency anemia, unspecified; N18.9 Chronic kidney disease, unspecified; I95.1 Orthostatic hypotension; Z79.82 Long term (current) use of aspirin; E11.22 Type 2 diabetes mellitus with diabetic chronic kidney disease; Z79.899 Other long term (current) drug therapy; Z90.49 Acquired absence of other specified parts of digestive tract; E03.9 Hypothyroidism, unspecified; K21.9 Gastro-esophageal reflux disease without esophagitis; K74.60 Unspecified cirrhosis of liver; I25.2 Old myocardial infarction; Z87.891 Personal history of nicotine dependence; G47.30 Sleep apnea, unspecified; I25.10 Atherosclerotic heart disease of native coronary artery without angina pectoris; Z79.84 Long term (current) use of oral hypoglycemic drugs; Z79.890 Hormone replacement therapy; J44.9 Chronic obstructive pulmonary disease, unspecified; Z90.710 Acquired absence of both cervix and uterus; I50.9 Heart failure, unspecified; E78.5 Hyperlipidemia, unspecified; Z79.4 Long term (current) use of insulin; Z86.73 Personal history of transient ischemic attack (TIA), and cerebral infarction without residual deficits

== ENCOUNTER 2022-10-20 12:44 | Observation (INO) ==
--- NOTE | 2022-10-20 13:24 | Emergency Department Note ---
History of Present Illness General Chief complaint: Referred by Doctor Stated complaint: REF BY DOC,TROUBLE BREATHING,IRREGULAR BP Time Seen by Provider: 10/20/22 13:06 Source: patient, family (Friend who is at the bedside), RN notes reviewed and old records reviewed (I have reviewed the records from [facility]) Mode of arrival: ambulatory Limitations: no limitations History of Present Illness This patient is a 72-year-old female has history of COPD and multiple other medical problems as well as sarcoidosis comes in after having shortness of breath she was just hospitalized in [facility] and was discharged yesterday. According to the patient they did not know why she was short of breath but it looks like they had attributed to her COPD and her sarcoid. She called her doctor today to get follow-up and said her pulse ox was going down to the 70s so he recommend she come to the ER. She does not wear home oxygen she does not use breathing treatments at home because she says they have never helped her. She has a cough. No fever no chest pain no lower extremity pain or swelling no fall or trauma. Home Medications Medication Instructions Recorded Confirmed Type aspirin 81 mg tablet,delayed 81 mg PO DAILY 10/20/22 10/20/22 History release atorvastatin 80 mg tablet 80 mg PO HS 10/20/22 10/20/22 History benzonatate 100 mg capsule 100 mg PO TID PRN Cough 10/20/22 10/20/22 History cholecalciferol (vitamin D3) 50 50 mcg PO DAILY 10/20/22 10/20/22 History mcg (2,000 unit) tablet (Vitamin D3) cyanocobalamin (vitamin B-12) 500 1,000 mcg PO DAILY 10/20/22 10/20/22 History mcg tablet (Vitamin B-12) erenumab-aooe 70 mg/mL 70 mg subcut .[id number] 10/20/22 10/20/22 History subcutaneous auto-injector (Aimovig Autoinjector) fluticasone furoate 100 1 inh inhalation DAILY 10/20/22 10/20/22 History mcg-vilanterol 25 mcg/dose inhalation powder (Breo Ellipta) furosemide 40 mg tablet (Lasix) 40 mg PO DAILY 10/20/22 10/20/22 History insulin aspar prot-insulin aspart 30 unit subcut BID 10/20/22 10/20/22 History 100 unit/mL (70-30) subcutaneous pen (Novolog Mix 70-30FlexPen U-100) latanoprost 0.005 % eye drops 1 drp ophthalmic (eye) HS 10/20/22 10/20/22 History levothyroxine 175 mcg tablet 175 mcg PO DAILY 10/20/22 10/20/22 History lorazepam 0.5 mg tablet 0.5 mg PO Q12 PRN Anxiety 10/20/22 10/20/22 History losartan 25 mg tablet 25 mg PO DAILY 10/20/22 10/20/22 History metoprolol succinate 25 mg 25 mg PO DAILY 10/20/22 10/20/22 History tablet,extended release 24 hr ondansetron HCl 4 mg tablet 4 mg PO Q6H PRN Nausea 10/20/22 10/20/22 History pantoprazole 40 mg tablet,delayed 40 mg PO BID 10/20/22 10/20/22 History release sertraline 25 mg tablet 25 mg PO DAILY 10/20/22 10/20/22 History sucralfate 1 gram tablet 1 g PO ACHS 10/20/22 10/20/22 History trazodone 50 mg tablet 50 mg PO HS 10/20/22 10/20/22 History Allergies Allergy/AdvReac Type Severity Reaction Status Date / Time No Known Allergies Allergy Verified 10/20/22 15:42 Past Med/Surg History Medical History Acute on chronic diastolic CHF (congestive heart failure) Anemia HX Angina pectoris, crescendo Anxiety Chronic kidney disease Chronic obstructive pulmonary disease well controlled per pt> no inhalers Cirrhosis, non-alcoholic Compartment syndrome of lower extremity, traumatic resolved Depression Diabetes mellitus, type 2 IDDM 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 Dyspnea on exertion Edema all over per pt > related to thyroid problems per pt GERD (gastroesophageal reflux disease) Glaucoma Hiatal hernia Hx of deep venous thrombosis R LEG following cath in 2018 Hyperlipidemia Hypertension Hypothyroidism Migraine Myocardial Infarction HX 2011 Osteoarthritis Sarcoidosis Shortness of breath Sleep apnea CPAP HS Transient ischemic attack (TIA) last one 2018> has had several per pt HX PAST YR-F/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 NAME?-[facility]-WEAKNESS R LEG/ARM Surgical History H/O lymph node excision NECK -BENIGN H/O neck surgery WITH BONE FUSION> ROM WNL History of appendectomy History of cardiac cath X 3-LAST ON 02/2020 1 stent placed History of carpal tunnel release RIGHT History of section X 3 History of cholecystectomy History of colonoscopy History of esophagogastroduodenoscopy (EGD) History of fasciotomy FASCIOTOMY FOR COMPARTMENT SYNDROME RLE History of herniorrhaphy R/L History of hysterectomy OVARIES History of surgery Right femoral artery thrombectomy with patch angioplasty-February 2018 Stented coronary artery Feb 2020 > [facility] > follows with Dr. De Leon Family History Brother Family history of diabetes mellitus Daughter Family history of diabetes mellitus Mother Family history of diabetes mellitus Myocardial infarction Family history of irritable bowel syndrome Father History of colon resection Prostate cancer Family history of diabetes mellitus Myocardial infarction Colorectal cancer Grandmother History of colon resection Other No family history of adverse response to anesthesia Denies family history of Ovarian cancer Breast cancer Social History Smoking Status: Former smoker Tobacco Type: Cigarettes Age Started Using Tobacco: 18; Age Quit Using Tobacco: 62; packs per day: 2; Cigarettes Per Day: 40; Second Hand Exposure: No; Hx Alcohol Use: No Hx Substance Use: No Preferred Language: Thai Communication Ability: Effective Visual Impairment: Diminished Hearing Ability: Hard of Hearing Visual Stylist Required: No Beliefs That Will Affect Care: None marital status: Current Living Situation: Family Current Living Situation Comment: Lives with daughter current occupational status: employed current occupation: [employer] How many Children do You have: 3 Feels Safe at Home: Yes Childhood Exposure to Second-Hand Smoke: Yes caffeine: Yes during the past year weight has: increased > 10 lbs Dental Care, Regularly: Yes Physical Activity Frequency: Daily Seatbelt Use: never Sunscreen Use: Yes Review of Systems A total of 10 systems reviewed and were otherwise negative Physical Exam Vital Signs Vital Signs - 24 hr 10/20/22 12:52 10/20/22 13:15 10/20/22 13:15 Temperature 37.0 C Temperature Source Temporal Artery Scan Pulse Rate 73 70 Pulse Rate [Right Apical] 70 Pulse Rate from SpO2 Sensor Respiratory Rate 18 18 18 Respiratory Rate [Exercises] Respiratory Effort / Characteristics Non-Labored Spontaneous Respiratory Depth Normal Normal Respiratory Pattern Regular Blood Pressure 162/75 H Blood Pressure [Left Arm] 186/85 H Blood Pressure Mean 104 Blood Pressure Mean [Left Arm] 118 Pulse Oximetry 96 98 98 Pulse Oximetry [Exercises] Oxygen Delivery Method Room Air Room Air Room Air Sepsis Recent Fever Within 48 Hours No Sepsis New/Unexplained Change in Mental Status No Sepsis Action Taken by Nursing No Action Required 10/20/22 13:21 10/20/22 13:36 10/20/22 14:00 Temperature Temperature Source Pulse Rate 72 70 70 Pulse Rate [Right Apical] Pulse Rate from SpO2 Sensor 71 69 Respiratory Rate 21 19 Respiratory Rate [Exercises] Respiratory Effort / Characteristics Respiratory Depth Respiratory Pattern Blood Pressure 176/86 H 167/121 H Blood Pressure [Left Arm] Blood Pressure Mean 116 136 Blood Pressure Mean [Left Arm] Pulse Oximetry 93 Pulse Oximetry [Exercises] Oxygen Delivery Method Room Air Sepsis Recent Fever Within 48 Hours Sepsis New/Unexplained Change in Mental Status Sepsis Action Taken by Nursing 10/20/22 14:30 10/20/22 15:29 10/20/22 15:30 Temperature Temperature Source Pulse Rate 71 71 69 Pulse Rate [Right Apical] Pulse Rate from SpO2 Sensor 71 70 70 Respiratory Rate 18 24 19 Respiratory Rate [Exercises] Respiratory Effort / Characteristics Respiratory Depth Respiratory Pattern Blood Pressure 165/96 H 171/113 H 143/85 H Blood Pressure [Left Arm] Blood Pressure Mean 119 132 104 Blood Pressure Mean [Left Arm] Pulse Oximetry 95 91 93 Pulse Oximetry [Exercises] Oxygen Delivery Method Room Air Room Air Room Air Sepsis Recent Fever Within 48 Hours Sepsis New/Unexplained Change in Mental Status Sepsis Action Taken by Nursing 10/20/22 16:22 10/20/22 16:18 10/20/22 17:19 Temperature Temperature Source Pulse Rate 76 74 Pulse Rate [Right Apical] Pulse Rate from SpO2 Sensor 75 Respiratory Rate 15 Respiratory Rate [Exercises] 18 Respiratory Effort / Characteristics Respiratory Depth Respiratory Pattern Blood Pressure 170/94 H Blood Pressure [Left Arm] Blood Pressure Mean 119 Blood Pressure Mean [Left Arm] Pulse Oximetry 95 Pulse Oximetry [Exercises] 97 Oxygen Delivery Method Room Air Room Air Sepsis Recent Fever Within 48 Hours Sepsis New/Unexplained Change in Mental Status Sepsis Action Taken by Nursing 10/20/22 16:31 10/20/22 17:26 10/20/22 18:13 Temperature Temperature Source Pulse Rate 71 73 Pulse Rate [Right Apical] Pulse Rate from SpO2 Sensor 71 78 74 Respiratory Rate 15 17 Respiratory Rate [Exercises] Respiratory Effort / Characteristics Respiratory Depth Respiratory Pattern Blood Pressure 168/85 H 169/93 H 176/80 H Blood Pressure [Left Arm] Blood Pressure Mean 112 118 112 Blood Pressure Mean [Left Arm] Pulse Oximetry 90 95 90 Pulse Oximetry [Exercises] Oxygen Delivery Method Room Air Room Air Room Air Sepsis Recent Fever Within 48 Hours Sepsis New/Unexplained Change in Mental Status Sepsis Action Taken by Nursing General: Well developed well nourished non-ill appearing older female who in no acute distress, breathing comfortably on room air. Normal speech HEENT: Normal cephalic atraumatic. Pupils are equal round and reactive to light. Extraocular movements are intact. Oropharynx is pink with moist mucous membranes. No swelling of the mouth lips or tongue. Neck: Supple with a midline trachea. No meningeal signs or stiffness, no JVD or bruits. No Stridor. Chest: Clear to auscultation bilaterally. No wheezes or rhonchi. No increased work of breathing. Heart: Regular rate and rhythm without murmurs or gallops. Abdomen: Soft nontender, nondistended without rebound guarding or rigidity. Extremities: No cyanosis clubbing or edema. No calf tenderness or assymetry Spine/Back. Non tender to palpation. No CVA tenderness Skin: Good turgor without rashes. Neurologic exam: Cranial nerves two through 12 are intact. Motor and sensation are intact and symmetrical throughout. Course Administered Medications Discontinued Medications Ioversol (Optiray 320 500ml) 88 ml IV ONCE ONE Stop: 10/20/22 14:46 Last Admin: 10/20/22 14:46 Dose: 88 ml Documented By: SHAHLA Medical Decision Making Differential Diagnosis Infection, pneumonia, sepsis, COPD exacerbation, sarcoid, pneumothorax, PE, cardiac disease, electrolyte or metabolic abnormality Medical Records Attestation: I reviewed the patient's medical records. Home Medications Current Medication List: was personally reviewed by me Laboratory Data Attestation: I reviewed the patient's lab results. 10/20/22 13:16 10/20/22 13:16 Lab Results 10/20/22 10/20/22 10/20/22 Range/Units 13:16 13:16 13:16 WBC 8.12 (4.8-10.8) K/ul RBC 4.19 L (4.20-5.40) M/uL Hgb 10.4 L (12.0-16.0) g/dl Hct 34.1 L (37.0-47.0) % MCV 81.4 (80.0-100.0) fL MCH 24.8 L (25.0-34.0) pg MCHC 30.5 L (32.0-36.0) g/dL RDW Std Deviation 44.5 (36.4-46.3) fL RDW Coeff of Nicole 15.0 H (11.5-14.5) % Plt Count 230 (130-400) K/uL MPV 10.3 (9.4-12.4) fL Immature Gran % (Auto) 0.2 % Neut % (Auto) 53.6 % Lymph % (Auto) 31.3 % [place] % (Auto) 9.0 % Eos % (Auto) 5.4 % Baso % (Auto) 0.5 % Neut # (Auto) 4.35 (1.40-6.50) K/uL Lymph # (Auto) 2.54 (1.2-3.4) K/uL [place] # (Auto) 0.73 H (0.11-0.59) K/uL Eos # (Auto) 0.44 (0-0.50) K/uL Baso # (Auto) 0.04 (0-0.2) K/uL Immature Gran # (Auto) 0.02 (0.01-0.20) K/uL D-Dimer (0-500) ug/L FEU Carboxyhemoglobin % THgb Methemoglobin (0.0-1.5) % Sodium 136 (136-145) mmol/L Potassium 4.7 (3.5-5.1) mmol/L Chloride 99 (98-107) mmol/L Carbon Dioxide 31 (21-32) mmol/L Anion Gap 6 (3-11) BUN 28 H (6-23) mg/dl Creatinine 1.41 H (0.6-1.2) mg/dl Est Cr Clr Drug Dosing Not Reportable Est GFR ( Amer) 43.6 ml/min Est GFR (Non-Af Amer) 37.6 ml/min BUN/Creatinine Ratio 19.9 (10-20) Glucose 257 H (70-99(Fasting)) mg/dl Calcium 9.7 (8.6-10.3) mg/dl Total Bilirubin 0.3 (0.2-1.0) mg/dl AST 26 (13-39) U/L ALT 21 (7-52) U/L Alkaline Phosphatase 66 (34-104) U/L Troponin I High Sens 5.8 (0-14) pg/ml B-Natriuretic Peptide 181 H (0-100) pg/ml Total Protein 8.0 (6.0-8.3) gm/dl Albumin 4.0 (3.4-5.0) gm/dl Globulin 4.0 (2.5-4.0) gm/dl Albumin/Globulin Ratio 1.0 (0.9-2) Lipase 76 (11-82) U/L Adenovirus (PCR) (NotDetected) B. pertussis DNA (PCR) (NotDetected) B.parapertussis DNA PCR (NotDetected) C. pneumoniae DNA (PCR) (NotDetected) Coronavirus OC43 (PCR) (NotDetected) Coronavirus HKU1 (PCR) (NotDetected) Coronavirus 229E (PCR) (NotDetected) SARS-CoV-2 (PCR) (NotDetected) Coronavirus NL63 (PCR) (NotDetected) Human Metapneumovir PCR (NotDetected) Influenza Type A (PCR) (NotDetected) Influenza Type B (PCR) (NotDetected) M. pneumoniae (PCR) (NotDetected) Parainfluenza 1 (PCR) (NotDetected) Parainfluenza 2 (PCR) (NotDetected) Parainfluenza 3 (PCR) (NotDetected) Parainfluenza 4 (PCR) (NotDetected) RSV (PCR) (NotDetected) Entero/Rhino (PCR) (NotDetected) 10/20/22 10/20/22 10/20/22 Range/Units 13:18 15:29 17:39 WBC (4.8-10.8) K/ul RBC (4.20-5.40) M/uL Hgb (12.0-16.0) g/dl Hct (37.0-47.0) % MCV (80.0-100.0) fL MCH (25.0-34.0) pg MCHC (32.0-36.0) g/dL RDW Std Deviation (36.4-46.3) fL RDW Coeff of Nicole (11.5-14.5) % Plt Count (130-400) K/uL MPV (9.4-12.4) fL Immature Gran % (Auto) % Neut % (Auto) % Lymph % (Auto) % [place] % (Auto) % Eos % (Auto) % Baso % (Auto) % Neut # (Auto) (1.40-6.50) K/uL Lymph # (Auto) (1.2-3.4) K/uL [place] # (Auto) (0.11-0.59) K/uL Eos # (Auto) (0-0.50) K/uL Baso # (Auto) (0-0.2) K/uL Immature Gran # (Auto) (0.01-0.20) K/uL D-Dimer 3350 H* (0-500) ug/L FEU Carboxyhemoglobin 0.8 % THgb Methemoglobin < 0.7 (0.0-1.5) % Sodium (136-145) mmol/L Potassium (3.5-5.1) mmol/L Chloride (98-107) mmol/L Carbon Dioxide (21-32) mmol/L Anion Gap (3-11) BUN (6-23) mg/dl Creatinine (0.6-1.2) mg/dl Est Cr Clr Drug Dosing Est GFR ( Amer) ml/min Est GFR (Non-Af Amer) ml/min BUN/Creatinine Ratio (10-20) Glucose (70-99(Fasting)) mg/dl Calcium (8.6-10.3) mg/dl Total Bilirubin (0.2-1.0) mg/dl AST (13-39) U/L ALT (7-52) U/L Alkaline Phosphatase (34-104) U/L Troponin I High Sens (0-14) pg/ml B-Natriuretic Peptide (0-100) pg/ml Total Protein (6.0-8.3) gm/dl Albumin (3.4-5.0) gm/dl Globulin (2.5-4.0) gm/dl Albumin/Globulin Ratio (0.9-2) Lipase (11-82) U/L Adenovirus (PCR) Not Detected (NotDetected) B. pertussis DNA (PCR) Not Detected (NotDetected) B.parapertussis DNA PCR Not Detected (NotDetected) C. pneumoniae DNA (PCR) Not Detected (NotDetected) Coronavirus OC43 (PCR) Not Detected (NotDetected) Coronavirus HKU1 (PCR) Not Detected (NotDetected) Coronavirus 229E (PCR) Not Detected (NotDetected) SARS-CoV-2 (PCR) Not Detected (NotDetected) Coronavirus NL63 (PCR) Not Detected (NotDetected) Human Metapneumovir PCR Not Detected (NotDetected) Influenza Type A (PCR) Not Detected (NotDetected) Influenza Type B (PCR) Not Detected (NotDetected) M. pneumoniae (PCR) Not Detected (NotDetected) Parainfluenza 1 (PCR) Not Detected (NotDetected) Parainfluenza 2 (PCR) Not Detected (NotDetected) Parainfluenza 3 (PCR) Not Detected (NotDetected) Parainfluenza 4 (PCR) Not Detected (NotDetected) RSV (PCR) Not Detected (NotDetected) Entero/Rhino (PCR) Not Detected (NotDetected) Imaging Data Attestation: I personally reviewed and interpreted this imaging study as follows: My Impression: Chest x-ray -no acute infiltrate, failure, pneumothorax seen upon my interpretation Radiologist's Impression: Chest X-Ray 10/20/22 13:14 XR chest 1V portable HISTORY: Abnormal blood pressure. Chest pain, nonspecific COMPARISON: Chest 02/07/2022. FINDINGS: No pneumothorax. No pleural effusions. There are low lung volumes. The cardiac silhouette remains top normal in size. Mild interstitial thickening persists and is likely chronic. No new focal lung consolidations to suggest a pneumonia. No evidence for pulmonary edema. IMPRESSION: No significant change compared to the prior study. No acute process. Stable mild chronic interstitial thickening. ACT 112: Negative or not required by law. Electronically signed by: Michael Jones M.D. 10/20/2022 1:41 PM Chest CTA 10/20/22 14:22 CT angio chest PE protocol CLINICAL HISTORY: PE TECHNIQUE: Multidetector row helical CT of the chest was performed with angiographic protocol. Coronal and sagittal reformations were obtained. Coronal and sagittal MIPS were obtained from the axial data set and were submitted for review. Automated dose lowering techniques and/or adjustment according to patient size were utilized for this exam. CT DOSE: 379.91 mGy.cm Comparison: Comparison is made to CT thorax 12/04/2020 and chest radiograph 10/20 FINDINGS: Lungs and pleura: Mild interstitial thickening is again seen. Heart and pericardium: Heart size is normal. No pericardial effusion. Vessels: No evidence of pulmonary embolism. Mediastinum and viola: Scattered partially calcified lymph nodes are seen. Chest wall and lower neck: Unremarkable. Abdomen: Partial fusion of nodular contour of the liver. Patient is status post cholecystectomy. Bones: Degenerative changes in the thoracic spine. IMPRESSION: 1. No pulmonary embolus is seen. 2. Redemonstration of fibrotic changes. 3. Calcified mediastinal nodules compatible with chronic granulomatous disease. 4. Partial visualization of cirrhosis. ACT 112: Negative or not required by law. Electronically signed by: Esteban Gonzalez M.D. 10/20/2022 3:02 PM ECG Data Attestation: I personally reviewed and interpreted this ECG as follows: Indication: + SOB/dyspnea Rate (beats per minute): 67 Rhythm: + normal sinus ECG Intervals/blocks: + Normal QRS, + Normal QT and + Normal MN ECG Tina: + Normal ECG ST segments: + Normal ST segments ECG Findings: no PACs or no PVCs Comparison ECG Date: from (02/07/22) Change: no significant change MDM Narrative This patient comes in as described above. She was placed on a track worker in room C11. She has had shortness of breath and hypoxemia she was discharged from [facility] yesterday called her doctor's office to make an appointment and they sent her here because she told him she was hypoxemic at home. I have reviewed the records she had from the outside hospital. She looks well at rest but says when she walks she gets very tired. EKG does not suggest ischemia. Troponin was negative. D-dimer was significantly elevated in light of this I did a CT angiogram there is no evidence of PE. Chest x-ray is unremarkable. Bio fire was unremarkable. She has no white count or fever to suggest infection. She has no significant electrolyte or metabolic abnormalities besides baseline mild renal insufficiency. I did have them do an ambulatory trial her O2 sat was 96% while she was walking and she seemed to be doing okay when I checked her little bit later her O2 sat was 86% with a good waveform some concerned about her hypoxemia. She does not wear oxygen at home. Her bio fire was negative for COVID no other pathogens. Given her hypoxemia this seems to be intermittent and potentially exertional I do think she needs to be admitted/observed. I will consult Dr. Rogers to see her in the ER for these measures. Continuous cardiac monitoring: Orders placed in EMR for continuous cardiac monitoring. Turpin interpretation patient to be in normal sinus rhythm rate of 73 Impression & Plan Hypoxemia, Lab test negative for COVID-19 virus, SOB (shortness of breath), D- dimer, elevated, Chronic renal insufficiency Discharge Plan Visit Data Chief Complaint: Referred by Doctor Stated Complaint: REF BY DOC,TROUBLE BREATHING,IRREGULAR BP ED Provider: Omar Pierre Discharge Problem: Hypoxemia, Lab test negative for COVID-19 virus, SOB (shortness of breath), D- dimer, elevated, Chronic renal insufficiency Forms Stand Alone Forms: My [facility] Prescriptions Prescriptions: No Action furosemide [Lasix] 40 mg Tablet 40 mg PO DAILY latanoprost 0.005 % drops 1 drp ophthalmic (eye) HS levothyroxine 175 mcg tablet 175 mcg PO DAILY atorvastatin 80 mg tablet 80 mg PO HS trazodone 50 mg Tablet 50 mg PO HS sucralfate 1 gram Tablet 1 g PO ACHS ondansetron HCl 4 mg Tablet 4 mg PO Q6H PRN (Reason: Nausea) aspirin [Aspir-Low] 81 mg Tablet,Delayed Release (Dr/Ec) 81 mg PO DAILY lorazepam 0.5 mg Tablet 0.5 mg PO Q12 PRN (Reason: Anxiety) cyanocobalamin (vitamin B-12) [Vitamin B-12] 500 mcg tablet 1,000 mcg PO DAILY benzonatate 100 mg Capsule 100 mg PO TID PRN (Reason: Cough) pantoprazole 40 mg tablet,delayed release (DR/EC) 40 mg PO BID losartan 25 mg tablet 25 mg PO DAILY sertraline 25 mg tablet 25 mg PO DAILY metoprolol succinate 25 mg tablet extended release 24 hr 25 mg PO DAILY cholecalciferol (vitamin D3) [Vitamin D3] 50 mcg (2,000 unit) Tablet 50 mcg PO DAILY fluticasone furoate-vilanterol [Breo Ellipta] 100-25 mcg/dose Blister With Device 1 inh INHALATION DAILY Aimovig Autoinjector 70 mg/mL auto-injector 70 mg SUBCUT .[id number] insulin asp prt-insulin aspart [Novolog Mix 70-30FlexPen U-100] 100 unit/mL (70-30) insulin pen 30 unit SUBCUT BID Referrals Referrals: Vu De Paz III, CRNP [Primary Care Provider] -
--- NOTE | 2022-10-20 13:43 | XRay Report ---
XR chest 1V portable HISTORY: Abnormal blood pressure. Chest pain, nonspecific COMPARISON: Chest 02/07/2022. FINDINGS: No pneumothorax. No pleural effusions. There are low lung volumes. The cardiac silhouette r emains top normal in size. Mild interstitial thickening persists and is likely chronic. No new focal lung consolidations to suggest a pneumonia. No evidence for pulmonary edema. IMPRESSION: No significant change compared to the prior study. No acute process. Stable mild chronic interstitial thickening. ACT 112: Negative or not required by law. Electronically signed by: Michael Jones M.D. 10/20/2022 1:41 PM
[2022-10-20 13:52] LABS: Basophils # (auto) 0.04 K/uL (0-0.2); Basophils % (auto) 0.5 %; Eosinophils # (auto) 0.44 K/uL (0-0.50); Eosinophils % (auto) 5.4 %; Hematocrit (blood only) 34.1 % (37.0-47.0); Hemoglobin 10.4 g/dl (12.0-16.0); Immature Granulocytes # (auto) 0.02 K/uL (0.01-0.20); Immature Granulocytes % (auto) 0.2 %; Lymphocytes # (auto) 2.54 K/uL (1.2-3.4); Lymphocytes % (auto) 31.3 %; Mean Corpuscular Hemoglobin 24.8 pg (25.0-34.0); Mean Corpuscular Hgb Conc 30.5 g/dL (32.0-36.0); Mean Corpuscular Volume 81.4 fL (80.0-100.0); Mean Platelet Volume 10.3 fL (9.4-12.4); Monocytes # (auto) 0.73 K/uL (0.11-0.59); Neutrophils # (auto) 4.35 K/uL (1.40-6.50); Neutrophils % (auto) 53.6 %; Platelet Count 230 K/uL (130-400); RDW Standard Deviation 44.5 fL (36.4-46.3); Red Blood Count 4.19 M/uL (4.20-5.40); White Blood Count 8.12 K/ul (4.8-10.8)
[2022-10-20 14:08] LABS: D Dimer 3350 ug/L FEU (0-500)
[2022-10-20 14:14] LABS: Anion Gap 6 (3-11); Bilirubin,Total 0.3 mg/dl (0.2-1.0); Calcium 9.7 mg/dl (8.6-10.3); Carbon Dioxide 31 mmol/L (21-32); Chloride 99 mmol/L (98-107); Potassium 4.7 mmol/L (3.5-5.1); Sodium 136 mmol/L (136-145)
[2022-10-20 14:20] LABS: Alanine Aminotransferase 21 U/L (7-52); Alkaline Phosphatase 66 U/L (34-104); Aspartate Aminotransferase 26 U/L (13-39); BUN Creatinine Ratio 19.9 (10-20); Blood Urea Nitrogen 28 mg/dl (6-23); Est GFR (African American) 43.6 ml/min; Est GFR (Non-African American) 37.6 ml/min; Glucose 257 mg/dl (70-99(Fasting)); Lipase 76 U/L (11-82)
--- NOTE | 2022-10-20 14:20 | Electrocardiogram Report ---
Test Reason : Blood Pressure : / mmHG Vent. Rate : 067 BPM Atrial Rate : 067 BPM P-R Int : 174 ms QRS Dur : 078 ms QT Int : 390 ms P-R-T Axes : 045 -25 075 degrees QTc Int : 412 ms Poor data quality, interpretation may be adversely affected Normal sinus rhythm Anterior infarct (cited on or before 07-FEB-2022) Abnormal ECG When compared with ECG of 07-FEB-2022 14:18, No significant change was found Confirmed by Marshall Henderson ([id number]) on 10/20/2022 2:20:42 PM Referred By: Vu De Paz Confirmed By:Jerome Henderson
[2022-10-20 14:26] LABS: Troponin I High Sensitivity 5.8 pg/ml (0-14)
[2022-10-20] MEDS ORDERED: OPTIRAY 320 500ml IV ONE (14:45)
--- NOTE | 2022-10-20 15:05 | CT Scan Report ---
CT angio chest PE protocol CLINICAL HISTORY: PE TECHNIQUE: Multidetector row helical CT of the chest was performed with angiographic protocol. Chamberlain l and sagittal reformations were obtained. Coronal and sagittal MIPS were obtained from the axial vikas a set and were submitted for review. Automated dose lowering techniques and/or adjustment according to patient size were utilized for this exam. CT DOSE: 379.91 mGy.cm Comparison: Comparison is made to CT thorax 12/04/2020 and chest radiograph 10/20/2022 FINDINGS: Lungs and pleura: Mild interstitial thickening is again seen. Heart and pericardium: Heart size is normal. No pericardial effusion. Vessels: No evidence of pulmonary embolism. Mediastinum and viola: Scattered partially calcified lymph nodes are seen. Chest wall and lower neck: Unremarkable. Abdomen: Partial fusion of nodular contour of the liver. Patient is status post cholecystectomy. Bones: Degenerative changes in the thoracic spine. IMPRESSION: 1. No pulmonary embolus is seen. 2. Redemonstration of fibrotic changes. 3. Calcified mediastinal nodules compatible with chronic granulomatous disease. 4. Partial visualization of cirrhosis. ACT 112: Negative or not required by law. Electronically signed by: Esteban Gonzalze M.D. 10/20/2022 3:02 PM
[2022-10-20 16:48] LABS: Adenovirus PCR Not Detected (NotDetected); Bordetella parapertussis PCR Not Detected (NotDetected); Bordetella pertussis PCR Not Detected (NotDetected); Chlamydia pneumoniae PCR Not Detected (NotDetected); Coronavirus 229E PCR Not Detected (NotDetected); Coronavirus CoV-2 (COVID19)PCR Not Detected (NotDetected); Coronavirus HKU1 PCR Not Detected (NotDetected); Coronavirus NL63 PCR Not Detected (NotDetected); Coronavirus OC43PCR Not Detected (NotDetected); Human Metapneumovirus PCR Not Detected (NotDetected); Influenza A PCR Not Detected (NotDetected); Influenza B PCR Not Detected (NotDetected); Mycoplasma pneumoniae PCR Not Detected (NotDetected); Parainfluenza Virus 1 PCR Not Detected (NotDetected); Parainfluenza Virus 2 PCR Not Detected (NotDetected); Parainfluenza Virus 3 PCR Not Detected (NotDetected); Parainfluenza Virus 4 PCR Not Detected (NotDetected); Respiratory Syncytial VirusPCR Not Detected (NotDetected); Rhinovirus/Enterovirus PCR Not Detected (NotDetected)
[2022-10-20 17:54] LABS: Carboxyhemoglobin 0.8 % THgb; Methemoglobin < 0.7 % (0.0-1.5)
--- NOTE | 2022-10-20 18:16 | History & Physical Report ---
Date of Service October 20, 2022 Assessment & Plan (1) Hypoxemia: Plan: Suspect we are picking up hypoxia in finger tips due to Raynauds. Please use forehead for ongoing O2 sats to determine if she is truly hypoxic. If O2 sats low with forehead monitor consider pulmonology consult. Carboxyhemoglobin and methemoglobin levels normal. If forehead monitor continues to show intermitted hypoxia on room air at rest will consult pulmonology given history of sarcoidosis and elevated ESR. (2) Pre-syncope: Plan: Suspect orthostasis since restarting on losartan by nephrology in July although given multiple hospitalization at outside hospitals it is difficult to put a timeline of medications together. Her hypoxia does not appear to match when she is symptomatic therefore suspect her symptoms more down to her BP rather than hypoxia. Will stop this and observe for continued orthostasis as also previously on a lower dose of Lasix. I am unclear when or why she was switched from Bumex to Lasix or from Lasix 20mg to 40mg but liekly she can also go back down on this. Consider clonidine as needed if sBP sustains > 200 (3) Raynaud disease: Plan: Consider stopping metoprolol if able for BP Will stop losartan given clinical correlation with symptoms currently (4) (HFpEF) heart failure with preserved ejection fraction: Plan: Continue her usual dose of Lasix 40mg PO daily (5) Sarcoidosis: Plan: ESR/CRP (6) Sleep apnea: Plan: CPAP HS (7) Hypothyroidism: Plan: TSH WNL October 06 - very variable prior to this Continue her usual levothyroxine dosing on home med list (8) Hypertension: Plan: Continue lasix and metoprolol (9) GERD (gastroesophageal reflux disease): Plan: Stable Continue pantoprazole 40mg PO BID (10) Diabetes: Plan: HbA1C 11.4 Hold metofmrin and Januvia On Novolog 70/30 mix 30 units BID at home Will utilize previous doses of Lantua and Novolog here: Lantus 25 units BID Novolog: --Goal BSG Range: Low 110 mg/dL, High 140 mg/dL --Correction Factor: 15mg/dL/unit --Carbohydrate ratio = 5 g/unit --BSGs ACHS if eating, q6h if npo (11) Depression: Plan: Continue Zoloft Plan VTE Prophylaxis - deferred on admission Diet - T2DM Disposition - observation status to med/tele Admission and Anticipated Discharge Date Admission Date: October 20, 2022 History of Present Illness Chief Complaint: Shortness of breath on exertion, Presyncope, hypoxia Primary Care Provider: Vu De Paz, MOE, VIPUL Aleksandra Dodd is a 72 year old female who presents to the ER on the advice of her PCP due to low oxygen saturations at home. She was recently admitted to [facility] followed by [facility] for similar symptoms. Her admission to [facility] was promted by a syncopal episode. Her admission to [facility] was prompted more by shortness of breath on exertion with hypoxia. She had extensive workup including V/Q scan and echocardiogram at [facility] which did not show a cause of her shortness of breath and hypoxia. 2 step on discharge day showed she did not require oxygen therefore she was sent home without any. She was due to follow up with her PCP today but noticed her O2 sats went down to 70% on room air therefore was advised to home to the ER for further evaluation. She denies any fever, chills, nasal congestion, new cough, chest pain, abdominal pain. She reports slow progressive worsening shortness of breath on exertion and orthostasis on standing and exertion over the last 2 months. She feels like no one can figure out what is going on. In the ER O2 sats at times are 96% on room air. I ambulated her around the room and she became heavily symptomatic with presyncope and diaphoresis and on repeat O2 sats following this she remained with O2 sats 94% on room air. However with good wave form there was no denying at times her O2 sats persistently remained at times 84% at rest. Allergies Allergy/AdvReac Type Severity Reaction Status Date / Time No Known Allergies Allergy Verified 10/20/22 15:42 Home Medications Medication Instructions Recorded Confirmed Type aspirin 81 mg tablet,delayed 81 mg PO DAILY 10/20/22 10/20/22 History release atorvastatin 80 mg tablet 80 mg PO HS 10/20/22 10/20/22 History benzonatate 100 mg capsule 100 mg PO TID PRN Cough 10/20/22 10/20/22 History cholecalciferol (vitamin D3) 50 50 mcg PO DAILY 10/20/22 10/20/22 History mcg (2,000 unit) tablet (Vitamin D3) cyanocobalamin (vitamin B-12) 500 1,000 mcg PO DAILY 10/20/22 10/20/22 History mcg tablet (Vitamin B-12) erenumab-aooe 70 mg/mL 70 mg subcut .[id number] 10/20/22 10/20/22 History subcutaneous auto-injector (Aimovig Autoinjector) ezetimibe 10 mg tablet 10 mg PO HS 10/20/22 10/20/22 History fluticasone furoate 100 1 inh inhalation DAILY 10/20/22 10/20/22 History mcg-vilanterol 25 mcg/dose inhalation powder (Breo Ellipta) furosemide 40 mg tablet (Lasix) 40 mg PO DAILY 10/20/22 10/20/22 History insulin aspar prot-insulin aspart 30 unit subcut BID 10/20/22 10/20/22 History 100 unit/mL (70-30) subcutaneous pen (Novolog Mix 70-30FlexPen U-100) latanoprost 0.005 % eye drops 1 drp ophthalmic (eye) HS 10/20/22 10/20/22 History levothyroxine 150 mcg tablet 150 mcg PO Q2D 10/20/22 10/20/22 History levothyroxine 175 mcg tablet 175 mcg PO Q2D 10/20/22 10/20/22 History lorazepam 0.5 mg tablet 0.5 mg PO Q12 PRN Anxiety 10/20/22 10/20/22 History losartan 25 mg tablet 25 mg PO DAILY 10/20/22 10/20/22 History metoprolol succinate 25 mg 25 mg PO DAILY 10/20/22 10/20/22 History tablet,extended release 24 hr ondansetron HCl 4 mg tablet 4 mg PO Q6H PRN Nausea 10/20/22 10/20/22 History pantoprazole 40 mg tablet,delayed 40 mg PO BID 10/20/22 10/20/22 History release sertraline 25 mg tablet 25 mg PO DAILY 10/20/22 10/20/22 History sitagliptin phosphate 50 mg tablet 50 mg PO QAM 10/20/22 10/20/22 History (Januvia) sucralfate 1 gram tablet 1 g PO ACHS 10/20/22 10/20/22 History trazodone 50 mg tablet 50 mg PO HS 10/20/22 10/20/22 History Past Med/Surg History Medical History Acute on chronic diastolic CHF (congestive heart failure) Anemia HX Angina pectoris, crescendo Anxiety Chronic kidney disease Chronic obstructive pulmonary disease well controlled per pt> no inhalers Cirrhosis, non-alcoholic Compartment syndrome of lower extremity, traumatic resolved Depression Diabetes mellitus, type 2 IDDM 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 Dyspnea on exertion Edema all over per pt > related to thyroid problems per pt GERD (gastroesophageal reflux disease) Glaucoma Hiatal hernia Hx of deep venous thrombosis R LEG following cath in 2018 Hyperlipidemia Hypertension Hypothyroidism Migraine Myocardial Infarction HX 2011 Osteoarthritis Sarcoidosis Shortness of breath Sleep apnea CPAP HS Transient ischemic attack (TIA) last one 2018> has had several per pt HX PAST YR-F/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 NAME?-[facility] R LEG/ARM Surgical History H/O lymph node excision NECK -BENIGN H/O neck surgery WITH BONE FUSION> ROM WNL History of appendectomy History of cardiac cath X 3-LAST ON 02/2020 1 stent placed History of carpal tunnel release RIGHT History of section X 3 History of cholecystectomy History of colonoscopy History of esophagogastroduodenoscopy (EGD) History of fasciotomy FASCIOTOMY FOR COMPARTMENT SYNDROME RLE History of herniorrhaphy R/L History of hysterectomy OVARIES History of surgery Right femoral artery thrombectomy with patch angioplasty-February 2018 Stented coronary artery Feb 2020 > [facility] > follows with Dr. De Leon Family History Brother Family history of diabetes mellitus Daughter Family history of diabetes mellitus Mother Family history of diabetes mellitus Myocardial infarction Family history of irritable bowel syndrome Father History of colon resection Prostate cancer Family history of diabetes mellitus Myocardial infarction Colorectal cancer Grandmother History of colon resection Other No family history of adverse response to anesthesia Denies family history of Ovarian cancer Breast cancer Social History Smoking Status: Former smoker Tobacco Type: Cigarettes Age Started Using Tobacco: 18; Age Quit Using Tobacco: 62; packs per day: 2; Cigarettes Per Day: 40; Second Hand Exposure: No; Hx Alcohol Use: No Hx Substance Use: No Preferred Language: [place] Communication Ability: Effective Visual Impairment: Diminished Hearing Ability: Hard of Hearing Systems Applications Programming Lead Required: No Beliefs That Will Affect Care: None marital status: Current Living Situation: Family Current Living Situation Comment: Lives with daughter current occupational status: employed current occupation: [employer] How many Children do You have: 3 Feels Safe at Home: Yes Childhood Exposure to Second-Hand Smoke: Yes caffeine: Yes during the past year weight has: increased > 10 lbs Dental Care, Regularly: Yes Physical Activity Frequency: Daily Seatbelt Use: never Sunscreen Use: Yes Assistive Devices: CPAP and Glasses Review of Systems Review of Systems: All systems reviewed & are unremarkable except as noted in HPI & below Physical Exam Constitutional: WD/WN, vitals as above Eyes: PERRL, conjunctivae normal, anicteric sclerae ENMT: external ear and nose normal, oropharynx normal Neck: trachea midline, no thyromegaly Respiratory: normal respiratory effort, lungs clear to auscultation Cardiovascular: RRR, no murmur, no edema Gastrointestinal (Abdomen): normal bowel sounds, soft, nontender, no hepatosplenomegaly Musculoskeletal: no cyanosis or clubbing, extremities motor strength 5/5 Skin: no rashes, warm and dry Neurologic: moves all extremities and awake; not confused Psychiatric: A+Ox3, euthymic affect Results & Data Results & Data Vital Signs (Past 12 Hours) Vital Signs Temp Pulse Pulse Resp Resp BP BP 10/20/22 17:26 169/93 H 10/20/22 16:31 71 15 168/85 H 10/20/22 17:19 74 10/20/22 16:18 76 15 170/94 H 10/20/22 16:22 18 10/20/22 15:30 69 19 143/85 H 10/20/22 15:29 71 24 171/113 H 10/20/22 14:30 71 18 165/96 H 10/20/22 14:00 70 19 167/121 H 10/20/22 13:36 70 21 176/86 H 10/20/22 13:21 72 10/20/22 13:15 70 18 10/20/22 13:15 70 18 186/85 H 10/20/22 12:52 37.0 C 73 18 162/75 H Pulse Ox Pulse Ox O2 Del Method 10/20/22 17:26 95 Room Air 10/20/22 16:31 90 Room Air 10/20/22 17:19 10/20/22 16:18 95 Room Air 10/20/22 16:22 97 Room Air 10/20/22 15:30 93 Room Air 10/20/22 15:29 91 Room Air 10/20/22 14:30 95 Room Air 10/20/22 14:00 10/20/22 13:36 93 Room Air 10/20/22 13:21 10/20/22 13:15 98 Room Air 10/20/22 13:15 98 Room Air 10/20/22 12:52 96 Room Air Laboratory Results Abnormal lab results 10/20/22 10/20/22 10/20/22 Range/Units 13:16 13:16 13:16 RBC 4.19 L (4.20-5.40) M/uL Hgb 10.4 L (12.0-16.0) g/dl Hct 34.1 L (37.0-47.0) % MCH 24.8 L (25.0-34.0) pg MCHC 30.5 L (32.0-36.0) g/dL RDW Coeff of Nicole 15.0 H (11.5-14.5) % [place] # (Auto) 0.73 H (0.11-0.59) K/uL ESR (0-30) mm/hr D-Dimer (0-500) ug/L FEU BUN 28 H (6-23) mg/dl Creatinine 1.41 H (0.6-1.2) mg/dl Glucose 257 H (70-99(Fasting)) mg/dl POC Glucose (70-99) mg/dl B-Natriuretic Peptide 181 H (0-100) pg/ml 10/20/22 10/20/22 10/20/22 Range/Units 13:18 20:51 21:26 RBC (4.20-5.40) M/uL Hgb (12.0-16.0) g/dl Hct (37.0-47.0) % MCH (25.0-34.0) pg MCHC (32.0-36.0) g/dL RDW Coeff of Nicole (11.5-14.5) % [place] # (Auto) (0.11-0.59) K/uL ESR 98 H (0-30) mm/hr D-Dimer 3350 H* (0-500) ug/L FEU BUN (6-23) mg/dl Creatinine (0.6-1.2) mg/dl Glucose (70-99(Fasting)) mg/dl POC Glucose 188 H (70-99) mg/dl B-Natriuretic Peptide (0-100) pg/ml Diagnostic Findings XR chest 1V portable HISTORY: Abnormal blood pressure. Chest pain, nonspecific COMPARISON: Chest 02/07/2022. FINDINGS: No pneumothorax. No pleural effusions. There are low lung volumes. The cardiac silhouette remains top normal in size. Mild interstitial thickening persists and is likely chronic. No new focal lung consolidations to suggest a pneumonia. No evidence for pulmonary edema. IMPRESSION: No significant change compared to the prior study. No acute process. Stable mild chronic interstitial thickening. CT angio chest PE protocol CLINICAL HISTORY: PE TECHNIQUE: Multidetector row helical CT of the chest was performed with angiographic protocol. Coronal and sagittal reformations were obtained. Coronal and sagittal MIPS were obtained from the axial data set and were submitted for review. Automated dose lowering techniques and/or adjustment according to patient size were utilized for this exam. CT DOSE: 379.91 mGy.cm Comparison: Comparison is made to CT thorax 12/04/2020 and chest radiograph 10/20/2022 FINDINGS: Lungs and pleura: Mild interstitial thickening is again seen. Heart and pericardium: Heart size is normal. No pericardial effusion. Vessels: No evidence of pulmonary embolism. Mediastinum and viola: Scattered partially calcified lymph nodes are seen. Chest wall and lower neck: Unremarkable. Abdomen: Partial fusion of nodular contour of the liver. Patient is status post cholecystectomy. Bones: Degenerative changes in the thoracic spine. IMPRESSION: 1. No pulmonary embolus is seen. 2. Redemonstration of fibrotic changes. 3. Calcified mediastinal nodules compatible with chronic granulomatous disease. 4. Partial visualization of cirrhosis. Medications Administered ER Medications Given: None ECG Rate (beats per minute): 67 Rhythm: normal sinus Findings: no acute ischemic change Comparison ECG Date: from (February 07, 2022) Change: no significant change Code Status & VTE Plan Code Status DNR/DNI per patient wishes VTE Prophylaxis Plan VTE Prophylaxis will be ordered: No PG Care Time/CCT Total # of Minutes Spent Total Time Spent with Patient: Total time spent is greater than 50% in coordination of care (as documented) at patient's floor/unit and/or counseling patient: Coding Level of Care Code 29785 INT INP/OBS CARE MIN Diagnoses Hypoxemia R09.02 Pre-syncope R55 Raynaud disease I73.00 (HFpEF) heart failure with preserved ejection fraction I50.30 Sarcoidosis D86.9 Sleep apnea G47.30 Sleep apnea type: unspecified type Hypothyroidism E03.9 Hypothyroidism type: unspecified Hypertension I10 Hypertension type: unspecified GERD (gastroesophageal reflux disease) K21.9 Diabetes E11.9; Z79.4 Diabetes mellitus complication status: without complication 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 insulin use: with custodial use Diabetes mellitus type: type 2 Depression F32.9 Active/Remission status: remission status unspecified Depression Type: major depressive disorder Major depression recurrence: unspecified whether recurrent (6) Sleep apnea Sleep apnea type: unspecified type Qualified Code(s): G47.30 - Sleep apnea, unspecified (7) Hypothyroidism Hypothyroidism type: unspecified Qualified Code(s): E03.9 - Hypothyroidism, unspecified (8) Hypertension Hypertension type: unspecified Qualified Code(s): I10 - Essential (primary) hypertension (10) Diabetes Diabetes mellitus complication status: without complication Diabetes mellitus custodial insulin use: with ferry terminal supervisor use Diabetes mellitus type: type 2 Qualified Code(s): E11.9 - Type 2 diabetes mellitus without complications; Z79.4 - alf (current) use of insulin (11) Depression Active/Remission status: remission status unspecified Depression Type: major depressive disorder Major depression recurrence: unspecified whether recurrent Qualified Code(s): F32.9 - Major depressive disorder, single episode, unspecified
[2022-10-20] MEDS ORDERED: ACETAMINOPHEN 325 MG TAB PO PRN (22:04)
[2022-10-20] MEDS: PANTOprazole 40 MG TAB PO SCH (23:44)
[2022-10-20] MEDS: LATANOPROST 0.005% OP SOLN 2.5 ML BTL OP SCH (23:44)
[2022-10-20] MEDS: SUCRALFATE 1 GM TAB PO SCH (23:44)
[2022-10-20] MEDS: Patient's HEIGHT &/or WEIGHT Needed SCH ×2 (23:44→23:45)
[2022-10-20] MEDS: ATORVASTATIN 40 MG TAB PO SCH (23:44)
[2022-10-20] MEDS: traZODone HCL 50 MG TAB PO SCH (23:44)
[2022-10-21] MEDS: Patient's HEIGHT &/or WEIGHT Needed SCH ×3 (03:01→06:22)
[2022-10-21] MEDS: SUCRALFATE 1 GM TAB PO SCH ×4 (06:23→20:12)
[2022-10-21] MEDS ORDERED: LEVOTHYROXINE SODIUM 150 MCG TABLET PO SCH (06:30)
[2022-10-21] MEDS ORDERED: CARBOHYDRATES FOR HYPOGLYCEMIA PO PRN (06:58)
[2022-10-21] MEDS ORDERED: PHARMACY GLYCEMIC MGMT CONSULT PRN (06:58)
[2022-10-21] MEDS ORDERED: GLUCAGON FOR INJ 1 MG VIAL SQ PRN (06:58)
[2022-10-21] MEDS ORDERED: GLUCOSE 10 TAB/TUBE PO PRN (06:58)
[2022-10-21] MEDS ORDERED: DEXTROSE 50% 50 ML SYRINGE IV PRN (06:58)
[2022-10-21] MEDS ORDERED: GLUCOSE 40% GEL 15 GM TUBE PO PRN (06:58)
--- NOTE | 2022-10-21 08:00 | Pulmonary Consultation ---
Date of Consultation October 21, 2022 Assessment & Plan (1) Mediastinal adenopathy: (2) Interstitial lung disease: (3) Sarcoidosis: (4) Acute respiratory failure with hypoxia: (5) Sleep apnea: Sleep apnea type: unspecified type Qualified Code(s): G47.30 - Sleep apnea, unspecified Plan 72-year-old female past medical history of biopsy-proven sarcoidosis since 2018 not on any treatment, hypertension, dyslipidemia, KEE on CPAP, HFpEF presented to the hospital for shortness of breath CT chest 10/20/2022 personally reviewed: Increase reticular markings on the periphery of bilateral lower lobes, early honeycombing appreciated in the right lower lobe Mediastinal lymphadenopathy especially station 7 with calcified mediastinal lymph nodes No pleural effusion 2D echo 07/29/2022: EF 60-65%, diastolic dysfunction, RV normal in size and function --Acute hypoxic respiratory failure Multifactorial CT chest does show chronic interstitial thickening does not seem to be significantly worsened compared to before Does have HFpEF with elevated BNP at presentation CRP less than 0.5, ESR 98, BNP 181 Respiratory bio fire negative for everything including COVID-19, influenza A/B and RSV TSH 1.18 -- Sarcoidosis-ILD with restrictive lung disease History of sarcoidosis, biopsy-proven in 2018 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 Likely represents burnt out sarcoidosis. 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 PFT 12/20/2021: Mild restrictive lung dysfunction, severe decrease in DLCO, no obstructive lung dysfunction FVC 2.10 L 88%, FEV1 1.74 L 94%, TLC 75%, DLCO 39%, DLCO/VA 55% -- KEE on CPAP Continue with CPAP nightly --Ex-smoker Approximately [id number] smoking history Quit at the age of 65 Patient is supposed to be on Breo but has not been using it for a long time, I am not sure if it is making any difference -- Dizziness on exertion I am not sure if there is a pulmonary etiology for this Defer to primary team to work-up on this Plan: Continue with diuretics Add guaifenesin-DM to be used [id number] for the cough Check for oxygen requirement on exertion prior to discharge Please note the above document was generated using voice recognition software. It may contain grammatical, syntax or spelling errors.Any formal questions or concerns about the content, text or information contained within the body of this dictation should be directly addressed to the provider for clarification. History of Present Illness Attending Physician: Colby Reed MD History of Present Illness 72-year-old female presented to the hospital with complaints of shortness of br eath Past medical history: Biopsy-proven sarcoidosis diagnosed 2017, HFpEF, diabetes, depression/anxiety, GERD, hypothyroidism, KEE on CPAP, migraine Pulmonary consulted for hypoxia Patient follows up with Dr. Parker, he saw the patient last on 05/19/2021 At the time of examination patient was not in any respiratory distress. She was saturating 97-98% on 2 L nasal cannula at rest. Patient says that she is usually having issues with shortness of breath especially on exertion. She is associated with dizziness. Denies any chest pain, no chest tightness, no wheezing, no diaphoresis at that t lizzette. She does cough and is able to bring up clear phlegm denies any significant chest congestion Denies hemoptysis No fever or chills, no dysuria, no diarrhea. 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 No birds or poultry nearby History of lung cancer in brother who was a smoker Allergies Allergy/AdvReac Type Severity Reaction Status Date / Time No Known Allergies Allergy Verified 10/20/22 15:42 Home Medications Medication Instructions Recorded Confirmed Type aspirin 81 mg tablet,delayed 81 mg PO DAILY 10/20/22 10/20/22 History release atorvastatin 80 mg tablet 80 mg PO HS 10/20/22 10/20/22 History benzonatate 100 mg capsule 100 mg PO TID PRN Cough 10/20/22 10/20/22 History cholecalciferol (vitamin D3) 50 50 mcg PO DAILY 10/20/22 10/20/22 History mcg (2,000 unit) tablet (Vitamin D3) cyanocobalamin (vitamin B-12) 500 1,000 mcg PO DAILY 10/20/22 10/20/22 History mcg tablet (Vitamin B-12) erenumab-aooe 70 mg/mL 70 mg subcut .[id number] 10/20/22 10/20/22 History subcutaneous auto-injector (Aimovig Autoinjector) ezetimibe 10 mg tablet 10 mg PO HS 10/20/22 10/20/22 History fluticasone furoate 100 1 inh inhalation DAILY 10/20/22 10/20/22 History mcg-vilanterol 25 mcg/dose inhalation powder (Breo Ellipta) furosemide 40 mg tablet (Lasix) 40 mg PO DAILY 10/20/22 10/20/22 History insulin aspar prot-insulin aspart 30 unit subcut BID 10/20/22 10/20/22 History 100 unit/mL (70-30) subcutaneous pen (Novolog Mix 70-30FlexPen U-100) latanoprost 0.005 % eye drops 1 drp ophthalmic (eye) HS 10/20/22 10/20/22 History levothyroxine 150 mcg tablet 150 mcg PO Q2D 10/20/22 10/20/22 History levothyroxine 175 mcg tablet 175 mcg PO Q2D 10/20/22 10/20/22 History lorazepam 0.5 mg tablet 0.5 mg PO Q12 PRN Anxiety 10/20/22 10/20/22 History losartan 25 mg tablet 25 mg PO DAILY 10/20/22 10/20/22 History metoprolol succinate 25 mg 25 mg PO DAILY 10/20/22 10/20/22 History tablet,extended release 24 hr ondansetron HCl 4 mg tablet 4 mg PO Q6H PRN Nausea 10/20/22 10/20/22 History pantoprazole 40 mg tablet,delayed 40 mg PO BID 10/20/22 10/20/22 History release sertraline 25 mg tablet 25 mg PO DAILY 10/20/22 10/20/22 History sitagliptin phosphate 50 mg tablet 50 mg PO QAM 10/20/22 10/20/22 History (Januvia) sucralfate 1 gram tablet 1 g PO ACHS 10/20/22 10/20/22 History trazodone 50 mg tablet 50 mg PO HS 10/20/22 10/20/22 History Patient History Medical History Acute on chronic diastolic CHF (congestive heart failure) Anemia HX Angina pectoris, crescendo Anxiety Chronic kidney disease Chronic obstructive pulmonary disease well controlled per pt> no inhalers Cirrhosis, non-alcoholic Compartment syndrome of lower extremity, traumatic resolved Depression Diabetes mellitus, type 2 IDDM 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 Dyspnea on exertion Edema all over per pt > related to thyroid problems per pt GERD (gastroesophageal reflux disease) Glaucoma Hiatal hernia Hx of deep venous thrombosis R LEG following cath in 2018 Hyperlipidemia Hypertension Hypothyroidism Migraine Myocardial Infarction HX 2011 Osteoarthritis Sarcoidosis Shortness of breath Sleep apnea CPAP HS Transient ischemic attack (TIA) last one 2018> has had several per pt HX PAST YR-F/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 NAME?-[facility] R LEG/ARM Surgical History H/O lymph node excision NECK -BENIGN H/O neck surgery WITH BONE FUSION> ROM WNL History of appendectomy History of cardiac cath X 3-LAST ON 02/2020 1 stent placed History of carpal tunnel release RIGHT History of section X 3 History of cholecystectomy History of colonoscopy History of esophagogastroduodenoscopy (EGD) History of fasciotomy FASCIOTOMY FOR COMPARTMENT SYNDROME RLE History of herniorrhaphy R/L History of hysterectomy OVARIES History of surgery Right femoral artery thrombectomy with patch angioplasty-February 2018 Stented coronary artery Feb 2020 > [facility] > follows with Dr. De Leon Family History Brother Family history of diabetes mellitus Daughter Family history of diabetes mellitus Mother Family history of diabetes mellitus Myocardial infarction Family history of irritable bowel syndrome Father History of colon resection Prostate cancer Family history of diabetes mellitus Myocardial infarction Colorectal cancer Grandmother History of colon resection Other No family history of adverse response to anesthesia Denies family history of Ovarian cancer Breast cancer Social History Smoking Status: Former smoker Tobacco Type: Cigarettes Age Started Using Tobacco: 18; Age Quit Using Tobacco: 62; packs per day: 2; Cigarettes Per Day: 40; Second Hand Exposure: No; Hx Alcohol Use: No Hx Substance Use: No Preferred Language: Occitan Communication Ability: Effective Visual Impairment: Diminished Hearing Ability: Hard of Hearing 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 Beliefs That Will Affect Care: None marital status: Current Living Situation: Family Current Living Situation Comment: Lives with daughter current occupational status: employed current occupation: [employer] How many Children do You have: 3 Other Information That Helps Us Care for You: No Feels Safe at Home: Yes Safety Concerns: Feels Safe At This Time Childhood Exposure to Second-Hand Smoke: Yes caffeine: Yes during the past year weight has: increased > 10 lbs Dental Care, Regularly: Yes Physical Activity Frequency: Daily Seatbelt Use: never Sunscreen Use: Yes Assistive Devices: CPAP and Glasses Review of Systems Review of Systems: All systems reviewed & are unremarkable except as noted in HPI & below Physical Exam Physical Exam: Constitutional: No acute distress HEENT: EOMI, PERRLA Respiratory system: Decreased air entry bilaterally, no wheeze, rhonchi, positive Velcro-like crackles appreciated bilateral lower lobes more on the right side CVS: S1-S2 positive, no murmurs or gallops Abdomen: Soft, nontender, nondistended, positive bowel sounds x4 Extremities: +2 pulses bilaterally radialis/ dorsalis pedis, no cyanosis, no edema, No clubbing Neuro: Awake alert oriented x3 Psych: Normal mood and affect G/U: No Steiner Skin: no rashes, warm and dry Lymphatic: no cervical or axillary lymphadenopathy Results & Data Results & Data Vital Signs (Past 12 Hours) Vital Signs Temp Pulse Pulse Resp BP BP Pulse Ox 10/21/22 07:27 62 10/21/22 04:00 37.0 C 63 18 126/65 98 10/20/22 23:00 10/20/22 23:00 36.7 C 75 20 152/69 H 93 10/20/22 22:04 78 10/20/22 23:00 36.8 C 81 18 139/85 98 10/20/22 20:33 10/20/22 20:01 68 12 100 10/20/22 20:01 166/84 H 10/20/22 20:00 71 15 95 O2 Del Method O2 Flow Rate 10/21/22 07:27 10/21/22 04:00 Nasal Cannula 2 10/20/22 23:00 Nasal Cannula 2 10/20/22 23:00 Nasal Cannula 2 10/20/22 22:04 10/20/22 23:00 Nasal Cannula 2 10/20/22 20:33 Room Air 10/20/22 20:01 10/20/22 20:01 10/20/22 20:00 Laboratory Results 10/20/22 13:16 10/20/22 13:16 PG Care Time/CCT Total # of Minutes Spent Total Time Spent with Patient: Total time spent is greater than 50% in coordination of care (as documented) at patient's floor/unit and/or counseling patient: Coding Level of Care Code 56983 INT INP/OBS CARE 3/75MIN Diagnoses Mediastinal adenopathy R59.0 Interstitial lung disease J84.9 Sarcoidosis D86.9 Acute respiratory failure with hypoxia J96.01 Sleep apnea G47.30 Sleep apnea type: unspecified type
[2022-10-21] MEDS: ASPIRIN 81 MG ECTAB PO SCH (08:32)
[2022-10-21] MEDS: PANTOprazole 40 MG TAB PO SCH ×2 (08:32→20:12)
[2022-10-21] MEDS: SERTRALINE HCL 50 MG TABLET PO SCH (08:33)
[2022-10-21] MEDS: CYANOCOBALAMIN (B-12) 500 MCG TABLET PO SCH (08:33)
[2022-10-21] MEDS: METOPROLOL SUCC 25MG EXT REL TAB PO SCH (08:33)
[2022-10-21] MEDS: CHOLECALCIFEROL 1,000 UNITS 25 MCG TAB PO SCH (08:34)
[2022-10-21] MEDS: FUROSEMIDE 40 MG TAB PO SCH (08:34)
[2022-10-21] MEDS: FLUTICASONE/VILANTEROL 100/25MCG 14 PUFFS/INHALER INH SCH (08:36)
[2022-10-21] MEDS: INSULIN ASPART PER UNIT CHARGE SC SCH ×4 (08:44→20:31)
[2022-10-21] MEDS ORDERED: LANTUS PER UNIT CHARGE SQ SCH ×2 (09:00→12:00)
--- NOTE | 2022-10-21 09:34 | Pharmacy Report ---
Pharmacy Glycemic Short Note 2 - Date of Service October 21, 2022 - Glycemic Short BSG Results (Last 24 hours): 10/20/22 10/20/22 10/21/22 13:16 21:26 07:42 Glucose 257 H POC Glucose 188 H 228 H OUTPATIENT ANTIDIABETIC REGIMEN: * Novolog 70/30 mix- 30 units SQ BID * Januvia 50 mg PO QAM ASSESSMENT: * Aleksandra Dodd is a 72 year old type 2 diabetic patient who presents to the ED for evaluation of hypoxia upon referral from PCP due to low O2 saturations at home. Diabetes is poorly controlled (A1C: 11.4% on 10/06/22) with an outpatient regimen of Novolog 70/30 mix 30 units BID and Januvia 50 mg QAM. * BSG's yesterday (10/20/22) were 257 mg/dL at lunchtime and 188 mg/dL at bedtime. No insulin was ordered or given overnight. * Fasting BSG came back this morning at 228 mg/dL. Lantus 25 units was ordered f or this morning and bolus insulin parameters were set at CF:15,CR:5. This is a similar basal/bolus regimen to previous admissions. Lunchtime BSG was 284 mg/dL and an additional 20 units of Lantus was ordered for lunchtime. Bolus insulin parameters were tightened to CF:12,CR:4. PLAN FOR INPATIENT GLYCEMIC CONTROL: * Hold outpatient oral diabetes medications * Basal insulin * Lantus 25 units SQ once on 10/21/22 AM and Lantus 20 units SQ once on 10/21/22 at lunchtime. * Bolus insulin * NovoLog per scale ACHS or Q6hrs while NPO * Goal Range: Low mg/dL 110 - High 140 mg/dL * Correction Factor: 12 mg/dL/unit * Nutritional / Prandial insulin per carb ratio of 1 unit per 4 grams CHO consumed
--- NOTE | 2022-10-21 11:15 | Cardiology Consultation ---
Date of Consultation October 21, 2022 Assessment & Plan (1) CAD (coronary artery disease): (2) Dizziness: (3) Syncope: (4) Hypotension: Plan 1. Dizziness: Unclear if this is related exclusively to orthostatic hypotension. She does seem to have had similar symptoms in the past which were attributed to low blood pressure. Perhaps these are somewhat worse with reinstitution of losartan a few months ago. It would seem reasonable discontinue losartan. Also reasonable to consider a switch from metoprolol to amlodipine if she is felt to have Raynaud syndrome. She seems to be feeling much better today. Will repeat her orthostatic vital signs and see what her blood pressure is when ambulating. 2. Syncope: Her episode of syncope sounds vagally mediated. She has had similar symptoms in the past. These have been attributed to neurocardiogenic syncope. She does have a prodrome recognizes the symptoms and has been encouraged to sit or lie down at the onset in order to avoid injury on possibly syncope. 3. Coronary disease: Nonobstructive. She has had chest pain for some time. She has been tried on antianginal previously without any benefit. No think her current symptoms are suggestive of progression. She should continue aggressive secondary prevention with a daily aspirin, Zetia and high-dose atorvastatin. 4. Hypotension: Possibly related to medications. Possibly an element of autonomic dysfunction. Will repeat her orthostatic vital signs and monitor her heart rate response with activity. I would consider discontinuing the losartan. Metoprolol can be changed as noted above if necessary. 5. Hypoxemia: She is thought to have an element of heart failure with preserved ejection fraction. She takes daily diuretic. Currently she appears euvolemic. Do not think she requires any additional aggressive diuresis. History of Present Illness Reason for Consultation: Dizziness Requesting Physician: Sue Attending Physician: Colby Reed MD History of Present Illness The patient is a 72-year-old woman with a history of hypertension, hyperlipidemia, nonobstructive coronary disease, presumed heart failure with preserved ejection fraction, diabetes mellitus, sarcoidosis and chronic kidney disease who presented to the hospital with symptoms of hypoxemia. Recently she was at [facility] after suffering an episode of syncope at work. She states that she was upright at that time. She remembers her typical prodr ome which involves a sense of dizziness and diaphoresis before feeling quite drained and reportedly passing out. She was brought by ambulance to the hospital. No particular intervention was performed. She recalls this is a very common episode of which she has had many over the years. Recently she also went to [facility] with symptoms of shortness of breath and hypoxemia. She has pulse oximeter which demonstrates low oxygen saturations at times. She had an extensive evaluation at that facility for breathing difficulty and low oxygen levels. She was discharged and presented to our facility 1 day later at the direction of her PCP for persistent hypoxemia. Patient states she also has exertional symptoms of shortness of breath and dizziness. These have been longstanding in nature. They seem to wax and wane in severity. She feels that over the past several weeks the symptoms have been somewhat worse. She did not endorse symptoms of exertional chest discomfort. She claims to be sleeping well at home and uses CPAP at nighttime. She does report worsening fatigue lately. Allergies Allergy/AdvReac Type Severity Reaction Status Date / Time No Known Allergies Allergy Verified 10/20/22 15:42 Home Medications Medication Instructions Recorded Confirmed Type aspirin 81 mg tablet,delayed 81 mg PO DAILY 10/20/22 10/20/22 History release atorvastatin 80 mg tablet 80 mg PO HS 10/20/22 10/20/22 History benzonatate 100 mg capsule 100 mg PO TID PRN Cough 10/20/22 10/20/22 History cholecalciferol (vitamin D3) 50 50 mcg PO DAILY 10/20/22 10/20/22 History mcg (2,000 unit) tablet (Vitamin D3) cyanocobalamin (vitamin B-12) 500 1,000 mcg PO DAILY 10/20/22 10/20/22 History mcg tablet (Vitamin B-12) erenumab-aooe 70 mg/mL 70 mg subcut .[id number] 10/20/22 10/20/22 History subcutaneous auto-injector (Aimovig Autoinjector) ezetimibe 10 mg tablet 10 mg PO HS 10/20/22 10/20/22 History fluticasone furoate 100 1 inh inhalation DAILY 10/20/22 10/20/22 History mcg-vilanterol 25 mcg/dose inhalation powder (Breo Ellipta) furosemide 40 mg tablet (Lasix) 40 mg PO DAILY 10/20/22 10/20/22 History insulin aspar prot-insulin aspart 30 unit subcut BID 10/20/22 10/20/22 History 100 unit/mL (70-30) subcutaneous pen (Novolog Mix 70-30FlexPen U-100) latanoprost 0.005 % eye drops 1 drp ophthalmic (eye) HS 10/20/22 10/20/22 History levothyroxine 150 mcg tablet 150 mcg PO Q2D 10/20/22 10/20/22 History levothyroxine 175 mcg tablet 175 mcg PO Q2D 10/20/22 10/20/22 History lorazepam 0.5 mg tablet 0.5 mg PO Q12 PRN Anxiety 10/20/22 10/20/22 History losartan 25 mg tablet 25 mg PO DAILY 10/20/22 10/20/22 History metoprolol succinate 25 mg 25 mg PO DAILY 10/20/22 10/20/22 History tablet,extended release 24 hr ondansetron HCl 4 mg tablet 4 mg PO Q6H PRN Nausea 10/20/22 10/20/22 History pantoprazole 40 mg tablet,delayed 40 mg PO BID 10/20/22 10/20/22 History release sertraline 25 mg tablet 25 mg PO DAILY 10/20/22 10/20/22 History sitagliptin phosphate 50 mg tablet 50 mg PO QAM 10/20/22 10/20/22 History (Januvia) sucralfate 1 gram tablet 1 g PO ACHS 10/20/22 10/20/22 History trazodone 50 mg tablet 50 mg PO HS 10/20/22 10/20/22 History Patient History Medical History Acute on chronic diastolic CHF (congestive heart failure) Anemia HX Angina pectoris, crescendo Anxiety Chronic kidney disease Chronic obstructive pulmonary disease well controlled per pt> no inhalers Cirrhosis, non-alcoholic Compartment syndrome of lower extremity, traumatic resolved Depression Diabetes mellitus, type 2 IDDM 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 Dyspnea on exertion Edema all over per pt > related to thyroid problems per pt GERD (gastroesophageal reflux disease) Glaucoma Hiatal hernia Hx of deep venous thrombosis R LEG following cath in 2018 Hyperlipidemia Hypertension Hypothyroidism Migraine Myocardial Infarction HX 2011 Osteoarthritis Sarcoidosis Shortness of breath Sleep apnea CPAP HS Transient ischemic attack (TIA) last one 2018> has had several per pt HX PAST YR-F/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 NAME ?-[facility] R LEG/ARM Surgical History H/O lymph node excision NECK -BENIGN H/O neck surgery WITH BONE FUSION> ROM WNL History of appendectomy History of cardiac cath X 3-LAST ON 02/2020 1 stent placed History of carpal tunnel release RIGHT History of section X 3 History of cholecystectomy History of colonoscopy History of esophagogastroduodenoscopy (EGD) History of fasciotomy FASCIOTOMY FOR COMPARTMENT SYNDROME RLE History of herniorrhaphy R/L History of hysterectomy OVARIES History of surgery Right femoral artery thrombectomy with patch angioplasty-February 2018 Stented coronary artery Feb 2020 > [facility] > follows with Dr. De Leon Family History Brother Family history of diabetes mellitus Daughter Family history of diabetes mellitus Mother Family history of diabetes mellitus Myocardial infarction Family history of irritable bowel syndrome Father History of colon resection Prostate cancer Family history of diabetes mellitus Myocardial infarction Colorectal cancer Grandmother History of colon resection Other No family history of adverse response to anesthesia Denies family history of Ovarian cancer Breast cancer Social History Smoking Status: Former smoker Tobacco Type: Cigarettes Age Started Using Tobacco: 18; Age Quit Using Tobacco: 62; packs per day: 2; Cigarettes Per Day: 40; Second Hand Exposure: No; Hx Alcohol Use: No Hx Substance Use: No Preferred Language: Eritrean Communication Ability: Effective Visual Impairment: Diminished Hearing Ability: Hard of Hearing Paraffiner Required: No Beliefs That Will Affect Care: None marital status: Current Living Situation: Family Current Living Situation Comment: Lives with daughter current occupational status: employed current occupation: [employer] How many Children do You have: 3 Other Information That Helps Us Care for You: No Feels Safe at Home: Yes Safety Concerns: Feels Safe At This Time Childhood Exposure to Second-Hand Smoke: Yes caffeine: Yes during the past year weight has: increased > 10 lbs Dental Care, Regularly: Yes Physical Activity Frequency: Daily Seatbelt Use: never Sunscreen Use: Yes Assistive Devices: CPAP and Glasses Review of Systems Review of Systems: Per HPI Physical Exam Physical Exam: She is alert and oriented x3. Mood affect appear normal. She answered all questions appropriately. HEENT: Sclerae are anicteric. Pupils are equal and reactive to light and accommodation. Extraocular movements were intact. Neuro: Cranial nerves intact Neck: Examination of the submandibular region did not reveal any significant lymphadenopathy. Carotids are palpable bilaterally and free of bruits on auscultation. There was no evidence of jugular venous distention. The thyroid was not enlarged. Lungs: Lungs are clear to auscultation bilaterally. There are no rales wheezes or rhonchi. She has normal respiratory effort without use of accessory muscles. There is normal pulmonary excursion. Cardiac: The rhythm was regular. S1 and S2 were normal. There are no murmurs on examination. The PMI was not markedly displaced on palpation. Abdomen: The abdomen was soft and nontender. Extremities: Patient has bilateral radial pulses that are equal in intensity although diminished. There is no evidence cyanosis or clubbing. There was no evidence of significant peripheral edema bilaterally. Skin: There are no rashes noted on examination today. Results & Data Vital Signs (Past 12 Hours) Vital Signs Temp Pulse Pulse Resp BP Pulse Ox O2 Del Method 10/21/22 10:05 79 18 130/67 95 Room Air 10/21/22 07:59 37 C 69 20 108/69 98 Nasal Cannula 10/21/22 07:27 62 10/21/22 04:00 37.0 C 63 18 126/65 98 Nasal Cannula O2 Flow Rate 10/21/22 10:05 10/21/22 07:59 2 10/21/22 07:27 10/21/22 04:00 2 Laboratory Results Abnormal Lab Results 10/20/22 10/20/22 10/20/22 13:16 13:16 13:16 WBC 8.12 RBC 4.19 L Hgb 10.4 L Hct 34.1 L MCV 81.4 MCH 24.8 L MCHC 30.5 L RDW Std Deviation 44.5 RDW Coeff of Nicole 15.0 H Plt Count 230 MPV 10.3 Immature Gran % (Auto) 0.2 Neut % (Auto) 53.6 Lymph % (Auto) 31.3 Alpine % (Auto) 9.0 Eos % (Auto) 5.4 Baso % (Auto) 0.5 Neut # (Auto) 4.35 Lymph # (Auto) 2.54 Alpine # (Auto) 0.73 H Eos # (Auto) 0.44 Baso # (Auto) 0.04 Immature Gran # (Auto) 0.02 ESR D-Dimer Carboxyhemoglobin Methemoglobin Sodium 136 Potassium 4.7 Chloride 99 Carbon Dioxide 31 Anion Gap 6 BUN 28 H Creatinine 1.41 H Est Cr Clr Drug Dosing Not Reportable Est GFR ( Amer) 43.6 Est GFR (Non-Af Amer) 37.6 BUN/Creatinine Ratio 19.9 Glucose 257 H POC Glucose Calcium 9.7 Total Bilirubin 0.3 AST 26 ALT 21 Alkaline Phosphatase 66 Troponin I High Sens 5.8 C-Reactive Protein B-Natriuretic Peptide 181 H Total Protein 8.0 Albumin 4.0 Globulin 4.0 Albumin/Globulin Ratio 1.0 Lipase 76 Adenovirus (PCR) B. pertussis DNA (PCR) B.parapertussis DNA PCR C. pneumoniae DNA (PCR) Coronavirus OC43 (PCR) Coronavirus HKU1 (PCR) Coronavirus 229E (PCR) SARS-CoV-2 (PCR) Coronavirus NL63 (PCR) Human Metapneumovir PCR Influenza Type A (PCR) Influenza Type B (PCR) M. pneumoniae (PCR) Parainfluenza 1 (PCR) Parainfluenza 2 (PCR) Parainfluenza 3 (PCR) Parainfluenza 4 (PCR) RSV (PCR) Entero/Rhino (PCR) 10/20/22 10/20/22 10/20/22 13:18 15:29 17:39 WBC RBC Hgb Hct MCV MCH MCHC RDW Std Deviation RDW Coeff of Nicole Plt Count MPV Immature Gran % (Auto) Neut % (Auto) Lymph % (Auto) Alpine % (Auto) Eos % (Auto) Baso % (Auto) Neut # (Auto) Lymph # (Auto) Alpine # (Auto) Eos # (Auto) Baso # (Auto) Immature Gran # (Auto) ESR D-Dimer 3350 H* Carboxyhemoglobin 0.8 Methemoglobin < 0.7 Sodium Potassium Chloride Carbon Dioxide Anion Gap BUN Creatinine Est Cr Clr Drug Dosing Est GFR ( Amer) Est GFR (Non-Af Amer) BUN/Creatinine Ratio Glucose POC Glucose Calcium Total Bilirubin AST ALT Alkaline Phosphatase Troponin I High Sens C-Reactive Protein B-Natriuretic Peptide Total Protein Albumin Globulin Albumin/Globulin Ratio Lipase Adenovirus (PCR) Not Detected B. pertussis DNA (PCR) Not Detected B.parapertussis DNA PCR Not Detected C. pneumoniae DNA (PCR) Not Detected Coronavirus OC43 (PCR) Not Detected Coronavirus HKU1 (PCR) Not Detected Coronavirus 229E (PCR) Not Detected SARS-CoV-2 (PCR) Not Detected Coronavirus NL63 (PCR) Not Detected Human Metapneumovir PCR Not Detected Influenza Type A (PCR) Not Detected Influenza Type B (PCR) Not Detected M. pneumoniae (PCR) Not Detected Parainfluenza 1 (PCR) Not Detected Parainfluenza 2 (PCR) Not Detected Parainfluenza 3 (PCR) Not Detected Parainfluenza 4 (PCR) Not Detected RSV (PCR) Not Detected Entero/Rhino (PCR) Not Detected 10/20/22 10/20/22 10/20/22 17:41 20:51 21:26 WBC RBC Hgb Hct MCV MCH MCHC RDW Std Deviation RDW Coeff of Nicole Plt Count MPV Immature Gran % (Auto) Neut % (Auto) Lymph % (Auto) Alpine % (Auto) Eos % (Auto) Baso % (Auto) Neut # (Auto) Lymph # (Auto) Alpine # (Auto) Eos # (Auto) Baso # (Auto) Immature Gran # (Auto) ESR 98 H D-Dimer Carboxyhemoglobin Methemoglobin Sodium Potassium Chloride Carbon Dioxide Anion Gap BUN Creatinine Est Cr Clr Drug Dosing Est GFR ( Amer) Est GFR (Non-Af Amer) BUN/Creatinine Ratio Glucose POC Glucose 188 H Calcium Total Bilirubin AST ALT Alkaline Phosphatase Troponin I High Sens C-Reactive Protein < 0.50 B-Natriuretic Peptide Total Protein Albumin Globulin Albumin/Globulin Ratio Lipase Adenovirus (PCR) B. pertussis DNA (PCR) B.parapertussis DNA PCR C. pneumoniae DNA (PCR) Coronavirus OC43 (PCR) Coronavirus HKU1 (PCR) Coronavirus 229E (PCR) SARS-CoV-2 (PCR) Coronavirus NL63 (PCR) Human Metapneumovir PCR Influenza Type A (PCR) Influenza Type B (PCR) M. pneumoniae (PCR) Parainfluenza 1 (PCR) Parainfluenza 2 (PCR) Parainfluenza 3 (PCR) Parainfluenza 4 (PCR) RSV (PCR) Entero/Rhino (PCR) 10/21/22 10/21/22 07:42 08:17 WBC RBC Hgb Hct MCV MCH MCHC RDW Std Deviation RDW Coeff of Nicole Plt Count MPV Immature Gran % (Auto) Neut % (Auto) Lymph % (Auto) Alpine % (Auto) Eos % (Auto) Baso % (Auto) Neut # (Auto) Lymph # (Auto) Alpine # (Auto) Eos # (Auto) Baso # (Auto) Immature Gran # (Auto) ESR D-Dimer Carboxyhemoglobin Methemoglobin Sodium Potassium Chloride Carbon Dioxide Anion Gap BUN Creatinine Est Cr Clr Drug Dosing Est GFR ( Amer) Est GFR (Non-Af Amer) BUN/Creatinine Ratio Glucose POC Glucose 228 H Calcium Total Bilirubin AST ALT Alkaline Phosphatase Troponin I High Sens C-Reactive Protein B-Natriuretic Peptide 129 H Total Protein Albumin Globulin Albumin/Globulin Ratio Lipase Adenovirus (PCR) B. pertussis DNA (PCR) B.parapertussis DNA PCR C. pneumoniae DNA (PCR) Coronavirus OC43 (PCR) Coronavirus HKU1 (PCR) Coronavirus 229E (PCR) SARS-CoV-2 (PCR) Coronavirus NL63 (PCR) Human Metapneumovir PCR Influenza Type A (PCR) Influenza Type B (PCR) M. pneumoniae (PCR) Parainfluenza 1 (PCR) Parainfluenza 2 (PCR) Parainfluenza 3 (PCR) Parainfluenza 4 (PCR) RSV (PCR) Entero/Rhino (PCR) Diagnostic Findings Chest x-ray was obtained the time admission which did not reveal any acute cardiopulmonary process. No pulmonary edema. Chest CTA was also performed no pulmonary embolus was seen. Fibrotic changes in the lungs with mediastinal nodules consistent with granulomatous disease. Possible cirrhosis Echocardiogram dated 10/19/2022 performed at [facility]: Normal LV systolic function. Normal right ventricular function. Mild left atrial dilation. Trace aortic regurgitation and mild aortic stenosis. Normal PA pressures. Trace pericardial effusion. Cardiac catheterization performed 03/24/2021: Normal left main, 50% mid LAD, small 1st diagonal with 70% ostial stenosis. 40-50% mid circumflex disease. Luminal regularities involving the right coronary artery. ECG Additional Comments: EKG obtained the time admission revealed normal sinus rhythm with poor R-wave progression in precordial leads concerning for old anterior myocardial infarction. No acute changes peer PG Care Time/CCT Total # of Minutes Spent Total Time Spent with Patient: Total time spent is greater than 50% in coordination of care (as documented) at patient's floor/unit and/or counseling patient: Coding Level of Care Code 60210 INT INP/OBS CARE MIN Diagnoses CAD (coronary artery disease) I25.10 Dizziness R42 Syncope R55 Hypotension I95.9
[2022-10-21] MEDS: guaiFENesin/DEXTROM SYRUP 200MG/20MG 10ML UDC PO SCH ×2 (13:43→21:14)
--- NOTE | 2022-10-21 17:44 | Discharge Summary ---
Date of Service October 21, 2022 Admission HPI Per Admitting Provider Aleksandra Dodd is a 72 year old female who presents to the ER on the advice of her PCP due to low oxygen saturations at home. She was recently admitted to [facility] followed by Neely Washingtonmariela Snowden for similar symptoms. Her admission to [facility] was promted by a syncopal episode. Her admission to [facility] was prompted more by shortness of breath on exertion with hypoxia. She had extensive workup including V/Q scan and echocardiogram at [place] which did not show a cause of her shortness of breath and hypoxia. 2 step on discharge day showed she did not require oxygen therefore she was sent home without any. She was due to follow up with her PCP today but noticed her O2 sats went down to 70% on room air therefore was advised to home to the ER for further evaluation. She denies any fever, chills, nasal congestion, new cough, chest pain, abdominal pain. She reports slow progressive worsening shortness of breath on exertion and orthostasis on standing and exertion over the last 2 months. She feels like no one can figure out what is going on. In the ER O2 sats at times are 96% on room air. I ambulated her around the room and she became heavily symptomatic with presyncope and diaphoresis and on repeat O2 sats following this she remained with O2 sats 94% on room air. However with good wave form there was no denying at times her O2 sats persistently remained at times 84% at rest. Pt feels well, has been cleared by cardio for dc and is very enthused about dc to home. Principal Diagnosis dizziness with near syncope Discharge Exam WDWN WF in NAD Constitutional WD/WN, vitals as above Neck trachea midline, no thyromegaly Respiratory normal respiratory effort, lungs clear to auscultation Cardiovascular RRR, no murmur, no edema Gastrointestinal (Abdomen) normal bowel sounds, soft, nontender, no hepatosplenomegaly Musculoskeletal no cyanosis or clubbing, extremities motor strength 5/5 Discharge Data Allergies Allergy/AdvReac Type Severity Reaction Status Date / Time No Known Allergies Allergy Verified 10/20/22 15:42 Consultations 10/20/22 17:13 ED Decision to Admit Stat 10/20/22 22:04 Consult Pulmonology Routine 10/21/22 06:47 Consult Cardiology Routine Ordered Studies 10/20/22 14:22 CT angio chest PE protocol Stat Hospital Course (1) Hypoxemia: Suspect we are picking up hypoxia in finger tips due to Raynauds. Appears to have fully resolved with SaO2 98% on room air (2) Pre-syncope: Suspect orthostasis since restarting on losartan by nephrology in July although given multiple hospitalization at outside hospitals it is difficult to put a timeline of medications together. Her hypoxia does not appear to match when she is symptomatic therefore suspect her symptoms more down to her BP rather than hypoxia. Cardio, Dr. Henderson, would like to stop her Losartan and evaluate her in the office (3) Raynaud disease: Decision on metoprolol will be made when she is in the office Will stop losartan given clinical correlation with symptoms currently (4) (HFpEF) heart failure with preserved ejection fraction: Continue her usual dose of Lasix 40mg PO daily (5) Sarcoidosis: ESR/CRP (6) Sleep apnea: CPAP HS (7) Hypothyroidism: TSH WNL October 06 - very variable prior to this Continue her usual levothyroxine dosing on home med list (8) Hypertension: Continue lasix and metoprolol (9) GERD (gastroesophageal reflux disease): Stable Continue pantoprazole 40mg PO BID (10) Diabetes: HbA1C 11.4 Resume metformin and Januvia resume preadmit Novolog 70/30 mix 30 units BID from home Inadequate diabetic control could have a correlation with orthostatic symptoms. She will need to follow this up with her PCP (11) Depression: Continue Zoloft Plan VTE Prophylaxis - deferred on admission Diet - T2DM Disposition - observation status to med/tele Total Time Total Time Spent Total Time Spent (In Minutes): 60 Discharge Plan Discharge Items Patient Disposition: Home - Self-Care Reason For Visit: presyncope, hypoxia Discharge Diagnosis: Presyncope Raynaud's HFpEF Sarcoidosis Type 2 IDDM Condition on Discharge: Fair Activity: As commented below Activity Comment: Should not go back to work until cleared by your PCP/[employer] Work[employer] Lifting: No more than 5 pounds Bathing: No limitations Driving/Machine Use: no driving Non-emergency contact: Primary Care Provider Call non-emergency contact if: your symptoms worsen Follow-up/Referrals: Rasheed De Leon MD [Physician] - (please schedule an appointment) Vu De Paz III, CRNP [Primary Care Provider] - (please schedule an appointment) Diet: Carb Consistent or DM2 Addtl Attending Provider Instructions: Not to go back to work until cleared by PCP/Cardiology. Avoid activities that could result in falling. Hga1c was 11.4%, will need optimization of diabetic management Stand-Alone Forms: My [facility] [employer], Smoking Cessation Medications and DC Order Prescriptions: No Action furosemide [Lasix] 40 mg Tablet 40 mg PO DAILY latanoprost 0.005 % drops 1 drp ophthalmic (eye) HS levothyroxine 175 mcg tablet 175 mcg PO Q2D atorvastatin 80 mg tablet 80 mg PO HS trazodone 50 mg Tablet 50 mg PO HS sucralfate 1 gram Tablet 1 g PO ACHS ondansetron HCl 4 mg Tablet 4 mg PO Q6H PRN (Reason: Nausea) aspirin [Aspir-Low] 81 mg Tablet,Delayed Release (Dr/Ec) 81 mg PO DAILY lorazepam 0.5 mg Tablet 0.5 mg PO Q12 PRN (Reason: Anxiety) cyanocobalamin (vitamin B-12) [Vitamin B-12] 500 mcg tablet 1,000 mcg PO DAILY benzonatate 100 mg Capsule 100 mg PO TID PRN (Reason: Cough) pantoprazole 40 mg tablet,delayed release (DR/EC) 40 mg PO BID losartan 25 mg tablet 25 mg PO DAILY sertraline 25 mg tablet 25 mg PO DAILY metoprolol succinate 25 mg tablet extended release 24 hr 25 mg PO DAILY cholecalciferol (vitamin D3) [Vitamin D3] 50 mcg (2,000 unit) Tablet 50 mcg PO DAILY fluticasone furoate-vilanterol [Breo Ellipta] 100-25 mcg/dose Blister With Device 1 inh INHALATION DAILY Aimovig Autoinjector 70 mg/mL auto-injector 70 mg SUBCUT .[id number] insulin asp prt-insulin aspart [Novolog Mix 70-30FlexPen U-100] 100 unit/mL (70-30) insulin pen 30 unit SUBCUT BID levothyroxine 150 mcg tablet 150 mcg PO Q2D ezetimibe 10 mg tablet 10 mg PO HS Januvia 50 mg tablet 50 mg PO QAM Admission Data Admit Date/Time: 10/20/22 18:13 Attending Provider: Colby Reed Admit Provider: Julio Rogers Primary Care Provider: Vu De Paz III Other Providers: Julio Rogers ; Ally Rodrigues ; Marshall Henderson Coding Diagnoses Hypoxemia R09.02 Pre-syncope R55 Raynaud disease I73.00 (HFpEF) heart failure with preserved ejection fraction I50.30 Sarcoidosis D86.9 Sleep apnea G47.30 Sleep apnea type: unspecified type Hypothyroidism E03.9 Hypothyroidism type: unspecified Hypertension I10 Hypertension type: unspecified GERD (gastroesophageal reflux disease) K21.9 Diabetes E11.9; Z79.4 Diabetes mellitus type: type 2 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
--- NOTE | 2022-10-21 18:31 | Hospitalist Progress Note ---
Date of Service October 21, 2022 Assessment & Plan (1) Hypoxemia: Plan: most likely this was a false reading related to her Raynaud's (2) Pre-syncope: Plan: unclear etiology, but this could be multifactorial. Pt has been cleared by cardio to follow this up as an outpt (3) Raynaud disease: Plan: consideration for various options to evaluate further (4) (HFpEF) heart failure with preserved ejection fraction: Plan: continue usual dose of Lasix (5) Sarcoidosis: Plan: will need outpt follow up (6) Sleep apnea: Plan: continue CPAP (7) Hypothyroidism: Plan: continue Synthroid (8) Hypertension: Plan: continue Metoprolol (9) GERD (gastroesophageal reflux disease): Plan: continue PPI (10) Diabetes: Plan: a1c is 11.4%, pt told this is much too high, will need to optimize as outpt (11) Depression: Plan: continue Zologt (12) D-dimer, elevated: Plan: D-Dimer was [address]-A was performed that was negative. but venous doppler were not done Will order venous dopplers for morning, in meantime will start on full dose Lovenox at 60 mg q12h Pt put me on phone to explain this to her dgt, which I did Will cancel dc until results known Admission and Anticipated Discharge Date Admission Date: October 20, 2022 Review of Systems Review of Systems: generally feels better Constitutional: afebrile Respiratory: no symptoms Cardiovascular: Additional Comments: no chest pain Neurologic: awake, alert Physical Exam Physical Exam: WDWN in NAD Constitutional: WD/WN, vitals as above Neck: trachea midline, no thyromegaly Respiratory: normal respiratory effort, lungs clear to auscultation Cardiovascular: RRR, no murmur, no edema Gastrointestinal (Abdomen): normal bowel sounds, soft, nontender, no hepatosplenomegaly Musculoskeletal: no edema Results & Data Results & Data Vital Signs (Past 12 Hours) Vital Signs Temp Pulse Pulse Pulse Resp BP Pulse Ox 10/21/22 18:03 36.5 C 75 70 20 106/68 98 10/21/22 16:16 72 10/21/22 16:08 36.5 C 75 20 106/68 98 10/21/22 11:13 36.8 C 73 21 129/54 L 92 10/21/22 10:05 79 18 130/67 95 10/21/22 07:59 37 C 69 20 108/69 98 10/21/22 07:27 62 O2 Del Method O2 Flow Rate 10/21/22 18:03 10/21/22 16:16 10/21/22 16:08 Room Air 10/21/22 11:13 Room Air 10/21/22 10:05 Room Air 10/21/22 07:59 Nasal Cannula 2 10/21/22 07:27 PG Care Time/CCT Total # of Minutes Spent Total Time Spent with Patient: Total time spent is greater than 50% in coordination of care (as documented) at patient's floor/unit and/or counseling patient: Coding Level of Care Code 20673 SUB INP/OBS CARE 50MIN Diagnoses Hypoxemia R09.02 Pre-syncope R55 Raynaud disease I73.00 (HFpEF) heart failure with preserved ejection fraction I50.30 Sarcoidosis D86.9 Sleep apnea G47.30 Sleep apnea type: unspecified type Hypothyroidism E03.9 Hypothyroidism type: unspecified Hypertension I10 Hypertension type: unspecified GERD (gastroesophageal reflux disease) K21.9 Diabetes E11.9; Z79.4 Diabetes mellitus type: type 2 Diabetes mellitus residential insulin use: with behavioral health director use Diabetes mellitus complication status: without complication Depression F32.9 Depression Type: major depressive disorder Major depression recurrence: unspecified whether recurrent Active/Remission status: remission status unspecified D-dimer, elevated R79.89 Time Spent (min) 60 (6) Sleep apnea Sleep apnea type: unspecified type Qualified Code(s): G47.30 - Sleep apnea, unspecified (7) Hypothyroidism Hypothyroidism type: unspecified Qualified Code(s): E03.9 - Hypothyroidism, unspecified (8) Hypertension Hypertension type: unspecified Qualified Code(s): I10 - Essential (primary) hypertension (10) Diabetes Diabetes mellitus type: type 2 Diabetes mellitus residential insulin use: with residential use Diabetes mellitus complication status: without complication Qualified Code(s): E11.9 - Type 2 diabetes mellitus without complications; Z79.4 - intermediate (current) use of insulin (11) Depression Depression Type: major depressive disorder Major depression recurrence: unspecified whether recurrent Active/Remission status: remission status unspecified Qualified Code(s): F32.9 - Major depressive disorder, single episode, unspecified
[2022-10-21] MEDS: ATORVASTATIN 40 MG TAB PO SCH (20:12)
[2022-10-21] MEDS: traZODone HCL 50 MG TAB PO SCH (20:12)
[2022-10-21] MEDS: ENOXAPARIN INJ 60 MG/0.6 ML SYR SQ SCH (20:13)
[2022-10-21] MEDS: LATANOPROST 0.005% OP SOLN 2.5 ML BTL OP SCH (20:13)
--- NOTE | 2022-10-21 23:29 | Ultrasound Report ---
Exam(s): US VENOUS BILATERAL LOWER EXTREMITIES EXAM: US Duplex Bilateral Lower Extremities Veins CLINICAL HISTORY: Reason for exam: elevated D-Dimer. TECHNIQUE: Real-time duplex ultrasound scan of the bilateral lower extremity veins integrating B-mode two-dimensional vascular structure, Doppler spectral analysis, color flow Doppler imaging and compression. COMPARISON: No relevant prior studies available. FINDINGS: Right deep veins: Unremarkable. No DVT in the right common femoral, femoral, proximal deep femoral or popliteal veins. The veins demonstrate normal color flow, are normally compressible, with normal phasic flow and/or augmentation response. Right superficial veins: Unremarkable. No thrombus in the visualized right great saphenous vein. Left deep veins: Unremarkable. No DVT in the left common femoral, femoral, proximal deep femoral or popliteal veins. The veins demonstrate normal color flow, are normally compressible, with normal phasic flow and/or augmentation response. Left superficial veins: Unremarkable. No thrombus in the visualized left great saphenous vein. Soft tissues: No acute findings. No popliteal cyst. IMPRESSION: Normal bilateral lower extremity duplex venous ultrasound. Electronically signed by: Hayden Jerez MD 10/21/22 23:28 PM
[2022-10-22] MEDS: guaiFENesin/DEXTROM SYRUP 200MG/20MG 10ML UDC PO SCH (05:54)
[2022-10-22] MEDS ORDERED: LEVOTHYROXINE SODIUM 175 MCG TABLET PO SCH (06:30)
--- NOTE | 2022-10-22 08:15 | Discharge Summary ---
Date of Service October 22, 2022 Principal Diagnosis Presyncope Discharge Exam WDWN in NAD Constitutional WD/WN, vitals as above Neck trachea midline, no thyromegaly Respiratory normal respiratory effort, lungs clear to auscultation Cardiovascular RRR, no murmur, no edema Gastrointestinal (Abdomen) normal bowel sounds, soft, nontender, no hepatosplenomegaly Discharge Data Allergies Allergy/AdvReac Type Severity Reaction Status Date / Time No Known Allergies Allergy Verified 10/20/22 15:42 Consultations 10/20/22 17:13 ED Decision to Admit Stat 10/20/22 22:04 Consult Pulmonology Routine 10/21/22 06:47 Consult Cardiology Routine Ordered Studies 10/20/22 14:22 CT angio chest PE protocol Stat 10/21/22 18:40 US venous doppler [facility] Urgent Hospital Course (1) Hypoxemia: most likely this was a false reading related to her Raynaud's oxygenation in the 92-98% on room air (2) Pre-syncope: unclear etiology, but this could be multifactorial. Pt has been cleared by cardio to follow this up as an outpt. Discussed with Dr. Tyree Henderson, pt summer see Dr. De Leon in office in near future. Pt has been reinforced to avoid any activity that would increase her risk of falling. Pt asked if she would like me to call dgt to update, pt states not necessary as dgt is at work. Cardio recommends stopping Cozaar. (3) Raynaud disease: consideration for various options to evaluate further ESR 98. Unclear etiology, but may be related to her known Sarcoidosis. This will need further work up. consider Rheum evaluation (4) (HFpEF) heart failure with preserved ejection fraction: continue usual dose of Lasix (5) Sarcoidosis: will need outpt follow up. Input of Pulm appreciated, biopsy proven 2017 (6) Sleep apnea: continue CPAP (7) Hypothyroidism: continue Synthroid (8) Hypertension: continue Metoprolol (9) GERD (gastroesophageal reflux disease): continue PPI (10) Diabetes: a1c is 11.4%, pt told this is much too high, will need to optimize as outpt, she is aware (11) Depression: continue Zoloft (12) D-dimer, elevated: D-Dimer was [address]-A was performed that was negative. 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 Avoid activities that could result in falling. Hga1c was 11.4%, will need optimization of diabetic management Pending Studies at Discharge: No Stand-Alone Forms: My [facility], Smoking Cessation Medications and DC Order Prescriptions: Continued furosemide [Lasix] 40 mg Tablet 40 mg PO DAILY latanoprost 0.005 % drops 1 drp ophthalmic (eye) HS levothyroxine 175 mcg tablet 175 mcg PO Q2D atorvastatin 80 mg tablet 80 mg PO HS trazodone 50 mg Tablet 50 mg PO HS sucralfate 1 gram Tablet 1 g PO ACHS ondansetron HCl 4 mg Tablet 4 mg PO Q6H PRN (Reason: Nausea) aspirin [Aspir-Low] 81 mg Tablet,Delayed Release (Dr/Ec) 81 mg PO DAILY lorazepam 0.5 mg Tablet 0.5 mg PO Q12 PRN (Reason: Anxiety) cyanocobalamin (vitamin B-12) [Vitamin B-12] 500 mcg tablet 1,000 mcg PO DAILY benzonatate 100 mg Capsule 100 mg PO TID PRN (Reason: Cough) pantoprazole 40 mg tablet,delayed release (DR/EC) 40 mg PO BID sertraline 25 mg tablet 25 mg PO DAILY metoprolol succinate 25 mg tablet extended release 24 hr 25 mg PO DAILY cholecalciferol (vitamin D3) [Vitamin D3] 50 mcg (2,000 unit) Tablet 50 mcg PO DAILY fluticasone furoate-vilanterol [Breo Ellipta] 100-25 mcg/dose Blister With Device 1 inh INHALATION DAILY Aimovig Autoinjector 70 mg/mL auto-injector 70 mg SUBCUT .[id number] insulin asp prt-insulin aspart [Novolog Mix 70-30FlexPen U-100] 100 unit/mL (70-30) insulin pen 30 unit SUBCUT BID levothyroxine 150 mcg tablet 150 mcg PO Q2D ezetimibe 10 mg tablet 10 mg PO HS Januvia 50 mg tablet 50 mg PO QAM Discontinued losartan 25 mg tablet 25 mg PO DAILY Discharge Orders: Discharge Order (Routine); Ordered 10/22/22 Ordered By: Colby Reed Admission Data Admit Date/Time: 10/20/22 18:13 Attending Provider: Colby Reed Admit Provider: Julio Rogers Primary Care Provider: Vu De Paz III Other Providers: Julio Rogers ; Ally Rodrigues ; Marshall Henderson Other Interventions: Discharge Summary Assessment (RN) Last Done: 10/21/22 18:03 Coding Level of Care Code 59263 INP/OBS DISCH >30 MIN Diagnoses Hypoxemia R09.02 Pre-syncope R55 Raynaud disease I73.00 (HFpEF) heart failure with preserved ejection fraction I50.30 Sarcoidosis D86.9 Sleep apnea G47.30 Sleep apnea type: unspecified type Hypothyroidism E03.9 Hypothyroidism type: unspecified Hypertension I10 Hypertension type: unspecified GERD (gastroesophageal reflux disease) K21.9 Diabetes E11.9; Z79.4 Diabetes mellitus type: type 2 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
--- NOTE | 2022-10-22 08:19 | Pulmonology Progress Note ---
Date of Service October 22, 2022 Assessment & Plan (1) Mediastinal adenopathy: (2) Interstitial lung disease: (3) Sarcoidosis: (4) Acute respiratory failure with hypoxia: (5) Sleep apnea: Sleep apnea type: unspecified type Qualified Code(s): G47.30 - Sleep apnea, unspecified Plan 72-year-old female past medical history of biopsy-proven sarcoidosis since 2018 not on any treatment, hypertension, dyslipidemia, KEE on CPAP, HFpEF presented to the hospital for shortness of breath CT chest 10/20/2022 personally reviewed: Increase reticular markings on the periphery of bilateral lower lobes, early honeycombing appreciated in the right lower lobe Mediastinal lymphadenopathy especially station 7 with calcified mediastinal lymph nodes No pleural effusion 2D echo 07/29/2022: EF 60-65%, diastolic dysfunction, RV normal in size and function --Acute hypoxic respiratory failure --> resolved Multifactorial CT chest does show chronic interstitial thickening does not seem to be significantly worsened compared to before Does have HFpEF with elevated BNP at presentation CRP less than 0.5, ESR 98, BNP 181 Respiratory bio fire negative for everything including COVID-19, influenza A/B and RSV TSH 1.18 -- Sarcoidosis-ILD with restrictive lung disease History of sarcoidosis, biopsy-proven in 2018 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 Likely represents burnt out sarcoidosis. Adding steroids I do not think will be beneficial AST, ALT, alk phos, calcium within normal limit Autoimmune work-up was negative for everything except for FACILITIES DIRECTOR which was mildly positive and is not significant Anti fibrinolytics like Ofev or Esbriet can be thought of by primary airline reservation agent PFT 12/20/2021: Mild restrictive lung dysfunction, severe decrease in DLCO, no obstructive lung dysfunction FVC 2.10 L 88%, FEV1 1.74 L 94%, TLC 75%, DLCO 39%, DLCO/VA 55% -- KEE on CPAP Continue with CPAP nightly --Ex-smoker Approximately [id number] smoking history Quit at the age of 65 Patient is supposed to be on Breo but has not been using it for a long time, I am not sure if it is making any difference -- Dizziness on exertion I am not sure if there is a pulmonary etiology for this Defer to primary team to work-up on this Plan: Continue with diuretics Mucinex-DM to be used on an as-needed basis Case was discussed with RN at bedside Please note the above document was generated using voice recognition software. It may contain grammatical, syntax or spelling errors.Any formal questions or concerns about the content, text or information contained within the body of this dictation should be directly addressed to the provider for clarification. Admission and Anticipated Discharge Date Admission Date: October 20, 2022 Subjective Patient seen and examined at bedside. No acute distress, no adverse events overnight. Patient used CPAP overnight Overall she is feeling better. Denies any headache, no nausea vomiting No fever or chills Patient had a walk yesterday to see oxygen requirement on exertion and she did not qualify for it. Review of Systems Review of Systems: All systems reviewed & are unremarkable except as noted in Subjective Physical Exam Physical Exam: Constitutional: No acute distress HEENT: EOMI, PERRLA Respiratory system: Decreased air entry bilaterally, no wheeze, rhonchi, positive Velcro-like crackles appreciated bilateral lower lobes more on the right side CVS: S1-S2 positive, no murmurs or gallops Abdomen: Soft, nontender, nondistended, positive bowel sounds x4 Extremities: +2 pulses bilaterally radialis/ dorsalis pedis, no cyanosis, no edema, No clubbing Neuro: Awake alert oriented x3 Psych: Normal mood and affect G/U: No Steiner Skin: no rashes, warm and dry Lymphatic: no cervical or axillary lymphadenopathy Results & Data Results & Data Vital Signs (Past 12 Hours) Vital Signs Temp Pulse Pulse Resp BP BP Pulse Ox 10/22/22 07:35 36.7 C 72 18 147/63 H 92 10/22/22 07:15 68 10/22/22 04:00 36.8 C 61 18 116/67 95 10/22/22 02:32 14 10/22/22 00:00 78 16 92 10/21/22 22:10 71 10/21/22 23:00 36.9 C 74 18 121/54 L 91 O2 Del Method O2 Flow Rate 10/22/22 07:35 Room Air 10/22/22 07:15 10/22/22 04:00 CPAP 10/22/22 02:32 10/22/22 00:00 10/21/22 22:10 10/21/22 23:00 Nasal Cannula 3 Laboratory Results 10/20/22 13:16 10/20/22 13:16 PG Care Time/CCT Total # of Minutes Spent Total Time Spent with Patient: Total time spent is greater than 50% in coordination of care (as documented) at patient's floor/unit and/or counseling patient: Coding Level of Care Code 16473 SUB INP/OBS CARE 2/35MIN Diagnoses Mediastinal adenopathy R59.0 Interstitial lung disease J84.9 Sarcoidosis D86.9 Acute respiratory failure with hypoxia J96.01 Sleep apnea G47.30 Sleep apnea type: unspecified type
[2022-10-22] MEDS: ASPIRIN 81 MG ECTAB PO SCH (08:20)
[2022-10-22] MEDS: FLUTICASONE/VILANTEROL 100/25MCG 14 PUFFS/INHALER INH SCH (08:20)
[2022-10-22] MEDS: SUCRALFATE 1 GM TAB PO SCH (08:20)
[2022-10-22] MEDS: PANTOprazole 40 MG TAB PO SCH (08:20)
[2022-10-22] MEDS: CYANOCOBALAMIN (B-12) 500 MCG TABLET PO SCH (08:21)
[2022-10-22] MEDS: FUROSEMIDE 40 MG TAB PO SCH (08:21)
[2022-10-22] MEDS: CHOLECALCIFEROL 1,000 UNITS 25 MCG TAB PO SCH (08:21)
[2022-10-22] MEDS: METOPROLOL SUCC 25MG EXT REL TAB PO SCH (08:22)
[2022-10-22] MEDS: SERTRALINE HCL 50 MG TABLET PO SCH (08:45)
[2022-10-22] MEDS: INSULIN ASPART PER UNIT CHARGE SC SCH (08:51)
[2022-10-22] MEDS ORDERED: LANTUS PER UNIT CHARGE SQ SCH ×2 (09:00→21:00)
[2022-10-22] MEDS: ENOXAPARIN INJ 60 MG/0.6 ML SYR SQ SCH (09:35)
[2022-10-22] MEDS ORDERED: INSULIN ASPART PER UNIT CHARGE SC ONE (10:59)
[2022-10-22] MEDS ORDERED: LANTUS PER UNIT CHARGE SQ ONE (10:59)
== END 2022-10-22 11:00 | disposition home or self-care (01) ==
LOC: 2N 12:44 → ED 12:44 → SUATTDRO 18:13 → 2N 20:33